=== PATIENT | male | born 1930 | race Caucasian/White ===

== ENCOUNTER 2019-04-28 13:34 | Inpatient (IN) | payer BC | END 2019-05-04 15:15 | disposition short-term general hospital (02) | LOC: FM/S 04-29 03:07 → FER 13:34 → FM/S 04-29 11:22 ==

== ENCOUNTER 2019-05-08 13:38 | Inpatient (IN) | payer BC ==
[2019-05-08 13:58] VITALS: BMI 28.3
--- NOTE | 2019-05-08 14:57 | PDOC ---
Documentation entered by Otis Marquez SCRIBE, acting as scribe for Mag Fry MD. Mag Fry MD: This documentation has been prepared by the Alma mehta Elijah, SCRIBE, under my direction and personally reviewed by me in its entirety. I confirm that the documentation accurately reflects all work, treatment, procedures, and medical decision making performed by me. Attending Attestation - Resident Resident Name: BuckJasmeet - ED Attending Attestation I have performed the following: I have examined & evaluated the patient, The case was reviewed & discussed with the resident, I agree w/resident's findings & plan - HPI HPI: 05/08/19 14:38 The patient is an 88 year old male with a significant past medical history of HTN, HLD, prostate cancer, gout, dementia who presents to the ED via EMS with AMS. Patient was noted to have a fever of 101.3 and was brought in from [facility]. History is limited secondary to patients condition. Allergies: NKA PCP. Dr. Reich - Physicial Exam PE: 05/08/19 14:38 GENERAL: +Alert and Oriented x1. ENT: +Dry Mucous Membranes Ears normal, nares patent, oropharynx clear without exudates. NECK: Normal range of motion, supple, no nuchal rigidity LUNGS: Breath sounds equal, clear to auscultation bilaterally. No wheezes, and no crackles. HEART: Regular rate and rhythm, normal S1 and S2 without murmur, rub or gallop. ABDOMEN: Soft, nontender, normoactive bowel sounds. No guarding, no rebound. No masses palpable. EXTREMITIES: +When legs are moved Patient Yells. No edema. NEUROLOGICAL: Cranial nerves II through XII grossly intact. Normal speech. No focal neurological deficits. SKIN: Warm, Dry, normal turgor, no rashes or lesions noted. - Medical Decision Making 05/08/19 14:53 88 yo M h/o dementia, HTN, CAD, GERD, who presents to the ER due to AMS and temp of 101.3 at the custodial Pt is unable to provide any history No signs of cellulitis No diarrhea Pt does have pain with movement of his legs Will do: Sepsis orderset IVF Abx 05/08/19 14:55 EKG : Afib rate of 104 bpm, axis nml, intervals nml, no st elevation or depression (Afib is new) 05/08/19 16:33 CXR : Cardiomegaly, no infiltrate 05/08/19 16:41 Laboratory Tests 05/08/19 05/08/19 05/08/19 15:00 15:00 15:00 WBC 13.9 H Hgb 11.1 L Hct 34.0 L Plt Count 372 D Neutrophils % 82.9 H D PT with INR 15.80 H INR 1.34 H PTT (Actin FS) 28.3 Lactic Acid 2.6 H* 05/08/19 17:41 Laboratory Tests 05/08/19 15:00 Urine Blood Negative Urine Nitrite Negative Ur Leukocyte Esterase Negative Empiric abx Will admit
--- NOTE | 2019-05-08 15:45 | PDOC ---
History of Present Illness - General Chief Complaint: SIRS, Suspected/Possible Stated Complaint: AMS Time Seen by Provider: 05/08/19 14:06 History Source: EMS, Family Exam Limitations: Clinical Condition (AMS), Dementia - History of Present Illness Initial Comments: 88 yo M PMH dementia, HTN, HLD, phimosis, p/w AMS. Sent from [facility] for elevated temperature. Notably, was her on 05/04/19, found to have yeast and Proteus, given fluconazole and 05/08/19 15:43 Past History - Past Medical History Allergies/Adverse Reactions: Allergies Allergy/AdvReac Type Severity Reaction Status Date / Time No Known Allergies Allergy Verified 05/08/19 13:56 Home Medications: Ambulatory Orders Allopurinol [Zyloprim -] 100 mg PO DAILY #30 tablet 11/24/12 Amlodipine Besylate [Norvasc -] 5 mg PO DAILY 10/09/14 Labetalol HCl [Normodyne -] 200 mg PO DAILY 10/09/14 Paroxetine HCl [Paxil] 40 mg PO DAILY 10/09/14 Atorvastatin Ca [Lipitor] 20 mg PO DAILY 04/28/19 Memantine HCl [Namenda -] 5 mg PO DAILY 04/28/19 Acetaminophen [Tylenol .Regular Strength -] 650 mg PO Q6H PRN tablet 05/04/19 Albuterol Sulfate 0.5% [Ventolin 0.5% Nebulizing Soln. -] 1 amp NEB Q4H PRN amp 05/04/19 Amox-Tr/K Cl [Augmentin 875-125mg Tablet -] 1 tab PO BID@0800,1730 5 Days #10 tablet 05/04/19 Heparin - 5,000 unit SQ TID vial 05/04/19 Nystatin Cream [Mycostatin Cream -] 1 applic TP BID applic 05/04/19 Pantoprazole Sodium [Protonix -] 20 mg PO DAILY tablet.ec 05/04/19 Risperidone [Risperdal -] 0.5 mg PO BID tablet 05/04/19 Sennosides/Docusate Sodium [Pericolace -] 1 tablet PO BID tablet 05/04/19 predniSONE [Deltasone -] 30 mg PO DAILY tablet 05/04/19 traMADol HCL [Ultram -] 50 mg PO Q8H PRN #30 tablet MDD 3 05/04/19 Cancer: Yes (PROSTATE) COPD: No Dementia: Yes HTN: Yes Hypercholesterolemia: Yes - Surgical History Abdominal Surgery: Yes (HERNIA) Orthopedic Surgery: Yes (L. Knee and Shoulder) - Immunization History Td Vaccination: No - Suicide/Smoking/Psychosocial Hx Smoking Status: Yes Smoking History: Never smoked Have you smoked in the past 12 months: No Number of Cigarettes Smoked Daily: 0 If you are a former smoker, when did you quit?: 49 yrs ago Information on smoking cessation initiated: No Hx Alcohol Use: No Drug/Substance Use Hx: No Substance Use Type: None Hx Substance Use Treatment: No *Physical Exam - Vital Signs Last Vital Signs Temp Pulse Resp BP Pulse Ox 100.7 F H 106 H 20 92/37 L 96 05/08/19 13:56 05/08/19 13:56 05/08/19 13:56 05/08/19 13:56 05/08/19 13:56 ED Treatment Course - LABORATORY CBC & Chemistry Diagram: 05/08/19 15:00 05/08/19 15:00 *DC/Admit/Observation/Transfer - Referrals Referrals: Roby Reich MD [Primary Care Provider] - - Patient Instructions - Post Discharge Activity
--- NOTE | 2019-05-08 15:50 | PDOC ---
History of Present Illness - General Chief Complaint: SIRS, Suspected/Possible Stated Complaint: AMS Time Seen by Provider: 05/08/19 14:06 History Source: Family, [facility] Records Exam Limitations: Clinical Condition (AMS), Dementia - History of Present Illness Initial Comments: 88 yo M PMH dementia, prostate CA, phimosis, HTN, HLD, gout, p/w AMS. Was sent over by [facility] for an elevated temperature, rectal temperature here 100.7 despite Tylenol dose before arrival. Notably, patient was discharged 4 days ago after coming in with confusion/agitation, difficulty ambulating, constipation and difficulty urinating, found to have yeast like discharge from possible balanitis and proteus UTI, given fluconazole and Zosyn X 3 days/Augmentin X 5 days. Patient unable to participate in history due to AMS, speaking primarily in American. 05/08/19 15:47 Past History - Past Medical History Allergies/Adverse Reactions: Allergies Allergy/AdvReac Type Severity Reaction Status Date / Time No Known Allergies Allergy Verified 05/08/19 13:56 Home Medications: Ambulatory Orders Allopurinol [Zyloprim -] 100 mg PO DAILY #30 tablet 11/24/12 Amlodipine Besylate [Norvasc -] 5 mg PO DAILY 10/09/14 Labetalol HCl [Normodyne -] 200 mg PO DAILY 10/09/14 Paroxetine HCl [Paxil] 40 mg PO DAILY 10/09/14 Atorvastatin Ca [Lipitor] 20 mg PO DAILY 04/28/19 Memantine HCl [Namenda -] 5 mg PO DAILY 04/28/19 Acetaminophen [Tylenol .Regular Strength -] 650 mg PO Q6H PRN tablet 05/04/19 Albuterol Sulfate 0.5% [Ventolin 0.5% Nebulizing Soln. -] 1 amp NEB Q4H PRN amp 05/04/19 Amox-Tr/K Cl [Augmentin 875-125mg Tablet -] 1 tab PO BID@0800,1730 5 Days #10 tablet 05/04/19 Heparin - 5,000 unit SQ TID vial 05/04/19 Nystatin Cream [Mycostatin Cream -] 1 applic TP BID applic 05/04/19 Pantoprazole Sodium [Protonix -] 20 mg PO DAILY tablet.ec 05/04/19 Risperidone [Risperdal -] 0.5 mg PO BID tablet 05/04/19 Sennosides/Docusate Sodium [Pericolace -] 1 tablet PO BID tablet 05/04/19 predniSONE [Deltasone -] 30 mg PO DAILY tablet 05/04/19 traMADol HCL [Ultram -] 50 mg PO Q8H PRN #30 tablet MDD 3 05/04/19 Cancer: Yes (PROSTATE) COPD: No Dementia: Yes HTN: Yes Hypercholesterolemia: Yes - Surgical History Abdominal Surgery: Yes (HERNIA) Orthopedic Surgery: Yes (L. Knee and Shoulder) - Immunization History Td Vaccination: No - Suicide/Smoking/Psychosocial Hx Smoking Status: Yes Smoking History: Never smoked Have you smoked in the past 12 months: No Number of Cigarettes Smoked Daily: 0 If you are a former smoker, when did you quit?: 49 yrs ago Information on smoking cessation initiated: No Hx Alcohol Use: No Drug/Substance Use Hx: No Substance Use Type: None Hx Substance Use Treatment: No Review of Systems - Review of Systems Able to Perform ROS?: No (AMS) *Physical Exam - Vital Signs Last Vital Signs Temp Pulse Resp BP Pulse Ox 100.7 F H 106 H 20 92/37 L 96 05/08/19 13:56 05/08/19 13:56 05/08/19 13:56 05/08/19 13:56 05/08/19 13:56 - Physical Exam Comments: Gen: apparent distress, disheveled Neuro: AAOX1 (knows own name), 5/5 strength in all extremities HEENT: atraumatic, normocephalic Neck: trachea midline, no swelling CV: tachy to 100s, regular rhythm Pulm: CTA b/l, no wheezing Abd: normal bowel sounds, diffusely tender Extr: no edema : phimosis, unable to visualize urethra Skin: feverish, dry 05/08/19 15:52 ED Treatment Course - LABORATORY CBC & Chemistry Diagram: 05/08/19 15:00 05/08/19 15:00 Medical Decision Making - Medical Decision Making Sepsis workup. CBC CMP EKG trop CXR UA/UC blood cultures two IVs ESR CRP 05/08/19 15:55 WBC 13.9, Hgb 11.1 05/08/19 16:00 VBG 7.4 05/08/19 16:04 EKG reviewed. Rate 104, afib, no ischemic changes. No known prior history of atrial fibrillation 05/08/19 16:31 Lactate 2.6 05/08/19 16:32 CRP 24.3, ESR 97, Cr 2.2 05/08/19 17:33 UA reviewed, trace ketones, no nitrates and leuk esterase 05/08/19 17:47 Suspect balanitis, unable to retract phimosis to culture area behind foreskin 05/08/19 18:00 *DC/Admit/Observation/Transfer Diagnosis at time of Disposition: Sepsis - Discharge Dispostion Condition at time of disposition: Guarded Decision to Admit order: Yes - Referrals Referrals: Roby Reich MD [Primary Care Provider] - - Patient Instructions - Post Discharge Activity
[2019-05-08 15:52] LABS: BASO % 0.2 % (0-2.0); EOS % 0.3 % (0-4.5); HEMOGLOBIN 11.1 GM/dL (11.7-16.9); LYMPH % 7.6 % (8-40); MCH 28.3 pg (25.7-33.7); MCHC 32.8 g/dl (32.0-35.9); MEAN CELL VOLUME 86.3 fl (80-96); MEAN PLT VOLUME 8.5 fl (7.5-11.1); NEUT % 82.9 % (42.8-82.8); PLATELET COUNT 372 K/MM3 (134-434); RBC 3.94 M/mm3 (4.00-5.60); RDW 14.9 % (11.9-15.9); WHITE BLOOD COUNT 13.9 K/mm3 (4.0-10.0)
[2019-05-08 16:00] LABS: VENOUS PC02 36.6 mmHg (41-51); VENOUS PH 7.4 (7.31-7.41); VENOUS PO2 36.1 mmHg (30-40)
[2019-05-08] MEDS: SODIUM CHLORIDE 0.9% 1000 ML INFUS.BAG IV SCH (16:06)
[2019-05-08 16:09] LABS: INR 1.34 (0.83-1.09); PROTHROMBIN TIME (PATIENT) 15.8 SEC (9.7-13.0)
[2019-05-08 16:12] LABS: ACTIVATED PTT 28.3 SECONDS (25.2-36.5)
[2019-05-08] MEDS ORDERED: VANCOMYCIN 1 GM in D5W (PRE-DOCKED) 1,000 MG/250 ML IVPB ONE (16:26)
[2019-05-08] MEDS ORDERED: PIPERACILLIN/TAZOB 4.5 GM 4.5 GM in DEXTROSE 5%-WATER 100 ML IVPB ONE (16:27)
[2019-05-08] MEDS ORDERED: ACETAMINOPHEN 1000 MG/100 ML VIAL (NON FORMULARY) IVPB ONE (16:35)
[2019-05-08 16:48] LABS: ALBUMIN 2.6 g/dl (3.4-5.0); ALK PHOS 94 U/L (45-117); ANION GAP 11 MMOL/L (8-16); BILIRUBIN,TOTAL 0.5 mg/dL (0.2-1); BLOOD UREA NITROGEN 48.2 mg/dL (7-18); CALCIUM 8.6 mg/dL (8.5-10.1); CHLORIDE 110 mmol/L (98-107); CO2 22 mmol/L (21-32); CREATININE 2.2 mg/dL (0.55-1.3); GLUCOSE,RANDOM 171 mg/dL (74-106); POTASSIUM 4.1 mmol/L (3.5-5.1); SGOT/AST 16 U/L (15-37); SGPT/ALT 22 U/L (13-61); SODIUM 143 mmol/L (136-145); TOT PROT 6.3 g/dl (6.4-8.2)
[2019-05-08 17:35] LABS: URINE APPEARANCE CLOUDY; URINE COLOR YELLOW; URINE GLUCOSE (UA) NEGATIVE (NEGATIVE)
[2019-05-08 17:36] LABS: URINE BILIRUBIN NEGATIVE (NEGATIVE); URINE KETONE TRACE (NEGATIVE); URINE LEUK ESTERASE NEGATIVE (NEGATIVE); URINE NITRITE NEGATIVE (NEGATIVE); URINE PROTEIN NEGATIVE (NEGATIVE); URINE UROBILINOGEN 0.2 mg/dL (0.2-1.0)
[2019-05-08] MEDS ORDERED: PIPERACILLIN/TAZOB 4.5 GM 4.5 GM/100 ML BAG IVPB ONE ×2 (18:38→18:48)
[2019-05-08] MEDS ORDERED: ACETAMINOPHEN INJECTION 100 ML IVPB ONE (18:38)
[2019-05-08] MEDS ORDERED: VANCOMYCIN 1 GRAM (PRE-DOCKED) 1,000 MG/250 ML BAG IVPB ONE (18:38)
--- NOTE | 2019-05-08 20:29 | PN ---
Teaching Attending Note ATTENDING PHYSICIAN STATEMENT I saw and evaluated the patient. I reviewed the resident's note and discussed the case with the resident. I agree with the resident's findings and plan as documented. Seen and examined;please refer to resident note for further historical information. Briefly, this is a 8 y/o male presenting with sepsis; elevated WBC , ESR, CRP, lactate which did improve with hydration. Did go into afib when in ER VS, labs, imaging reviewed NAD, AAOx1, resting in bed NC AT EOMI PERRLA Tachy and irregular, s1/2 Lungs CTAB but poor effort EKG reviewed CXR reviewed CT abdomen/pelvis/chest pending ASSESSMENT AND PLAN: Patient presents for sepsis; went into new- onset afib. # Sepsis # Elevated lactate -Resolved; likely 2/2 above # Hypoalbuminemia -Prealbumin check, nutrition consult # Anemia -Trend, doesnt need xf at this juncture. No bleeding # Dementia # CKD -Creat around baseline; trend BMP monitor UOP
[2019-05-08] MEDS: LACTATED RINGERS SOLUTION 1,000 ML/1,000 ML INFUS.BAG IV SCH (21:05)
--- NOTE | 2019-05-08 21:35 | HP ---
CHIEF COMPLAINT: AMS PCP: Dr. Roby Reich HISTORY OF PRESENT ILLNESS: Patient is an 88 year old male with PMH of dementia, prostate CA, HTN, HLD, and gout presenting from [facility] with AMS and fever. Pt was noted to have an oral temp of 101.3 and rectal temp of 100.7 despite given Tylenol prior to arrival. History is limited as pt has severe dementia and is minimally verbal or alert. He was dc'ed from the hospital 4 days ago after being admitted for AMS 2/2 UTI and MAURO. He was brought in on 04/28/19 with confusion, agitation , difficulty ambulating, and dysuria. He was found to have yeast-like discharge , balanitis, and proteus UTI and was treated with 3x days Zosyn and 5x days of Augmentin. On discharge, pt was noted to be be A&Ox3 and clinically stable. ER course was notable for: (1) Sepsis: febrile, tachycardic @ 106, hypotensive @ 92/37, leukocytosis 13.9, lactate 2.6 on arrival (2) Given 1gm vancomycin, 4.5gm Zosyn, IVF (3) CXR: no acute pathology Recent Travel: denies PAST MEDICAL HISTORY: Dementia Prostate CA HTN HLD Gout PAST SURGICAL HISTORY: Hernia repair Knee and leg surgery Social History: Smoking: quit 50 years ago Alcohol: denies Drugs: denies Family History: Unable to obtain family hx at this time due to patient's mental status Allergies No Known Allergies Allergy (Verified 05/08/19 13:56) HOME MEDICATIONS: Heparin Sodium (Porcine) (Heparin -) 5,000 unit SQ BID TARAS Lactated Ringer's (Lactated Ringers Solution) 1,000 ml in 1,000 mls @ 100 mls/ hr IV ASDIR TARAS Last Admin: 05/08/19 21:05 Dose: 100 mls/hr Piperacillin Sod/Tazobactam (Sod 3.375 gm/ Dextrose) 50 mls @ 100 mls/hr IVPB Q6H-IV TARAS; Protocol Piperacillin Sod/Tazobactam (Sod 3.375 gm/ Dextrose) 50 mls @ 100 mls/hr IVPB Q6H-IV TARAS; Protocol Stop: 05/09/19 21:29 Sodium Chloride (Normal Saline -) 2,300 ml IV ONCE TARAS Last Admin: 05/08/19 16:06 Dose: 2,300 ml REVIEW OF SYSTEMS CONSTITUTIONAL: Absent: fever, chills, diaphoresis, generalized weakness, malaise, loss of appetite, weight change HEENT: Absent: rhinorrhea, nasal congestion, throat pain, throat swelling, difficulty swallowing, mouth swelling, ear pain, eye pain, visual changes CARDIOVASCULAR: Absent: chest pain, syncope, palpitations, irregular heart rate, lightheadedness , peripheral edema RESPIRATORY: Absent: cough, shortness of breath, dyspnea with exertion, orthopnea, wheezing, stridor, hemoptysis GASTROINTESTINAL: Absent: abdominal pain, abdominal distension, nausea, vomiting, diarrhea, constipation, melena, hematochezia GENITOURINARY: Absent: dysuria, frequency, urgency, hesitancy, hematuria, flank pain, genital pain MUSCULOSKELETAL: Absent: myalgia, arthralgia, joint swelling, back pain, neck pain SKIN: Absent: rash, itching, pallor HEMATOLOGIC/IMMUNOLOGIC: Absent: easy bleeding, easy bruising, lymphadenopathy, frequent infections ENDOCRINE: Absent: unexplained weight gain, unexplained weight loss, heat intolerance, cold intolerance NEUROLOGIC: mental status change Absent: headache, focal weakness or paresthesias, dizziness, unsteady gait, seizure, bladder or bowel incontinence PSYCHIATRIC: Absent: anxiety, depression, suicidal or homicidal ideation, hallucinations. PHYSICAL EXAMINATION Vital Signs - 24 hr 05/08/19 05/08/19 13:56 14:10 Temperature 100.7 F H Pulse Rate 106 H Respiratory 20 Rate Blood Pressure 92/37 L O2 Sat by Pulse 96 96 Oximetry (%) GENERAL: Pt is not awake, A&Ox0, grimaces to sternal rub. HEAD: Normal with no signs of trauma. EYES: Pupils equal, round and reactive to light, extraocular movements intact, sclera anicteric, conjunctiva clear. No lid lag. EARS, NOSE, THROAT: Ears normal, nares patent, oropharynx clear without exudates. Moist mucous membranes. White mucous noted around oral cavity. NECK: Normal range of motion, supple without lymphadenopathy, JVD, or masses. LUNGS: Coarse breath sounds equal. No wheezes, and no crackles. No accessory muscle use. HEART: Regular rate and rhythm, S1 and S2, no murmurs or gallops. ABDOMEN: Largely distended, tender (pt grimaces on palpation). Normoactive bowel sounds, no rebound, no masses. No hepatomegaly or splenomegaly. GENITOURINARY: No balanitis. Mims in place. Penis shows no erythema or purulent discharge. No sacral ulcers noted. MUSCULOSKELETAL: Normal range of motion at all joints. No bony deformities or tenderness. No CVA tenderness. UPPER EXTREMITIES: 2+ pulses, warm, well-perfused. No cyanosis. No clubbing. No peripheral edema. LOWER EXTREMITIES: 2+ pulses, warm, well-perfused. No peripheral edema. Pt grimaces to palpation of LE. SKIN: Warm, dry, normal turgor, no rashes or lesions noted, normal capillary refill. Laboratory Results - last 24 hr CBC, BMP 05/08/19 15:00 05/08/19 15:00 Lactic acid: 2.6 Urine Test Results Urine Color Yellow Urine Appearance Cloudy Urine pH 5.0 (5.0-8.0) Ur Specific [place] 1.026 (1.010-1.035) Urine Protein Negative (NEGATIVE) Urine Glucose (UA) Negative (NEGATIVE) Urine Ketones Trace (NEGATIVE) H Urine Blood Negative (NEGATIVE) Urine Nitrite Negative (NEGATIVE) Urine Bilirubin Negative (NEGATIVE) Ur Leukocyte Esterase Negative (NEGATIVE) ASSESSMENT/PLAN: Patient is an 88 year old male with PMH of dementia, prostate CA, HTN, HLD, and gout presenting from [facility] with AMS and fever. #Sepsis of unknown source Given 1gm Vancomycin, 4.5gm Zosyn, and IVF bolus in ED Will cont with 3.375 Zosyn daily and LR @ 100ml/hr F/u urine and blood cx, Urine cx (05/02/19): proteus, blood cx (05/02/19): staph aureus CT head and chest: preliminary report essentially normal Initial EKG's showed questionable Afib (new). Repeat EKGs and tele monitoring did not show signs of Afib #MAURO vs CKD BUN/Cr: 48.2, 2.2 (BUN/Cr: 50.0, 2.0 on discharge 05/04/19) Hydrate with LR @ 100 ml/hr Will cont to monitor kidney function #HTN BP stable at this time Hold home meds for now (Labetolol 200mg daily, Amlodipine 5mg daily) #HLD Cont home meds: Lipitor 20mg daily #Gout Cont home meds: Allopurinol 100mg daily Pt was d/c'ed on Prednisone taper. Unknown dosing. Med rec in am. #Dementia Cont home meds: Namenda 5mg daily, Risperidal 0.5mg BID #Depression Cont home meds: Paroxetine 40mg daily #Prostate CA No acute problems #FEN LR @ 100ml/hr NPO until source of infection found and AMS improves #DVT ppx Heparin SQ BID #Dispo Monitor on tele Visit type - Emergency Visit Emergency Visit: Yes ED Registration Date: 05/08/19 Care time: The patient presented to the Emergency Department on the above date and was hospitalized for further evaluation of their emergent condition. - New Patient This patient is new to me today: Yes Date on this admission: 05/09/19 - Critical Care Critical Care patient: No ATTENDING PHYSICIAN STATEMENT I saw and evaluated the patient. I reviewed the resident's note and discussed the case with the resident. I agree with the resident's findings and plan as documented. SUBJECTIVE: OBJECTIVE: ASSESSMENT AND PLAN:
[2019-05-08] MEDS ORDERED: HEPARIN NA (PORCINE) 5,000 UNITS/ML 1ML VIAL ONE (21:42)
[2019-05-08] MEDS ORDERED: HEPARIN NA (PORCINE) 5,000 UNITS/ML 1ML VIAL SQ SCH (22:00)
--- NOTE | 2019-05-08 23:30 | EKG ---
Test Reason : Blood Pressure : / mmHG Vent. Rate : 104 BPM Atrial Rate : 108 BPM P-R Int : 000 ms QRS Dur : 084 ms QT Int : 340 ms P-R-T Axes : 000 003 072 degrees QTc Int : 447 ms POOR DATA QUALITY, INTERPRETATION MAY BE ADVERSELY AFFECTED ATRIAL FIBRILLATION WITH RAPID VENTRICULAR RESPONSE POSSIBLE INFERIOR INFARCT , AGE UNDETERMINED ABNORMAL ECG WHEN COMPARED WITH ECG OF 28-APR-2019 22:05, ATRIAL FIBRILLATION HAS LIKELY REPLACED ; SUGGEST REPEAT EKG TO OBTAIN LESS BASELINE ARTIFACT FOR POTENTIALLY MORE ACCURATE INTERPRETATION. Confirmed by FINN PARISI, DANIKA ([id number]) on 05/08/2019 11:30:03 PM Referred By: Confirmed By:DANIKA BRISENO MD
[2019-05-09] MEDS ORDERED: PIPERACILLIN/TAZOB 3.375 GM 3.375 GM/50 ML BAG IVPB ONE ×2 (03:05→09:34)
[2019-05-09] MEDS: PIPERACILLIN/TAZOB 3.375 GM 3.375 GM in DEXTROSE 5%-WATER - 50 ML IVPB SCH ×2 (03:12→09:41)
[2019-05-09 06:02] LABS: BASO % 0.6 % (0-2.0); EOS % 1.3 % (0-4.5); HEMATOCRIT 31.2 % (35.4-49); HEMOGLOBIN 10.2 GM/dL (11.7-16.9); LYMPH % 8.5 % (8-40); MCH 28.3 pg (25.7-33.7); MCHC 32.8 g/dl (32.0-35.9); MEAN CELL VOLUME 86.4 fl (80-96); MEAN PLT VOLUME 7.7 fl (7.5-11.1); MONO % 10.8 % (3.8-10.2); NEUT % 78.8 % (42.8-82.8); PLATELET COUNT 318 K/MM3 (134-434); RBC 3.61 M/mm3 (4.00-5.60); RDW 14.6 % (11.9-15.9); WHITE BLOOD COUNT 12.3 K/mm3 (4.0-10.0)
[2019-05-09 06:43] LABS: ALBUMIN 2.3 g/dl (3.4-5.0); BILIRUBIN,TOTAL 0.6 mg/dL (0.2-1); BLOOD UREA NITROGEN 41.7 mg/dL (7-18); CALCIUM 8.2 mg/dL (8.5-10.1); CREATININE 1.8 mg/dL (0.55-1.3); MAGNESIUM 2.4 mg/dL (1.8-2.4); PHOSPHOROUS 3.6 mg/dL (2.5-4.9); POTASSIUM 3.7 mmol/L (3.5-5.1); TOT PROT 5.8 g/dl (6.4-8.2)
[2019-05-09] MEDS: PARoxetine HCL 20 MG TABLET PO SCH (09:54)
[2019-05-09] MEDS: SENNOSIDES/DOCUSATE COMBO (SENNA PLUS) TABLET (UD) PO SCH ×2 (09:54→23:00)
[2019-05-09] MEDS: MEMANTINE HCL 5 MG TABLET (UD) PO SCH (09:54)
[2019-05-09] MEDS: HEPARIN NA (PORCINE) 5,000 UNITS/ML 1ML VIAL SQ SCH ×2 (09:54→22:59)
[2019-05-09] MEDS: ALLOPURINOL 100 MG TABLET (FP) PO SCH (09:55)
[2019-05-09] MEDS: risperiDONE 0.5 MG TABLET (FP) PO SCH ×2 (09:55→23:00)
--- NOTE | 2019-05-09 10:26 | CON.ID ---
Consult - Past Medical History Cardio/Vascular: Yes: CAD, HTN, Hyperlipdemia Gastrointestinal: Yes: GERD Renal/: Yes: Other (Hx of prostate cancer s/p radiation.) Psych: Yes: Depression Rheumatology: Yes: Gout ENT: Yes: Allergic Rhinitis, Sinusitis - Past Surgical History Past Surgical History: Yes: Hernia Repair, Joint Replacement - Alcohol/Substance Use Hx Alcohol Use: No History of Substance Use: reports: None - Smoking History Smoking history: Never smoked Have you smoked in the past 12 months: No Aproximately how many cigarettes per day: 0 If you are a former smoker, when did you quit?: 49 yrs ago - Social History Usual Living Arrangement: With Spouse ADL: Independent History of Recent Travel: No Home Medications - Allergies Allergies/Adverse Reactions: Allergies Allergy/AdvReac Type Severity Reaction Status Date / Time No Known Allergies Allergy Verified 05/08/19 13:56 - Home Medications Home Medications: Ambulatory Orders Allopurinol [Zyloprim -] 100 mg PO DAILY #30 tablet 11/24/12 Amlodipine Besylate [Norvasc -] 5 mg PO DAILY 10/09/14 Labetalol HCl [Normodyne -] 200 mg PO DAILY 10/09/14 Paroxetine HCl [Paxil] 40 mg PO DAILY 10/09/14 Atorvastatin Ca [Lipitor] 20 mg PO DAILY 04/28/19 Memantine HCl [Namenda -] 5 mg PO DAILY 04/28/19 Acetaminophen [Tylenol .Regular Strength -] 650 mg PO Q6H PRN tablet 05/04/19 Albuterol Sulfate 0.5% [Ventolin 0.5% Nebulizing Soln. -] 1 amp NEB Q4H PRN amp 05/04/19 Amox-Tr/K Cl [Augmentin 875-125mg Tablet -] 1 tab PO BID@0800,1730 5 Days #10 tablet 05/04/19 Heparin - 5,000 unit SQ TID vial 05/04/19 Nystatin Cream [Mycostatin Cream -] 1 applic TP BID applic 05/04/19 Pantoprazole Sodium [Protonix -] 20 mg PO DAILY tablet.ec 05/04/19 Risperidone [Risperdal -] 0.5 mg PO BID tablet 05/04/19 Sennosides/Docusate Sodium [Pericolace -] 1 tablet PO BID tablet 05/04/19 predniSONE [Deltasone -] 30 mg PO DAILY tablet 05/04/19 traMADol HCL [Ultram -] 50 mg PO Q8H PRN #30 tablet MDD 3 05/04/19 Acyclovir [Zovirax -] 400 mg PO TID 05/08/19 Physical Exam Vital Signs: Vital Signs Temperature 100.7 F H 05/08/19 13:56 Pulse Rate 79 05/09/19 08:19 Respiratory Rate 16 05/09/19 08:19 Blood Pressure 142/65 05/09/19 08:19 O2 Sat by Pulse Oximetry (%) 95 05/09/19 08:19 Labs: CBC, BMP 05/09/19 05:27 05/09/19 05:27
--- NOTE | 2019-05-09 13:26 | PN ---
Teaching Attending Note Name of Resident: Christy Alston ATTENDING PHYSICIAN STATEMENT I saw and evaluated the patient. I reviewed the resident's note and discussed the case with the resident. I agree with the resident's findings and plan as documented. SUBJECTIVE:resting comfortable. pushes away when attempt to examine. did not respond to albanian electrical tester on the phone to simple questions OBJECTIVE: Last Vital Signs Temp Pulse Resp BP Pulse Ox 100.7 F H 79 16 142/65 95 05/08/19 13:56 05/09/19 08:19 05/09/19 08:19 05/09/19 08:19 05/09/19 08:19 difficult to perform physical exam. was unable to roll patient or do complete assessment General resting comfortable and quickly becomes agitated when examined CV S1 S2 irregular Lungs CTA anteriorly Abdomen diffusely tender +guarding. cant not do complete exam Extremities trace pitting edema ASSESSMENT AND PLAN: 88yo M with PMH dementia, anemia, prostate ca, HTN, dyslipidemia sent from [facility] for altered mental status and fever of 103 documented at facility 1. Sepsis of uknown origin- Tm 103 (here 100.7) with tachycardia and leukocytosis. unknown source. UA and CXR is negative. CT chest/abdomen/pelvis done and awaiting results. started on vanco and zosyn and plan to continue with zosyn for now. on IVF. Lactic acidosis resolved. ID on board. F/u Cx 2. Acute toxic metabolic encephalopathy-unclear what baseline is as old documentation seems to be inconsistent. will call [facility] to determine baseline. frequent neurochecks 3. MAURO- due to sepsis. already trending down. cont to monitor, IVF. avoid nephrotoxic agents 4. Questionable afib- documented as seen on initial EKG, i did not see EKG. has no known hx. will repeat EKG. hold treatment at this time as rate is controlled. place on cardiac monitoring 5. Dementia- unknown baseline, cont meds 6. prostate ca 7. HTN- cont home medications 8. DVT ppx- hep sq
--- NOTE | 2019-05-09 13:50 | EKG ---
Test Reason : Blood Pressure : / mmHG Vent. Rate : 076 BPM Atrial Rate : 076 BPM P-R Int : 134 ms QRS Dur : 086 ms QT Int : 392 ms P-R-T Axes : 018 007 074 degrees QTc Int : 441 ms SINUS RHYTHM WITH PREMATURE ATRIAL COMPLEXES OTHERWISE NORMAL ECG WHEN COMPARED WITH ECG OF 08-MAY-2019 18:59, SINUS RHYTHM HAS REPLACED ATRIAL FIBRILLATION Confirmed by ISABELA NICHOLAS MD ([id number]) on 05/09/2019 1:50:26 PM Referred By: Confirmed By:ISABELA NICHOLAS MD
--- NOTE | 2019-05-09 13:56 | EKG ---
Test Reason : Blood Pressure : / mmHG Vent. Rate : 100 BPM Atrial Rate : 115 BPM P-R Int : 000 ms QRS Dur : 080 ms QT Int : 340 ms P-R-T Axes : 000 004 076 degrees QTc Int : 438 ms POOR DATA QUALITY, INTERPRETATION MAY BE ADVERSELY AFFECTED ATRIAL FIBRILLATION WITH PREMATURE VENTRICULAR OR ABERRANTLY CONDUCTED COMPLEXES ABNORMAL ECG WHEN COMPARED WITH ECG OF 08-MAY-2019 14:18, BORDERLINE CRITERIA FOR INFERIOR INFARCT ARE NO LONGER PRESENT Confirmed by ISABELA NICHOLAS MD ([id number]) on 05/09/2019 1:56:21 PM Referred By: Confirmed By:ISABELA NICHOLAS MD
[2019-05-09] MEDS: PIPERACILLIN/TAZOB 2.25 GM 2.25 GM in DEXTROSE 5%-WATER - 50 ML IVPB SCH ×2 (14:46→22:59)
--- NOTE | 2019-05-09 14:56 | PN ---
Physical Exam: SUBJECTIVE: Patient seen and examined at bedside. Unable to ascertain history from pt. On first exam pt was sleeping and didnt wake up when pinched. pt was sleeping and snoring. On second exam of pt this am, pt was awake but would not respond when spoken to on pharmaceutical representative phone. pt was combative on exam. pt verbalized pain when examining his back. OBJECTIVE: Vital Signs Period Temp Pulse Resp BP Sys/Pradhan Pulse Ox Last 24 Hr 68-81 16-25 142-154/49-65 95-95 GENERAL: The patient is awake, in no acute distress. HEAD: Normal with no signs of trauma. ENT: moist mucous membranes. NECK: Trachea midline, full range of motion, supple. LUNGS: anterior Breath sounds equal, no wheezes, no crackles, no accessory muscle use. HEART: irregular rate and rhythm, S1, S2 without murmur, rub or gallop. ABDOMEN: Soft, diffusely tender, nondistended, normoactive bowel sounds EXTREMITIES: 2+ pulses, warm, well-perfused, L LE edema. Laboratory Last Values WBC 12.3 K/mm3 (4.0-10.0) H 05/09/19 05:27 RBC 3.61 M/mm3 (4.00-5.60) L 05/09/19 05:27 Hgb 10.2 GM/dL (11.7-16.9) L 05/09/19 05:27 Hct 31.2 % (35.4-49) L 05/09/19 05:27 MCV 86.4 fl (80-96) 05/09/19 05:27 MCH 28.3 pg (25.7-33.7) 05/09/19 05:27 MCHC 32.8 g/dl (32.0-35.9) 05/09/19 05:27 RDW 14.6 % (11.9-15.9) 05/09/19 05:27 Plt Count 318 K/MM3 (134-434) 05/09/19 05:27 MPV 7.7 fl (7.5-11.1) 05/09/19 05:27 Absolute Neuts (auto) 9.7 K/mm3 (1.5-8.0) H 05/09/19 05:27 Neutrophils % 78.8 % (42.8-82.8) 05/09/19 05:27 Lymphocytes % 8.5 % (8-40) 05/09/19 05:27 Monocytes % 10.8 % (3.8-10.2) H 05/09/19 05:27 Eosinophils % 1.3 % (0-4.5) D 05/09/19 05:27 Basophils % 0.6 % (0-2.0) 05/09/19 05:27 Nucleated RBC % 0 % (0-0) 05/09/19 05:27 ESR 97 mm/hr (0-20) H 05/08/19 14:58 PT with INR 15.80 SEC (9.7-13.0) H 05/08/19 15:00 INR 1.34 (0.83-1.09) H 05/08/19 15:00 PTT (Actin FS) 28.3 SECONDS (25.2-36.5) 05/08/19 15:00 VBG pH 7.40 (7.31-7.41) 05/08/19 15:00 POC VBG pCO2 36.6 mmHg (41-51) L 05/08/19 15:00 POC VBG pO2 36.1 mmHg (30-40) 05/08/19 15:00 VBG HCO3 22.7 mmol/L (23-29) L 05/08/19 15:00 VBG O2 Sat (Dmitry) 63.6 % (70-80) L 05/08/19 15:00 VBG Base Excess -1.0 meq/l (-2-2) 05/08/19 15:00 Sodium 145 mmol/L (136-145) 05/09/19 05:27 Potassium 3.7 mmol/L (3.5-5.1) 05/09/19 05:27 Chloride 114 mmol/L (98-107) H 05/09/19 05:27 Carbon Dioxide 23 mmol/L (21-32) 05/09/19 05:27 Anion Gap 8 MMOL/L (8-16) 05/09/19 05:27 BUN 41.7 mg/dL (7-18) H 05/09/19 05:27 Creatinine 1.8 mg/dL (0.55-1.3) H 05/09/19 05:27 Est GFR (CKD-EPI)AfAm 38.10 05/09/19 05:27 Est GFR (CKD-EPI)NonAf 32.87 05/09/19 05:27 Random Glucose 99 mg/dL (74-106) 05/09/19 05:27 Lactic Acid 1.7 mmol/L (0.4-2.0) 05/08/19 18:23 Calcium 8.2 mg/dL (8.5-10.1) L 05/09/19 05:27 Phosphorus 3.6 mg/dL (2.5-4.9) 05/09/19 05:27 Magnesium 2.4 mg/dL (1.8-2.4) 05/09/19 05:27 Total Bilirubin 0.6 mg/dL (0.2-1) 05/09/19 05:27 AST 15 U/L (15-37) 05/09/19 05:27 ALT 20 U/L (13-61) 05/09/19 05:27 Alkaline Phosphatase 85 U/L (45-117) 05/09/19 05:27 Troponin I < 0.02 ng/ml (0.00-0.05) 05/08/19 15:00 C-Reactive Protein 24.3 MG/DL (0.00-0.3) H 05/08/19 15:00 Total Protein 5.8 g/dl (6.4-8.2) L 05/09/19 05:27 Albumin 2.3 g/dl (3.4-5.0) L 05/09/19 05:27 TSH 1.14 uIU/ml (0.358-3.74) 05/09/19 05:27 Urine Color Yellow 05/08/19 15:00 Urine Appearance Cloudy 05/08/19 15:00 Urine pH 5.0 (5.0-8.0) 05/08/19 15:00 Ur Specific Zap 1.026 (1.010-1.035) 05/08/19 15:00 Urine Protein Negative (NEGATIVE) 05/08/19 15:00 Urine Glucose (UA) Negative (NEGATIVE) 05/08/19 15:00 Urine Ketones Trace (NEGATIVE) H 05/08/19 15:00 Urine Blood Negative (NEGATIVE) 05/08/19 15:00 Urine Nitrite Negative (NEGATIVE) 05/08/19 15:00 Urine Bilirubin Negative (NEGATIVE) 05/08/19 15:00 Urine Urobilinogen 0.2 mg/dL (0.2-1.0) 05/08/19 15:00 Ur Leukocyte Esterase Negative (NEGATIVE) 05/08/19 15:00 Current Medications Allopurinol (Zyloprim -) 100 mg PO DAILY [facility] Last Admin: 05/09/19 09:55 Dose: 100 mg Atorvastatin Calcium (Lipitor -) 20 mg PO HS [facility] Heparin Sodium (Porcine) (Heparin -) 5,000 unit SQ BID [facility] Last Admin: 05/09/19 09:54 Dose: 5,000 unit Lactated Ringer's (Lactated Ringers Solution) 1,000 ml in 1,000 mls @ 100 mls/ hr IV ASDIR [facility] Last Admin: 05/08/19 21:05 Dose: 100 mls/hr Piperacillin Sod/Tazobactam (Sod 2.25 gm/ Dextrose) 50 mls @ 100 mls/hr IVPB Q6H-IV [facility]; Protocol Memantine (Namenda -) 5 mg PO DAILY [facility] Last Admin: 05/09/19 09:54 Dose: 5 mg Paroxetine HCl (Paxil -) 40 mg PO DAILY [facility] Last Admin: 05/09/19 09:54 Dose: 40 mg Risperidone (Risperdal -) 0.5 mg PO BID [facility] Last Admin: 05/09/19 09:55 Dose: 0.5 mg Senna/Docusate Sodium (Pericolace -) 1 tablet PO BID [facility] Last Admin: 05/09/19 09:54 Dose: 1 tablet Sodium Chloride (Normal Saline -) 2,300 ml IV ONCE [facility] Last Admin: 05/08/19 16:06 Dose: 2,[address] Chest/ abd/ pelvis: IMPRESSION: 1. Cardiomegaly and mild chronic lung disease. No evidence of pneumonia or acute pathology within the chest. 2. Mild hepatomegaly. 3. No evidence of intra-abdominal abscess or acute pathology within the abdomen or pelvis. Please see above discussion. ASSESSMENT/PLAN: 88 yo M PMH dementia, prostate Ca , HTN, HLD, and gout presented to ED with AMS and fever. Pt is admitted for Sepsis of unknown etiology. Pt was recently admitted on 04/28 for balantits and proteus UTI.Pt was DC to [facility], on communication pt was AO x2. yesterday at [facility] pt was combative but was alert and confused occasionally. Sepsis, unknown etiology -Lactate downtrending 2.6-->2.2 -pt febrile on admission, currently afebrile -prelim UCx and BCx negative -CXRay unchanged from prior admission -CT chest and abdomen/ pelvis see above -Leukocytosis improving -empiric vanc and zosyn in ED -c/w zosyn -c/w IVF -ID recommendations appreciated Acute Toxic Metabolic encephalopathy -pt was AOx2 at [facility], pt currently not oriented -c/w neuro checks MAURO on CKD -pt had MAURO prior admission 2/2 NSAID overuse -Cr improving -c/w IVF, avoid nephrotoxic agents AFib -new onset -rate control -c/w cardiac monitoring Dementia -baseline unclear -c/w Namenda and Risperidal Depression -c/w Paroxetine 40 F/E/N -LR @ 100ml/hr -NPO, awaiting speech and swallow eval DVTppx: Hep SQ Dispo: continue to monitor on med surg until medically optimized Visit type - Emergency Visit Emergency Visit: Yes ED Registration Date: 05/08/19 Care time: The patient presented to the Emergency Department on the above date and was hospitalized for further evaluation of their emergent condition. - New Patient This patient is new to me today: Yes Date on this admission: 05/09/19 - Critical Care Critical Care patient: No - Discharge Referral Referred to [facility] Med P.C.: No ATTENDING PHYSICIAN STATEMENT I saw and evaluated the patient. I reviewed the resident's note and discussed the case with the resident. I agree with the resident's findings and plan as documented. SUBJECTIVE: OBJECTIVE: ASSESSMENT AND PLAN:
[2019-05-09] MEDS ORDERED: LABETALOL HCL 200 MG TABLET (FP) PO SCH ×2 (16:19→16:23)
[2019-05-09] MEDS ORDERED: amLODIPine BESYLATE 10 MG TABLET (FP) PO SCH (16:22)
[2019-05-09] MEDS: ACETAMINOPHEN 325 MG TABLET (FP) PO PRN (17:15)
[2019-05-09] MEDS ORDERED: PIPERACILLIN/TAZOB 3.375 GM 3.375 GM in DEXTROSE 5%-WATER - 50 ML IVPB SCH (21:00)
[2019-05-09] MEDS ORDERED: PIPERACILLIN/TAZOBACTAM 2.25 GM VIAL IVPB ONE (21:26)
[2019-05-09] MEDS ORDERED: DEXTROSE 5%-WATER - 50 ML IVPB ONE (21:26)
[2019-05-09] MEDS: ATORVASTATIN CA 20 MG TABLET (FP) PO SCH (23:00)
[2019-05-09] MEDS: LACTATED RINGERS SOLUTION 1,000 ML/1,000 ML INFUS.BAG IV SCH (23:00)
[2019-05-10] MEDS ORDERED: DEXTROSE 5%-WATER - 50 ML IVPB ONE ×4 (02:59→22:54)
[2019-05-10] MEDS ORDERED: PIPERACILLIN/TAZOBACTAM 2.25 GM VIAL IVPB ONE ×4 (02:59→22:54)
[2019-05-10] MEDS: PIPERACILLIN/TAZOB 2.25 GM 2.25 GM in DEXTROSE 5%-WATER - 50 ML IVPB SCH ×4 (03:30→23:20)
[2019-05-10] MEDS ORDERED: LABETALOL HCL 200 MG TABLET (FP) PO SCH (10:00)
[2019-05-10] MEDS ORDERED: amLODIPine BESYLATE 10 MG TABLET (FP) PO SCH (10:00)
--- NOTE | 2019-05-10 10:06 | PN ---
Progress Note, Physician History of Present Illness: patient starting to look much better more awake and alert daughter in the room - Current Medication List Current Medications: Active Medications Acetaminophen (Tylenol -) 650 mg PO Q6H PRN PRN Reason: Fever Or Pain Last Admin: 05/09/19 17:15 Dose: 650 mg Allopurinol (Zyloprim -) 100 mg PO DAILY [facility] Last Admin: 05/09/19 09:55 Dose: 100 mg Amlodipine Besylate (Norvasc -) 10 mg PO DAILY [facility] Atorvastatin Calcium (Lipitor -) 20 mg PO HS [facility] Last Admin: 05/09/19 23:00 Dose: 20 mg Heparin Sodium (Porcine) (Heparin -) 5,000 unit SQ BID [facility] Last Admin: 05/09/19 22:59 Dose: 5,000 unit Lactated Ringer's (Lactated Ringers Solution) 1,000 ml in 1,000 mls @ 100 mls/ hr IV ASDIR [facility] Last Admin: 05/09/19 23:00 Dose: 100 mls/hr Piperacillin Sod/Tazobactam (Sod 2.25 gm/ Dextrose) 50 mls @ 100 mls/hr IVPB Q6H-IV [facility]; Protocol Last Admin: 05/10/19 03:30 Dose: 100 mls/hr Labetalol HCl (Normodyne -) 200 mg PO DAILY [facility] Memantine (Namenda -) 5 mg PO DAILY [facility] Last Admin: 05/09/19 09:54 Dose: 5 mg Paroxetine HCl (Paxil -) 40 mg PO DAILY [facility] Last Admin: 05/09/19 09:54 Dose: 40 mg Risperidone (Risperdal -) 0.5 mg PO BID [facility] Last Admin: 05/09/19 23:00 Dose: 0.5 mg Senna/Docusate Sodium (Pericolace -) 1 tablet PO BID [facility] Last Admin: 05/09/19 23:00 Dose: 1 tablet Sodium Chloride (Normal Saline -) 2,300 ml IV ONCE [facility] Last Admin: 05/08/19 16:06 Dose: 2,300 ml - Objective Vital Signs: Vital Signs Temperature 99.4 F 05/10/19 09:00 Pulse Rate 68 05/10/19 09:00 Respiratory Rate 20 05/10/19 09:00 Blood Pressure 174/78 H 05/10/19 09:00 O2 Sat by Pulse Oximetry (%) 97 08/08/19 21:00 Constitutional: Yes: No Distress, Calm Cardiovascular: Yes: S1, S2 Respiratory: Yes: Regular, CTA Bilaterally Gastrointestinal: Yes: Normal Bowel Sounds, Soft Musculoskeletal: Yes: WNL Extremities: Yes: WNL Neurological: Yes: Alert Psychiatric: Yes: Alert Labs: CBC, BMP 05/09/19 05:27 05/09/19 05:27 INR, PTT INR 1.34 (0.83-1.09) H 05/08/19 15:00 Assessment/Plan 88 yo M PMH dementia, prostate Ca , HTN, HLD, and gout presented to ED with AMS and fever. Pt is admitted for Sepsis of unknown etiology. Pt was recently admitted on 04/28 for balantits and proteus UTI.Pt was DC to [facility], on communication pt was AO x2. yesterday at [facility], pt was combative but was alert and confused occasionally. sepsis Acute Toxic Metabolic encephalopathy silver afib leukocytosis plan continue current mgmt abx monitor wbc nutrition rest as per the team
[2019-05-10] MEDS: risperiDONE 0.5 MG TABLET (FP) PO SCH ×2 (10:44→23:46)
[2019-05-10] MEDS: HEPARIN NA (PORCINE) 5,000 UNITS/ML 1ML VIAL SQ SCH ×2 (10:44→23:20)
[2019-05-10] MEDS: MEMANTINE HCL 5 MG TABLET (UD) PO SCH (10:44)
[2019-05-10] MEDS: SENNOSIDES/DOCUSATE COMBO (SENNA PLUS) TABLET (UD) PO SCH ×2 (10:44→23:21)
[2019-05-10] MEDS: ALLOPURINOL 100 MG TABLET (FP) PO SCH (10:44)
[2019-05-10 10:45] LABS: HEMATOCRIT 30.9 % (35.4-49); HEMOGLOBIN 10.2 GM/dL (11.7-16.9); MCH 28.5 pg (25.7-33.7); MEAN CELL VOLUME 86.4 fl (80-96); PLATELET COUNT 332 K/MM3 (134-434); RBC 3.57 M/mm3 (4.00-5.60); RDW 14.6 % (11.9-15.9); WHITE BLOOD COUNT 7.8 K/mm3 (4.0-10.0)
[2019-05-10] MEDS: PARoxetine HCL 20 MG TABLET PO SCH (10:45)
[2019-05-10 11:09] LABS: BLOOD UREA NITROGEN 31.2 mg/dL (7-18); CALCIUM 8.7 mg/dL (8.5-10.1); CREATININE 1.4 mg/dL (0.55-1.3); MAGNESIUM 2.3 mg/dL (1.8-2.4); PHOSPHOROUS 3.3 mg/dL (2.5-4.9); POTASSIUM 3.7 mmol/L (3.5-5.1)
--- NOTE | 2019-05-10 11:52 | CONSULT ---
Admitting History and Physical - Primary Care Physician PCP: Gisselle Moses - Admission History of Present Illness: 88 yo M PMH dementia, prostate Ca , HTN, HLD, and gout presented to ED with AMS , combative,confused and fever. History Source: Family Member, Medical Record Limitations to Obtaining History: Clinical Condition (EKLUTNA) - Past Medical History Cardiovascular: Yes: CAD, HTN, Hyperlipdemia Gastrointestinal: Yes: GERD Renal/: Yes: Other (Hx of prostate cancer s/p radiation.) Psych: Yes: Depression Rheumatology: Yes: Gout ENT: Yes: Allergic Rhinitis, Sinusitis - Past Surgical History Past Surgical History: Yes: Hernia Repair, Joint Replacement - Smoking History Smoking history: Never smoked Have you smoked in the past 12 months: No Aproximately how many cigarettes per day: 0 If you are a former smoker, when did you quit?: 49 yrs ago - Alcohol/Substance Use Hx Alcohol Use: No History of Substance Use: reports: None - Social History ADL: Independent History of Recent Travel: No History - Admission Reason For Visit: SEPSIS - Diagnostics X-ray: Report Reviewed CT Scan: Report Reviewed - General Mental Status: Awake and Alert, Able to Follow Commands, Intermittently Confused Attention: Distractible, Mild Impairment Ability to Follow Directions: Good (when he hears you. EKLUTNA) - Hearing Hearing: Impaired Speech Evaluation - Communication Primary Language: [place] Secondary Language: KAZAKH Communication: Yes: Within Normal Limits - Speech Production Intelligibility: Yes: WNL - Speech Characteristics Voice Loudness: Normal Voice Pitch: Yes: Normal Voice Phonatory-based Quality: Yes: Normal Speech Pattern: Normal Nasal Resonance: Normal Articulation: Yes: Precise (edentulous) Rate of Speech: Intact - Language/Auditory Comprehension Follows: Yes: 1 Stage Simple Commands Observation: Able to respond to yes/no queries: Yes (if loud enough), Comprehends Conversational Speech: Yes (if loud enough), Benefits from Slow Speech: Yes, Benefits from Repetiton: Yes, Benefits from Increased Volume of Speech: Yes - Language/Verbal Expression Able to Communicate Wants and Needs: Yes: WNL - Swallow Evaluation/Bedside Assessment Current Nutritional Intake: NPO Oral Secretions: Yes: WFL, Tongue Coated (white coating. Needs mouth care. r/o thrush) Dentition: Yes: Edentulous (Dentures are at home?NH?) Facial Symmetry at Rest: Symmetrical Facial Symmetry on Retraction: Symmetrical Against Resistance Opening: Normal Against Resistance Closing: Normal Pucker Lips: Normal Smile: Normal Lingual Movement: Normal, Symmetric Lingual Speed of Movement: Normal Lingual Movement Strgth Against Opposition: Normal Lingual Movement Characteristics: Normal Velopharyngeal Movement: Normal Laryngeal Elevation: WFL Laryngeal Movement: Able to Palpate Rate of Intake: WFL Bolus Size: WFL Labial Seal: WFL Chewing: Impaired (edentulous) Oral Prep Time: WFL A-P Transit: WFL Pocketing: None Coughing/Throat Clear: No Change in Voice: No Recommendations - Speech Evaluation, Impression/Plan Impression: EKLUTNA. Verbal Maldivian/Belarusian Brisk swallow. Edentulous. - Disposition Discharge to: To be Determined - Dysphagia Impressions/Plan Dysphagia Impressions: Mild Impairment (edentulous, adversely affects mastication. brisk swallow (-) 3 oz water test) *Silent aspiration: cannot be R/O at bedside Dysphagia Treatment Plan: Small Bites, Chin Tuck/Down, Clear Pocket Food, Trial Feedings, Facilitative Feeding, 1/2 tsp. at a time, Elevate HOB during feed, Other (Mouth care. r/o thrush) - Recommendations Diet Consistency: Dysphagia Minced Medication Administration: Crushed with applesauce Liquids: Thin Liquids Supplement: Ensure
--- NOTE | 2019-05-10 12:33 | PN ---
Teaching Attending Note Name of Resident: Christy Alston ATTENDING PHYSICIAN STATEMENT I saw and evaluated the patient. I reviewed the resident's note and discussed the case with the resident. I agree with the resident's findings and plan as documented. SUBJECTIVE:asymptomatic. states breathing is fine and has no pain. denies Cp, SOB, fever, chills or cough OBJECTIVE: Last Vital Signs Temp Pulse Resp BP Pulse Ox 99.4 F 68 20 174/78 H 97 05/10/19 09:00 05/10/19 09:00 05/10/19 09:00 05/10/19 09:00 05/09/19 21:00 General NAD, LUMMI CV S1 S2 RRR Lungs CTA anteriorly Abdomen soft NT/ND no rebound or guarding. obese Extremities no edema ASSESSMENT AND PLAN: 88yo M with PMH dementia, anemia, prostate ca, HTN, dyslipidemia sent from [facility] for altered mental status and fever of 103 documented at facility 1. Sepsis due to suspected PNA- Tm 100.7. with resolution of leukocytosis and tachycardia. CT chest/abdomen/pelvis is all negative. ordered repeat CXR to evaluate for signs of aspiration as may have been negative as pt was found to be dehydrated. on zosyn day 2. will have swallow eval. elevated HOB. ID on board. f/u cx. 2. Acute toxic metabolic encephalopathy- today is alert. mostly Ukrainian speaking but does answer in broken Mongolian. Awaiting family arrival to determine baseline. 3. MAURO- due to sepsis. trending down. will d/c IVF once tolerating diet. avoid nephrotoxic agents 4. Questionable afib-no afib seen on monitor over 24H. repeat EKG is also NSR. will d/c cardiac monitornig. 5. Dementia- unknown baseline, cont meds 6. prostate ca 7. HTN- cont home medications 8. DVT ppx- hep sq 9. can d/c cardiac monitoring
--- NOTE | 2019-05-10 14:01 | PN ---
Physical Exam: SUBJECTIVE: Patient seen and examined at bedside. pt states he is not in pain and only wants water. Tried to call daughter today to determine baseline mental status and there was no response on the phone. OBJECTIVE: Vital Signs Period Temp Pulse Resp BP Sys/Pradhan Pulse Ox Last 24 Hr 98.2 F-100.6 F 68-84 16-20 113-174/51-80 96-97 GENERAL: The patient is awake, alert, and oriented to person and time, in no acute distress. LUNGS: Breath sounds equal, clear to auscultation bilaterally, no wheezes, no crackles, no accessory muscle use. HEART: Regular rate and rhythm, S1, S2 without murmur, rub or gallop. ABDOMEN: Soft, nontender, nondistended, normoactive bowel sounds, no guarding. EXTREMITIES: 2+ pulses, warm, well-perfused, B/L LE pitting edema. Laboratory Results - last 24 hr 05/10/19 05/10/19 10:00 10:00 WBC 7.8 RBC 3.57 L Hgb 10.2 L Hct 30.9 L MCV 86.4 MCH 28.5 MCHC 33.0 RDW 14.6 Plt Count 332 MPV 8.0 Sodium 145 Potassium 3.7 Chloride 111 H Carbon Dioxide 25 Anion Gap 10 BUN 31.2 H Creatinine 1.4 H Est GFR (CKD-EPI)AfAm 51.62 Est GFR (CKD-EPI)NonAf 44.54 Random Glucose 68 L Calcium 8.7 Phosphorus 3.3 Magnesium 2.3 Current Medications Acetaminophen (Tylenol -) 650 mg PO Q6H PRN PRN Reason: Fever Or Pain Last Admin: 05/09/19 17:15 Dose: 650 mg Allopurinol (Zyloprim -) 100 mg PO DAILY [facility] Last Admin: 05/10/19 10:44 Dose: 100 mg Amlodipine Besylate (Norvasc -) 10 mg PO DAILY [facility] Last Admin: 05/10/19 10:44 Dose: 10 mg Atorvastatin Calcium (Lipitor -) 20 mg PO HS [facility] Last Admin: 05/09/19 23:00 Dose: 20 mg Heparin Sodium (Porcine) (Heparin -) 5,000 unit SQ BID [facility] Last Admin: 05/10/19 10:44 Dose: 5,000 unit Lactated Ringer's (Lactated Ringers Solution) 1,000 ml in 1,000 mls @ 100 mls/ hr IV ASDIR [facility] Last Admin: 05/09/19 23:00 Dose: 100 mls/hr Piperacillin Sod/Tazobactam (Sod 2.25 gm/ Dextrose) 50 mls @ 100 mls/hr IVPB Q6H-IV [facility]; Protocol Last Admin: 05/10/19 10:42 Dose: 100 mls/hr Labetalol HCl (Normodyne -) 200 mg PO DAILY [facility] Last Admin: 05/10/19 10:44 Dose: 200 mg Memantine (Namenda -) 5 mg PO DAILY [facility] Last Admin: 05/10/19 10:44 Dose: 5 mg Paroxetine HCl (Paxil -) 40 mg PO DAILY [facility] Last Admin: 05/10/19 10:45 Dose: 40 mg Risperidone (Risperdal -) 0.5 mg PO BID [facility] Last Admin: 05/10/19 10:44 Dose: 0.5 mg Senna/Docusate Sodium (Pericolace -) 1 tablet PO BID [facility] Last Admin: 05/10/19 10:44 Dose: 1 tablet Sodium Chloride (Normal Saline -) 2,300 ml IV ONCE [facility] Last Admin: 05/08/19 16:06 Dose: 2,300 ml ASSESSMENT/PLAN: CT Chest/ abd/ pelvis: IMPRESSION: 1. Cardiomegaly and mild chronic lung disease. No evidence of pneumonia or acute pathology within the chest. 2. Mild hepatomegaly. 3. No evidence of intra-abdominal abscess or acute pathology within the abdomen or pelvis. Please see above discussion. ASSESSMENT/PLAN: 88 yo M PMH dementia, prostate Ca , HTN, HLD, and gout presented to ED with AMS and fever. Pt is admitted for Sepsis of unknown etiology. Pt was recently admitted on 04/28 for balantits and proteus UTI.Pt was DC to [facility], on communication pt was AO x2. yesterday at [facility], pt was combative but was alert and confused occasionally. Sepsis, unknown etiology -Lactate downtrending 2.6-->2.2 -pt febrile on admission, currently afebrile -prelim UCx and BCx negative -CXRay reviewed by me. no acute process -CT chest and abdomen/ pelvis see above -Leukocytosis improving -empiric vanc and zosyn in ED -c/w zosyn -c/w IVF -ID recommendations appreciated Acute Toxic Metabolic encephalopathy -pt was AOx2 at [facility], tried to call daughter to determine baseline with no answer, will call again later -c/w neuro checks MAURO on CKD -pt had MAURO prior admission 2/2 NSAID overuse -Cr improving -c/w IVF, avoid nephrotoxic agents AFib -new onset -rate control, no continued events overnight -d/c cardiac monitoring Dementia -baseline unclear, will contact daughter -c/w Namenda and Risperidal Depression -c/w Paroxetine 40 F/E/N -LR @ 100ml/hr -dysphagia crushed. speech and swallow recommendations appreciated DVTppx: Hep SQ Dispo: continue to monitor on med surg until medically optimized Visit type - Emergency Visit Emergency Visit: No - New Patient This patient is new to me today: No - Critical Care Critical Care patient: No - Discharge Referral Referred to [facility] Med P.C.: No ATTENDING PHYSICIAN STATEMENT I saw and evaluated the patient. I reviewed the resident's note and discussed the case with the resident. I agree with the resident's findings and plan as documented. SUBJECTIVE: OBJECTIVE: ASSESSMENT AND PLAN:
[2019-05-10] MEDS ORDERED: PNEUMOC 13-VAL CONJ-DIP CRM/PF 0.5 ML DISP.SYRIN IM ONE (14:35)
[2019-05-10] MEDS: ACETAMINOPHEN 325 MG TABLET (FP) PO PRN (19:09)
[2019-05-10] MEDS ORDERED: PT OWN MED DRAWER 7, Y5N ONE (22:54)
[2019-05-10] MEDS: ATORVASTATIN CA 20 MG TABLET (FP) PO SCH (23:21)
[2019-05-11] MEDS ORDERED: DEXTROSE 5%-WATER - 50 ML IVPB ONE ×4 (02:32→21:13)
[2019-05-11] MEDS ORDERED: PIPERACILLIN/TAZOBACTAM 2.25 GM VIAL IVPB ONE ×4 (02:32→21:13)
[2019-05-11] MEDS: PIPERACILLIN/TAZOB 2.25 GM 2.25 GM in DEXTROSE 5%-WATER - 50 ML IVPB SCH ×4 (03:36→21:24)
[2019-05-11] MEDS ORDERED: SODIUM CHLORIDE 0.9% 1000 ML INFUS.BAG IV SCH (07:47)
[2019-05-11] MEDS ORDERED: LACTATED RINGERS SOLUTION 1,000 ML/1,000 ML INFUS.BAG IV SCH (07:47)
--- NOTE | 2019-05-11 07:54 | PN ---
Progress Note (short form) - Note Progress Note: resting comfortable. no complaints. denies CP, SOB, fever, chills, N/V/C/D Current Medications Generic Name Dose Route Start Last Admin Trade Name Afsaneh PRN Reason Stop Dose Admin Acetaminophen 650 mg 05/11/19 07:47 Tylenol - PO Q6H PRN Fever Or Pain Allopurinol 100 mg 05/11/19 10:00 Zyloprim - PO DAILY [facility] Amlodipine Besylate 10 mg 05/11/19 10:00 Norvasc - PO DAILY [facility] Atorvastatin Calcium 20 mg 05/11/19 22:00 Lipitor - PO HS [facility] Heparin Sodium (Porcine) 5,000 unit 05/11/19 10:00 Heparin - SQ BID [facility] Lactated Ringer's 1,000 ml in 1,000 mls @ 100 mls/hr 05/11/19 07:47 Lactated Ringers Solution IV ASDIR [facility] Piperacillin Sod/Tazobactam 50 mls @ 100 mls/hr 05/11/19 09:00 Sod 2.25 gm/ Dextrose IVPB Q6H-IV [facility] Protocol Labetalol HCl 200 mg 05/11/19 10:00 Normodyne - PO DAILY [facility] Memantine 5 mg 05/11/19 10:00 Namenda - PO DAILY [facility] Paroxetine HCl 40 mg 05/11/19 10:00 Paxil - PO DAILY [facility] Risperidone 0.5 mg 05/11/19 10:00 Risperdal - PO BID [facility] Senna/Docusate Sodium 1 tablet 05/11/19 10:00 Pericolace - PO BID [facility] Sodium Chloride 2,300 ml 05/11/19 07:47 Normal Saline - IV ONCE [facility] Last Vital Signs Temp Pulse Resp BP Pulse Ox 99.3 F 92 H 20 144/92 97 05/11/19 06:00 05/11/19 06:00 05/11/19 06:00 05/11/19 06:00 05/10/19 21:00 General NAD, [place] CV S1 S2 RRR Lungs CTA anteriorly Abdomen soft NT/ND no rebound or guarding. obese Extremities no edema buttock. 1cm stage 2 sacral decub on L buttock. small vessicle abuting ulcer CBCD WBC 7.8 K/mm3 (4.0-10.0) 05/10/19 10:00 RBC 3.57 M/mm3 (4.00-5.60) L 05/10/19 10:00 Hgb 10.2 GM/dL (11.7-16.9) L 05/10/19 10:00 Hct 30.9 % (35.4-49) L 05/10/19 10:00 MCV 86.4 fl (80-96) 05/10/19 10:00 MCHC 33.0 g/dl (32.0-35.9) 05/10/19 10:00 RDW 14.6 % (11.9-15.9) 05/10/19 10:00 Plt Count 332 K/MM3 (134-434) 05/10/19 10:00 MPV 8.0 fl (7.5-11.1) 05/10/19 10:00 CMP Sodium 145 mmol/L (136-145) 05/10/19 10:00 Potassium 3.7 mmol/L (3.5-5.1) 05/10/19 10:00 Chloride 111 mmol/L (98-107) H 05/10/19 10:00 Carbon Dioxide 25 mmol/L (21-32) 05/10/19 10:00 Anion Gap 10 MMOL/L (8-16) 05/10/19 10:00 BUN 31.2 mg/dL (7-18) H 05/10/19 10:00 Creatinine 1.4 mg/dL (0.55-1.3) H 05/10/19 10:00 Calcium 8.7 mg/dL (8.5-10.1) 05/10/19 10:00 Total Bilirubin 0.6 mg/dL (0.2-1) 05/09/19 05:27 AST 15 U/L (15-37) 05/09/19 05:27 ALT 20 U/L (13-61) 05/09/19 05:27 Alkaline Phosphatase 85 U/L (45-117) 05/09/19 05:27 Total Protein 5.8 g/dl (6.4-8.2) L 05/09/19 05:27 Albumin 2.3 g/dl (3.4-5.0) L 05/09/19 05:27 Microbiology 05/08/19 15:00 Blood Culture - Preliminary Blood - Peripheral Venous Staphylococcus Coagulase Neg 05/08/19 15:00 Blood Culture - Preliminary Blood - Peripheral Venous NO GROWTH OBTAINED AFTER 48 HOURS, INCUBATION TO CONTINUE FOR 3 DAYS. 05/08/19 15:00 Urine Culture - Final Urine - Urine Clean Catch NO GROWTH OBTAINED ASSESSMENT AND PLAN: 88yo M with PMH dementia, anemia, prostate ca, HTN, dyslipidemia sent from [facility] for altered mental status and fever of 103 documented at facility 1. Sepsis due to suspected PNA-afebrile. leukocytosis resolved. on zosyn day 3. Bcx is a contaiminate will not give vanco at this time. will d/c IVF as eating well. elevated HOB. ID on board. f/u cx. 2. Acute toxic metabolic encephalopathy- today is alert. mostly Belizean speaking but does answer in broken [place] Islander. Awaiting family arrival to determine baseline. 3. MAURO- due to sepsis. awaiting todays labs. avoid nephrotoxic agents 4. Questionable afib-no afib seen on monitor over 24H. repeat EKG is also NSR. 5. stage II sacral ulcer- barrier cream. frequent repositioning. does not appear to have shingles. 6. Dementia- unknown baseline, cont meds 7. prostate ca 8. HTN- cont home medications 9. DVT ppx- hep sq 10. can d/c contact precations. do not believe patient has shingles Visit type - Emergency Visit Emergency Visit: Yes ED Registration Date: 05/08/19 Care time: The patient presented to the Emergency Department on the above date and was hospitalized for further evaluation of their emergent condition. - New Patient This patient is new to me today: No - Critical Care Critical Care patient: No - Discharge Referral Referred to [facility] Med P.C.: No
[2019-05-11] MEDS: SODIUM CHLORIDE 0.9% 1000 ML INFUS.BAG IV SCH ×2 (07:56→07:57)
[2019-05-11] MEDS: LACTATED RINGERS SOLUTION 1,000 ML/1,000 ML INFUS.BAG IV SCH (07:56)
[2019-05-11] MEDS ORDERED: VANCOMYCIN 1 GRAM (PRE-DOCKED) 1,000 MG/250 ML BAG IVPB ONE (08:15)
[2019-05-11] MEDS ORDERED: PT OWN MED DRAWER 7, Y5N ONE ×2 (09:24→21:13)
[2019-05-11] MEDS: HEPARIN NA (PORCINE) 5,000 UNITS/ML 1ML VIAL SQ SCH ×2 (09:45→21:25)
[2019-05-11] MEDS: LABETALOL HCL 200 MG TABLET (FP) PO SCH (09:47)
[2019-05-11] MEDS: PARoxetine HCL 20 MG TABLET PO SCH (09:47)
[2019-05-11] MEDS: amLODIPine BESYLATE 10 MG TABLET (FP) PO SCH (09:47)
[2019-05-11] MEDS: MEMANTINE HCL 5 MG TABLET (UD) PO SCH (09:48)
[2019-05-11] MEDS: ALLOPURINOL 100 MG TABLET (FP) PO SCH (09:48)
[2019-05-11] MEDS: SENNOSIDES/DOCUSATE COMBO (SENNA PLUS) TABLET (UD) PO SCH ×2 (09:48→21:27)
[2019-05-11] MEDS: risperiDONE 0.5 MG TABLET (FP) PO SCH ×2 (09:48→21:27)
--- NOTE | 2019-05-11 11:35 | PN ---
Progress Note, Physician History of Present Illness: stable no new issues - Current Medication List Current Medications: Active Medications Acetaminophen (Tylenol -) 650 mg PO Q6H PRN PRN Reason: Fever Allopurinol (Zyloprim -) 100 mg PO DAILY [facility] Last Admin: 05/11/19 09:48 Dose: 100 mg Amlodipine Besylate (Norvasc -) 10 mg PO DAILY [facility] Last Admin: 05/11/19 09:47 Dose: 10 mg Atorvastatin Calcium (Lipitor -) 20 mg PO [facility] Heparin Sodium (Porcine) (Heparin -) 5,000 unit SQ BID [facility] Last Admin: 05/11/19 09:45 Dose: 5,000 unit Piperacillin Sod/Tazobactam (Sod 2.25 gm/ Dextrose) 50 mls @ 100 mls/hr IVPB Q6H-IV [facility]; Protocol Last Admin: 05/11/19 09:44 Dose: 100 mls/hr Labetalol HCl (Normodyne -) 200 mg PO DAILY [facility] Last Admin: 05/11/19 09:47 Dose: 200 mg Memantine (Namenda -) 5 mg PO DAILY [facility] Last Admin: 05/11/19 09:48 Dose: 5 mg Paroxetine HCl (Paxil -) 40 mg PO DAILY [facility] Last Admin: 05/11/19 09:47 Dose: 40 mg Risperidone (Risperdal -) 0.5 mg PO BID [facility] Last Admin: 05/11/19 09:48 Dose: 0.5 mg Senna/Docusate Sodium (Pericolace -) 1 tablet PO BID [facility] Last Admin: 05/11/19 09:48 Dose: 1 tablet - Objective Vital Signs: Vital Signs Temperature 98.8 F 05/11/19 09:51 Pulse Rate 83 05/11/19 09:51 Respiratory Rate 18 05/11/19 09:51 Blood Pressure 162/74 05/11/19 09:51 O2 Sat by Pulse Oximetry (%) 97 05/10/19 21:00 Constitutional: Yes: No Distress, Calm Cardiovascular: Yes: S1, S2 Respiratory: Yes: Regular, CTA Bilaterally Gastrointestinal: Yes: Normal Bowel Sounds, Soft Musculoskeletal: Yes: WNL Extremities: Yes: Other Neurological: Yes: Alert Psychiatric: Yes: Alert Labs: CBC, BMP 05/10/19 10:00 05/10/19 10:00 INR, PTT INR 1.34 (0.83-1.09) H 05/08/19 15:00 Assessment/Plan 88 yo M PMH dementia, prostate Ca , HTN, HLD, and gout presented to ED with AMS and fever. Pt is admitted for Sepsis of unknown etiology. Pt was recently admitted on 04/28 for balantits and proteus UTI.Pt was DC to [facility], on communication pt was AO x2. yesterday at [facility], pt was combative but was alert and confused occasionally. sepsis Acute Toxic Metabolic encephalopathy silver afib leukocytosis plan continue current mgmt abx wbc has normalized nutrition rest as per the team
[2019-05-11] MEDS: ACETAMINOPHEN 325 MG TABLET (FP) PO PRN (16:48)
[2019-05-11] MEDS: ATORVASTATIN CA 20 MG TABLET (FP) PO SCH (21:26)
[2019-05-12] MEDS ORDERED: DEXTROSE 5%-WATER - 50 ML IVPB ONE ×4 (02:40→21:37)
[2019-05-12] MEDS ORDERED: PIPERACILLIN/TAZOBACTAM 2.25 GM VIAL IVPB ONE ×4 (02:40→21:37)
[2019-05-12] MEDS: PIPERACILLIN/TAZOB 2.25 GM 2.25 GM in DEXTROSE 5%-WATER - 50 ML IVPB SCH ×4 (02:50→21:42)
[2019-05-12 07:46] LABS: BLOOD UREA NITROGEN 24.1 mg/dL (7-18); CALCIUM 8.5 mg/dL (8.5-10.1); CREATININE 1.7 mg/dL (0.55-1.3); POTASSIUM 4.1 mmol/L (3.5-5.1)
--- NOTE | 2019-05-12 09:13 | PN ---
Physical Exam: SUBJECTIVE: Patient seen and examined at bedside. Pt speaks predominately [place] citizen. pt expressed no acute complaints. OBJECTIVE: Vital Signs Period Temp Pulse Resp BP Sys/Pradhan Pulse Ox Last 24 Hr 97.3 F-99.3 F 67-83 18-20 106-162/48-80 97 GENERAL: The patient is awake, alert, in no acute distress. LUNGS: Breath sounds equal, clear to auscultation bilaterally, no accessory muscle use. HEART: Regular rate and rhythm, S1, S2 without murmur, rub or gallop. ABDOMEN: Soft, nontender, mildly distended, normoactive bowel sounds, no guarding, no rebound. EXTREMITIES: 2+ pulses, warm, well-perfused, no edema. SKIN: Warm, dry, normal turgor, no rashes or lesions noted Laboratory Results - last 24 hr 05/12/19 06:10 Sodium 142 Potassium 4.1 Chloride 108 H Carbon Dioxide 27 Anion Gap 7 L BUN 24.1 H Creatinine 1.7 H Est GFR (CKD-EPI)AfAm 40.82 Est GFR (CKD-EPI)NonAf 35.22 Random Glucose 103 Calcium 8.5 Current Medications Acetaminophen (Tylenol -) 650 mg PO Q6H PRN PRN Reason: Fever Last Admin: 05/11/19 16:48 Dose: 650 mg Allopurinol (Zyloprim -) 100 mg PO DAILY [facility] Last Admin: 05/11/19 09:48 Dose: 100 mg Amlodipine Besylate (Norvasc -) 10 mg PO DAILY [facility] Last Admin: 05/11/19 09:47 Dose: 10 mg Atorvastatin Calcium (Lipitor -) 20 mg PO HS [facility] Last Admin: 05/11/19 21:26 Dose: 20 mg Heparin Sodium (Porcine) (Heparin -) 5,000 unit SQ BID [facility] Last Admin: 05/11/19 21:25 Dose: 5,000 unit Piperacillin Sod/Tazobactam (Sod 2.25 gm/ Dextrose) 50 mls @ 100 mls/hr IVPB Q6H-IV [facility]; Protocol Last Admin: 05/12/19 02:50 Dose: 100 mls/hr Labetalol HCl (Normodyne -) 200 mg PO DAILY [facility] Last Admin: 05/11/19 09:47 Dose: 200 mg Memantine (Namenda -) 5 mg PO DAILY [facility] Last Admin: 05/11/19 09:48 Dose: 5 mg Paroxetine HCl (Paxil -) 40 mg PO DAILY [facility] Last Admin: 05/11/19 09:47 Dose: 40 mg Risperidone (Risperdal -) 0.5 mg PO BID [facility] Last Admin: 05/11/19 21:27 Dose: 0.5 mg Senna/Docusate Sodium (Pericolace -) 1 tablet PO BID [facility] Last Admin: 05/11/19 21:27 Dose: [address] Chest/ abd/ pelvis: IMPRESSION: 1. Cardiomegaly and mild chronic lung disease. No evidence of pneumonia or acute pathology within the chest. 2. Mild hepatomegaly. 3. No evidence of intra-abdominal abscess or acute pathology within the abdomen or pelvis. Please see above discussion. ASSESSMENT/PLAN: 88 yo M PMH dementia, prostate Ca , HTN, HLD, and gout presented to ED with AMS and fever. Pt is admitted for Sepsis of unknown etiology. Pt was recently admitted on 04/28 for balantits and proteus UTI.Pt was DC to [facility], on communication pt was AO x2. yesterday at [facility], pt was combative but was alert and confused occasionally. Sepsis, unknown etiology -Lactate downtrending 2.6-->2.2 -pt febrile on admission, currently afebrile - UCx negative -initial B Cx grew Staph Coag, likely contaminate, rpt BCx negative -CXRay reviewed by me. no acute process -CT chest and abdomen/ pelvis see above -Leukocytosis improving -empiric vanc and zosyn in ED -c/w zosyn -c/w IVF -ID recommendations appreciated Acute Toxic Metabolic encephalopathy -pt was AOx2 at the [facility], tried to call daughter to determine baseline with no answer, will call again later -c/w neuro checks MAURO on CKD -pt had MAURO prior admission 2/2 NSAID overuse -Cr improving -c/w IVF, avoid nephrotoxic agents AFib -new onset -rate control, no continued events overnight -d/c cardiac monitoring Dementia -baseline unclear, will contact daughter -c/w Namenda and Risperidal Depression -c/w Paroxetine 40 F/E/N -LR @ 100ml/hr -dysphagia crushed. speech and swallow recommendations appreciated DVTppx: Hep SQ Dispo: continue to monitor on med surg until medically optimized Visit type - Emergency Visit Emergency Visit: No - New Patient This patient is new to me today: No - Critical Care Critical Care patient: No - Discharge Referral Referred to [facility] Med P.C.: No ATTENDING PHYSICIAN STATEMENT I saw and evaluated the patient. I reviewed the resident's note and discussed the case with the resident. I agree with the resident's findings and plan as documented. SUBJECTIVE: OBJECTIVE: ASSESSMENT AND PLAN:
[2019-05-12] MEDS: HEPARIN NA (PORCINE) 5,000 UNITS/ML 1ML VIAL SQ SCH ×2 (09:43→21:43)
[2019-05-12] MEDS: ALLOPURINOL 100 MG TABLET (FP) PO SCH (09:44)
[2019-05-12] MEDS: ACETAMINOPHEN 325 MG TABLET (FP) PO PRN (09:44)
[2019-05-12] MEDS: PARoxetine HCL 20 MG TABLET PO SCH (09:44)
[2019-05-12] MEDS: SENNOSIDES/DOCUSATE COMBO (SENNA PLUS) TABLET (UD) PO SCH ×2 (09:45→21:43)
[2019-05-12] MEDS: amLODIPine BESYLATE 10 MG TABLET (FP) PO SCH (09:45)
[2019-05-12] MEDS: LABETALOL HCL 200 MG TABLET (FP) PO SCH (09:45)
[2019-05-12] MEDS: risperiDONE 0.5 MG TABLET (FP) PO SCH ×2 (09:47→22:40)
[2019-05-12] MEDS ORDERED: PT OWN MED DRAWER 7, Y5N ONE ×2 (09:47→21:36)
[2019-05-12] MEDS: MEMANTINE HCL 5 MG TABLET (UD) PO SCH (09:48)
--- NOTE | 2019-05-12 11:56 | PN ---
Progress Note, Physician History of Present Illness: stable no new issues doing well - Current Medication List Current Medications: Active Medications Acetaminophen (Tylenol -) 650 mg PO Q6H PRN PRN Reason: Fever Last Admin: 05/12/19 09:44 Dose: 650 mg Allopurinol (Zyloprim -) 100 mg PO DAILY [facility] Last Admin: 05/12/19 09:44 Dose: 100 mg Amlodipine Besylate (Norvasc -) 10 mg PO DAILY [facility] Last Admin: 05/12/19 09:45 Dose: 10 mg Atorvastatin Calcium (Lipitor -) 20 mg PO HS [facility] Last Admin: 05/11/19 21:26 Dose: 20 mg Heparin Sodium (Porcine) (Heparin -) 5,000 unit SQ BID [facility] Last Admin: 05/12/19 09:43 Dose: 5,000 unit Piperacillin Sod/Tazobactam (Sod 2.25 gm/ Dextrose) 50 mls @ 100 mls/hr IVPB Q6H-IV [facility]; Protocol Last Admin: 05/12/19 09:43 Dose: 100 mls/hr Labetalol HCl (Normodyne -) 200 mg PO DAILY [facility] Last Admin: 05/12/19 09:45 Dose: 200 mg Memantine (Namenda -) 5 mg PO DAILY [facility] Last Admin: 05/12/19 09:48 Dose: 5 mg Paroxetine HCl (Paxil -) 40 mg PO DAILY [facility] Last Admin: 05/12/19 09:44 Dose: 40 mg Risperidone (Risperdal -) 0.5 mg PO BID [facility] Last Admin: 05/12/19 09:47 Dose: 0.5 mg Senna/Docusate Sodium (Pericolace -) 1 tablet PO BID [facility] Last Admin: 05/12/19 09:45 Dose: 1 tablet - Objective Vital Signs: Vital Signs Temperature 98.6 F 05/12/19 09:26 Pulse Rate 74 05/12/19 09:26 Respiratory Rate 18 05/12/19 09:26 Blood Pressure 181/82 H 05/12/19 09:26 O2 Sat by Pulse Oximetry (%) 97 05/11/19 21:00 Constitutional: Yes: No Distress, Calm Cardiovascular: Yes: S1, S2 Respiratory: Yes: Regular, CTA Bilaterally Gastrointestinal: Yes: Normal Bowel Sounds, Soft Neurological: Yes: Alert Psychiatric: Yes: Alert Labs: CBC, BMP 05/10/19 10:00 05/12/19 06:10 INR, PTT INR 1.34 (0.83-1.09) H 05/08/19 15:00 Assessment/Plan 88 yo M PMH dementia, prostate Ca , HTN, HLD, and gout presented to ED with AMS and fever. Pt is admitted for Sepsis of unknown etiology. Pt was recently admitted on 04/28 for balantits and proteus UTI.Pt was DC to [facility], on communication pt was AO x2. yesterday at [facility], pt was combative but was alert and confused occasionally. sepsis Acute Toxic Metabolic encephalopathy silver afib leukocytosis plan continue current mgmt abx will deescalte to oral probably tomorrow rest as per the team
--- NOTE | 2019-05-12 11:58 | PN ---
Teaching Attending Note Name of Resident: Christy Alston ATTENDING PHYSICIAN STATEMENT I saw and evaluated the patient. I reviewed the resident's note and discussed the case with the resident. I agree with the resident's findings and plan as documented. SUBJECTIVE:asymptomatic. denies CP, SOB, fever, chills, N/V/C/D, cough OBJECTIVE: Last Vital Signs Temp Pulse Resp BP Pulse Ox 98.6 F 74 18 181/82 H 97 05/12/19 09:26 05/12/19 09:26 05/12/19 09:26 05/12/19 09:26 05/11/19 21:00 General NAD, [place] Lungs CTA anteriorly ASSESSMENT AND PLAN: 88yo M with PMH dementia, anemia, prostate ca, HTN, dyslipidemia sent from [facility] for altered mental status and fever of 103 documented at facility 1. Sepsis due to suspected PNA-afebrile. leukocytosis resolved. on zosyn day 4. Bcx is a contaiminate will not give vanco at this time. rpeat bcx negative. will d/w ID about transtioning to po abx tomorrow. elevated HOB. ID on board. f/ u cx. 2. Acute toxic metabolic encephalopathy- today is alert. mostly Latvian speaking but does answer in broken Bruneian. At baseline. 3. MAURO- due to sepsis. Cr at baseline. avoid nephrotoxic agents 4. Questionable afib-no afib seen on monitor over 24H. repeat EKG is also NSR. 5. stage II sacral ulcer- barrier cream. frequent repositioning. does not appear to have shingles. 6. Dementia- unknown baseline, cont meds 7. prostate ca 8. HTN- cont home medications 9. DVT ppx- hep sq 10. can liekly transition to po abx. as at [facility] unable to accept back today. will plan for discharge tomorrow.
[2019-05-12] MEDS: ATORVASTATIN CA 20 MG TABLET (FP) PO SCH (21:44)
[2019-05-13] MEDS ORDERED: PIPERACILLIN/TAZOBACTAM 2.25 GM VIAL IVPB ONE ×4 (02:46→21:47)
[2019-05-13] MEDS ORDERED: DEXTROSE 5%-WATER - 50 ML IVPB ONE ×4 (02:46→21:47)
[2019-05-13] MEDS: PIPERACILLIN/TAZOB 2.25 GM 2.25 GM in DEXTROSE 5%-WATER - 50 ML IVPB SCH ×4 (02:49→21:57)
[2019-05-13 09:11] LABS: BLOOD UREA NITROGEN 25.5 mg/dL (7-18); CALCIUM 8.6 mg/dL (8.5-10.1); CREATININE 1.7 mg/dL (0.55-1.3)
--- NOTE | 2019-05-13 09:15 | PN ---
Progress Note, Physician History of Present Illness: stable doing well - Current Medication List Current Medications: Active Medications Acetaminophen (Tylenol -) 650 mg PO Q6H PRN PRN Reason: Fever Last Admin: 05/12/19 09:44 Dose: 650 mg Allopurinol (Zyloprim -) 100 mg PO DAILY [facility] Last Admin: 05/12/19 09:44 Dose: 100 mg Amlodipine Besylate (Norvasc -) 10 mg PO DAILY [facility] Last Admin: 05/12/19 09:45 Dose: 10 mg Atorvastatin Calcium (Lipitor -) 20 mg PO HS [facility] Last Admin: 05/12/19 21:44 Dose: 20 mg Heparin Sodium (Porcine) (Heparin -) 5,000 unit SQ BID [facility] Last Admin: 05/12/19 21:43 Dose: 5,000 unit Piperacillin Sod/Tazobactam (Sod 2.25 gm/ Dextrose) 50 mls @ 100 mls/hr IVPB Q6H-IV [facility]; Protocol Last Admin: 05/13/19 02:49 Dose: 100 mls/hr Labetalol HCl (Normodyne -) 200 mg PO DAILY [facility] Last Admin: 05/12/19 09:45 Dose: 200 mg Memantine (Namenda -) 5 mg PO DAILY [facility] Last Admin: 05/12/19 09:48 Dose: 5 mg Paroxetine HCl (Paxil -) 40 mg PO DAILY [facility] Last Admin: 05/12/19 09:44 Dose: 40 mg Risperidone (Risperdal -) 0.5 mg PO BID [facility] Last Admin: 05/12/19 22:40 Dose: 0.5 mg Senna/Docusate Sodium (Pericolace -) 1 tablet PO BID [facility] Last Admin: 05/12/19 21:43 Dose: 1 tablet - Objective Vital Signs: Vital Signs Temperature 98.4 F 05/13/19 05:00 Pulse Rate 72 05/13/19 05:00 Respiratory Rate 18 05/13/19 05:00 Blood Pressure 139/60 05/13/19 05:00 O2 Sat by Pulse Oximetry (%) 97 05/12/19 21:00 Constitutional: Yes: No Distress, Calm Cardiovascular: Yes: S1, S2 Respiratory: Yes: Regular, CTA Bilaterally Gastrointestinal: Yes: Normal Bowel Sounds, Soft Musculoskeletal: Yes: WNL Extremities: Yes: Other (mild swelling of the knee) Neurological: Yes: Alert Psychiatric: Yes: Alert Labs: CBC, BMP 05/10/19 10:00 05/13/19 07:26 INR, PTT INR 1.34 (0.83-1.09) H 05/08/19 15:00 Assessment/Plan 88 yo M PMH dementia, prostate Ca , HTN, HLD, and gout presented to ED with AMS and fever. Pt is admitted for Sepsis of unknown etiology. Pt was recently admitted on 04/28 for balantits and proteus UTI.Pt was DC to [facility], on communication pt was AO x2. yesterday at [facility], pt was combative but was alert and confused occasionally. sepsis Acute Toxic Metabolic encephalopathy silver afib leukocytosis plan will deescalte monitor rest as per the team
[2019-05-13] MEDS: HEPARIN NA (PORCINE) 5,000 UNITS/ML 1ML VIAL SQ SCH ×2 (10:02→22:00)
[2019-05-13] MEDS: amLODIPine BESYLATE 10 MG TABLET (FP) PO SCH (10:02)
[2019-05-13] MEDS: PARoxetine HCL 20 MG TABLET PO SCH (10:02)
[2019-05-13] MEDS: LABETALOL HCL 200 MG TABLET (FP) PO SCH (10:03)
[2019-05-13] MEDS: ALLOPURINOL 100 MG TABLET (FP) PO SCH (10:03)
[2019-05-13] MEDS: MEMANTINE HCL 5 MG TABLET (UD) PO SCH (10:04)
[2019-05-13] MEDS: SENNOSIDES/DOCUSATE COMBO (SENNA PLUS) TABLET (UD) PO SCH ×2 (10:04→21:59)
[2019-05-13] MEDS: risperiDONE 0.5 MG TABLET (FP) PO SCH ×2 (10:05→22:00)
--- NOTE | 2019-05-13 12:24 | PN ---
Progress Note, GRADING CLERK - Note Progress Note: Selected Entries 05/12/19 05/12/19 05/12/19 06:00 09:26 14:00 Breakfast Diet Tolerated Supper Temperature 99 F 98.6 F 97.5 F L 05/12/19 05/12/19 05/13/19 17:32 19:02 05:00 Breakfast Diet Tolerated Well Supper 100% Temperature 98.6 F 98.4 F 05/13/19 07:30 Breakfast 100% Diet Tolerated Supper Temperature Diet Consistency: Dysphagia Minced Medication Administration: Crushed with applesauce Liquids: Thin Liquids Supplement: Ensure Tolerating diet.
--- NOTE | 2019-05-13 12:46 | PN ---
Teaching Attending Note Name of Resident: Christy Alston ATTENDING PHYSICIAN STATEMENT I saw and evaluated the patient. I reviewed the resident's note and discussed the case with the resident. I agree with the resident's findings and plan as documented. SUBJECTIVE:asymptomatic. denies Cp, SOB, fver, chills, N/V/C/D OBJECTIVE: Last Vital Signs Temp Pulse Resp BP Pulse Ox 98.4 F 72 18 139/60 97 05/13/19 05:00 05/13/19 05:00 05/13/19 05:00 05/13/19 05:00 05/12/19 21:00 General NAD, [place] Lungs CTA anteriorly ASSESSMENT AND PLAN: 88yo M with PMH dementia, anemia, prostate ca, HTN, dyslipidemia sent from [facility] for altered mental status and fever of 103 documented at facility 1. Sepsis due to suspected PNA-afebrile. leukocytosis resolved. on zosyn day 5. can switch to po today. will d/w ID. Bcx is a contaminate and repeat neg. elevated HOB. ID on board. f/u cx. 2. Acute toxic metabolic encephalopathy- today is alert. mostly [place] Citizen speaking but does answer in broken Cuban. At baseline. 3. MAURO- due to sepsis. Cr at baseline. avoid nephrotoxic agents 4. Questionable afib-no afib seen on monitor over 24H. repeat EKG is also NSR. 5. stage II sacral ulcer- barrier cream. frequent repositioning. does not appear to have shingles. 6. Dementia- unknown baseline, cont meds 7. prostate ca 8. HTN- cont home medications 9. DVT ppx- hep sq 10. plan to transition to po today and can d/c to SNF
--- NOTE | 2019-05-13 16:07 | PN ---
Physical Exam: SUBJECTIVE: Patient seen and examined at bedside. pt has no acute complaints. OBJECTIVE: Vital Signs Period Temp Pulse Resp BP Sys/Pradhan Pulse Ox Last 24 Hr 98.4 F-99.0 F 69-74 18-18 131-142/60-77 97 GENERAL: The patient is awake, alert, and fully oriented, in no acute distress. HEAD: Normal with no signs of trauma. LUNGS: Breath sounds equal, clear to auscultation bilaterally, no wheezes, no crackles, no accessory muscle use. HEART: Regular rate and rhythm, S1, S2 without murmur, rub or gallop. ABDOMEN: Soft, nontender, nondistended, normoactive bowel sounds, no guarding EXTREMITIES: 2+ pulses, warm, well-perfused, no edema. SKIN: Warm, dry, normal turgor, no rashes or lesions noted 05/13/19 07:26 Current Medications Acetaminophen (Tylenol -) 650 mg PO Q6H PRN PRN Reason: Fever Last Admin: 05/12/19 09:44 Dose: 650 mg Allopurinol (Zyloprim -) 100 mg PO DAILY [facility] Last Admin: 05/13/19 10:03 Dose: 100 mg Amlodipine Besylate (Norvasc -) 10 mg PO DAILY [facility] Last Admin: 05/13/19 10:02 Dose: 10 mg Atorvastatin Calcium (Lipitor -) 20 mg PO HS [facility] Last Admin: 05/12/19 21:44 Dose: 20 mg Heparin Sodium (Porcine) (Heparin -) 5,000 unit SQ BID [facility] Last Admin: 05/13/19 10:02 Dose: 5,000 unit Piperacillin Sod/Tazobactam (Sod 2.25 gm/ Dextrose) 50 mls @ 100 mls/hr IVPB Q6H-IV [facility]; Protocol Last Admin: 05/13/19 15:37 Dose: 100 mls/hr Labetalol HCl (Normodyne -) 200 mg PO DAILY [facility] Last Admin: 05/13/19 10:03 Dose: 200 mg Memantine (Namenda -) 5 mg PO DAILY [facility] Last Admin: 05/13/19 10:04 Dose: 5 mg Paroxetine HCl (Paxil -) 40 mg PO DAILY [facility] Last Admin: 05/13/19 10:02 Dose: 40 mg Risperidone (Risperdal -) 0.5 mg PO BID [facility] Last Admin: 05/13/19 10:05 Dose: 0.5 mg Senna/Docusate Sodium (Pericolace -) 1 tablet PO BID [facility] Last Admin: 05/13/19 10:04 Dose: [address] Chest/ abd/ pelvis: IMPRESSION: 1. Cardiomegaly and mild chronic lung disease. No evidence of pneumonia or acute pathology within the chest. 2. Mild hepatomegaly. 3. No evidence of intra-abdominal abscess or acute pathology within the abdomen or pelvis. Please see above discussion. ASSESSMENT/PLAN: 88 yo M PMH dementia, prostate Ca , HTN, HLD, and gout presented to ED with AMS and fever. Pt is admitted for Sepsis of unknown etiology. Pt was recently admitted on 04/28 for balantits and proteus UTI.Pt was DC to [facility], on communication pt was AO x2. yesterday at [facility], pt was combative but was alert and confused occasionally. Sepsis, unknown etiology -Lactate downtrending 2.6-->2.2 -pt febrile on admission, currently afebrile - UCx negative -initial B Cx grew Staph Coag, likely contaminate, rpt BCx negative -CXRay reviewed by me. no acute process -CT chest and abdomen/ pelvis see above -Leukocytosis improving -empiric vanc and zosyn in ED - s/p zosyn for 6 days , will switch to augmentin PO -ID recommendations appreciated Acute Toxic Metabolic encephalopathy -pt was AOx2 at [facility], tried to call daughter to determine baseline with no answer, will call again later -c/w neuro checks MAURO on CKD -pt had MAURO prior admission 2/2 NSAID overuse. pt currently at baseline -Cr improving -avoid nephrotoxic agents AFib -new onset -rate control, no continued events overnight -d/c cardiac monitoring Dementia -baseline unclear, will contact daughter -c/w Namenda and Risperidal Depression -c/w Paroxetine 40 F/E/N -dysphagia crushed. speech and swallow recommendations appreciated DVTppx: Hep SQ Dispo: continue to monitor on med surg until medically optimized Visit type - Emergency Visit Emergency Visit: No - New Patient This patient is new to me today: No - Critical Care Critical Care patient: No - Discharge Referral Referred to [facility] Med P.C.: No ATTENDING PHYSICIAN STATEMENT I saw and evaluated the patient. I reviewed the resident's note and discussed the case with the resident. I agree with the resident's findings and plan as documented. SUBJECTIVE: OBJECTIVE: ASSESSMENT AND PLAN:
[2019-05-13] MEDS ORDERED: PT OWN MED DRAWER 7, Y5N ONE (21:47)
[2019-05-13] MEDS: ATORVASTATIN CA 20 MG TABLET (FP) PO SCH (21:59)
[2019-05-14] MEDS ORDERED: PT OWN MED DRAWER 7, Y5N ONE ×3 (09:26→21:39)
[2019-05-14] MEDS: amLODIPine BESYLATE 10 MG TABLET (FP) PO SCH (09:32)
[2019-05-14] MEDS: LABETALOL HCL 200 MG TABLET (FP) PO SCH (09:32)
[2019-05-14] MEDS: ALLOPURINOL 100 MG TABLET (FP) PO SCH (09:32)
[2019-05-14] MEDS: AMOX TR/POT CLAV 875MG/125MG TABLETS (FP) PO SCH ×2 (09:32→17:55)
[2019-05-14] MEDS: MEMANTINE HCL 5 MG TABLET (UD) PO SCH (09:32)
[2019-05-14] MEDS: HEPARIN NA (PORCINE) 5,000 UNITS/ML 1ML VIAL SQ SCH ×3 (09:32→23:01)
[2019-05-14] MEDS: PARoxetine HCL 20 MG TABLET PO SCH (09:33)
[2019-05-14] MEDS: SENNOSIDES/DOCUSATE COMBO (SENNA PLUS) TABLET (UD) PO SCH ×3 (09:33→23:01)
[2019-05-14] MEDS: risperiDONE 0.5 MG TABLET (FP) PO SCH ×3 (09:33→23:01)
--- NOTE | 2019-05-14 11:06 | PN ---
Progress Note, Physician History of Present Illness: stable no new issues - Current Medication List Current Medications: Active Medications Acetaminophen (Tylenol -) 650 mg PO Q6H PRN PRN Reason: Fever Last Admin: 05/12/19 09:44 Dose: 650 mg Allopurinol (Zyloprim -) 100 mg PO DAILY [facility] Last Admin: 05/14/19 09:32 Dose: 100 mg Amlodipine Besylate (Norvasc -) 10 mg PO DAILY [facility] Last Admin: 05/14/19 09:32 Dose: 10 mg Amoxicillin/Clavulanate Potassium (Augmentin - 875mg Tablet) 1 tab PO BID@0800, 1730 [facility] Stop: 05/16/19 17:31 Last Admin: 05/14/19 09:32 Dose: 1 tab Atorvastatin Calcium (Lipitor -) 20 mg PO HS [facility] Last Admin: 05/13/19 21:59 Dose: 20 mg Heparin Sodium (Porcine) (Heparin -) 5,000 unit SQ BID [facility] Last Admin: 05/14/19 09:32 Dose: 5,000 unit Labetalol HCl (Normodyne -) 200 mg PO DAILY [facility] Last Admin: 05/14/19 09:32 Dose: 200 mg Memantine (Namenda -) 5 mg PO DAILY [facility] Last Admin: 05/14/19 09:32 Dose: 5 mg Paroxetine HCl (Paxil -) 40 mg PO DAILY [facility] Last Admin: 05/14/19 09:33 Dose: 40 mg Risperidone (Risperdal -) 0.5 mg PO BID [facility] Last Admin: 05/14/19 09:33 Dose: 0.5 mg Senna/Docusate Sodium (Pericolace -) 1 tablet PO BID [facility] Last Admin: 05/14/19 09:33 Dose: 1 tablet - Objective Vital Signs: Vital Signs Temperature 98.4 F 05/14/19 06:00 Pulse Rate 78 05/14/19 06:00 Respiratory Rate 20 05/14/19 06:00 Blood Pressure 139/89 05/14/19 06:00 O2 Sat by Pulse Oximetry (%) 91 L 05/13/19 21:00 Constitutional: Yes: No Distress, Calm Cardiovascular: Yes: S1, S2 Respiratory: Yes: Regular, CTA Bilaterally Gastrointestinal: Yes: Normal Bowel Sounds, Soft Musculoskeletal: Yes: WNL Extremities: Yes: WNL Neurological: Yes: Alert Psychiatric: Yes: Alert Labs: CBC, BMP 05/10/19 10:00 05/13/19 07:26 INR, PTT INR 1.34 (0.83-1.09) H 05/08/19 15:00 Assessment/Plan 88 yo M PMH dementia, prostate Ca , HTN, HLD, and gout presented to ED with AMS and fever. Pt is admitted for Sepsis of unknown etiology. Pt was recently admitted on 04/28 for balantits and proteus UTI.Pt was DC to [facility], on communication pt was AO x2. yesterday at [facility] pt was combative but was alert and confused occasionally. sepsis Acute Toxic Metabolic encephalopathy silver afib leukocytosis plan continue current mgmt nutrition rest as per the team complete abx course
--- NOTE | 2019-05-14 12:53 | PN ---
Progress Note, [employer] - Note Progress Note: Selected Entries 05/12/19 05/12/19 05/12/19 06:00 09:26 14:00 Breakfast Diet Tolerated Supper Temperature 99 F 98.6 F 97.5 F L 05/12/19 05/12/19 05/13/19 17:32 19:02 05:00 Breakfast Diet Tolerated Well Supper 100% Temperature 98.6 F 98.4 F 05/13/19 07:30 Breakfast 100% Diet Tolerated Supper Temperature Selected Entries 05/14/19 05/14/19 05/14/19 01:00 06:00 07:55 Breakfast 100% Diet Tolerated Well Temperature 98.9 F 98.4 F 05/14/19 10:00 Breakfast Diet Tolerated Temperature 98.9 F Diet Consistency: Dysphagia Minced Medication Administration: Crushed with applesauce Liquids: Thin Liquids Supplement: Ensure [place]. Speaks Kiswahili, some Bulgarian. Pt had a good breakfast. Refusing lunch. Pending d/c to [facility]
--- NOTE | 2019-05-14 13:16 | CON.CARD ---
Consult Consult Specialty:: cardiology Reason for Consultation:: r/o atrial fibrillation - History of Present Illness Chief Complaint: Pt is hard of hearing; agitated at times; demented History of Present Illness: The patient is an 88 year old male with a significant past medical history of HTN, HLD, prostate cancer, gout, dementia who presents to the ED via EMS with AMS. Patient was noted to have a fever of 101.3 and was brought in from [facility]. History is limited secondary to patients condition. Allergies: [facility] PCP. Dr. Reich - History Source History Provided By: Medical Record Limitations to Obtaining History: Dementia - Past Medical History Cardio/Vascular: Yes: CAD, HTN, Hyperlipdemia Gastrointestinal: Yes: GERD Renal/: Yes: Other (Hx of prostate cancer s/p radiation.) Psych: Yes: Depression Rheumatology: Yes: Gout ENT: Yes: Allergic Rhinitis, Sinusitis - Past Surgical History Past Surgical History: Yes: Hernia Repair, Joint Replacement - Alcohol/Substance Use Hx Alcohol Use: No History of Substance Use: reports: None - Smoking History Smoking history: Never smoked Have you smoked in the past 12 months: No Aproximately how many cigarettes per day: 0 If you are a former smoker, when did you quit?: 49 yrs ago - Social History Usual Living Arrangement: With Spouse ADL: Independent History of Recent Travel: No Home Medications - Allergies Allergies/Adverse Reactions: Allergies Allergy/AdvReac Type Severity Reaction Status Date / Time No Known Allergies Allergy Verified 05/08/19 13:56 - Home Medications Home Medications: Ambulatory Orders Allopurinol [Zyloprim -] 100 mg PO DAILY #30 tablet 11/24/12 Paroxetine HCl [Paxil] 40 mg PO DAILY 10/09/14 Atorvastatin Ca [Lipitor] 20 mg PO DAILY 04/28/19 Memantine HCl [Namenda -] 10 mg PO DAILY 04/28/19 Acetaminophen [Tylenol .Regular Strength -] 650 mg PO Q6H PRN tablet 05/04/19 Albuterol Sulfate 0.5% [Ventolin 0.5% Nebulizing Soln. -] 1 amp NEB Q4H PRN amp 05/04/19 Nystatin Cream [Mycostatin Cream -] 1 applic TP BID applic 05/04/19 Pantoprazole Sodium [Protonix -] 20 mg PO DAILY tablet.ec 05/04/19 Risperidone [Risperdal -] 0.5 mg PO BID tablet 05/04/19 Sennosides/Docusate Sodium [Pericolace -] 1 tablet PO BID tablet 05/04/19 predniSONE [Deltasone -] 30 mg PO DAILY tablet 05/04/19 Amlodipine Besylate [Norvasc -] 10 mg PO DAILY tablet 05/13/19 Amox-Tr/K Cl [Augmentin 875-125mg Tablet -] 1 tab PO BID@0800,1730 3 Days #6 tablet 05/13/19 Labetalol HCl [Normodyne -] 200 mg PO DAILY tablet 05/13/19 Family Disease History - Family Disease History Family History: Unable to Obtain Review of Systems Unable to obtain ROS, reason: dementia - Risk Factors Known Risk Factors: Yes: Age, Gender, Hypercholesterolemia, Hypertension, Physical Inactivity, Other (dementia) Vital Signs: Vital Signs Temperature 98.9 F 05/14/19 10:00 Pulse Rate 86 05/14/19 10:00 Respiratory Rate 18 05/14/19 10:00 Blood Pressure 135/47 L 05/14/19 10:00 O2 Sat by Pulse Oximetry (%) 91 L 05/14/19 09:00 Constitutional: Yes: Anxious Eyes: Yes: WNL HENT: Yes: Other (hard of hearing) Neck: Yes: WNL Respiratory: Yes: WNL Gastrointestinal: Yes: Soft Renal/: No: Anuria Cardiovascular: Yes: Pulse Irregular JVD: No Carotid Bruit: No PMI: Non-Displaced Heart Sounds: Yes: S1, S2, S4 Murmur: Yes: Systolic Murmur, Grade 2 Extremities: Yes: WNL Edema: No Peripheral Pulses WNL: Yes Integumentary: Yes: WNL Neurological: Yes: Weakness Psychiatric: Yes: Other (dementia) - Other Data Labs, Other Data: CBC, BMP 05/10/19 10:00 05/13/19 07:26 INR, PTT INR 1.34 (0.83-1.09) H 05/08/19 15:00 Echo: Report Reviewed Ejection Fraction %: LVEF > or = 40 % Imaging - Results Chest X-ray: Image Reviewed EKG: Image Reviewed Problem List - Problems (1) Irregular heart rhythm Assessment/Plan: Three EKGs available: The first two showed baseline artifact; AF could not be ruled out, though perusal notes periods of regular QRS rate (with probable sinus arrhythmia), and APCs. The 3rd and most recent EKG, with no baseline artifact, showed normal sinus rhythm. Imp: Doubt AF on the basis of these EKGs. However, pt does have moderate LAE on ECHO (as well as normal LVEF and moderate ), which, with other factors (e.g. advanced age), makes him at higher risk for developing AF. Will order a Holter monitor. Code(s): I49.9 - CARDIAC ARRHYTHMIA, UNSPECIFIED (2) Sepsis Code(s): A41.9 - SEPSIS, UNSPECIFIED ORGANISM (3) Dementia Code(s): F03.90 - UNSPECIFIED DEMENTIA WITHOUT BEHAVIORAL DISTURBANCE (4) Depression Code(s): F32.9 - MAJOR DEPRESSIVE DISORDER, SINGLE EPISODE, UNSPECIFIED (5) Essential hypertension Code(s): I10 - ESSENTIAL (PRIMARY) HYPERTENSION (6) Aortic stenosis, moderate Assessment/Plan: Normal LVEF; moderate ; moderate LAE on ECHO. Code(s): I35.0 - NONRHEUMATIC AORTIC (VALVE) STENOSIS
[2019-05-14] MEDS: ACETAMINOPHEN 325 MG TABLET (FP) PO PRN (15:06)
--- NOTE | 2019-05-14 16:04 | PN ---
Physical Exam: SUBJECTIVE: Patient seen and examined at bedside. pt has no acute complaints. pt denies sob or pain OBJECTIVE: Vital Signs Period Temp Pulse Resp BP Sys/Pradhan Pulse Ox Last 24 Hr 98.4 F-100.0 F 73-86 18-20 128-148/47-89 91-91 GENERAL: The patient is awake, alert, and oriented to self , pt at baseline , in no acute distress. LUNGS: Breath sounds equal, clear to auscultation bilaterally, no wheezes, no crackles, no accessory muscle use. HEART: Regular rate and rhythm, S1, S2 without murmur, rub or gallop. ABDOMEN: Soft, nontender, nondistended, normoactive bowel sounds. EXTREMITIES: 2+ pulses, warm, well-perfused, no edema. SKIN: Warm, dry, normal turgor, no rashes or lesions noted Active Medications Generic Name Dose Route Start Last Admin Trade Name Freq PRN Reason Stop Dose Admin Acetaminophen 650 mg 05/11/19 07:47 05/14/19 15:06 Tylenol - PO 650 mg Q6H PRN Administration Fever Allopurinol 100 mg 05/11/19 10:00 05/14/19 09:32 Zyloprim - PO 100 mg DAILY [facility] Administration Amlodipine Besylate 10 mg 05/11/19 10:00 05/14/19 09:32 Norvasc - PO 10 mg DAILY [facility] Administration Amoxicillin/Clavulanate Potassium 1 tab 05/14/19 08:00 05/14/19 09:32 Augmentin - 875mg Tablet PO 05/16/19 17:31 1 tab BID@0800,1730 [facility] Administration Atorvastatin Calcium 20 mg 05/11/19 22:00 05/13/19 21:59 Lipitor - PO 20 mg HS [facility] Administration Heparin Sodium (Porcine) 5,000 unit 05/11/19 10:00 05/14/19 09:32 Heparin - SQ 5,000 unit BID [facility] Administration Labetalol HCl 200 mg 05/11/19 10:00 05/14/19 09:32 Normodyne - PO 200 mg DAILY [facility] Administration Memantine 5 mg 05/11/19 10:00 05/14/19 09:32 Namenda - PO 5 mg DAILY [facility] Administration Paroxetine HCl 40 mg 05/11/19 10:00 05/14/19 09:33 Paxil - PO 40 mg DAILY [facility] Administration Risperidone 0.5 mg 05/11/19 10:00 05/14/19 09:33 Risperdal - PO 0.5 mg BID [facility] Administration Senna/Docusate Sodium 1 tablet 05/11/19 10:00 05/14/19 09:33 Pericolace - PO 1 tablet BID [facility] Administration CT Chest/ abd/ pelvis: IMPRESSION: 1. Cardiomegaly and mild chronic lung disease. No evidence of pneumonia or acute pathology within the chest. 2. Mild hepatomegaly. 3. No evidence of intra-abdominal abscess or acute pathology within the abdomen or pelvis. Please see above discussion. ASSESSMENT/PLAN: 88 yo M PMH dementia, prostate Ca , HTN, HLD, and gout presented to ED with AMS and fever. Pt is admitted for Sepsis of unknown etiology. Pt was recently admitted on 04/28 for balantits and proteus UTI.Pt was DC to [facility], on communication pt was AO x2. yesterday at [facility], pt was combative but was alert and confused occasionally. Sepsis, unknown etiology -Lactate downtrending 2.6-->2.2 -pt febrile on admission, currently afebrile >24 hrs - UCx negative -initial B Cx grew Staph Coag, likely contaminate, rpt BCx negative -CXRay reviewed by me. no acute process -CT chest and abdomen/ pelvis see above -Leukocytosis improving -empiric vanc and zosyn in ED - s/p zosyn for 6 days , c/w augmentin PO day 1/3 -ID recommendations appreciated Acute Toxic Metabolic encephalopathy -pt was AOx2 at [facility], tried to call daughter to determine baseline with no answer, will call again later -c/w neuro checks MAURO on CKD -pt had MAURO prior admission 2/2 NSAID overuse. pt currently at baseline -Cr improving -avoid nephrotoxic agents AFib -new onset -rate control, no continued events overnight -cardio consult appreciated -holter monitoring as per cardio recs Dementia -baseline unclear, will contact daughter -c/w Namenda and Risperidal Depression -c/w Paroxetine 40 F/E/N -dysphagia crushed. speech and swallow recommendations appreciated DVTppx: Hep SQ Dispo: continue to monitor on med surg until medically optimized, awaiting placement for facility Visit type - Emergency Visit Emergency Visit: No - New Patient This patient is new to me today: No - Critical Care Critical Care patient: No - Discharge Referral Referred to [facility] Med P.C.: No ATTENDING PHYSICIAN STATEMENT I saw and evaluated the patient. I reviewed the resident's note and discussed the case with the resident. I agree with the resident's findings and plan as documented. SUBJECTIVE: OBJECTIVE: ASSESSMENT AND PLAN:
--- NOTE | 2019-05-14 17:54 | PN ---
Teaching Attending Note Name of Resident: Christy Alston ATTENDING PHYSICIAN STATEMENT I saw and evaluated the patient. I reviewed the resident's note and discussed the case with the resident. I agree with the resident's findings and plan as documented. SUBJECTIVE: feels better - no complaints. no SOB. No fever/chills. German speaking. OBJECTIVE: Afebrile, Hemodynamically Stable. Last Vital Signs Temp Pulse Resp BP Pulse Ox 101.3 F H 74 20 130/53 L 91 L 05/14/19 16:53 05/14/19 16:53 05/14/19 16:53 05/14/19 16:53 05/14/19 09:00 HEENT - Atraumatic, normocephalic. Heart- S1, S2, RRR lungs - few basal crackles. Abdomen - Soft, non-tender. Bowel Sounds normal. Extremities - no edema, no calf tenderness. Current Medications Generic Name Dose Route Start Last Admin Trade Name Freq PRN Reason Stop Dose Admin Acetaminophen 650 mg 05/11/19 07:47 05/14/19 15:06 Tylenol - PO 650 mg Q6H PRN Administration Fever Allopurinol 100 mg 05/11/19 10:00 05/14/19 09:32 Zyloprim - PO 100 mg DAILY [facility] Administration Amlodipine Besylate 10 mg 05/11/19 10:00 05/14/19 09:32 Norvasc - PO 10 mg DAILY [facility] Administration Amoxicillin/Clavulanate Potassium 1 tab 05/14/19 08:00 05/14/19 09:32 Augmentin - 875mg Tablet PO 05/16/19 17:31 1 tab BID@0800,1730 [facility] Administration Atorvastatin Calcium 20 mg 05/11/19 22:00 05/13/19 21:59 Lipitor - PO 20 mg HS [facility] Administration Heparin Sodium (Porcine) 5,000 unit 05/11/19 10:00 05/14/19 09:32 Heparin - SQ 5,000 unit BID [facility] Administration Labetalol HCl 200 mg 05/11/19 10:00 05/14/19 09:32 Normodyne - PO 200 mg DAILY [facility] Administration Memantine 5 mg 05/11/19 10:00 05/14/19 09:32 Namenda - PO 5 mg DAILY [facility] Administration Paroxetine HCl 40 mg 05/11/19 10:00 05/14/19 09:33 Paxil - PO 40 mg DAILY [facility] Administration Risperidone 0.5 mg 05/11/19 10:00 05/14/19 09:33 Risperdal - PO 0.5 mg BID [facility] Administration Senna/Docusate Sodium 1 tablet 05/11/19 10:00 05/14/19 09:33 Pericolace - PO 1 tablet BID [facility] Administration Home Medications Medication Instructions Recorded Allopurinol [Zyloprim -] 100 mg PO DAILY #30 tablet 11/24/12 Paroxetine HCl [Paxil] 40 mg PO DAILY 10/09/14 Atorvastatin Ca [Lipitor] 20 mg PO DAILY 04/28/19 Memantine HCl [Namenda -] 10 mg PO DAILY 04/28/19 Acetaminophen [Tylenol .Regular 650 mg PO Q6H PRN tablet 05/04/19 Strength -] Albuterol Sulfate 0.5% [Ventolin 1 amp NEB Q4H PRN amp 05/04/19 0.5% Nebulizing Soln. -] Nystatin Cream [Mycostatin Cream -] 1 applic TP BID applic 05/04/19 Pantoprazole Sodium [Protonix -] 20 mg PO DAILY tablet.ec 05/04/19 Risperidone [Risperdal -] 0.5 mg PO BID tablet 05/04/19 Sennosides/Docusate Sodium 1 tablet PO BID tablet 05/04/19 [Pericolace -] predniSONE [Deltasone -] 30 mg PO DAILY tablet 05/04/19 Amlodipine Besylate [Norvasc -] 10 mg PO DAILY tablet 05/13/19 Amox-Tr/K Cl [Augmentin 875-125mg 1 tab PO BID@0800,1730 3 Days #6 05/13/19 Tablet -] tablet Labetalol HCl [Normodyne -] 200 mg PO DAILY tablet 05/13/19 ASSESSMENT AND PLAN: 88 year old male with history of Dementia, Anemia, Prostate Ca, HTN, HLD, presented from [place] with altered mental status and fever. 1. Sepsis secondary to likley aspiration pneumonia. Blood Cx pos for Staph epi, likley contaminant. repeat BCx neg x 2. Afebrile, Hemodynamically Stable, leukocytosis resolved. Day 6 Zosyn - transitioned to oral Augmentin. 2. Dysphagia - evaluated by Speech - recommend dysphagia minced diet with meds in applesauce/ensure/magic cup. 3. Acute Metabolic Encephalopathy secondary secondary to Sepsis - resolved. Has history of Dementia - appears stable. Baseline mental status unknown. Continue Namenda, Paxil, Risperidone. 4. 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 Creat back at baseline now. 5. Questionable Atrial Fibrillation - eval by Cardio - undetermined at this point. Holter requested, will follow Cardio recommendations. 6. Stage II sacral ulcer - barrier cream, frequent repositioning. Not infected. 7. HTN - Continue Norvasc, Labetalol. 8. HLD - continue Statin. DVT Px - Heparin SQ Dispo - awaiting auth for SNF.
[2019-05-14 19:00] LABS: URINE APPEARANCE CLEAR; URINE BILIRUBIN NEGATIVE (NEGATIVE); URINE COLOR YELLOW; URINE GLUCOSE (UA) NEGATIVE (NEGATIVE); URINE KETONE NEGATIVE (NEGATIVE); URINE LEUK ESTERASE NEGATIVE (NEGATIVE); URINE NITRITE NEGATIVE (NEGATIVE); URINE PROTEIN NEGATIVE (NEGATIVE)
[2019-05-14] MEDS: ATORVASTATIN CA 20 MG TABLET (FP) PO SCH ×2 (21:47→23:01)
--- NOTE | 2019-05-15 07:15 | PN ---
Progress Note, Physician History of Present Illness: The patient is an 88 year old male with a significant past medical history of HTN, HLD, prostate cancer, gout, dementia who presents to the ED via EMS with AMS. Patient was noted to have a fever of 101.3 and was brought in from [facility]. History is limited secondary to patients condition. Allergies: [facility] PCP. Dr. Reich - Current Medication List Current Medications: Active Medications Acetaminophen (Tylenol -) 650 mg PO Q6H PRN PRN Reason: Fever Last Admin: 05/14/19 15:06 Dose: 650 mg Allopurinol (Zyloprim -) 100 mg PO DAILY [facility] Last Admin: 05/14/19 09:32 Dose: 100 mg Amlodipine Besylate (Norvasc -) 10 mg PO DAILY [facility] Last Admin: 05/14/19 09:32 Dose: 10 mg Amoxicillin/Clavulanate Potassium (Augmentin - 875mg Tablet) 1 tab PO BID@0800, 1730 [facility] Stop: 05/16/19 17:31 Last Admin: 05/14/19 17:55 Dose: 1 tab Atorvastatin Calcium (Lipitor -) 20 mg PO HS [facility] Last Admin: 05/14/19 23:01 Dose: Not Given Heparin Sodium (Porcine) (Heparin -) 5,000 unit SQ BID [facility] Last Admin: 05/14/19 23:01 Dose: Not Given Labetalol HCl (Normodyne -) 200 mg PO DAILY [facility] Last Admin: 05/14/19 09:32 Dose: 200 mg Memantine (Namenda -) 5 mg PO DAILY [facility] Last Admin: 05/14/19 09:32 Dose: 5 mg Paroxetine HCl (Paxil -) 40 mg PO DAILY [facility] Last Admin: 05/14/19 09:33 Dose: 40 mg Risperidone (Risperdal -) 0.5 mg PO BID [facility] Last Admin: 05/14/19 23:01 Dose: Not Given Senna/Docusate Sodium (Pericolace -) 1 tablet PO BID [facility] Last Admin: 05/14/19 23:01 Dose: Not Given - Objective Vital Signs: Vital Signs Temperature 98.4 F 05/15/19 06:00 Pulse Rate 68 05/15/19 06:00 Respiratory Rate 18 05/15/19 06:00 Blood Pressure 165/72 05/15/19 06:00 O2 Sat by Pulse Oximetry (%) 92 L 05/14/19 21:00 Eyes: Yes: WNL, Conjunctiva Clear, EOM Intact HENT: Yes: WNL, Atraumatic, Normocephalic Neck: Yes: WNL, Supple, Trachea Midline Cardiovascular: Yes: WNL, Regular Rate and Rhythm Respiratory: Yes: WNL, Regular, CTA Bilaterally Gastrointestinal: Yes: WNL, Normal Bowel Sounds Genitourinary: Yes: WNL Musculoskeletal: Yes: WNL Extremities: Yes: WNL Edema: No Integumentary: Yes: WNL ...Motor Strength: WNL Psychiatric: Yes: WNL Labs: CBC, BMP 05/10/19 10:00 05/13/19 07:26 INR, PTT INR 1.34 (0.83-1.09) H 05/08/19 15:00 Assessment/Plan - Problems (1) Irregular heart rhythm Assessment/Plan: Three EKGs available: The first two showed baseline artifact; AF could not be ruled out, though perusal notes periods of regular QRS rate (with probable sinus arrhythmia), and APCs. The 3rd and most recent EKG, with no baseline artifact, showed normal sinus rhythm. Imp: Doubt AF on the basis of these EKGs. However, pt does have moderate LAE on ECHO (as well as normal LVEF and moderate ), which, with other factors (e.g. advanced age), makes him at higher risk for developing AF. Will order a Holter monitor. Code(s): I49.9 - CARDIAC ARRHYTHMIA, UNSPECIFIED (2) Sepsis Code(s): A41.9 - SEPSIS, UNSPECIFIED ORGANISM (3) Dementia Code(s): F03.90 - UNSPECIFIED DEMENTIA WITHOUT BEHAVIORAL DISTURBANCE (4) Depression Code(s): F32.9 - MAJOR DEPRESSIVE DISORDER, SINGLE EPISODE, UNSPECIFIED (5) Essential hypertension Code(s): I10 - ESSENTIAL (PRIMARY) HYPERTENSION (6) Aortic stenosis, moderate Assessment/Plan: Normal LVEF; moderate ; moderate LAE on ECHO. Code(s): I35.0 - NONRHEUMATIC AORTIC (VALVE) STENOSIS
--- NOTE | 2019-05-15 08:30 | PN ---
Progress Note, Physician History of Present Illness: stable this morning spiked a fever all cx send - Current Medication List Current Medications: Active Medications Acetaminophen (Tylenol -) 650 mg PO Q6H PRN PRN Reason: Fever Last Admin: 05/14/19 15:06 Dose: 650 mg Allopurinol (Zyloprim -) 100 mg PO DAILY [facility] Last Admin: 05/14/19 09:32 Dose: 100 mg Amlodipine Besylate (Norvasc -) 10 mg PO DAILY [facility] Last Admin: 05/14/19 09:32 Dose: 10 mg Amoxicillin/Clavulanate Potassium (Augmentin - 875mg Tablet) 1 tab PO BID@0800, 1730 [facility] Stop: 05/16/19 17:31 Last Admin: 05/14/19 17:55 Dose: 1 tab Atorvastatin Calcium (Lipitor -) 20 mg PO HS [facility] Last Admin: 05/14/19 23:01 Dose: Not Given Heparin Sodium (Porcine) (Heparin -) 5,000 unit SQ BID [facility] Last Admin: 05/14/19 23:01 Dose: Not Given Labetalol HCl (Normodyne -) 200 mg PO DAILY [facility] Last Admin: 05/14/19 09:32 Dose: 200 mg Memantine (Namenda -) 5 mg PO DAILY [facility] Last Admin: 05/14/19 09:32 Dose: 5 mg Paroxetine HCl (Paxil -) 40 mg PO DAILY [facility] Last Admin: 05/14/19 09:33 Dose: 40 mg Risperidone (Risperdal -) 0.5 mg PO BID [facility] Last Admin: 05/14/19 23:01 Dose: Not Given Senna/Docusate Sodium (Pericolace -) 1 tablet PO BID [facility] Last Admin: 05/14/19 23:01 Dose: Not Given - Objective Vital Signs: Vital Signs Temperature 98.4 F 05/15/19 06:00 Pulse Rate 68 05/15/19 06:00 Respiratory Rate 18 05/15/19 06:00 Blood Pressure 165/72 05/15/19 06:00 O2 Sat by Pulse Oximetry (%) 92 L 05/14/19 21:00 Constitutional: Yes: No Distress, Calm Cardiovascular: Yes: S1, S2 Respiratory: Yes: Regular, CTA Bilaterally Gastrointestinal: Yes: Normal Bowel Sounds, Soft Musculoskeletal: Yes: WNL Extremities: Yes: WNL Neurological: Yes: Alert Psychiatric: Yes: Alert Labs: CBC, BMP 05/10/19 10:00 05/13/19 07:26 INR, PTT INR 1.34 (0.83-1.09) H 05/08/19 15:00 Assessment/Plan 88 yo M PMH dementia, prostate Ca , HTN, HLD, and gout presented to ED with AMS and fever. Pt is admitted for Sepsis of unknown etiology. Pt was recently admitted on 04/28 for balantits and proteus UTI.Pt was DC to [facility], on communication pt was AO x2. yesterday at [facility], pt was combative but was alert and confused occasionally. sepsis Acute Toxic Metabolic encephalopathy silver afib leukocytosis plan continue current mgmt nutrition rest as per the team await all the cx reports continue abx
[2019-05-15] MEDS: PARoxetine HCL 20 MG TABLET PO SCH (09:00)
[2019-05-15] MEDS: AMOX TR/POT CLAV 875MG/125MG TABLETS (FP) PO SCH ×2 (09:01→16:35)
[2019-05-15] MEDS: LABETALOL HCL 200 MG TABLET (FP) PO SCH (09:01)
[2019-05-15] MEDS: amLODIPine BESYLATE 10 MG TABLET (FP) PO SCH (09:01)
[2019-05-15] MEDS: ALLOPURINOL 100 MG TABLET (FP) PO SCH (09:01)
[2019-05-15] MEDS ORDERED: PT OWN MED DRAWER 7, Y5N ONE ×2 (09:05→21:01)
[2019-05-15] MEDS: MEMANTINE HCL 5 MG TABLET (UD) PO SCH (09:06)
[2019-05-15] MEDS: risperiDONE 0.5 MG TABLET (FP) PO SCH ×2 (09:08→21:47)
[2019-05-15 09:11] LABS: BLOOD UREA NITROGEN 27.7 mg/dL (7-18); CALCIUM 8.9 mg/dL (8.5-10.1); CREATININE 1.4 mg/dL (0.55-1.3); MAGNESIUM 2.3 mg/dL (1.8-2.4); PHOSPHOROUS 3.8 mg/dL (2.5-4.9)
[2019-05-15] MEDS: SENNOSIDES/DOCUSATE COMBO (SENNA PLUS) TABLET (UD) PO SCH ×2 (09:14→21:48)
[2019-05-15] MEDS: HEPARIN NA (PORCINE) 5,000 UNITS/ML 1ML VIAL SQ SCH ×2 (09:14→21:48)
[2019-05-15 09:26] LABS: HEMATOCRIT 32.5 % (35.4-49); HEMOGLOBIN 10.8 GM/dL (11.7-16.9); MCH 28.7 pg (25.7-33.7); MCHC 33.4 g/dl (32.0-35.9); MEAN CELL VOLUME 85.7 fl (80-96); MEAN PLT VOLUME 8.1 fl (7.5-11.1); PLATELET COUNT 314 K/MM3 (134-434); RBC 3.79 M/mm3 (4.00-5.60); RDW 14.3 % (11.9-15.9); WHITE BLOOD COUNT 8.5 K/mm3 (4.0-10.0)
--- NOTE | 2019-05-15 10:49 | PN ---
Progress Note, TRACK INSPECTING SUPERVISOR - Note Progress Note: Selected Entries 05/12/19 05/12/19 05/12/19 06:00 09:26 14:00 Breakfast Diet Tolerated Supper Temperature 99 F 98.6 F 97.5 F L 05/12/19 05/12/19 05/13/19 17:32 19:02 05:00 Breakfast Diet Tolerated Well Supper 100% Temperature 98.6 F 98.4 F 05/13/19 07:30 Breakfast 100% Diet Tolerated Supper Temperature Selected Entries 05/14/19 05/14/19 05/14/19 01:00 06:00 07:55 Breakfast 100% Diet Tolerated Well Temperature 98.9 F 98.4 F 05/14/19 10:00 Breakfast Diet Tolerated Temperature 98.9 F Selected Entries 05/14/19 05/14/19 05/14/19 01:00 06:00 07:55 Breakfast 100% Lunch Supper Temperature 98.9 F 98.4 F 05/14/19 05/14/19 05/14/19 10:00 12:00 13:20 Breakfast Lunch 0 Supper Temperature 98.9 F 99.2 F 05/14/19 05/14/19 05/14/19 15:45 16:53 20:00 Breakfast Lunch Supper Temperature 100.4 F H 101.3 F H 99.5 F 05/14/19 05/15/19 05/15/19 22:52 02:13 06:00 Breakfast Lunch Supper 25% Temperature 98.1 F 98.4 F Laboratory Tests 05/15/19 07:34 WBC 8.5 Diet Consistency: Dysphagia Minced Medication Administration: Crushed with applesauce Liquids: Thin Liquids Supplement: Ensure Tolerating diet, with intermittent PO acceptance. Provide supplements b/n meal to increase nutritional intake.
--- NOTE | 2019-05-15 13:49 | PN ---
Physical Exam: SUBJECTIVE: Patient seen and examined at bedside. pt has no acute complaints. pt denies pain. OBJECTIVE: Vital Signs Period Temp Pulse Resp BP Sys/Pradhan Pulse Ox Last 24 Hr 98.1 F-101.3 F 68-84 18-20 130-165/51-72 92 GENERAL: The patient is awake, alert, and oriented to person, in no acute distress. HEAD: Normal with no signs of trauma. LUNGS: Breath sounds equal, clear to auscultation bilaterally, no wheezes, no crackles, no accessory muscle use. HEART: Regular rate and rhythm, S1, S2 without murmur, rub or gallop. ABDOMEN: Soft, nontender, nondistended, normoactive bowel sounds, no guarding EXTREMITIES: 2+ pulses, warm, well-perfused, no edema. SKIN: Warm, dry, normal turgor, no rashes or lesions noted Laboratory Results - last 24 hr 05/14/19 05/15/19 05/15/19 17:15 07:34 07:34 WBC 8.5 RBC 3.79 L Hgb 10.8 L Hct 32.5 L MCV 85.7 MCH 28.7 MCHC 33.4 RDW 14.3 Plt Count 314 MPV 8.1 Sodium 141 Potassium 4.0 Chloride 106 Carbon Dioxide 25 Anion Gap 10 BUN 27.7 H Creatinine 1.4 H Est GFR (CKD-EPI)AfAm 51.62 Est GFR (CKD-EPI)NonAf 44.54 Random Glucose 88 Calcium 8.9 Phosphorus 3.8 Magnesium 2.3 Urine Color Yellow Urine Appearance Clear Urine pH 5.0 Ur Specific [place] 1.019 Urine Protein Negative Urine Glucose (UA) Negative Urine Ketones Negative Urine Blood Negative Urine Nitrite Negative Urine Bilirubin Negative Urine Urobilinogen 1.0 Ur Leukocyte Esterase Negative Current Medications Acetaminophen (Tylenol -) 650 mg PO Q6H PRN PRN Reason: Fever Last Admin: 05/14/19 15:06 Dose: 650 mg Allopurinol (Zyloprim -) 100 mg PO DAILY [facility] Last Admin: 05/15/19 09:01 Dose: 100 mg Amlodipine Besylate (Norvasc -) 10 mg PO DAILY [facility] Last Admin: 05/15/19 09:01 Dose: 10 mg Amoxicillin/Clavulanate Potassium (Augmentin - 875mg Tablet) 1 tab PO BID@0800, 1730 [facility] Stop: 05/16/19 17:31 Last Admin: 05/15/19 09:01 Dose: 1 tab Atorvastatin Calcium (Lipitor -) 20 mg PO HS [facility] Last Admin: 05/14/19 23:01 Dose: Not Given Heparin Sodium (Porcine) (Heparin -) 5,000 unit SQ BID [facility] Last Admin: 05/15/19 09:14 Dose: 5,000 unit Labetalol HCl (Normodyne -) 200 mg PO DAILY [facility] Last Admin: 05/15/19 09:01 Dose: 200 mg Memantine (Namenda -) 5 mg PO DAILY [facility] Last Admin: 05/15/19 09:06 Dose: 5 mg Paroxetine HCl (Paxil -) 40 mg PO DAILY [facility] Last Admin: 05/15/19 09:00 Dose: 40 mg Risperidone (Risperdal -) 0.5 mg PO BID [facility] Last Admin: 05/15/19 09:08 Dose: 0.5 mg Senna/Docusate Sodium (Pericolace -) 1 tablet PO BID [facility] Last Admin: 05/15/19 09:14 Dose: [address] Chest/ abd/ pelvis: IMPRESSION: 1. Cardiomegaly and mild chronic lung disease. No evidence of pneumonia or acute pathology within the chest. 2. Mild hepatomegaly. 3. No evidence of intra-abdominal abscess or acute pathology within the abdomen or pelvis. Please see above discussion. ASSESSMENT/PLAN: 88 yo M PMH dementia, prostate Ca , HTN, HLD, and gout presented to ED with AMS and fever. Pt is admitted for Sepsis of unknown etiology. Pt was recently admitted on 04/28 for balantits and proteus UTI.Pt was DC to [facility], on communication pt was AO x2. yesterday at [facility], pt was combative but was alert and confused occasionally. Sepsis, unknown etiology -Lactate downtrending 2.6-->2.2 -pt febrile on admission,pt spiked fever yesterday. awaiting repeat cultures - UCx negative -initial B Cx grew Staph Coag, likely contaminate, rpt BCx negative -CXRay reviewed by me. no acute process -CT chest and abdomen/ pelvis see above -Leukocytosis improved -empiric vanc and zosyn in ED - s/p zosyn for 6 days , c/w augmentin PO day 2/3 -ID recommendations appreciated Acute Toxic Metabolic encephalopathy -pt was AOx2 at [facility], tried to call daughter to determine baseline with no answer, will call again later -c/w neuro checks MAURO on CKD -pt had MAURO prior admission 2/2 NSAID overuse. pt currently at baseline -Cr improving -avoid nephrotoxic agents AFib -new onset -rate control, no continued events overnight -cardio consult appreciated -holter monitoring as per cardio recs Dementia -baseline unclear, will contact daughter -c/w Namenda and Risperidal Depression -c/w Paroxetine 40 F/E/N -dysphagia crushed. speech and swallow recommendations appreciated DVTppx: Hep SQ Dispo: continue to monitor on med surg until medically optimized, awaiting placement for facility Visit type - Emergency Visit Emergency Visit: No - New Patient This patient is new to me today: No - Critical Care Critical Care patient: No - Discharge Referral Referred to [facility] Med P.C[facility] No ATTENDING PHYSICIAN STATEMENT I saw and evaluated the patient. I reviewed the resident's note and discussed the case with the resident. I agree with the resident's findings and plan as documented. SUBJECTIVE: OBJECTIVE: ASSESSMENT AND PLAN:
--- NOTE | 2019-05-15 14:16 | HOL ---
Hook-up date: 2019-05-14 13:46:00 Duration: 08:03:00 Test Indications: BASELINE ARTIFACT; R/O AF Medications: 17457 QRS complexes 471 Ventricular ectopics which represent 1 % of total QRS comp. 999 Supraventricular ectopics which represent 3 % of total QRS comp. * Paced QRS complexs which represent % of total QRS comp. 3 % of Time Classified as Noise VENTRICULAR ECTOPY 469 Isolated 0 Bigeminal Cycles 1 Couplets 0 Runs 0 Beats in Runs * Beats LONGEST at * BPM at :: -- * Beats FASTEST at * BPM at :: -- SUPRAVENTRICULAR ECTOPY 898 Isolated 33 Couplets 11 Runs 34 Beats in Runs 4 Beats LONGEST at 83 BPM at 21:28:40 2019-05-14 3 Beats FASTEST at 123 BPM at 19:50:34 2019-05-14 HEART RATES 54 MIN at 19:06:38 2019-05-14 69 AVG 90 MAX at 14:22:09 2019-05-14 LONGEST RR 1.512 secs at 19:13:51 2019-05-14 HOLTER RAN FOR APPROXIMATLY 8 HOURS, REMOVED BY PATIENT Baseline rhythm is sinus with sinus arhythmias Short atrial runs. Motion artifacts cannot r/o short periods of AF. recommend repeating 24 Holter Confirmed by HERMINIA PARISI, DEISY ([id number]) on 05/15/2019 2:16:06 PM Referred By: Bobby GILLILAND Overread By: DEISY HOPE MD
--- NOTE | 2019-05-15 17:50 | PN ---
Teaching Attending Note Name of Resident: Christy Alston ATTENDING PHYSICIAN STATEMENT I saw and evaluated the patient. I reviewed the resident's note and discussed the case with the resident. I agree with the resident's findings and plan as documented. SUBJECTIVE: No complaints. No SOB. No fever/chills. [place]er speaking. OBJECTIVE: Fever, Tmax 101.3. Hemodynamically Stable. AAO x 2. More calm and less enthusiastic this AM. Last Vital Signs Temp Pulse Resp BP Pulse Ox 99.1 F 76 18 125/57 L 92 L 05/15/19 17:12 05/15/19 17:12 05/15/19 17:12 05/15/19 17:12 05/14/19 21:00 Heart- S1, S2, RRR lungs - few basal crackles. Abdomen - Soft, non-tender. Bowel Sounds normal. Extremities - no edema, no calf tenderness. Laboratory Results - last 24 hr 05/14/19 05/15/19 05/15/19 17:15 07:34 07:34 WBC 8.5 RBC 3.79 L Hgb 10.8 L Hct 32.5 L MCV 85.7 MCH 28.7 MCHC 33.4 RDW 14.3 Plt Count 314 MPV 8.1 Sodium 141 Potassium 4.0 Chloride 106 Carbon Dioxide 25 Anion Gap 10 BUN 27.7 H Creatinine 1.4 H Est GFR (CKD-EPI)AfAm 51.62 Est GFR (CKD-EPI)NonAf 44.54 Random Glucose 88 Calcium 8.9 Phosphorus 3.8 Magnesium 2.3 Urine Color Yellow Urine Appearance Clear Urine pH 5.0 Ur Specific [place] 1.019 Urine Protein Negative Urine Glucose (UA) Negative Urine Ketones Negative Urine Blood Negative Urine Nitrite Negative Urine Bilirubin Negative Urine Urobilinogen 1.0 Ur Leukocyte Esterase Negative Current Medications Generic Name Dose Route Start Last Admin Trade Name Freq PRN Reason Stop Dose Admin Acetaminophen 650 mg 05/11/19 07:47 05/14/19 15:06 Tylenol - PO 650 mg Q6H PRN Administration Fever Allopurinol 100 mg 05/11/19 10:00 05/15/19 09:01 Zyloprim - PO 100 mg DAILY [facility] Administration Amlodipine Besylate 10 mg 05/11/19 10:00 05/15/19 09:01 Norvasc - PO 10 mg DAILY [facility] Administration Amoxicillin/Clavulanate Potassium 1 tab 05/14/19 08:00 05/15/19 16:35 Augmentin - 875mg Tablet PO 05/16/19 17:31 1 tab BID@0800,1730 [facility] Administration Atorvastatin Calcium 20 mg 05/11/19 22:00 05/14/19 23:01 Lipitor - PO Not Given HS [facility] Heparin Sodium (Porcine) 5,000 unit 05/11/19 10:00 05/15/19 09:14 Heparin - SQ 5,000 unit BID [facility] Administration Labetalol HCl 200 mg 05/11/19 10:00 05/15/19 09:01 Normodyne - PO 200 mg DAILY [facility] Administration Memantine 5 mg 05/11/19 10:00 05/15/19 09:06 Namenda - PO 5 mg DAILY [facility] Administration Paroxetine HCl 40 mg 05/11/19 10:00 05/15/19 09:00 Paxil - PO 40 mg DAILY [facility] Administration Risperidone 0.5 mg 05/11/19 10:00 05/15/19 09:08 Risperdal - PO 0.5 mg BID [facility] Administration Senna/Docusate Sodium 1 tablet 05/11/19 10:00 05/15/19 09:14 Pericolace - PO 1 tablet BID [facility] Administration Home Medications Medication Instructions Recorded Allopurinol [Zyloprim -] 100 mg PO DAILY #30 tablet 11/24/12 Paroxetine HCl [Paxil] 40 mg PO DAILY 10/09/14 Atorvastatin Ca [Lipitor] 20 mg PO DAILY 04/28/19 Memantine HCl [Namenda -] 10 mg PO DAILY 04/28/19 Acetaminophen [Tylenol .Regular 650 mg PO Q6H PRN tablet 05/04/19 Strength -] Albuterol Sulfate 0.5% [Ventolin 1 amp NEB Q4H PRN amp 05/04/19 0.5% Nebulizing Soln. -] Nystatin Cream [Mycostatin Cream -] 1 applic TP BID applic 05/04/19 Pantoprazole Sodium [Protonix -] 20 mg PO DAILY tablet.ec 05/04/19 Risperidone [Risperdal -] 0.5 mg PO BID tablet 05/04/19 Sennosides/Docusate Sodium 1 tablet PO BID tablet 05/04/19 [Pericolace -] predniSONE [Deltasone -] 30 mg PO DAILY tablet 05/04/19 Amlodipine Besylate [Norvasc -] 10 mg PO DAILY tablet 05/13/19 Amox-Tr/K Cl [Augmentin 875-125mg 1 tab PO BID@0800,1730 3 Days #6 05/13/19 Tablet -] tablet Labetalol HCl [Normodyne -] 200 mg PO DAILY tablet 05/13/19 ASSESSMENT AND PLAN: 88 year old male with history of Dementia, Anemia, Prostate Ca, HTN, HLD, presented from [place] with altered mental status and fever. 1. Sepsis secondary to likely aspiration pneumonia. Blood Cx pos for Staph epi, likely contaminant. Repeat BCx neg x 2. Still febrile - Hemodynamically Stable, leukocytosis resolved. Transitioned to oral Augmentin after 6 days of Zosyn. 2. Dysphagia - evaluated by Speech - recommend dysphagia minced diet with meds in applesauce/ensure/magic cup. Tolerating. 3. Acute Metabolic Encephalopathy secondary secondary to Sepsis - resolved. Has history of Dementia - appears stable. Baseline mental status unknown. Continue Namenda, Paxil, Risperidone. 4. 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 Creat back to baseline. 5. Questionable Atrial Fibrillation - eval by Cardio - rhythm undetermined at this point. Holter requested, patient pulled off overnight, will re-attempt. 6. Stage II sacral ulcer - barrier cream, frequent repositioning. Not infected. 7. HTN - Continue Norvasc, Labetalol. 8. HLD - continue Statin. DVT Px - Heparin SQ Dispo - awaiting auth for SNF.
[2019-05-15] MEDS: ATORVASTATIN CA 20 MG TABLET (FP) PO SCH (21:48)
[2019-05-16] MEDS ORDERED: risperiDONE 0.5 MG TABLET (FP) PO ONE (09:20)
[2019-05-16] MEDS: PARoxetine HCL 20 MG TABLET PO SCH (10:14)
[2019-05-16] MEDS: amLODIPine BESYLATE 10 MG TABLET (FP) PO SCH (10:14)
[2019-05-16] MEDS: ALLOPURINOL 100 MG TABLET (FP) PO SCH (10:15)
[2019-05-16] MEDS: LABETALOL HCL 200 MG TABLET (FP) PO SCH (10:16)
[2019-05-16] MEDS: AMOX TR/POT CLAV 875MG/125MG TABLETS (FP) PO SCH ×2 (10:16→18:18)
[2019-05-16] MEDS: MEMANTINE HCL 5 MG TABLET (UD) PO SCH (10:16)
[2019-05-16] MEDS: HEPARIN NA (PORCINE) 5,000 UNITS/ML 1ML VIAL SQ SCH ×3 (10:16→23:32)
[2019-05-16] MEDS: risperiDONE 0.5 MG TABLET (FP) PO SCH ×3 (10:17→23:28)
[2019-05-16] MEDS: ACETAMINOPHEN 325 MG TABLET (FP) PO PRN ×2 (10:17→18:20)
[2019-05-16] MEDS: SENNOSIDES/DOCUSATE COMBO (SENNA PLUS) TABLET (UD) PO SCH ×3 (10:18→23:28)
--- NOTE | 2019-05-16 11:03 | PN ---
Progress Note, Physician History of Present Illness: The patient is an 88 year old male with a significant past medical history of HTN, HLD, prostate cancer, gout, dementia who presents to the ED via EMS with AMS. Patient was noted to have a fever of 101.3 and was brought in from [facility]. History is limited secondary to patients condition. Allergies: [facility] PCP. Dr. Reich - Current Medication List Current Medications: Active Medications Acetaminophen (Tylenol -) 650 mg PO Q6H PRN PRN Reason: Fever Last Admin: 05/16/19 10:17 Dose: 650 mg Allopurinol (Zyloprim -) 100 mg PO DAILY [facility] Last Admin: 05/16/19 10:15 Dose: 100 mg Amlodipine Besylate (Norvasc -) 10 mg PO DAILY [facility] Last Admin: 05/16/19 10:14 Dose: 10 mg Amoxicillin/Clavulanate Potassium (Augmentin - 875mg Tablet) 1 tab PO BID@0800, 1730 [facility] Stop: 05/16/19 17:31 Last Admin: 05/16/19 10:16 Dose: 1 tab Atorvastatin Calcium (Lipitor -) 20 mg PO HS [facility] Last Admin: 05/15/19 21:48 Dose: 20 mg Heparin Sodium (Porcine) (Heparin -) 5,000 unit SQ BID [facility] Last Admin: 05/16/19 10:16 Dose: 5,000 unit Labetalol HCl (Normodyne -) 200 mg PO DAILY [facility] Last Admin: 05/16/19 10:16 Dose: 200 mg Memantine (Namenda -) 5 mg PO DAILY [facility] Last Admin: 05/16/19 10:16 Dose: 5 mg Paroxetine HCl (Paxil -) 40 mg PO DAILY [facility] Last Admin: 05/16/19 10:14 Dose: 40 mg Risperidone (Risperdal -) 0.5 mg PO BID [facility] Last Admin: 05/16/19 10:17 Dose: 0.5 mg Senna/Docusate Sodium (Pericolace -) 1 tablet PO BID [facility] Last Admin: 05/16/19 10:18 Dose: 1 tablet - Objective Vital Signs: Vital Signs Temperature 98.3 F 05/16/19 06:00 Pulse Rate 74 05/16/19 06:00 Respiratory Rate 20 05/16/19 06:00 Blood Pressure 145/66 05/16/19 06:00 O2 Sat by Pulse Oximetry (%) 92 L 05/15/19 21:00 Labs: CBC, BMP 05/15/19 07:34 05/15/19 07:34 INR, PTT INR 1.34 (0.83-1.09) H 05/08/19 15:00 Problem List - Problems (1) Irregular heart rhythm Assessment/Plan: Holter monitor results were limited (pt kept monitor on only 8 of the planned 24 hours; periods of baseline artifact). Results noted short episodes of irregularity: AF could not be ruled out, and recommendation was for repeat monitor. Given pt's dementia, tendency to remove wires, and frequent movements, a repeat Holter or telemetry would likely not be more productive at this point. Pt could be considered for "wireless" monitoring, which would have to be done as outpatient. Given his state of dementia, anemia, ?tendencies to fall, I would not recommend anticoagulation for now. Code(s): I49.9 - CARDIAC ARRHYTHMIA, UNSPECIFIED (2) Sepsis Code(s): A41.9 - SEPSIS, UNSPECIFIED ORGANISM (3) Dementia Code(s): F03.90 - UNSPECIFIED DEMENTIA WITHOUT BEHAVIORAL DISTURBANCE (4) Depression Code(s): F32.9 - MAJOR DEPRESSIVE DISORDER, SINGLE EPISODE, UNSPECIFIED (5) Essential hypertension Code(s): I10 - ESSENTIAL (PRIMARY) HYPERTENSION (6) Aortic stenosis, moderate Code(s): I35.0 - NONRHEUMATIC AORTIC (VALVE) STENOSIS
--- NOTE | 2019-05-16 14:26 | PN ---
Physical Exam: SUBJECTIVE: Patient seen and examined at bedside. spoke with pt daughter at bedside. daughter states that he has been in chronic pain from gout. She requests further workup. although, this am on exam pt has no acute complaints. OBJECTIVE: Vital Signs Period Temp Pulse Resp BP Sys/Pradhan Pulse Ox Last 24 Hr 98.3 F-99.3 F 73-76 18-20 110-145/47-66 92 GENERAL: The patient is awake, alert, and oriented to self, in no acute distress. HEAD: Normal with no signs of trauma. LUNGS: Breath sounds equal, clear to auscultation bilaterally, no wheezes, no crackles, no accessory muscle use. HEART: Regular rate and rhythm, S1, S2 without murmur, rub or gallop. ABDOMEN: Soft, nontender, nondistended, normoactive bowel sounds, no guarding EXTREMITIES: L knee swollen. SKIN: Warm, dry, normal turgor, no rashes or lesions noted Current Medications Acetaminophen (Tylenol -) 650 mg PO Q6H PRN PRN Reason: Fever Last Admin: 05/16/19 10:17 Dose: 650 mg Allopurinol (Zyloprim -) 100 mg PO DAILY [facility] Last Admin: 05/16/19 10:15 Dose: 100 mg Amlodipine Besylate (Norvasc -) 10 mg PO DAILY [facility] Last Admin: 05/16/19 10:14 Dose: 10 mg Amoxicillin/Clavulanate Potassium (Augmentin - 875mg Tablet) 1 tab PO BID@0800, 1730 [facility] Stop: 05/16/19 17:31 Last Admin: 05/16/19 10:16 Dose: 1 tab Atorvastatin Calcium (Lipitor -) 20 mg PO HS [facility] Last Admin: 05/15/19 21:48 Dose: 20 mg Heparin Sodium (Porcine) (Heparin -) 5,000 unit SQ BID [facility]CLUD[facility] Last Admin: 05/16/19 10:16 Dose: 5,000 unit Labetalol HCl (Normodyne -) 200 mg PO DAILY [facility] Last Admin: 05/16/19 10:16 Dose: 200 mg Memantine (Namenda -) 5 mg PO DAILY [facility] Last Admin: 05/16/19 10:16 Dose: 5 mg Paroxetine HCl (Paxil -) 40 mg PO DAILY [facility] Last Admin: 05/16/19 10:14 Dose: 40 mg Risperidone (Risperdal -) 0.5 mg PO BID [facility] Last Admin: 05/16/19 10:17 Dose: 0.5 mg Senna/Docusate Sodium (Pericolace -) 1 tablet PO BID [facility] Last Admin: 05/16/19 10:18 Dose: [address] Chest/ abd/ pelvis: IMPRESSION: 1. Cardiomegaly and mild chronic lung disease. No evidence of pneumonia or acute pathology within the chest. 2. Mild hepatomegaly. 3. No evidence of intra-abdominal abscess or acute pathology within the abdomen or pelvis. Please see above discussion. ASSESSMENT/PLAN: 88 yo M PMH dementia, prostate Ca , HTN, HLD, and gout presented to ED with AMS and fever. Pt is admitted for Sepsis of unknown etiology. Pt was recently admitted on 04/28 for balantits and proteus UTI.Pt was DC to [facility], on communication pt was AO x2. yesterday at [facility], pt was combative but was alert and confused occasionally. Sepsis, unknown etiology -Lactate downtrending 2.6-->2.2 -pt febrile on admission,pt spiked fever yesterday. awaiting repeat cultures - UCx negative -initial B Cx grew Staph Coag, likely contaminate, rpt BCx negative -CXRay reviewed by me. no acute process -CT chest and abdomen/ pelvis see above -Leukocytosis improved -empiric vanc and zosyn in ED - s/p zosyn for 6 days , c/w augmentin PO day 2/3 -ID recommendations appreciated Gout vs Septic arthritis -effusion L knee on XR -ortho recs appreciated Acute Toxic Metabolic encephalopathy -pt was AOx2 at [facility], tried to call daughter to determine baseline with no answer, will call again later -c/w neuro checks MAURO on CKD -pt had MAURO prior admission 2/2 NSAID overuse. pt currently at baseline -Cr improving -avoid nephrotoxic agents AFib -new onset -rate control, no continued events overnight -cardio consult appreciated -holter monitoring as per cardio recs Dementia -baseline unclear, will contact daughter -c/w Namenda and Risperidal Depression -c/w Paroxetine 40 F/E/N -dysphagia crushed. speech and swallow recommendations appreciated DVTppx: Hep SQ Dispo: continue to monitor on med surg until medically optimized, awaiting placement for facility Visit type - Emergency Visit Emergency Visit: No - New Patient This patient is new to me today: No - Critical Care Critical Care patient: No - Discharge Referral Referred to [facility] Med [facility].C[facility] No ATTENDING PHYSICIAN STATEMENT I saw and evaluated the patient. I reviewed the resident's note and discussed the case with the resident. I agree with the resident's findings and plan as documented. SUBJECTIVE: OBJECTIVE: ASSESSMENT AND PLAN:
--- NOTE | 2019-05-16 15:03 | PN ---
Progress Note, Physician History of Present Illness: patient stable has been afebrile knee swelling - Current Medication List Current Medications: Active Medications Acetaminophen (Tylenol -) 650 mg PO Q6H PRN PRN Reason: Fever Last Admin: 05/16/19 10:17 Dose: 650 mg Allopurinol (Zyloprim -) 100 mg PO DAILY [facility] Last Admin: 05/16/19 10:15 Dose: 100 mg Amlodipine Besylate (Norvasc -) 10 mg PO DAILY [facility] Last Admin: 05/16/19 10:14 Dose: 10 mg Amoxicillin/Clavulanate Potassium (Augmentin - 875mg Tablet) 1 tab PO BID@0800, 1730 [facility] Stop: 05/16/19 17:31 Last Admin: 05/16/19 10:16 Dose: 1 tab Atorvastatin Calcium (Lipitor -) 20 mg PO HS [facility] Last Admin: 05/15/19 21:48 Dose: 20 mg Heparin Sodium (Porcine) (Heparin -) 5,000 unit SQ BID [facility] Last Admin: 05/16/19 10:16 Dose: 5,000 unit Labetalol HCl (Normodyne -) 200 mg PO DAILY [facility] Last Admin: 05/16/19 10:16 Dose: 200 mg Memantine (Namenda -) 5 mg PO DAILY [facility] Last Admin: 05/16/19 10:16 Dose: 5 mg Paroxetine HCl (Paxil -) 40 mg PO DAILY [facility] Last Admin: 05/16/19 10:14 Dose: 40 mg Risperidone (Risperdal -) 0.5 mg PO BID [facility] Last Admin: 05/16/19 10:17 Dose: 0.5 mg Senna/Docusate Sodium (Pericolace -) 1 tablet PO BID [facility] Last Admin: 05/16/19 10:18 Dose: 1 tablet - Objective Vital Signs: Vital Signs Temperature 98.4 F 05/16/19 14:57 Pulse Rate 73 05/16/19 14:57 Respiratory Rate 20 05/16/19 14:57 Blood Pressure 141/64 05/16/19 14:57 O2 Sat by Pulse Oximetry (%) 92 L 05/15/19 21:00 Constitutional: Yes: No Distress, Calm Cardiovascular: Yes: S1, S2 Respiratory: Yes: Regular, CTA Bilaterally Gastrointestinal: Yes: Normal Bowel Sounds, Soft Musculoskeletal: Yes: WNL Extremities: Yes: WNL Neurological: Yes: Alert, Oriented Psychiatric: Yes: Alert, Oriented Labs: CBC, BMP 05/15/19 07:34 05/15/19 07:34 INR, PTT INR 1.34 (0.83-1.09) H 05/08/19 15:00 Assessment/Plan 88 yo M PMH dementia, prostate Ca , HTN, HLD, and gout presented to ED with AMS and fever. Pt is admitted for Sepsis of unknown etiology. Pt was recently admitted on 04/28 for balantits and proteus UTI.Pt was DC to [facility], on communication pt was AO x2. yesterday at [facility], pt was combative but was alert and confused occasionally. sepsis Acute Toxic Metabolic encephalopathy silver afib leukocytosis plan continue current mgmt await for ortho team to look at the knee
--- NOTE | 2019-05-16 15:54 | PN ---
Teaching Attending Note Name of Resident: Christy Alston ATTENDING PHYSICIAN STATEMENT I saw and evaluated the patient. I reviewed the resident's note and discussed the case with the resident. I agree with the resident's findings and plan as documented. SUBJECTIVE: No complaints. No SOB. No fever/chills. Vietnamese speaking. R knee pain on movement and ambulation. OBJECTIVE: Afebrile. Hemodynamically Stable. AAO x 2. Intermittently cooperative. Last Vital Signs Temp Pulse Resp BP Pulse Ox 98.4 F 73 20 141/64 92 L 05/16/19 14:57 05/16/19 14:57 05/16/19 14:57 05/16/19 14:57 05/15/19 21:00 Heart- S1, S2, RRR lungs - few basal crackles. Abdomen - Soft, non-tender. Bowel Sounds normal. Extremities - no edema, no calf tenderness. Knees - L knee mild swelling/tenderness. No erythema/warmth, no signs of infection. Current Medications Generic Name Dose Route Start Last Admin Trade Name Afsaneh PRN Reason Stop Dose Admin Acetaminophen 650 mg 05/11/19 07:47 05/16/19 10:17 Tylenol - PO 650 mg Q6H PRN Administration Fever Allopurinol 100 mg 05/11/19 10:00 05/16/19 10:15 Zyloprim - PO 100 mg DAILY [facility] Administration Amlodipine Besylate 10 mg 05/11/19 10:00 05/16/19 10:14 Norvasc - PO 10 mg DAILY [facility] Administration Amoxicillin/Clavulanate Potassium 1 tab 05/14/19 08:00 05/16/19 10:16 Augmentin - 875mg Tablet PO 05/16/19 17:31 1 tab BID@0800,1730 [facility] Administration Atorvastatin Calcium 20 mg 05/11/19 22:00 05/15/19 21:48 Lipitor - PO 20 mg HS [facility] Administration Heparin Sodium (Porcine) 5,000 unit 05/11/19 10:00 05/16/19 10:16 Heparin - SQ 5,000 unit BID [facility] Administration Labetalol HCl 200 mg 05/11/19 10:00 05/16/19 10:16 Normodyne - PO 200 mg DAILY [facility] Administration Memantine 5 mg 05/11/19 10:00 05/16/19 10:16 Namenda - PO 5 mg DAILY [facility] Administration Paroxetine HCl 40 mg 05/11/19 10:00 05/16/19 10:14 Paxil - PO 40 mg DAILY [facility] Administration Risperidone 0.5 mg 05/11/19 10:00 05/16/19 10:17 Risperdal - PO 0.5 mg BID [facility] Administration Senna/Docusate Sodium 1 tablet 05/11/19 10:00 05/16/19 10:18 Pericolace - PO 1 tablet BID [facility] Administration Home Medications Medication Instructions Recorded Allopurinol [Zyloprim -] 100 mg PO DAILY #30 tablet 11/24/12 Paroxetine HCl [Paxil] 40 mg PO DAILY 10/09/14 Atorvastatin Ca [Lipitor] 20 mg PO DAILY 04/28/19 Memantine HCl [Namenda -] 10 mg PO DAILY 04/28/19 Acetaminophen [Tylenol .Regular 650 mg PO Q6H PRN tablet 05/04/19 Strength -] Albuterol Sulfate 0.5% [Ventolin 1 amp NEB Q4H PRN amp 05/04/19 0.5% Nebulizing Soln. -] Nystatin Cream [Mycostatin Cream -] 1 applic TP BID applic 05/04/19 Pantoprazole Sodium [Protonix -] 20 mg PO DAILY tablet.ec 05/04/19 Risperidone [Risperdal -] 0.5 mg PO BID tablet 05/04/19 Sennosides/Docusate Sodium 1 tablet PO BID tablet 05/04/19 [Pericolace -] predniSONE [Deltasone -] 30 mg PO DAILY tablet 05/04/19 Amlodipine Besylate [Norvasc -] 10 mg PO DAILY tablet 05/13/19 Amox-Tr/K Cl [Augmentin 875-125mg 1 tab PO BID@0800,1730 3 Days #6 05/13/19 Tablet -] tablet Labetalol HCl [Normodyne -] 200 mg PO DAILY tablet 05/13/19 ASSESSMENT AND PLAN: 88 year old male with history of Dementia, Anemia, Prostate Ca, HTN, HLD, presented from [place] with altered mental status and fever. 1. Sepsis secondary to likely aspiration pneumonia. Blood Cx pos for Staph epi, likely contaminant. Repeat BCx neg x 2. Last fever 101.3 (05/14) - Hemodynamically Stable, leukocytosis resolved. Transitioned to oral Augmentin after 6 days of Zosyn. 2. Dysphagia - evaluated by Speech - recommend dysphagia minced diet with meds in applesauce/ensure/magic cup. 3. Acute Metabolic Encephalopathy secondary secondary to Sepsis. History of Dementia - appears stable. Baseline mental status unknown. Continue Namenda, Paxil, Risperidone. 4. Knee swelling s/p recent tap (crystal positive), s/p steroid injection as out -patient - for Ortho evaluation for aspiration for gout recurrence versus septic arthritis. Knee Xray pending. Suprapatella joint infusion on L Knee Xray. DJD both knees on imaging. Recently completed oral steroid course for gout flare. 5. 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 Creat back to baseline. 6. Questionable Atrial Fibrillation - eval by Cardio - rhythm undetermined at this point. Holter requested, patient repeatedly pulls off leads - for Cardio eval of holter feed. 7. HTN - Continue Norvasc, Labetalol. 8. HLD - continue Statin. DVT Px - Heparin SQ Dispo - awaiting cooperation with PT eval and auth for SNF.
--- NOTE | 2019-05-16 17:04 | CON.ORTH ---
Consult Reason for Consultation:: knee pain - History of Present Illness History of Present Illness: 88y m with b/l knee pain, swelling pt with hx of gout, djd pt has multiple medical issues, admitted with fuo called to r/o infection pt unable to give hx at time of exam and daughter at bedside - History Source History Provided By: Family Member, Medical Record Limitations to Obtaining History: Dementia - Past Medical History Cardio/Vascular: Yes: CAD, HTN, Hyperlipdemia Gastrointestinal: Yes: GERD Renal/: Yes: Other (Hx of prostate cancer s/p radiation.) Psych: Yes: Depression Rheumatology: Yes: Gout ENT: Yes: Allergic Rhinitis, Sinusitis - Past Surgical History Past Surgical History: Yes: Hernia Repair, Joint Replacement - Alcohol/Substance Use Hx Alcohol Use: No History of Substance Use: reports: None - Smoking History Smoking history: Never smoked Have you smoked in the past 12 months: No Aproximately how many cigarettes per day: 0 If you are a former smoker, when did you quit?: 49 yrs ago - Social History Usual Living Arrangement: With Spouse ADL: Independent History of Recent Travel: No Home Medications - Allergies Allergies/Adverse Reactions: Allergies Allergy/AdvReac Type Severity Reaction Status Date / Time No Known Allergies Allergy Verified 05/08/19 13:56 - Home Medications Home Medications: Ambulatory Orders Allopurinol [Zyloprim -] 100 mg PO DAILY #30 tablet 11/24/12 Paroxetine HCl [Paxil] 40 mg PO DAILY 10/09/14 Atorvastatin Ca [Lipitor] 20 mg PO DAILY 04/28/19 Memantine HCl [Namenda -] 10 mg PO DAILY 04/28/19 Acetaminophen [Tylenol .Regular Strength -] 650 mg PO Q6H PRN tablet 05/04/19 Albuterol Sulfate 0.5% [Ventolin 0.5% Nebulizing Soln. -] 1 amp NEB Q4H PRN amp 05/04/19 Nystatin Cream [Mycostatin Cream -] 1 applic TP BID applic 05/04/19 Pantoprazole Sodium [Protonix -] 20 mg PO DAILY tablet.ec 05/04/19 Risperidone [Risperdal -] 0.5 mg PO BID tablet 05/04/19 Sennosides/Docusate Sodium [Pericolace -] 1 tablet PO BID tablet 05/04/19 predniSONE [Deltasone -] 30 mg PO DAILY tablet 05/04/19 Amlodipine Besylate [Norvasc -] 10 mg PO DAILY tablet 05/13/19 Amox-Tr/K Cl [Augmentin 875-125mg Tablet -] 1 tab PO BID@0800,1730 3 Days #6 tablet 05/13/19 Labetalol HCl [Normodyne -] 200 mg PO DAILY tablet 05/13/19 Physical Exam for Ortho Vital Signs: Vital Signs Temperature 98.4 F 05/16/19 14:57 Pulse Rate 73 05/16/19 14:57 Respiratory Rate 20 05/16/19 14:57 Blood Pressure 141/64 05/16/19 14:57 O2 Sat by Pulse Oximetry (%) 92 L 05/15/19 21:00 Constitutional: Yes: Well Nourished, No Distress, Calm Respiratory: Yes: Regular Extremities: Yes: Other (BL LE exam shows no skin lesions, no erythema. Both knees warm. Left knee more swollen, questionable effusion. Both knees with limited ROM, tender over medial joint line both sides. 2+ pulses. moving both LE spontaneously to light touch.) Labs: CBC, BMP 05/15/19 07:34 05/15/19 07:34 INR, PTT INR 1.34 (0.83-1.09) H 05/08/19 15:00 Imaging - Results X-ray: Report Reviewed, Image Reviewed (b/l knee DJD seen on xray) Problem List - Problems (1) Bilateral primary osteoarthritis of knee Assessment/Plan: I reviewed today's findings with the patient's family based on his physical exam, low suspicion for septic knee (no definite palpable effusion, no erythema, warm but not hot to touch) advised knee swelling more likely synovitis than effusion given this could be limited by abx, recommended repeat aspiration after review of risks, benefits, alternatives, aspiration was attempted as below procedure: pt prepped with betadine and alcohol under sterile technique, 18g needle inserted into the joint no fluid was aspirated, dry tap dressing placed based on current exam septic joint is highly unlikely (previous negative aspiration, physical exam, dry tap today) recommend rheum consult for management of his djd/gout given his renal disease may consider group home use of oral steroid would not recommend intra-articular steroid in setting of possible infection of unknown source Code(s): M17.0 - BILATERAL PRIMARY OSTEOARTHRITIS OF KNEE
[2019-05-16] MEDS: ATORVASTATIN CA 20 MG TABLET (FP) PO SCH ×2 (22:07→23:28)
--- NOTE | 2019-05-17 08:31 | PN ---
Progress Note, Physician History of Present Illness: stable no new issues ortho note noted - Current Medication List Current Medications: Active Medications Acetaminophen (Tylenol -) 650 mg PO Q6H PRN PRN Reason: Fever Last Admin: 05/16/19 18:20 Dose: 650 mg Allopurinol (Zyloprim -) 100 mg PO DAILY [facility] Last Admin: 05/16/19 10:15 Dose: 100 mg Amlodipine Besylate (Norvasc -) 10 mg PO DAILY [facility] Last Admin: 05/16/19 10:14 Dose: 10 mg Atorvastatin Calcium (Lipitor -) 20 mg PO HS [facility] Last Admin: 05/16/19 22:07 Dose: Not Given Heparin Sodium (Porcine) (Heparin -) 5,000 unit SQ BID [facility] Last Admin: 05/16/19 23:32 Dose: Not Given Labetalol HCl (Normodyne -) 200 mg PO DAILY [facility] Last Admin: 05/16/19 10:16 Dose: 200 mg Memantine (Namenda -) 5 mg PO DAILY [facility] Last Admin: 05/16/19 10:16 Dose: 5 mg Paroxetine HCl (Paxil -) 40 mg PO DAILY [facility] Last Admin: 05/16/19 10:14 Dose: 40 mg Risperidone (Risperdal -) 0.5 mg PO BID [facility] Last Admin: 05/16/19 22:08 Dose: Not Given Senna/Docusate Sodium (Pericolace -) 1 tablet PO BID [facility] Last Admin: 05/16/19 22:07 Dose: Not Given - Objective Vital Signs: Vital Signs Temperature 97.9 F 05/17/19 06:00 Pulse Rate 80 05/17/19 06:00 Respiratory Rate 20 05/17/19 06:00 Blood Pressure 161/81 05/17/19 06:00 O2 Sat by Pulse Oximetry (%) 92 L 05/15/19 21:00 Constitutional: Yes: No Distress, Calm Cardiovascular: Yes: S1, S2 Respiratory: Yes: Regular, CTA Bilaterally Gastrointestinal: Yes: Normal Bowel Sounds, Soft Musculoskeletal: Yes: WNL Extremities: Yes: Other (warm knees) Neurological: Yes: Alert Psychiatric: Yes: Alert Labs: CBC, BMP 05/15/19 07:34 05/15/19 07:34 INR, PTT INR 1.34 (0.83-1.09) H 05/08/19 15:00 Assessment/Plan 88 yo M PMH dementia, prostate Ca , HTN, HLD, and gout presented to ED with AMS and fever. Pt is admitted for Sepsis of unknown etiology. Pt was recently admitted on 04/28 for balantits and proteus UTI.Pt was DC to [facility], on communication pt was AO x2. yesterday at [facility], pt was combative but was alert and confused occasionally. sepsis Acute Toxic Metabolic encephalopathy silver afib leukocytosis plan continue current mgmt rest as per the team
[2019-05-17] MEDS ORDERED: PT OWN MED DRAWER 7, Y5N ONE ×3 (10:19→21:32)
[2019-05-17] MEDS: LABETALOL HCL 200 MG TABLET (FP) PO SCH (10:37)
[2019-05-17] MEDS: risperiDONE 0.5 MG TABLET (FP) PO SCH ×2 (10:37→22:07)
[2019-05-17] MEDS: PARoxetine HCL 20 MG TABLET PO SCH (10:37)
[2019-05-17] MEDS: ALLOPURINOL 100 MG TABLET (FP) PO SCH (10:37)
[2019-05-17] MEDS: amLODIPine BESYLATE 10 MG TABLET (FP) PO SCH (10:38)
[2019-05-17] MEDS: ACETAMINOPHEN 325 MG TABLET (FP) PO PRN ×2 (10:38→17:41)
[2019-05-17] MEDS: MEMANTINE HCL 5 MG TABLET (UD) PO SCH (10:38)
[2019-05-17] MEDS: HEPARIN NA (PORCINE) 5,000 UNITS/ML 1ML VIAL SQ SCH ×2 (10:39→22:09)
[2019-05-17] MEDS: SENNOSIDES/DOCUSATE COMBO (SENNA PLUS) TABLET (UD) PO SCH ×2 (10:39→22:09)
--- NOTE | 2019-05-17 12:52 | CONSULT ---
Consult Consult Specialty:: Rheumatology - History of Present Illness History of Present Illness: 88 year old male with PMHx of dementia, HTN, HLD, Prostate CA and Gout admitted with fever and rule out acute gouty arthritis. HPI. The patient cannot provide information due to dementia. Data from the chart. The patient has history of gout however I don't have history of onset of the disease and prebious treatments. On 04/22/19 the patient received a steroid injection to the right knee, however afterwards he had difficulty in walking. He was admitted to the hospital on 04/28/19 with confusion and dysuria and on 05/02/19 with bilateral knee pain and difficulty in walking. The patient was seen by orthopedics who aspirated both knees, however he did not receive steroid injections. Synovial fluid revealed in the left WBC 71664 and in the right 2053. There were rare monosodium urate crystals. In the present admission the patient had fever and balanitis. He reports tenderness in the left knee, he was avoiding walking, however he strated walking with PT. He was seen by orthopedics who attempted arthrocentesis of the left knee, however could not obtain fluid. X-ray of the knees 05/16/19 (not clear if weight bearing) revealed, in the right , moderate to severe narrowing of the medial compartment with almost bone on bone contact. In the left there was mild narrowing of the medial compartment. Laboratory work-up revealed WBC: 8.5, creatinine 1.4, eGFR: 44.54, ESR (05/08/19) : 97 and uric acid (05/03/19): 6.9. - History Source History Provided By: Medical Record - Past Medical History Cardio/Vascular: Yes: CAD, HTN, Hyperlipdemia Gastrointestinal: Yes: GERD Renal/: Yes: Other (Hx of prostate cancer s/p radiation.) Psych: Yes: Depression Rheumatology: Yes: Gout ENT: Yes: Allergic Rhinitis, Sinusitis - Past Surgical History Past Surgical History: Yes: Hernia Repair, Joint Replacement - Alcohol/Substance Use Hx Alcohol Use: No History of Substance Use: reports: None - Smoking History Smoking history: Never smoked Have you smoked in the past 12 months: No Aproximately how many cigarettes per day: 0 If you are a former smoker, when did you quit?: 49 yrs ago - Social History Usual Living Arrangement: With Spouse ADL: Independent History of Recent Travel: No Home Medications - Allergies Allergies/Adverse Reactions: Allergies Allergy/AdvReac Type Severity Reaction Status Date / Time No Known Allergies Allergy Verified 05/08/19 13:56 - Home Medications Home Medications: Ambulatory Orders Allopurinol [Zyloprim -] 100 mg PO DAILY #30 tablet 11/24/12 Paroxetine HCl [Paxil] 40 mg PO DAILY 10/09/14 Atorvastatin Ca [Lipitor] 20 mg PO DAILY 04/28/19 Memantine HCl [Namenda -] 10 mg PO DAILY 04/28/19 Acetaminophen [Tylenol .Regular Strength -] 650 mg PO Q6H PRN tablet 05/04/19 Albuterol Sulfate 0.5% [Ventolin 0.5% Nebulizing Soln. -] 1 amp NEB Q4H PRN amp 05/04/19 Nystatin Cream [Mycostatin Cream -] 1 applic TP BID applic 05/04/19 Pantoprazole Sodium [Protonix -] 20 mg PO DAILY tablet.ec 05/04/19 Risperidone [Risperdal -] 0.5 mg PO BID tablet 05/04/19 Sennosides/Docusate Sodium [Pericolace -] 1 tablet PO BID tablet 05/04/19 predniSONE [Deltasone -] 30 mg PO DAILY tablet 05/04/19 Amlodipine Besylate [Norvasc -] 10 mg PO DAILY tablet 05/13/19 Labetalol HCl [Normodyne -] 200 mg PO DAILY tablet 05/13/19 Physical Exam Vital Signs: Vital Signs Temperature 98.1 F 05/17/19 10:00 Pulse Rate 77 05/17/19 10:00 Respiratory Rate 22 H 05/17/19 10:00 Blood Pressure 159/79 05/17/19 10:00 O2 Sat by Pulse Oximetry (%) 92 L 05/15/19 21:00 Constitutional: Yes: Mild Distress Eyes: Yes: WNL HENT: Yes: WNL Neck: Yes: WNL Cardiovascular: Yes: WNL Respiratory: Yes: WNL Gastrointestinal: Yes: WNL Musculoskeletal: Yes: Other (Mild tenderness and small effusion in the left wrist. No other active joints.) Labs: CBC, BMP 05/15/19 07:34 05/15/19 07:34 Laboratory Tests 05/03/19 05/08/19 05/09/19 07:15 14:58 05:27 ESR 97 H Uric Acid 6.9 Calcium 8.2 L Phosphorus 3.6 Magnesium 2.4 Total Bilirubin 0.6 AST 15 ALT 20 Alkaline Phosphatase 85 Total Protein 5.8 L Albumin 2.3 L TSH 1.14 Urine Appearance Urine pH Ur Specific Rachel Urine Protein Urine Glucose (UA) Urine Ketones Urine Blood Urine Nitrite Urine Bilirubin Urine Urobilinogen Ur Leukocyte Esterase 05/14/19 17:15 ESR Uric Acid Calcium Phosphorus Magnesium Total Bilirubin AST ALT Alkaline Phosphatase Total Protein Albumin TSH Urine Appearance Clear Urine pH 5.0 Ur Specific Rachel 1.019 Urine Protein Negative Urine Glucose (UA) Negative Urine Ketones Negative Urine Blood Negative Urine Nitrite Negative Urine Bilirubin Negative Urine Urobilinogen 1.0 Ur Leukocyte Esterase Negative Problem List - Problems (1) Bilateral primary osteoarthritis of knee Assessment/Plan: Oteoarthritis in knees with significant damage in the right knee and mild damage in the left knee. Conservative management Code(s): M17.0 - BILATERAL PRIMARY OSTEOARTHRITIS OF KNEE (2) Gout Assessment/Plan: Probable intercrytical gout, however he might have mild arthritis in the left knee related to gout. The patient has chronic kidney disease. Avoid NSAIDs. COntinue Acetaminophen, PT Code(s): M10.9 - GOUT, UNSPECIFIED
--- NOTE | 2019-05-17 16:22 | PN ---
Physical Exam: SUBJECTIVE: Patient seen and examined at bedside. Pt seen sitting up on edge of bed. Pt has no acute complaints. OBJECTIVE: Vital Signs Period Temp Pulse Resp BP Sys/Pradhan Pulse Ox Last 24 Hr 97.9 F-98.1 F 77-80 18-22 159-161/79-81 GENERAL: The patient is awake, alert, and fully oriented, in no acute distress. LUNGS: Breath sounds equal, clear to auscultation bilaterally, no wheezes, no crackles, no accessory muscle use. HEART: Regular rate and rhythm, S1, S2 without murmur, rub or gallop. ABDOMEN: Soft, nontender, nondistended, normoactive bowel sounds EXTREMITIES: 2+ pulses, warm, well-perfused, no edema. SKIN: Warm, dry, normal turgor, no rashes or lesions noted Current Medications Acetaminophen (Tylenol -) 650 mg PO Q6H PRN PRN Reason: Fever Last Admin: 05/17/19 10:38 Dose: 650 mg Allopurinol (Zyloprim -) 100 mg PO DAILY [facility] Last Admin: 05/17/19 10:37 Dose: 100 mg Amlodipine Besylate (Norvasc -) 10 mg PO DAILY [facility] Last Admin: 05/17/19 10:38 Dose: 10 mg Atorvastatin Calcium (Lipitor -) 20 mg PO HS [facility] Last Admin: 05/16/19 22:07 Dose: Not Given Heparin Sodium (Porcine) (Heparin -) 5,000 unit SQ BID [facility] Last Admin: 05/17/19 10:39 Dose: 5,000 unit Labetalol HCl (Normodyne -) 200 mg PO DAILY [facility] Last Admin: 05/17/19 10:37 Dose: 200 mg Memantine (Namenda -) 5 mg PO DAILY [facility] Last Admin: 05/17/19 10:38 Dose: 5 mg Nystatin/Triamcinolone Acetonide (Mycolog Ii Cream -) 1 applic TP BID [facility] Paroxetine HCl (Paxil -) 40 mg PO DAILY [facility] Last Admin: 05/17/19 10:37 Dose: 40 mg Risperidone (Risperdal -) 0.5 mg PO BID [facility] Last Admin: 05/17/19 10:37 Dose: 0.5 mg Senna/Docusate Sodium (Pericolace -) 1 tablet PO BID [facility] Last Admin: 05/17/19 10:39 Dose: [address] Chest/ abd/ pelvis: IMPRESSION: 1. Cardiomegaly and mild chronic lung disease. No evidence of pneumonia or acute pathology within the chest. 2. Mild hepatomegaly. 3. No evidence of intra-abdominal abscess or acute pathology within the abdomen or pelvis. Please see above discussion. ASSESSMENT/PLAN: 88 yo M PMH dementia, prostate Ca , HTN, HLD, and gout presented to ED with AMS and fever. Pt is admitted for Sepsis of unknown etiology. Pt was recently admitted on 04/28 for balantits and proteus UTI.Pt was DC to [facility], on communication pt was AO x2. at [facility], pt was combative but was alert and confused occasionally. Sepsis, unknown etiology -Lactate downtrending 2.6-->2.2 -pt febrile on admission,pt afebrile >48 hrs - UCx negative -initial B Cx grew Staph Coag, likely contaminate, rpt BCx negative -CXRay reviewed by me. 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 pt currently at baseline -Cr improving -avoid nephrotoxic agents AFib -new onset -rate control, no continued events overnight -cardio consult appreciated -holter monitoring as per cardio recs Dementia -baseline unclear, will contact daughter -c/w Namenda and Risperidal Depression -c/w Paroxetine 40 F/E/N -dysphagia crushed. speech and swallow recommendations appreciated DVTppx: Hep SQ Dispo: continue to monitor on med surg until medically optimized, awaiting placement for facility Visit type - Emergency Visit Emergency Visit: No - New Patient This patient is new to me today: No - Critical Care Critical Care patient: No - Discharge Referral Referred to [facility] Med P.C.: No ATTENDING PHYSICIAN STATEMENT I saw and evaluated the patient. I reviewed the resident's note and discussed the case with the resident. I agree with the resident's findings and plan as documented. SUBJECTIVE: OBJECTIVE: ASSESSMENT AND PLAN:
[2019-05-17] MEDS: NYSTATIN/TRIAMCINOLONE TOPICAL CREAM 15 GM TUBE TP SCH ×2 (17:41→22:10)
--- NOTE | 2019-05-17 18:37 | PN ---
Teaching Attending Note Name of Resident: Christy Alston ATTENDING PHYSICIAN STATEMENT I saw and evaluated the patient. I reviewed the resident's note and discussed the case with the resident. I agree with the resident's findings and plan as documented. SUBJECTIVE: No complaints. No SOB. No fever/chills. [place]rugu[place] speaking. R knee pain on movement and ambulation. OBJECTIVE: Afebrile. Hemodynamically Stable. AAO x 2. Calm and cooperative. Last Vital Signs Temp Pulse Resp BP Pulse Ox 98.2 F 67 18 112/52 L 92 L 05/17/19 16:15 05/17/19 16:15 05/17/19 16:15 05/17/19 16:15 05/15/19 21:00 Heart- S1, S2, RRR lungs - few basal crackles. Abdomen - Soft, non-tender. Bowel Sounds normal. Extremities - no edema, no calf tenderness. Knees - L knee mild swelling/tenderness. No erythema/warmth, no signs of infection. Current Medications Generic Name Dose Route Start Last Admin Trade Name Juliusq PRN Reason Stop Dose Admin Acetaminophen 650 mg 05/11/19 07:47 05/17/19 17:41 Tylenol - PO 650 mg Q6H PRN Administration Fever Allopurinol 100 mg 05/11/19 10:00 05/17/19 10:37 Zyloprim - PO 100 mg DAILY [facility] Administration Amlodipine Besylate 10 mg 05/11/19 10:00 05/17/19 10:38 Norvasc - PO 10 mg DAILY [facility] Administration Atorvastatin Calcium 20 mg 05/11/19 22:00 05/16/19 22:07 Lipitor - PO Not Given HS [facility] Heparin Sodium (Porcine) 5,000 unit 05/11/19 10:00 05/17/19 10:39 Heparin - SQ 5,000 unit BID [facility] Administration Labetalol HCl 200 mg 05/11/19 10:00 05/17/19 10:37 Normodyne - PO 200 mg DAILY [facility] Administration Memantine 5 mg 05/11/19 10:00 05/17/19 10:38 Namenda - PO 5 mg DAILY [facility] Administration Nystatin/Triamcinolone Acetonide 1 applic 05/17/19 22:00 05/17/19 17:41 Mycolog Ii Cream - TP 1 applic BID [facility] Administration Paroxetine HCl 40 mg 05/11/19 10:00 05/17/19 10:37 Paxil - PO 40 mg DAILY [facility] Administration Risperidone 0.5 mg 05/11/19 10:00 05/17/19 10:37 Risperdal - PO 0.5 mg BID [facility] Administration Senna/Docusate Sodium 1 tablet 05/11/19 10:00 05/17/19 10:39 Pericolace - PO 1 tablet BID [facility] Administration Home Medications Medication Instructions Recorded Allopurinol [Zyloprim -] 100 mg PO DAILY #30 tablet 11/24/12 Paroxetine HCl [Paxil] 40 mg PO DAILY 10/09/14 Atorvastatin Ca [Lipitor] 20 mg PO DAILY 04/28/19 Memantine HCl [Namenda -] 10 mg PO DAILY 04/28/19 Acetaminophen [Tylenol .Regular 650 mg PO Q6H PRN tablet 05/04/19 Strength -] Albuterol Sulfate 0.5% [Ventolin 1 amp NEB Q4H PRN amp 05/04/19 0.5% Nebulizing Soln. -] Nystatin Cream [Mycostatin Cream -] 1 applic TP BID applic 05/04/19 Pantoprazole Sodium [Protonix -] 20 mg PO DAILY tablet.ec 05/04/19 Risperidone [Risperdal -] 0.5 mg PO BID tablet 05/04/19 Sennosides/Docusate Sodium 1 tablet PO BID tablet 05/04/19 [Pericolace -] predniSONE [Deltasone -] 30 mg PO DAILY tablet 05/04/19 Amlodipine Besylate [Norvasc -] 10 mg PO DAILY tablet 05/13/19 Amox-Tr/K Cl [Augmentin 875-125mg 1 tab PO BID@0800,1730 3 Days #6 05/13/19 Tablet -] tablet Labetalol HCl [Normodyne -] 200 mg PO DAILY tablet 05/13/19 ASSESSMENT AND PLAN: 88 year old male with history of Dementia, Anemia, Prostate Ca, HTN, HLD, presented from [employer] with altered mental status and fever. 1. Sepsis secondary to likely aspiration pneumonia - resolving Blood Cx pos for Staph epi, likely contaminant. Repeat BCx neg x 2. Last fever 101.3 (05/14) - Hemodynamically Stable, leukocytosis resolved. Transitioned to oral Augmentin after 6 days of Zosyn - completed Abx course. 2. Dysphagia - evaluated by Speech - recommend dysphagia minced diet with meds in applesauce/ensure/magic cup. 3. Acute Metabolic Encephalopathy secondary secondary to Sepsis - resolving. History of Dementia - appears stable. Baseline mental status unknown. More calm and cooperative. Continue Namenda, Paxil, Risperidone. 4. Knee swelling s/p recent tap (crystal positive), s/p steroid injection as out -patient - Knee Xray shows DJD. Suprapatella joint infusion on L Knee Xray. Seen by Ortho - joint aspirate attempted, dry tap. Seen by Rheumatology - recommends Tylenol PRN/PT, avoid NSAIDs. Recently completed oral steroid course for gout flare. No further steroid recommended by Rheumatology. On allopurinol. 5. 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 Creat back to baseline. 6. Questionable Atrial Fibrillation - eval by Cardio - patient poorly compliant with Holter. No evidence of any further Afib at this point - Discussed with Cardio - for out-patient follow up for possible loop recoreder. 7. HTN - Continue Norvasc, Labetalol. 8. HLD - continue Statin. DVT Px - Heparin SQ Dispo - cooperated with PT, awaiting auth for SNF.
[2019-05-17] MEDS: ATORVASTATIN CA 20 MG TABLET (FP) PO SCH (22:09)
[2019-05-18] MEDS ORDERED: PT OWN MED DRAWER 7, Y5N ONE (08:19)
[2019-05-18] MEDS: LABETALOL HCL 200 MG TABLET (FP) PO SCH (09:09)
[2019-05-18] MEDS: amLODIPine BESYLATE 10 MG TABLET (FP) PO SCH (09:09)
[2019-05-18] MEDS: risperiDONE 0.5 MG TABLET (FP) PO SCH ×2 (09:09→22:39)
[2019-05-18] MEDS: MEMANTINE HCL 5 MG TABLET (UD) PO SCH (09:09)
[2019-05-18] MEDS: PARoxetine HCL 20 MG TABLET PO SCH (09:09)
[2019-05-18] MEDS: ALLOPURINOL 100 MG TABLET (FP) PO SCH (09:10)
[2019-05-18] MEDS: SENNOSIDES/DOCUSATE COMBO (SENNA PLUS) TABLET (UD) PO SCH ×2 (09:10→21:19)
[2019-05-18] MEDS: NYSTATIN/TRIAMCINOLONE TOPICAL CREAM 15 GM TUBE TP SCH ×2 (09:11→21:18)
--- NOTE | 2019-05-18 15:38 | PN ---
Teaching Attending Note Name of Resident: Stephanie Reyez ATTENDING PHYSICIAN STATEMENT I saw and evaluated the patient. I reviewed the resident's note and discussed the case with the resident. I agree with the resident's findings and plan as documented. SUBJECTIVE: No complaints. No SOB. No fever/chills. Peruvian speaking. OBJECTIVE: Afebrile. Hemodynamically Stable. AAO x 2. Calm and cooperative. In a jovial mood, smiling. Last Vital Signs Temp Pulse Resp BP Pulse Ox 98.4 F 62 20 144/67 95 05/18/19 08:00 05/18/19 08:00 05/18/19 08:00 05/18/19 08:00 05/18/19 09:00 Heart- S1, S2, RRR lungs - few basal crackles. Abdomen - Soft, non-tender. Bowel Sounds normal. Extremities - no edema, no calf tenderness. Knees - L knee mild swelling/tenderness. No erythema/warmth, no signs of infection. Current Medications Generic Name Dose Route Start Last Admin Trade Name Freq PRN Reason Stop Dose Admin Acetaminophen 650 mg 05/11/19 07:47 05/17/19 17:41 Tylenol - PO 650 mg Q6H PRN Administration Fever Allopurinol 100 mg 05/11/19 10:00 05/18/19 09:10 Zyloprim - PO 100 mg DAILY [facility] Administration Amlodipine Besylate 10 mg 05/11/19 10:00 05/18/19 09:09 Norvasc - PO 10 mg DAILY [facility] Administration Atorvastatin Calcium 20 mg 05/11/19 22:00 05/17/19 22:09 Lipitor - PO 20 mg HS [facility] Administration Labetalol HCl 200 mg 05/11/19 10:00 05/18/19 09:09 Normodyne - PO 200 mg DAILY [facility] Administration Memantine 5 mg 05/11/19 10:00 05/18/19 09:09 Namenda - PO 5 mg DAILY [facility] Administration Nystatin/Triamcinolone Acetonide 1 applic 05/17/19 22:00 05/18/19 09:11 Mycolog Ii Cream - TP 1 applic BID [facility] Administration Paroxetine HCl 40 mg 05/11/19 10:00 05/18/19 09:09 Paxil - PO 40 mg DAILY [facility] Administration Risperidone 0.5 mg 05/11/19 10:00 05/18/19 09:09 Risperdal - PO 0.5 mg BID [facility] Administration Senna/Docusate Sodium 1 tablet 05/11/19 10:00 05/18/19 09:10 Pericolace - PO 1 tablet BID [facility] Administration Home Medications Medication Instructions Recorded Allopurinol [Zyloprim -] 100 mg PO DAILY #30 tablet 11/24/12 Paroxetine HCl [Paxil] 40 mg PO DAILY 10/09/14 Atorvastatin Ca [Lipitor] 20 mg PO DAILY 04/28/19 Memantine HCl [Namenda -] 10 mg PO DAILY 04/28/19 Acetaminophen [Tylenol .Regular 650 mg PO Q6H PRN tablet 05/04/19 Strength -] Albuterol Sulfate 0.5% [Ventolin 1 amp NEB Q4H PRN amp 05/04/19 0.5% Nebulizing Soln. -] Nystatin Cream [Mycostatin Cream -] 1 applic TP BID applic 05/04/19 Pantoprazole Sodium [Protonix -] 20 mg PO DAILY tablet.ec 05/04/19 Risperidone [Risperdal -] 0.5 mg PO BID tablet 05/04/19 Sennosides/Docusate Sodium 1 tablet PO BID tablet 05/04/19 [Pericolace -] predniSONE [Deltasone -] 30 mg PO DAILY tablet 05/04/19 Amlodipine Besylate [Norvasc -] 10 mg PO DAILY tablet 05/13/19 Amox-Tr/K Cl [Augmentin 875-125mg 1 tab PO BID@0800,1730 3 Days #6 05/13/19 Tablet -] tablet Labetalol HCl [Normodyne -] 200 mg PO DAILY tablet 05/13/19 ASSESSMENT AND PLAN: 88 year old male with history of Dementia, Anemia, Prostate Ca, HTN, HLD, presented from [place] with altered mental status and fever. 1. Sepsis secondary to likely aspiration pneumonia - resolved Blood Cx pos for Staph epi, likely contaminant. Repeat BCx neg x 2. Last fever 101.3 (05/14) - Hemodynamically Stable, leukocytosis resolved. Completed Abx course of Zosyn/Augmentin. 2. Dysphagia - evaluated by Speech - recommend dysphagia minced diet with meds in applesauce/ensure/magic cup. 3. Acute Metabolic Encephalopathy secondary secondary to Sepsis - resolving. History of Dementia - appears stable. Baseline mental status unknown. More calm and cooperative. Continue Namenda, Paxil, Risperidone. 4. Knee swelling s/p recent tap (crystal positive), s/p steroid injection as out -patient - Knee Xray shows DJD. Suprapatella joint infusion on L Knee Xray. Seen by Ortho - joint aspirate attempted, dry tap. Seen by Rheumatology - recommends Tylenol PRN/PT, avoid NSAIDs. Recently completed oral steroid course for gout flare. No further steroid recommended by Rheumatology. On allopurinol. 5. 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 Creat back to baseline. 6. Questionable Atrial Fibrillation - eval by Cardio - patient poorly compliant with Holter. No evidence of any further Afib at this point - Discussed with Cardio - for out-patient follow up for possible loop recorder. 7. HTN - Continue Norvasc, Labetalol. 8. HLD - continue Statin. DVT Px - Heparin SQ Dispo - cooperated with PT, awaiting auth for SNF.
--- NOTE | 2019-05-18 16:57 | PN ---
Progress Note, Physician History of Present Illness: Pt seen and examined, events noted. He is alert and responsive, cooperative. No distress noted. - Current Medication List Current Medications: Active Medications Acetaminophen (Tylenol -) 650 mg PO Q6H PRN PRN Reason: Fever Last Admin: 05/17/19 17:41 Dose: 650 mg Allopurinol (Zyloprim -) 100 mg PO DAILY [facility] Last Admin: 05/18/19 09:10 Dose: 100 mg Amlodipine Besylate (Norvasc -) 10 mg PO DAILY [facility] Last Admin: 05/18/19 09:09 Dose: 10 mg Atorvastatin Calcium (Lipitor -) 20 mg PO HS [facility] Last Admin: 05/17/19 22:09 Dose: 20 mg Labetalol HCl (Normodyne -) 200 mg PO DAILY [facility] Last Admin: 05/18/19 09:09 Dose: 200 mg Memantine (Namenda -) 5 mg PO DAILY [facility] Last Admin: 05/18/19 09:09 Dose: 5 mg Nystatin/Triamcinolone Acetonide (Mycolog Ii Cream -) 1 applic TP BID [facility] Last Admin: 05/18/19 09:11 Dose: 1 applic Paroxetine HCl (Paxil -) 40 mg PO DAILY [facility] Last Admin: 05/18/19 09:09 Dose: 40 mg Risperidone (Risperdal -) 0.5 mg PO BID [facility] Last Admin: 05/18/19 09:09 Dose: 0.5 mg Senna/Docusate Sodium (Pericolace -) 1 tablet PO BID [facility] Last Admin: 05/18/19 09:10 Dose: 1 tablet - Objective Vital Signs: Vital Signs Temperature 98.9 F 05/18/19 15:00 Pulse Rate 72 05/18/19 15:00 Respiratory Rate 20 05/18/19 08:00 Blood Pressure 115/68 05/18/19 15:00 O2 Sat by Pulse Oximetry (%) 95 05/18/19 09:00 Constitutional: Yes: No Distress, Calm Cardiovascular: Yes: Regular Rate and Rhythm Respiratory: Yes: Regular Gastrointestinal: Yes: Normal Bowel Sounds, Soft Breast(s): Yes: WNL Musculoskeletal: Yes: Other (minimal Lt knee edema, no erythema/warmth, no tenderness noted on palpation) Integumentary: Yes: WNL Neurological: Yes: Alert Labs: CBC, BMP 05/15/19 07:34 05/15/19 07:34 INR, PTT INR 1.34 (0.83-1.09) H 05/08/19 15:00 Microbiology 05/14/19 18:55 Blood - Peripheral Venous Blood Culture - Preliminary NO GROWTH OBTAINED AFTER 72 HOURS, INCUBATION TO CONTINUE FOR 2 DAYS. 05/14/19 18:35 Blood - Peripheral Venous Blood Culture - Preliminary NO GROWTH OBTAINED AFTER 72 HOURS, INCUBATION TO CONTINUE FOR 2 DAYS. 05/11/19 09:55 Blood - Peripheral Venous Blood Culture - Final NO GROWTH AFTER 5 DAYS INCUBATION 05/11/19 09:50 Blood - Peripheral Venous Blood Culture - Final NO GROWTH AFTER 5 DAYS INCUBATION 05/14/19 17:15 Urine - Urine - Catheterized Urine Culture - Final NO GROWTH OBTAINED 05/08/19 15:00 Blood - Peripheral Venous Blood Culture - Final NO GROWTH AFTER 5 DAYS INCUBATION 05/08/19 15:00 Blood - Peripheral Venous Blood Culture - Final Staphylococcus Epidermidis 05/08/19 15:00 Urine - Urine Clean Catch Urine Culture - Final NO GROWTH OBTAINED Problem List - Problems (1) ASHD (arteriosclerotic heart disease) Code(s): I25.10 - ATHSCL HEART DISEASE OF [place] CORONARY ARTERY W/O ANG PCTRS (2) Bilateral primary osteoarthritis of knee Code(s): M17.0 - BILATERAL PRIMARY OSTEOARTHRITIS OF KNEE (3) Dementia Code(s): F03.90 - UNSPECIFIED DEMENTIA WITHOUT BEHAVIORAL DISTURBANCE (4) Essential hypertension Code(s): I10 - ESSENTIAL (PRIMARY) HYPERTENSION (5) Gout of left knee Code(s): M10.9 - GOUT, UNSPECIFIED Assessment/Plan Pt now s/p course of antibiotics Afebrile today, leukocytosis resolved Blood/Urine cultures neg Orthopedics/Rheumatology consults reviewed continue monitor off of antibiotics for now
--- NOTE | 2019-05-18 18:38 | PN ---
Physical Exam: SUBJECTIVE: Patient seen and examined at bedside this morning. No acute events overnight. OBJECTIVE: Vital Signs Temperature 98.1 F 05/18/19 20:03 Pulse Rate 78 05/18/19 20:03 Respiratory Rate 20 05/18/19 20:03 Blood Pressure 112/48 L 05/18/19 20:03 O2 Sat by Pulse Oximetry (%) 95 05/18/19 21:00 GENERAL: The patient is awake, alert, in no acute distress. HEAD: Normal with no signs of trauma. NECK: Trachea midline, full range of motion, supple. LUNGS: Decreased breath sounds bilateral bases. HEART: Regular rate and rhythm, S1, S2. ABDOMEN: Soft, nontender, nondistended, normoactive bowel sounds. EXTREMITIES: 2+ pulses, warm, well-perfused, no edema. NEUROLOGICAL: Cranial nerves II through XII grossly intact. Normal speech, gait not observed. PSYCH: Normal mood, normal affect. SKIN: Warm, dry, normal turgor, no rashes or lesions noted Active Medications Generic Name Dose Route Start Last Admin Trade Name Freq PRN Reason Stop Dose Admin Acetaminophen 650 mg 05/11/19 07:47 05/17/19 17:41 Tylenol - PO 650 mg Q6H PRN Administration Fever Allopurinol 100 mg 05/11/19 10:00 05/18/19 09:10 Zyloprim - PO 100 mg DAILY [facility] Administration Amlodipine Besylate 10 mg 05/11/19 10:00 05/18/19 09:09 Norvasc - PO 10 mg DAILY [facility] Administration Atorvastatin Calcium 20 mg 05/11/19 22:00 05/17/19 22:09 Lipitor - PO 20 mg HS [facility] Administration Labetalol HCl 200 mg 05/11/19 10:00 05/18/19 09:09 Normodyne - PO 200 mg DAILY [facility] Administration Memantine 5 mg 05/11/19 10:00 05/18/19 09:09 Namenda - PO 5 mg DAILY [facility] Administration Nystatin/Triamcinolone Acetonide 1 applic 05/17/19 22:00 05/18/19 09:11 Mycolog Ii Cream - TP 1 applic BID [facility] Administration Paroxetine HCl 40 mg 05/11/19 10:00 05/18/19 09:09 Paxil - PO 40 mg DAILY [facility] Administration Risperidone 0.5 mg 05/11/19 10:00 05/18/19 09:09 Risperdal - PO 0.5 mg BID [facility] Administration Senna/Docusate Sodium 1 tablet 05/11/19 10:00 05/18/19 09:10 Pericolace - PO 1 tablet BID [facility] Administration ASSESSMENT/PLAN: Patient is an 88 year old female with past medical history of dementia, prostate CA, HTn, HLD, and gout, presented to the ED with AMS and fever. #Sepsis likely 2/2 aspiration pneumonia: resolved -afebrile, leukocytosis resolved -UCx negative -initial B Cx grew Staph Coag, likely contaminate, rpt BCx negative -s/p zosyn for 6 days and augmentin for 3 days, now off abx -ID recommendations appreciated #Knee pain likely osteoarthritis vs gout -effusion L knee on XR -ortho recs appreciated -rheum recs appreciated , intermediate designer steroids not recommended -Will continue Tylenol PRN for pain #Acute Toxic Metabolic encephalopathy -appears stable, at baseline #MAURO on CKD -pt had MAURO prior admission 2/2 NSAID overuse. pt currently at baseline -avoid nephrotoxic agents #AFib -new onset -rate control, no continued events overnight -cardio consult appreciated #Dementia -c/w Namenda and Risperidal #Depression -c/w Paroxetine 40 #F/E/N -dysphagia crushed. speech and swallow recommendations appreciated #DVTppx: Hep SQ #Dispo: awaiting placement for facility Visit type - Emergency Visit Emergency Visit: Yes ED Registration Date: 05/08/19 Care time: The patient presented to the Emergency Department on the above date and was hospitalized for further evaluation of their emergent condition. - New Patient This patient is new to me today: No - Critical Care Critical Care patient: No ATTENDING PHYSICIAN STATEMENT I saw and evaluated the patient. I reviewed the resident's note and discussed the case with the resident. I agree with the resident's findings and plan as documented. SUBJECTIVE: OBJECTIVE: ASSESSMENT AND PLAN:
[2019-05-18] MEDS: ATORVASTATIN CA 20 MG TABLET (FP) PO SCH (21:18)
[2019-05-19] MEDS ORDERED: PT OWN MED DRAWER 7, Y5N ONE ×3 (08:21→21:08)
[2019-05-19] MEDS: ALLOPURINOL 100 MG TABLET (FP) PO SCH (09:23)
[2019-05-19] MEDS: risperiDONE 0.5 MG TABLET (FP) PO SCH ×2 (09:23→21:21)
[2019-05-19] MEDS: LABETALOL HCL 200 MG TABLET (FP) PO SCH (09:23)
[2019-05-19] MEDS: ACETAMINOPHEN 325 MG TABLET (FP) PO PRN (09:23)
[2019-05-19] MEDS: PARoxetine HCL 20 MG TABLET PO SCH (09:23)
[2019-05-19] MEDS: NYSTATIN/TRIAMCINOLONE TOPICAL CREAM 15 GM TUBE TP SCH ×2 (09:25→21:22)
[2019-05-19] MEDS: amLODIPine BESYLATE 10 MG TABLET (FP) PO SCH (09:25)
[2019-05-19] MEDS: MEMANTINE HCL 5 MG TABLET (UD) PO SCH (09:25)
[2019-05-19] MEDS: SENNOSIDES/DOCUSATE COMBO (SENNA PLUS) TABLET (UD) PO SCH ×2 (09:26→21:22)
--- NOTE | 2019-05-19 11:50 | HOL ---
Hook-up date: 2019-05-15 14:43:00 Duration: 23:58:00 Test Indications: BASELINE ARTIFACT, R/O AF Medications: 93227 QRS complexes 1281 Ventricular ectopics which represent 1 % of total QRS comp. 4895 Supraventricular ectopics which represent 5 % of total QRS comp. * Paced QRS complexs which represent % of total QRS comp. 17 % of Time Classified as Noise VENTRICULAR ECTOPY 1264 Isolated 0 Bigeminal Cycles 8 Couplets 0 Runs 0 Beats in Runs * Beats LONGEST at * BPM at :: -- * Beats FASTEST at * BPM at :: -- SUPRAVENTRICULAR ECTOPY 4464 Isolated 195 Couplets 9 Runs 30 Beats in Runs 5 Beats LONGEST at 147 BPM at 01:14:39 2019-05-16 3 Beats FASTEST at 157 BPM at 13:07:38 2019-05-16 HEART RATES 59 MIN at 19:20:07 2019-05-15 73 AVG 92 MAX at 16:02:01 2019-05-15 LONGEST RR 1.360 secs at 20:28:11 2019-05-15 SCANNED BY: RUPERTO 05/18/19 The underlying rhythm is sinus. There were frequent isolated APCs, with 9 runs of PSVT, the longest being 5 beats at 147 bpm, and the fastest being 3 beats at 157 bpm. There were occasional isolated PVCs, with 8 episodes of ventricular couplets. There were no significant pauses. There was no evidence of atrial fibrillation or atrial flutter. Confirmed by FINN PARISI, DANIKA ([id number]) on 05/19/2019 11:50:04 AM Referred By: Bobby GILLILAND Overread By: DANIKA BRISENO MD
--- NOTE | 2019-05-19 15:40 | PN ---
Progress Note, Physician History of Present Illness: Pt alert, states he feels well. Denies knee pain. No SOB/n/v/d report. Appears comfortable. Temp of 99.9 yesterday, afebrile today. - Current Medication List Current Medications: Active Medications Acetaminophen (Tylenol -) 650 mg PO Q6H PRN PRN Reason: Fever Last Admin: 05/19/19 09:23 Dose: 650 mg Allopurinol (Zyloprim -) 100 mg PO DAILY [facility] Last Admin: 05/19/19 09:23 Dose: 100 mg Amlodipine Besylate (Norvasc -) 10 mg PO DAILY [facility] Last Admin: 05/19/19 09:25 Dose: 10 mg Atorvastatin Calcium (Lipitor -) 20 mg PO HS [facility] Last Admin: 05/18/19 21:18 Dose: 20 mg Labetalol HCl (Normodyne -) 200 mg PO DAILY [facility] Last Admin: 05/19/19 09:23 Dose: 200 mg Memantine (Namenda -) 5 mg PO DAILY [facility] Last Admin: 05/19/19 09:25 Dose: 5 mg Nystatin/Triamcinolone Acetonide (Mycolog Ii Cream -) 1 applic TP BID [facility] Last Admin: 05/19/19 09:25 Dose: 1 applic Paroxetine HCl (Paxil -) 40 mg PO DAILY [facility] Last Admin: 05/19/19 09:23 Dose: 40 mg Risperidone (Risperdal -) 0.5 mg PO BID [facility] Last Admin: 05/19/19 09:23 Dose: 0.5 mg Senna/Docusate Sodium (Pericolace -) 1 tablet PO BID [facility] Last Admin: 05/19/19 09:26 Dose: 1 tablet - Objective Vital Signs: Vital Signs Temperature 98.8 F 05/19/19 09:00 Pulse Rate 74 05/19/19 09:00 Respiratory Rate 20 05/19/19 09:00 Blood Pressure 144/63 05/19/19 09:00 O2 Sat by Pulse Oximetry (%) 95 05/19/19 09:00 Constitutional: Yes: No Distress, Calm Neck: Yes: Supple Cardiovascular: Yes: Regular Rate and Rhythm Respiratory: Yes: CTA Bilaterally Gastrointestinal: Yes: Normal Bowel Sounds, Soft Genitourinary: Yes: WNL Musculoskeletal: Yes: WNL, Joint Swelling (knee swelling resolved, no erythema/ warmth/tenderness to touch) Integumentary: Yes: WNL Neurological: Yes: Alert Labs: CBC, BMP 05/15/19 07:34 05/15/19 07:34 INR, PTT INR 1.34 (0.83-1.09) H 05/08/19 15:00 Microbiology 05/14/19 18:55 Blood - Peripheral Venous Blood Culture - Preliminary NO GROWTH OBTAINED AFTER 96 HOURS, INCUBATION TO CONTINUE FOR 1 DAYS. 05/14/19 18:35 Blood - Peripheral Venous Blood Culture - Preliminary NO GROWTH OBTAINED AFTER 96 HOURS, INCUBATION TO CONTINUE FOR 1 DAYS. 05/11/19 09:55 Blood - Peripheral Venous Blood Culture - Final NO GROWTH AFTER 5 DAYS INCUBATION 05/11/19 09:50 Blood - Peripheral Venous Blood Culture - Final NO GROWTH AFTER 5 DAYS INCUBATION 05/14/19 17:15 Urine - Urine - Catheterized Urine Culture - Final NO GROWTH OBTAINED 05/08/19 15:00 Blood - Peripheral Venous Blood Culture - Final NO GROWTH AFTER 5 DAYS INCUBATION 05/08/19 15:00 Blood - Peripheral Venous Blood Culture - Final Staphylococcus Epidermidis 05/08/19 15:00 Urine - Urine Clean Catch Urine Culture - Final NO GROWTH OBTAINED Problem List - Problems (1) ASHD (arteriosclerotic heart disease) Code(s): I25.10 - ATHSCL HEART DISEASE OF [place] CORONARY ARTERY W/O ANG PCTRS (2) Bilateral primary osteoarthritis of knee Code(s): M17.0 - BILATERAL PRIMARY OSTEOARTHRITIS OF KNEE (3) Dementia Code(s): F03.90 - UNSPECIFIED DEMENTIA WITHOUT BEHAVIORAL DISTURBANCE (4) Essential hypertension Code(s): I10 - ESSENTIAL (PRIMARY) HYPERTENSION (5) Gout of left knee Code(s): M10.9 - GOUT, UNSPECIFIED Assessment/Plan -- Pt with occasional temp elevations, Tmax 99.9F last night -- repeat cbc --Blood/Urine cultures neg -- s/p course of antibiotics continue monitor
--- NOTE | 2019-05-19 16:47 | PN ---
Progress Note (short form) - Note Progress Note: SUBJECTIVE: No complaints. No SOB. No fever/chills. [place] speaking. OBJECTIVE: Tmax 99.9. Hemodynamically Stable. AAO x 2. Calm and cooperative. Last Vital Signs Temp Pulse Resp BP Pulse Ox 98.8 F 74 20 144/63 95 05/19/19 09:00 05/19/19 09:00 05/19/19 09:00 05/19/19 09:00 05/19/19 09:00 Heart- S1, S2, RRR lungs - few basal crackles. Abdomen - Soft, non-tender. Bowel Sounds normal. Extremities - no edema, no calf tenderness. Knees - L knee mild swelling/tenderness. No erythema/warmth, no signs of infection. Current Medications Generic Name Dose Route Start Last Admin Trade Name Freq PRN Reason Stop Dose Admin Acetaminophen 650 mg 05/11/19 07:47 05/19/19 09:23 Tylenol - PO 650 mg Q6H PRN Administration Fever Allopurinol 100 mg 05/11/19 10:00 05/19/19 09:23 Zyloprim - PO 100 mg DAILY [facility] Administration Amlodipine Besylate 10 mg 05/11/19 10:00 05/19/19 09:25 Norvasc - PO 10 mg DAILY [facility] Administration Atorvastatin Calcium 20 mg 05/11/19 22:00 05/18/19 21:18 Lipitor - PO 20 mg HS [facility] Administration Labetalol HCl 200 mg 05/11/19 10:00 05/19/19 09:23 Normodyne - PO 200 mg DAILY [facility] Administration Memantine 5 mg 05/11/19 10:00 05/19/19 09:25 Namenda - PO 5 mg DAILY [facility] Administration Nystatin/Triamcinolone Acetonide 1 applic 05/17/19 22:00 05/19/19 09:25 Mycolog Ii Cream - TP 1 applic BID [facility] Administration Paroxetine HCl 40 mg 05/11/19 10:00 05/19/19 09:23 Paxil - PO 40 mg DAILY [facility] Administration Risperidone 0.5 mg 05/11/19 10:00 05/19/19 09:23 Risperdal - PO 0.5 mg BID [facility] Administration Senna/Docusate Sodium 1 tablet 05/11/19 10:00 05/19/19 09:26 Pericolace - PO 1 tablet BID [facility] Administration Home Medications Medication Instructions Recorded Allopurinol [Zyloprim -] 100 mg PO DAILY #30 tablet 11/24/12 Paroxetine HCl [Paxil] 40 mg PO DAILY 10/09/14 Atorvastatin Ca [Lipitor] 20 mg PO DAILY 04/28/19 Memantine HCl [Namenda -] 10 mg PO DAILY 04/28/19 Acetaminophen [Tylenol .Regular 650 mg PO Q6H PRN tablet 05/04/19 Strength -] Albuterol Sulfate 0.5% [Ventolin 1 amp NEB Q4H PRN amp 05/04/19 0.5% Nebulizing Soln. -] Nystatin Cream [Mycostatin Cream -] 1 applic TP BID applic 05/04/19 Pantoprazole Sodium [Protonix -] 20 mg PO DAILY tablet.ec 05/04/19 Risperidone [Risperdal -] 0.5 mg PO BID tablet 05/04/19 Sennosides/Docusate Sodium 1 tablet PO BID tablet 05/04/19 [Pericolace -] predniSONE [Deltasone -] 30 mg PO DAILY tablet 05/04/19 Amlodipine Besylate [Norvasc -] 10 mg PO DAILY tablet 05/13/19 Amox-Tr/K Cl [Augmentin 875-125mg 1 tab PO BID@0800,1730 3 Days #6 05/13/19 Tablet -] tablet Labetalol HCl [Normodyne -] 200 mg PO DAILY tablet 05/13/19 ASSESSMENT AND PLAN: 88 year old male with history of Dementia, Anemia, Prostate Ca, HTN, HLD, presented from [place] with altered mental status and fever. 1. Sepsis secondary to likely aspiration pneumonia - resolved Blood Cx pos for Staph epi, likely contaminant. Repeat BCx neg x 2. Last fever 101.3 (05/14) - Hemodynamically Stable, leukocytosis resolved. Completed Abx course of Zosyn/Augmentin. Low grade temp overnight - Tmax 99.9 Repeat Cultures as per ID 2. Dysphagia - evaluated by Speech - recommend dysphagia minced diet with meds in applesauce/ensure/magic cup. 3. Acute Metabolic Encephalopathy secondary secondary to Sepsis - resolving. History of Dementia - appears stable. Baseline mental status unknown. More calm and cooperative. Continue Namenda, Paxil, Risperidone. 4. Knee swelling s/p recent tap (crystal positive), s/p steroid injection as out -patient - Knee Xray shows DJD. Suprapatella joint infusion on L Knee Xray. Seen by Ortho - joint aspirate attempted, dry tap. Seen by Rheumatology - recommends Tylenol PRN/PT, avoid NSAIDs. Recently completed oral steroid course for gout flare. No further steroid recommended by Rheumatology. On allopurinol. 5. 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 Creat back to baseline. 6. Questionable Atrial Fibrillation - eval by Cardio - patient poorly compliant with Holter. No evidence of any further Afib at this point - Discussed with Cardio - for out-patient follow up for possible loop recorder. 7. HTN - Continue Norvasc, Labetalol. 8. HLD - continue Statin. DVT Px - Heparin SQ Dispo - cooperated with PT, awaiting auth for SNF. Visit type - Emergency Visit Emergency Visit: Yes ED Registration Date: 05/08/19 Care time: The patient presented to the Emergency Department on the above date and was hospitalized for further evaluation of their emergent condition. - New Patient This patient is new to me today: No - Critical Care Critical Care patient: No - Discharge Referral Referred to [facility] No
--- NOTE | 2019-05-19 17:17 | PN ---
Progress Note, Physician - Current Medication List Current Medications: Active Medications Acetaminophen (Tylenol -) 650 mg PO Q6H PRN PRN Reason: Fever Last Admin: 05/19/19 09:23 Dose: 650 mg Allopurinol (Zyloprim -) 100 mg PO DAILY [facility] Last Admin: 05/19/19 09:23 Dose: 100 mg Amlodipine Besylate (Norvasc -) 10 mg PO DAILY [facility] Last Admin: 05/19/19 09:25 Dose: 10 mg Atorvastatin Calcium (Lipitor -) 20 mg PO HS [facility] Last Admin: 05/18/19 21:18 Dose: 20 mg Labetalol HCl (Normodyne -) 200 mg PO DAILY [facility] Last Admin: 05/19/19 09:23 Dose: 200 mg Memantine (Namenda -) 5 mg PO DAILY [facility] Last Admin: 05/19/19 09:25 Dose: 5 mg Nystatin/Triamcinolone Acetonide (Mycolog Ii Cream -) 1 applic TP BID [facility] Last Admin: 05/19/19 09:25 Dose: 1 applic Paroxetine HCl (Paxil -) 40 mg PO DAILY [facility] Last Admin: 05/19/19 09:23 Dose: 40 mg Risperidone (Risperdal -) 0.5 mg PO BID [facility] Last Admin: 05/19/19 09:23 Dose: 0.5 mg Senna/Docusate Sodium (Pericolace -) 1 tablet PO BID [facility] Last Admin: 05/19/19 09:26 Dose: 1 tablet - Objective Vital Signs: Vital Signs Temperature 98.6 F 05/19/19 17:01 Pulse Rate 60 05/19/19 17:01 Respiratory Rate 20 05/19/19 17:01 Blood Pressure 129/52 L 05/19/19 17:01 O2 Sat by Pulse Oximetry (%) 95 05/19/19 09:00 Labs: CBC, BMP 05/15/19 07:34 05/15/19 07:34 INR, PTT INR 1.34 (0.83-1.09) H 05/08/19 15:00 Problem List - Problems (1) Irregular heart rhythm Code(s): I49.9 - CARDIAC ARRHYTHMIA, UNSPECIFIED (2) Sepsis Code(s): A41.9 - SEPSIS, UNSPECIFIED ORGANISM (3) Dementia Code(s): F03.90 - UNSPECIFIED DEMENTIA WITHOUT BEHAVIORAL DISTURBANCE (4) Depression Code(s): F32.9 - MAJOR DEPRESSIVE DISORDER, SINGLE EPISODE, UNSPECIFIED (5) Essential hypertension Code(s): I10 - ESSENTIAL (PRIMARY) HYPERTENSION (6) Aortic stenosis, moderate Code(s): I35.0 - NONRHEUMATIC AORTIC (VALVE) STENOSIS
--- NOTE | 2019-05-19 17:18 | PN ---
Progress Note, Physician - Current Medication List Current Medications: Active Medications Acetaminophen (Tylenol -) 650 mg PO Q6H PRN PRN Reason: Fever Last Admin: 05/19/19 09:23 Dose: 650 mg Allopurinol (Zyloprim -) 100 mg PO DAILY [facility] Last Admin: 05/19/19 09:23 Dose: 100 mg Amlodipine Besylate (Norvasc -) 10 mg PO DAILY [facility] Last Admin: 05/19/19 09:25 Dose: 10 mg Atorvastatin Calcium (Lipitor -) 20 mg PO HS [facility] Last Admin: 05/18/19 21:18 Dose: 20 mg Labetalol HCl (Normodyne -) 200 mg PO DAILY [facility] Last Admin: 05/19/19 09:23 Dose: 200 mg Memantine (Namenda -) 5 mg PO DAILY [facility] Last Admin: 05/19/19 09:25 Dose: 5 mg Nystatin/Triamcinolone Acetonide (Mycolog Ii Cream -) 1 applic TP BID [facility] Last Admin: 05/19/19 09:25 Dose: 1 applic Paroxetine HCl (Paxil -) 40 mg PO DAILY [facility] Last Admin: 05/19/19 09:23 Dose: 40 mg Risperidone (Risperdal -) 0.5 mg PO BID [facility] Last Admin: 05/19/19 09:23 Dose: 0.5 mg Senna/Docusate Sodium (Pericolace -) 1 tablet PO BID [facility] Last Admin: 05/19/19 09:26 Dose: 1 tablet - Objective Vital Signs: Vital Signs Temperature 98.6 F 05/19/19 17:01 Pulse Rate 60 05/19/19 17:01 Respiratory Rate 20 05/19/19 17:01 Blood Pressure 129/52 L 05/19/19 17:01 O2 Sat by Pulse Oximetry (%) 95 05/19/19 09:00 Labs: CBC, BMP 05/15/19 07:34 05/15/19 07:34 INR, PTT INR 1.34 (0.83-1.09) H 05/08/19 15:00 Problem List - Problems (1) Irregular heart rhythm Code(s): I49.9 - CARDIAC ARRHYTHMIA, UNSPECIFIED (2) Sepsis Code(s): A41.9 - SEPSIS, UNSPECIFIED ORGANISM (3) Dementia Code(s): F03.90 - UNSPECIFIED DEMENTIA WITHOUT BEHAVIORAL DISTURBANCE (4) Depression Code(s): F32.9 - MAJOR DEPRESSIVE DISORDER, SINGLE EPISODE, UNSPECIFIED (5) Essential hypertension Code(s): I10 - ESSENTIAL (PRIMARY) HYPERTENSION (6) Aortic stenosis, moderate Code(s): I35.0 - NONRHEUMATIC AORTIC (VALVE) STENOSIS
--- NOTE | 2019-05-19 17:23 | PN ---
Progress Note, Physician History of Present Illness: The patient is an 88 year old male (b. [place]) with a significant past medical history of HTN, HLD, prostate cancer, gout, dementia who presents to the ED via EMS with AMS. Patient was noted to have a fever of 101.3 and was brought in from [facility]. History is limited secondary to patients condition. Allergies: [facility] PCP. Dr. Reich - Current Medication List Current Medications: Active Medications Acetaminophen (Tylenol -) 650 mg PO Q6H PRN PRN Reason: Fever Last Admin: 05/19/19 09:23 Dose: 650 mg Allopurinol (Zyloprim -) 100 mg PO DAILY [facility] Last Admin: 05/19/19 09:23 Dose: 100 mg Amlodipine Besylate (Norvasc -) 10 mg PO DAILY [facility] Last Admin: 05/19/19 09:25 Dose: 10 mg Atorvastatin Calcium (Lipitor -) 20 mg PO HS [facility] Last Admin: 05/18/19 21:18 Dose: 20 mg Labetalol HCl (Normodyne -) 200 mg PO DAILY [facility] Last Admin: 05/19/19 09:23 Dose: 200 mg Memantine (Namenda -) 5 mg PO DAILY [facility] Last Admin: 05/19/19 09:25 Dose: 5 mg Nystatin/Triamcinolone Acetonide (Mycolog Ii Cream -) 1 applic TP BID [facility] Last Admin: 05/19/19 09:25 Dose: 1 applic Paroxetine HCl (Paxil -) 40 mg PO DAILY [facility] Last Admin: 05/19/19 09:23 Dose: 40 mg Risperidone (Risperdal -) 0.5 mg PO BID [facility] Last Admin: 05/19/19 09:23 Dose: 0.5 mg Senna/Docusate Sodium (Pericolace -) 1 tablet PO BID [facility] Last Admin: 05/19/19 09:26 Dose: 1 tablet - Objective Vital Signs: Vital Signs Temperature 98.6 F 05/19/19 17:01 Pulse Rate 60 05/19/19 17:01 Respiratory Rate 20 05/19/19 17:01 Blood Pressure 129/52 L 05/19/19 17:01 O2 Sat by Pulse Oximetry (%) 95 05/19/19 09:00 Labs: CBC, BMP 05/15/19 07:34 05/15/19 07:34 INR, PTT INR 1.34 (0.83-1.09) H 05/08/19 15:00 Problem List - Problems (1) Irregular heart rhythm Assessment/Plan: Holter monitor results were limited (pt kept monitor on only 8 of the planned 24 hours; periods of baseline artifact). Holter monitor was repeated, and pt this time did not remove it, allowing for 24 hours of monitoring. THe results showed NSR, with several brief episodes of PSVT (longest 5 beats), and no evidence of AF.There was no evident baseline artifact this time. No need for systemic anticoagulation. If necessary for PSVT control, meoptolol or Carvedilol could be substituted for labetolol. Code(s): I49.9 - CARDIAC ARRHYTHMIA, UNSPECIFIED (2) Sepsis Code(s): A41.9 - SEPSIS, UNSPECIFIED ORGANISM (3) Dementia Code(s): F03.90 - UNSPECIFIED DEMENTIA WITHOUT BEHAVIORAL DISTURBANCE (4) Depression Code(s): F32.9 - MAJOR DEPRESSIVE DISORDER, SINGLE EPISODE, UNSPECIFIED (5) Essential hypertension Code(s): I10 - ESSENTIAL (PRIMARY) HYPERTENSION (6) Aortic stenosis, moderate Code(s): I35.0 - NONRHEUMATIC AORTIC (VALVE) STENOSIS
[2019-05-19] MEDS: ATORVASTATIN CA 20 MG TABLET (FP) PO SCH (21:21)
[2019-05-20 06:34] VITALS: PULSE 71
[2019-05-20 07:14] LABS: BLOOD UREA NITROGEN 24.9 mg/dL (7-18); CALCIUM 8.7 mg/dL (8.5-10.1); CREATININE 1.4 mg/dL (0.55-1.3)
[2019-05-20 07:26] LABS: HEMATOCRIT 29.3 % (35.4-49); HEMOGLOBIN 9.7 GM/dL (11.7-16.9); LYMPH % 22.6 % (8-40); MCH 28.3 pg (25.7-33.7); MCHC 33.2 g/dl (32.0-35.9); MEAN CELL VOLUME 85.2 fl (80-96); MEAN PLT VOLUME 7.7 fl (7.5-11.1); NEUT % 61.4 % (42.8-82.8); PLATELET COUNT 261 K/MM3 (134-434); RBC 3.44 M/mm3 (4.00-5.60); RDW 14.5 % (11.9-15.9); WHITE BLOOD COUNT 6.1 K/mm3 (4.0-10.0)
--- NOTE | 2019-05-20 09:31 | PN ---
Progress Note, Physician History of Present Illness: The patient is an 88 year old male with a significant past medical history of HTN, HLD, prostate cancer, gout, dementia who presents to the ED via EMS with AMS. Patient was noted to have a fever of 101.3 and was brought in from [facility]. History is limited secondary to patients condition. Allergies: [facility] PCP. Dr. Reich - Current Medication List Current Medications: Active Medications Acetaminophen (Tylenol -) 650 mg PO Q6H PRN PRN Reason: Fever Last Admin: 05/19/19 09:23 Dose: 650 mg Allopurinol (Zyloprim -) 100 mg PO DAILY [facility] Last Admin: 05/19/19 09:23 Dose: 100 mg Amlodipine Besylate (Norvasc -) 10 mg PO DAILY [facility] Last Admin: 05/19/19 09:25 Dose: 10 mg Atorvastatin Calcium (Lipitor -) 20 mg PO HS [facility] Last Admin: 05/19/19 21:21 Dose: 20 mg Labetalol HCl (Normodyne -) 200 mg PO DAILY [facility] Last Admin: 05/19/19 09:23 Dose: 200 mg Memantine (Namenda -) 5 mg PO DAILY [facility] Last Admin: 05/19/19 09:25 Dose: 5 mg Nystatin/Triamcinolone Acetonide (Mycolog Ii Cream -) 1 applic TP BID [facility] Last Admin: 05/19/19 21:22 Dose: 1 applic Paroxetine HCl (Paxil -) 40 mg PO DAILY [facility] Last Admin: 05/19/19 09:23 Dose: 40 mg Risperidone (Risperdal -) 0.5 mg PO BID [facility] Last Admin: 05/19/19 21:21 Dose: 0.5 mg Senna/Docusate Sodium (Pericolace -) 1 tablet PO BID [facility] Last Admin: 05/19/19 21:22 Dose: 1 tablet - Objective Vital Signs: Vital Signs Temperature 98.7 F 05/20/19 06:00 Pulse Rate 71 05/20/19 06:00 Respiratory Rate 20 05/20/19 06:00 Blood Pressure 150/72 05/20/19 06:00 O2 Sat by Pulse Oximetry (%) 95 05/19/19 21:00 Eyes: Yes: WNL, Conjunctiva Clear, EOM Intact HENT: Yes: WNL, Atraumatic, Normocephalic Neck: Yes: WNL, Supple, Trachea Midline Cardiovascular: Yes: WNL, Regular Rate and Rhythm Respiratory: Yes: WNL, Regular, CTA Bilaterally Gastrointestinal: Yes: WNL, Normal Bowel Sounds Genitourinary: Yes: WNL Musculoskeletal: Yes: WNL Extremities: Yes: WNL Edema: No Integumentary: Yes: WNL Neurological: Yes: WNL, Alert, Oriented ...Motor Strength: WNL Psychiatric: Yes: WNL Labs: CBC, BMP 05/20/19 05:31 05/20/19 05:31 INR, PTT INR 1.34 (0.83-1.09) H 05/08/19 15:00 Assessment/Plan - Problems (1) Irregular heart rhythm Assessment/Plan: Holter monitor results were limited (pt kept monitor on only 8 of the planned 24 hours; periods of baseline artifact). Holter monitor was repeated, and pt this time did not remove it, allowing for 24 hours of monitoring. THe results showed NSR, with several brief episodes of PSVT (longest 5 beats), and no evidence of AF.There was no evident baseline artifact this time. No need for systemic anticoagulation. If necessary for PSVT control, meoptolol or Carvedilol could be substituted for labetolol. Code(s): I49.9 - CARDIAC ARRHYTHMIA, UNSPECIFIED (2) Sepsis Code(s): A41.9 - SEPSIS, UNSPECIFIED ORGANISM (3) Dementia Code(s): F03.90 - UNSPECIFIED DEMENTIA WITHOUT BEHAVIORAL DISTURBANCE (4) Depression Code(s): F32.9 - MAJOR DEPRESSIVE DISORDER, SINGLE EPISODE, UNSPECIFIED (5) Essential hypertension Code(s): I10 - ESSENTIAL (PRIMARY) HYPERTENSION (6) Aortic stenosis, moderate Code(s): I35.0 - NONRHEUMATIC AORTIC (VALVE) STENOSIS
[2019-05-20] MEDS: NYSTATIN/TRIAMCINOLONE TOPICAL CREAM 15 GM TUBE TP SCH (09:55)
[2019-05-20] MEDS: PARoxetine HCL 20 MG TABLET PO SCH (09:56)
[2019-05-20] MEDS: ALLOPURINOL 100 MG TABLET (FP) PO SCH (09:57)
[2019-05-20] MEDS: LABETALOL HCL 200 MG TABLET (FP) PO SCH (09:57)
[2019-05-20] MEDS: amLODIPine BESYLATE 10 MG TABLET (FP) PO SCH (09:57)
[2019-05-20] MEDS: SENNOSIDES/DOCUSATE COMBO (SENNA PLUS) TABLET (UD) PO SCH (09:58)
[2019-05-20] MEDS ORDERED: PT OWN MED DRAWER 7, Y5N ONE (10:29)
[2019-05-20] MEDS: MEMANTINE HCL 5 MG TABLET (UD) PO SCH (10:35)
[2019-05-20] MEDS: risperiDONE 0.5 MG TABLET (FP) PO SCH (10:35)
--- NOTE | 2019-05-20 11:06 | DS ---
Physical Exam: SUBJECTIVE: Patient seen and examined at bedside. pt has no acute complaints. pt resting comfortably in bed. OBJECTIVE: Vital Signs Period Temp Pulse Resp BP Sys/Pradhan Pulse Ox Last 24 Hr 97.6 F-98.7 F 60-71 20-20 96-150/52-72 95 PHYSICAL EXAM GENERAL: The patient is awake, alert, and oriented to person, in no acute distress. LUNGS: Breath sounds equal, clear to auscultation bilaterally, no wheezes, no crackles, no accessory muscle use. HEART: Regular rate and rhythm, S1, S2 without murmur, rub or gallop. ABDOMEN: Soft, nontender, nondistended, normoactive bowel sounds EXTREMITIES: 2+ pulses, warm, well-perfused, no edema. SKIN: Warm, dry, normal turgor, no rashes or lesions noted. LABS Laboratory Results - last 24 hr 05/20/19 05/20/19 05:31 05:31 WBC 6.1 RBC 3.44 L Hgb 9.7 L Hct 29.3 L MCV 85.2 MCH 28.3 MCHC 33.2 RDW 14.5 Plt Count 261 MPV 7.7 Absolute Neuts (auto) 3.8 Neutrophils % 61.4 D Lymphocytes % 22.6 D Monocytes % 9.0 Eosinophils % 6.0 H D Basophils % 1.0 Nucleated RBC % 0 Sodium 144 Potassium 4.0 Chloride 110 H Carbon Dioxide 27 Anion Gap 7 L BUN 24.9 H Creatinine 1.4 H Est GFR (CKD-EPI)AfAm 51.62 Est GFR (CKD-EPI)NonAf 44.54 Random Glucose 82 Calcium 8.7 Date of Admission:05/08/19 CT Chest/ abd/ pelvis: IMPRESSION: 1. Cardiomegaly and mild chronic lung disease. No evidence of pneumonia or acute pathology within the chest. 2. Mild hepatomegaly. 3. No evidence of intra-abdominal abscess or acute pathology within the abdomen or pelvis. Please see above discussion. HOSPITAL COURSE: 88 yo M PMH dementia, prostate Ca , HTN, HLD, and gout presented to ED with AMS and fever. Pt is admitted for Sepsis of unknown etiology. Pt was recently admitted on 04/28 for balantits and proteus UTI. Pt was DC to [facility] where pt was AO x2. at [facility], pt was combative but was alert and confused occasionally. On admission, pt was febrile w/ leukocytosis and lactate 2.6. pt had negative urine cultures. initial blood cultures grew staph epidermidis likely 2/2. the repeat culture was negative. Pt had CT abdomen/pelvis please see above. pt was treated with zosyn x 6 d and augmentin x 3 days as per ID recommendations. During hospital course, pt had L knee pain. XR showed L knee effusion. Ortho evaluated and pt had joint aspiration resulted in dry tap. pain is likely 2/2 osteoarthritis. unlikely septic or gout. Rheum evaluated pt. ferry terminal agent steroids are not advised. Since admission pt is only alert and oriented to person. On admission, pt EKG showed AFib which is new. cardio evaluated pt, new EKG in NSR. pt is rate controlled on labetalol. pt has dementia and depression.should c/w namenda, risperidal, and paroxetine. Pt was evaluated by speech and swallow and recommended dysphagia crushed. pt is discharged to [facility] Date of Discharge: 05/20/19 Minutes to complete discharge: 36 Discharge Summary Reason For Visit: SEPSIS Current Active Problems Aortic stenosis, moderate (Acute) Irregular heart rhythm (Acute) Sepsis (Acute) Condition: Improved - Instructions Diet, Activity, Other Instructions: You came into the hospital for fevers and for feeling confused. You had a pneumonia and you were treated with antibiotics. You had a CT scan of your abdomen showing : You have an enlarged liver. You have an enlarged heart. You have chronic lung disease. You had XRays of your knees showing that you have arthritis. Please continue your home medications as prescribed. Please DO NOT take NSAIDs for your pain as this is dangerous for your kidneys. Please follow up with your primary care physician within 1 week to manage your healthcare. You may follow up with your orthopedic physician, Dr. Smith, to monitor your improvement. You may follow up with your core fitter, Dr. Cruz, to manage your arthritis in your knee. 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 You are being discharged back to rehab to help your muscles get stronger. Please return to the ER if you have any signs or symptoms of chest pain, shortness of breath, uncontrollable fever, chills, nausea, vomiting, numbness, tingling, or weakness in any part of your body, changes in vision, or slurred speech. Please return to the ER if symptoms persist, worsen, or new symptoms arise. Referrals: [facility] [place] [Provider Group] Jerrica Alvarez MD [Staff Physician] - Dakota Arriaza MD [Staff Physician] - Chris Smith MD [Staff Physician] - Otf Ware MD [Staff Physician] - Disposition: [facility] - Home Medications Comprehensive Discharge Medication List: Ambulatory Orders Allopurinol [Zyloprim -] 100 mg PO DAILY #30 tablet 11/24/12 Paroxetine HCl [Paxil] 40 mg PO DAILY 10/09/14 Atorvastatin Ca [Lipitor] 20 mg PO DAILY 04/28/19 Memantine HCl [Namenda -] 10 mg PO DAILY 04/28/19 Acetaminophen [Tylenol .Regular Strength -] 650 mg PO Q6H PRN tablet 05/04/19 Albuterol Sulfate 0.5% [Ventolin 0.5% Nebulizing Soln. -] 1 amp NEB Q4H PRN amp 05/04/19 Nystatin Cream [Mycostatin Cream -] 1 applic TP BID applic 05/04/19 Pantoprazole Sodium [Protonix -] 20 mg PO DAILY tablet.ec 05/04/19 Risperidone [Risperdal -] 0.5 mg PO BID tablet 05/04/19 Sennosides/Docusate Sodium [Pericolace -] 1 tablet PO BID tablet 05/04/19 predniSONE [Deltasone -] 30 mg PO DAILY tablet 05/04/19 Amlodipine Besylate [Norvasc -] 10 mg PO DAILY tablet 05/13/19 Labetalol HCl [Normodyne -] 200 mg PO DAILY tablet 05/13/19 This patient is new to me today: No Emergency Visit: No Critical Care patient: No - Discharge Referral Referred to [facility] No ATTENDING PHYSICIAN STATEMENT I saw and evaluated the patient. I reviewed the resident's note and discussed the case with the resident. I agree with the resident's findings and plan as documented. SUBJECTIVE: OBJECTIVE: ASSESSMENT AND PLAN:
--- NOTE | 2019-05-20 11:17 | PN ---
Progress Note, Physician History of Present Illness: stable no new issues - Current Medication List Current Medications: Active Medications Acetaminophen (Tylenol -) 650 mg PO Q6H PRN PRN Reason: Fever Last Admin: 05/19/19 09:23 Dose: 650 mg Allopurinol (Zyloprim -) 100 mg PO DAILY [facility] Last Admin: 05/20/19 09:57 Dose: 100 mg Amlodipine Besylate (Norvasc -) 10 mg PO DAILY [facility] Last Admin: 05/20/19 09:57 Dose: 10 mg Atorvastatin Calcium (Lipitor -) 20 mg PO HS [facility] Last Admin: 05/19/19 21:21 Dose: 20 mg Labetalol HCl (Normodyne -) 200 mg PO DAILY [facility] Last Admin: 05/20/19 09:57 Dose: 200 mg Memantine (Namenda -) 5 mg PO DAILY [facility] Last Admin: 05/20/19 10:35 Dose: 5 mg Nystatin/Triamcinolone Acetonide (Mycolog Ii Cream -) 1 applic TP BID [facility] Last Admin: 05/20/19 09:55 Dose: 1 applic Paroxetine HCl (Paxil -) 40 mg PO DAILY [facility] Last Admin: 05/20/19 09:56 Dose: 40 mg Risperidone (Risperdal -) 0.5 mg PO BID [facility] Last Admin: 05/20/19 10:35 Dose: 0.5 mg Senna/Docusate Sodium (Pericolace -) 1 tablet PO BID [facility] Last Admin: 05/20/19 09:58 Dose: 1 tablet - Objective Vital Signs: Vital Signs Temperature 98.7 F 05/20/19 06:00 Pulse Rate 71 05/20/19 06:00 Respiratory Rate 20 05/20/19 06:00 Blood Pressure 150/72 05/20/19 06:00 O2 Sat by Pulse Oximetry (%) 95 05/19/19 21:00 Constitutional: Yes: No Distress, Calm Cardiovascular: Yes: S1, S2 Respiratory: Yes: Regular, CTA Bilaterally Gastrointestinal: Yes: Normal Bowel Sounds, Soft Musculoskeletal: Yes: WNL Extremities: Yes: Other Neurological: Yes: Alert Labs: CBC, BMP 05/20/19 05:31 05/20/19 05:31 INR, PTT INR 1.34 (0.83-1.09) H 05/08/19 15:00 Assessment/Plan 88 yo M PMH dementia, prostate Ca , HTN, HLD, and gout presented to ED with AMS and fever. Pt is admitted for Sepsis of unknown etiology. Pt was recently admitted on 04/28 for balantits and proteus UTI.Pt was DC to [facility], on communication pt was AO x2. yesterday at [facility], pt was combative but was alert and confused occasionally. sepsis Acute Toxic Metabolic encephalopathy silver afib leukocytosis plan continue current mgmt rest as per the team
[2019-05-20 12:07] VITALS: BP 145/71; TEMP 98.5
--- NOTE | 2019-05-20 14:55 | PN ---
Teaching Attending Note Name of Resident: Christy Alston ATTENDING PHYSICIAN STATEMENT I saw and evaluated the patient. I reviewed the resident's note and discussed the case with the resident. I agree with the resident's findings and plan as documented. SUBJECTIVE: No complaints. No SOB. No fever/chills. Kosovan speaking. OBJECTIVE: Afebrile. Hemodynamically Stable. AAO x 2. Calm and cooperative. Last Vital Signs Temp Pulse Resp BP Pulse Ox 98.5 F 71 18 145/71 95 05/20/19 10:00 05/20/19 10:00 05/20/19 10:00 05/20/19 10:00 05/19/19 21:00 Heart- S1, S2, RRR lungs - good air entry, few basal crackles. Abdomen - Soft, non-tender. Bowel Sounds normal. Extremities - no edema, no calf tenderness. Knees - L knee non-tender today. No erythema/warmth, no signs of infection. Laboratory Results - last 24 hr 05/20/19 05/20/19 05:31 05:31 WBC 6.1 RBC 3.44 L Hgb 9.7 L Hct 29.3 L MCV 85.2 MCH 28.3 MCHC 33.2 RDW 14.5 Plt Count 261 MPV 7.7 Absolute Neuts (auto) 3.8 Neutrophils % 61.4 D Lymphocytes % 22.6 D Monocytes % 9.0 Eosinophils % 6.0 H D Basophils % 1.0 Nucleated RBC % 0 Sodium 144 Potassium 4.0 Chloride 110 H Carbon Dioxide 27 Anion Gap 7 L BUN 24.9 H Creatinine 1.4 H Est GFR (CKD-EPI)AfAm 51.62 Est GFR (CKD-EPI)NonAf 44.54 Random Glucose 82 Calcium 8.7 Discharge Medications Medication Instructions Recorded Allopurinol [Zyloprim -] 100 mg PO DAILY #30 tablet 11/24/12 Paroxetine HCl [Paxil] 40 mg PO DAILY 10/09/14 Atorvastatin Ca [Lipitor] 20 mg PO DAILY 04/28/19 Memantine HCl [Namenda -] 10 mg PO DAILY 04/28/19 Acetaminophen [Tylenol .Regular 650 mg PO Q6H PRN tablet 05/04/19 Strength -] Albuterol Sulfate 0.5% [Ventolin 1 amp NEB Q4H PRN amp 05/04/19 0.5% Nebulizing Soln. -] Nystatin Cream [Mycostatin Cream -] 1 applic TP BID applic 05/04/19 Pantoprazole Sodium [Protonix -] 20 mg PO DAILY tablet.ec 05/04/19 Risperidone [Risperdal -] 0.5 mg PO BID tablet 05/04/19 Sennosides/Docusate Sodium 1 tablet PO BID tablet 05/04/19 [Pericolace -] predniSONE [Deltasone -] 30 mg PO DAILY tablet 05/04/19 Amlodipine Besylate [Norvasc -] 10 mg PO DAILY tablet 05/13/19 Labetalol HCl [Normodyne -] 200 mg PO DAILY tablet 05/13/19 ASSESSMENT AND PLAN: 88 year old male with history of Dementia, Anemia, Prostate Ca, HTN, HLD, presented from [place] with altered mental status and fever. 1. Sepsis secondary to likely aspiration pneumonia - resolved Blood Cx pos for Staph epi, likely contaminant. Repeat BCx neg x 2. Last fever 101.3 (05/14) - Hemodynamically Stable, leukocytosis resolved. Completed Abx course of Zosyn/Augmentin. Afebrile, Hemodynamically Stable. 2. Dysphagia - evaluated by Speech - recommend dysphagia minced diet with meds in applesauce/ensure/magic cup. 3. Acute Metabolic Encephalopathy secondary secondary to Sepsis - resolving. History of Dementia - appears stable. Baseline mental status unknown. More calm and cooperative. Continue Namenda, Paxil, Risperidone. 4. Knee swelling s/p recent tap (crystal positive), s/p steroid injection as out -patient - Knee Xray shows DJD. Suprapatella joint infusion on L Knee Xray. Seen by Ortho - joint aspirate attempted, dry tap. Seen by Rheumatology - recommends Tylenol PRN/PT, avoid NSAIDs. Recently completed oral steroid course for gout flare. No further steroid recommended by Rheumatology. On allopurinol. 5. 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 Creat back to baseline. 6. Questionable Atrial Fibrillation - eval by Cardio - patient poorly compliant with Holter. No evidence of any further Afib at this point - Discussed with Cardio - for out-patient follow up for possible loop recorder. 7. HTN - Continue Norvasc, Labetalol. 8. HLD - continue Statin. DVT Px - Heparin SQ Dispo - cooperated with PT, accepted to SNF. Medically optimized for transfer.
--- NOTE | 2019-05-27 14:37 | EKG ---
Test Reason : Blood Pressure : / mmHG Vent. Rate : 088 BPM Atrial Rate : 091 BPM P-R Int : 000 ms QRS Dur : 084 ms QT Int : 354 ms P-R-T Axes : 000 006 066 degrees QTc Int : 428 ms ATRIAL FIBRILLATION ABNORMAL ECG WHEN COMPARED WITH ECG OF 08-MAY-2019 23:17, ATRIAL FIBRILLATION HAS REPLACED SINUS RHYTHM Confirmed by YU PARISI, ISABELA ([id number]), supervising editor trailer LAYNE ROSADO ([id number]) on 05/27/2019 2:37:23 PM Referred By: Confirmed By:ISABELA NICHOLAS MD
== END 2019-05-20 12:55 | DRG 871 ==
LOC: JER 13:38 → JERBED 16:31 → J4W 05-09 15:33 → J8W 05-10 18:06
PROVIDERS: ADMIT Internal Medicine
DX: A41.9 Sepsis, unspecified organism (principal); G92 Toxic encephalopathy; J69.0 Pneumonitis due to inhalation of food and vomit; N17.9 Acute kidney failure, unspecified; I12.9 Hypertensive chronic kidney disease with stage 1 through stage 4 chronic kidney disease, or unspecified chronic kidney disease; N18.3 Chronic kidney disease, stage 3 (moderate); L89.152 Pressure ulcer of sacral region, stage 2; E88.09 Other disorders of plasma-protein metabolism, not elsewhere classified; D64.9 Anemia, unspecified; I25.10 Atherosclerotic heart disease of native coronary artery without angina pectoris; K21.9 Gastro-esophageal reflux disease without esophagitis; F03.90 Unspecified dementia, unspecified severity, without behavioral disturbance, psychotic disturbance, mood disturbance, and anxiety; Z85.46 Personal history of malignant neoplasm of prostate; M10.9 Gout, unspecified; Z87.891 Personal history of nicotine dependence; F32.9 Major depressive disorder, single episode, unspecified; I35.0 Nonrheumatic aortic (valve) stenosis; R13.10 Dysphagia, unspecified; M17.0 Bilateral primary osteoarthritis of knee
CPT/HCPCS: 36415; 71045-TC-FY; 71250-TC; 73560-TC-LT-FY; 73560-TC-RT-FY; 74176-TC; 80048; 80053; 81003; 82803; 83605; 83735; 84100; 84443; 84484; 85025; 85027; 85610; 85651; 85730; 86140; 87040; 87086; 87186; 93005; 93010; 93225; 93226; 97116-GP; 97162-GP; 99285-25; J0131; J1644; J7030

== ENCOUNTER 2019-07-05 16:01 | Inpatient (IN) | payer BC, OTHER ==
--- NOTE | 2019-07-05 17:01 | PDOC ---
History of Present Illness - General Chief Complaint: Altered Mental Status Stated Complaint: ALTERED MENTAL STATUS - History of Present Illness Initial Comments: The pt is an 89M w/ a history of HTN, HLD, dementia who was recently discharged from [facility] 5 days ago who presents for evaluation of AMS, increased agitation/ confusion, increased lethargy, and s/p fall from standing this AM. Pt unable to provide history Family denies recent fever or pt complaining of dysuria, cough, or rash. Family denies history of irregular heart beat, though a-fib was seen on his last admission ECG and repeat was sinus rhythm. 07/05/19 17:16 Past History - Past Medical History Allergies/Adverse Reactions: Allergies Allergy/AdvReac Type Severity Reaction Status Date / Time No Known Allergies Allergy Verified 05/08/19 13:56 Home Medications: Ambulatory Orders Allopurinol [Zyloprim -] 100 mg PO DAILY #30 tablet 11/24/12 Paroxetine HCl [Paxil] 40 mg PO DAILY 10/09/14 Atorvastatin Ca [Lipitor] 20 mg PO DAILY 04/28/19 Memantine HCl [Namenda -] 10 mg PO DAILY 04/28/19 Acetaminophen [Tylenol .Regular Strength -] 650 mg PO Q6H PRN tablet 05/04/19 Albuterol Sulfate 0.5% [Ventolin 0.5% Nebulizing Soln. -] 1 amp NEB Q4H PRN amp 05/04/19 Nystatin Cream [Mycostatin Cream -] 1 applic TP BID applic 05/04/19 Pantoprazole Sodium [Protonix -] 20 mg PO DAILY tablet.ec 05/04/19 Risperidone [Risperdal -] 0.5 mg PO BID tablet 05/04/19 Sennosides/Docusate Sodium [Pericolace -] 1 tablet PO BID tablet 05/04/19 predniSONE [Deltasone -] 30 mg PO DAILY tablet 05/04/19 Amlodipine Besylate [Norvasc -] 10 mg PO DAILY tablet 05/13/19 Labetalol HCl [Normodyne -] 200 mg PO DAILY tablet 05/13/19 Cancer: Yes (PROSTATE) COPD: No Dementia: Yes HTN: Yes Hypercholesterolemia: Yes - Surgical History Abdominal Surgery: Yes (HERNIA) Orthopedic Surgery: Yes (L. Knee and Shoulder) - Immunization History Td Vaccination: No - Psycho Social/Smoking Cessation Hx Smoking Status: Yes Smoking History: Unknown if ever smoked Have you smoked in the past 12 months: No Number of Cigarettes Smoked Daily: 0 If you are a former smoker, when did you quit?: 49 yrs ago Hx Alcohol Use: No Drug/Substance Use Hx: No Substance Use Type: None Hx Substance Use Treatment: No Review of Systems - Review of Systems Able to Perform ROS?: No (2/2 medical condition) *Physical Exam - Vital Signs Last Vital Signs Temp Pulse Resp BP Pulse Ox 98.3 F 55 L 19 127/47 L 92 L 07/05/19 16:05 07/05/19 16:05 07/05/19 16:05 07/05/19 16:05 07/05/19 16:05 - Physical Exam Comments: GENERAL: Lethargic, localizes to pain, does not open eyes to pain, does not follow commands, does not vocalize (GCS 7) HEAD: No signs of trauma, normocephalic, atraumatic EYES: PERRLA, EOMI, sclera anicteric, conjunctiva clear ENT: Hearing grossly normal, nares patent, oropharynx clear without exudates. Moist mucosa LUNGS: No distress, speaks in full sentences, clear to auscultation bilaterally HEART: Regular rate and rhythm, normal S1 and S2, no murmurs appreciated, peripheral pulses normal and equal bilaterally ABDOMEN: Soft, protuberant, normoactive bowel sounds. No guarding, no rebound EXTREMITIES: BLE 3+ pitting edema to mid-benitez NEUROLOGICAL: Lethargic, does not follow commands, localizes to pain, SKIN: Warm, Dry 07/05/19 17:01 ED Treatment Course - LABORATORY CBC & Chemistry Diagram: 07/05/19 17:10 07/05/19 17:10 Medical Decision Making - Medical Decision Making ED Course Sepsis labs sent CXR ECG CT head Vanc/Zosyn for empiric abx coverage IVF 07/05/19 17:28 CT head w/o acute pathology UA pending 07/05/19 18:20 UA w/ evidence of UTI -Pt receiving Vanc/Zosyn Plan for admission for IV abx and AMS Pt with increased agitation, will give Haldol 5mg IV once 07/05/19 19:39 No leukocytosis Mild anemia, no indication to transfuse at this time Lytes overall unremarkable Cr near baseline BNP elevated at 800s Trop I neg ECG w/ poor baseline, questionable PACs, a-fib; HR 67; QTc 424; no ALLISON; No axis deviation Pt w/ continued agitation s/p haldol and pulling at IV lines/equipment, will apply b/l soft wrist restraints for safety and continued treatment Pt singed out to [place] Admitting Discharge - Discharge Information Problems reviewed: Yes Clinical Impression/Diagnosis: Fall Qualifiers: Encounter type: initial encounter Qualified Code(s): W19.XXXA - Unspecified fall, initial encounter Dementia Qualifiers: Dementia type: unspecified type Dementia behavioral disturbance: without behavioral disturbance Qualified Code(s): F03.90 - Unspecified dementia without behavioral disturbance AMS (altered mental status) Qualifiers: Altered mental status type: unspecified Qualified Code(s): R41.82 - Altered mental status, unspecified Urinary tract infection Qualifiers: Urinary tract infection type: site unspecified Hematuria presence: without hematuria Qualified Code(s): N39.0 - Urinary tract infection, site not specified Condition: Fair - Admission Yes - Follow up/Referral - Patient Discharge Instructions - Post Discharge Activity
--- NOTE | 2019-07-05 17:22 | PDOC ---
Attending Attestation - Resident Resident Name: Guille Simms - ED Attending Attestation I have performed the following: I have examined & evaluated the patient, The case was reviewed & discussed with the resident, I agree w/resident's findings & plan, Exceptions are as noted - HPI HPI: 07/05/19 17:49 Mr. Martinez is an 89 yo M h/o HTN, HLD, dementia who had a recent admission for sepsis related to Pt present for assessment of changing mental status Pt has been noted to be increasingly agitated/confused, lethargic This morning due to his agitation, he fell from standing height Pt unable to provide history Family denies recent fever or pt complaining of dysuria, cough, or rash. 07/05/19 17:16 - Physicial Exam PE: 07/05/19 18:02 GENERAL: Lethargic, localizes to pain, does not open eyes to pain, does not follow commands, does not vocalize (GCS 7) HEAD: No signs of trauma, normocephalic, atraumatic EYES: PERRLA, EOMI, sclera anicteric, conjunctiva clear ENT: Hearing grossly normal, nares patent, oropharynx clear without exudates. Moist mucosa LUNGS: No distress, speaks in full sentences, clear to auscultation bilaterally HEART: Regular rate and rhythm, normal S1 and S2, no murmurs appreciated, peripheral pulses normal and equal bilaterally ABDOMEN: Soft, protuberant, normoactive bowel sounds. No guarding, no rebound EXTREMITIES: BLE 3+ pitting edema to mid-benitez NEUROLOGICAL: Lethargic, does not follow commands, localizes to pain, SKIN: Warm, Dry - Medical Decision Making 07/05/19 18:03 Laboratory Tests 05/20/19 07/05/19 07/05/19 05:31 17:10 17:10 WBC 6.9 Hgb 10.7 L Hct 32.1 L Plt Count 184 D INR 1.16 H VBG pH POC VBG pCO2 POC VBG pO2 Sodium Potassium Chloride Carbon Dioxide BUN 24.9 H Creatinine 1.4 H Random Glucose 82 Troponin I 07/05/19 07/05/19 17:10 17:10 WBC Hgb Hct Plt Count INR VBG pH 7.36 POC VBG pCO2 44.0 POC VBG pO2 < 49 H Sodium 143 Potassium 4.0 Chloride 110 H Carbon Dioxide 24 BUN 44.7 H Creatinine 1.9 H Random Glucose 83 Troponin I < 0.02 CT pending 07/05/19 18:03 UA pending Noted MAURO Will hydrate Signed out to Dr Rivera
[2019-07-05 17:23] LABS: BASO % 0.6 % (0-2.0); EOS % 3.4 % (0-4.5); HEMATOCRIT 32.1 % (35.4-49); HEMOGLOBIN 10.7 GM/dL (11.7-16.9); MCH 28.1 pg (25.7-33.7); MCHC 33.2 g/dl (32.0-35.9); MEAN CELL VOLUME 84.7 fl (80-96); MEAN PLT VOLUME 7.5 fl (7.5-11.1); MONO % 10.2 % (3.8-10.2); NEUT % 68.8 % (42.8-82.8); PLATELET COUNT 184 K/MM3 (134-434); RBC 3.79 M/mm3 (4.00-5.60); RDW 17.1 % (11.9-15.9); WHITE BLOOD COUNT 6.9 K/mm3 (4.0-10.0)
[2019-07-05 17:24] LABS: VENOUS PH 7.36 (7.31-7.41); VENOUS PO2 < 49 mmHg (28-48)
[2019-07-05] MEDS ORDERED: PIPERACILLIN/TAZOB 4.5 GM 4.5 GM in DEXTROSE 5%-WATER 100 ML IVPB ONE (17:30)
[2019-07-05] MEDS ORDERED: VANCOMYCIN 1 GM in D5W (PRE-DOCKED) 1,000 MG/250 ML IVPB ONE (17:30)
[2019-07-05 17:32] LABS: INR 1.16 (0.83-1.09); PROTHROMBIN TIME (PATIENT) 13.7 SEC (9.7-13.0)
[2019-07-05 17:34] LABS: ACTIVATED PTT 31.5 SECONDS (25.2-36.5)
[2019-07-05 17:50] LABS: ALBUMIN 3.1 g/dl (3.4-5.0); ALK PHOS 88 U/L (45-117); ANION GAP 9 MMOL/L (8-16); BILIRUBIN,TOTAL 0.6 mg/dL (0.2-1); BLOOD UREA NITROGEN 44.7 mg/dL (7-18); CALCIUM 8.8 mg/dL (8.5-10.1); CHLORIDE 110 mmol/L (98-107); CO2 24 mmol/L (21-32); CREATININE 1.9 mg/dL (0.55-1.3); GLUCOSE,RANDOM 83 mg/dL (74-106); SGOT/AST 16 U/L (15-37); SGPT/ALT 21 U/L (13-61); SODIUM 143 mmol/L (136-145); TOT PROT 6.7 g/dl (6.4-8.2)
[2019-07-05] MEDS ORDERED: VANCOMYCIN 1 GRAM (PRE-DOCKED) 1,000 MG/250 ML BAG IVPB ONE (18:24)
[2019-07-05 19:00] LABS: EPI CELLS 2.3 /HPF (0-5/HPF); HYALINE CASTS 4 /lpf (0-8); URINE APPEARANCE CLEAR; URINE BACTERIA 592.5 /hpf (NEGATIVE); URINE BILIRUBIN NEGATIVE (NEGATIVE); URINE COLOR YELLOW; URINE GLUCOSE (UA) NEGATIVE (NEGATIVE); URINE KETONE NEGATIVE (NEGATIVE); URINE LEUK ESTERASE 3+ (NEGATIVE); URINE NITRITE POSITIVE (NEGATIVE); URINE PROTEIN NEGATIVE (NEGATIVE); URINE RBC 9 /hpf (0-4); URINE UROBILINOGEN 0.2 mg/dL (0.2-1.0); URINE WBC 25 /hpf (0-5)
[2019-07-05] MEDS ORDERED: HALOPERIDOL LACTATE 5 MG/ML IV ONE (19:36)
[2019-07-05] MEDS ORDERED: HALOPERIDOL LACTATE 5 MG/ML ONE (19:53)
[2019-07-05] MEDS ORDERED: SODIUM CHLORIDE 0.9% 500 ML INFUS.BAG IV ONE (19:57)
[2019-07-05 20:05] LABS: N-TERMINAL BNP 1079.7 pg/ml (5-450)
--- NOTE | 2019-07-05 21:55 | HP ---
Admitting History and Physical - Primary Care Physician PCP: Dr. Muhammad - Admission Chief Complaint: per family increase confusion, agitation/ agressive behavior History of Present Illness: 89 year old male with PMH of HTN, HLD, GERD, OA, GOUT, prostate Ca, Depression and dementia with behavioral issues was recently discharged from [facility] 5 days ago, since being discharged patient patient became increasingly confused, agitated and aggressive, s/p fall this AM without injury arrived to ED for evaluation for AMS. Family denies fever, chills, N/V, SOB. 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 Cardiovascular: Yes: CAD, HTN, Hyperlipdemia Gastrointestinal: Yes: GERD Renal/: Yes: Other (Hx of prostate cancer s/p radiation.) Psych: Yes: Depression Rheumatology: Yes: Gout ENT: Yes: Allergic Rhinitis - Past Surgical History Past Surgical History: Yes: Hernia Repair, Joint Replacement - Smoking History Smoking history: Unknown if ever smoked Have you smoked in the past 12 months: No Aproximately how many cigarettes per day: 0 If you are a former smoker, when did you quit?: 49 yrs ago - Alcohol/Substance Use Hx Alcohol Use: No History of Substance Use: reports: None - Social History Usual Living Arrangement: Yes: With Spouse, With Child ADL: Family Assistance History of Recent Travel: No Home Medications - Allergies Allergies/Adverse Reactions: Allergies Allergy/AdvReac Type Severity Reaction Status Date / Time No Known Allergies Allergy Verified 05/08/19 13:56 - Home Medications Home Medications: Ambulatory Orders Allopurinol [Zyloprim -] 100 mg PO DAILY #30 tablet 11/24/12 Paroxetine HCl [Paxil] 40 mg PO DAILY 10/09/14 Atorvastatin Ca [Lipitor] 20 mg PO DAILY 04/28/19 Memantine HCl [Namenda -] 10 mg PO DAILY 04/28/19 Acetaminophen [Tylenol .Regular Strength -] 650 mg PO Q6H PRN tablet 05/04/19 Albuterol Sulfate 0.5% [Ventolin 0.5% Nebulizing Soln. -] 1 amp NEB Q4H PRN amp 05/04/19 Nystatin Cream [Mycostatin Cream -] 1 applic TP BID applic 05/04/19 Pantoprazole Sodium [Protonix -] 20 mg PO DAILY tablet.ec 05/04/19 Risperidone [Risperdal -] 0.5 mg PO BID tablet 05/04/19 Sennosides/Docusate Sodium [Pericolace -] 1 tablet PO BID tablet 05/04/19 predniSONE [Deltasone -] 30 mg PO DAILY tablet 05/04/19 Amlodipine Besylate [Norvasc -] 10 mg PO DAILY tablet 05/13/19 Labetalol HCl [Normodyne -] 200 mg PO DAILY tablet 05/13/19 Family Medical History Family History: Denies Review of Systems Unable to obtain ROS, reason: advance dementia Physical Examination Vital Signs: Vital Signs Temperature 98.3 F 07/05/19 16:05 Pulse Rate 55 L 07/05/19 16:05 Respiratory Rate 19 07/05/19 16:05 Blood Pressure 127/47 L 07/05/19 16:05 O2 Sat by Pulse Oximetry (%) 92 L 07/05/19 16:05 Constitutional: Yes: Anxious Eyes: Yes: Conjunctiva Clear, EOM Intact HENT: Yes: Atraumatic, Normocephalic Neck: Yes: Supple, Trachea Midline Cardiovascular: Yes: Regular Rate and Rhythm Respiratory: Yes: Regular, CTA Bilaterally Gastrointestinal: Yes: Normal Bowel Sounds, Soft Musculoskeletal: Yes: WNL Extremities: Yes: Other (B/L + 3 edema) Edema: Yes Edema: LLE: 3+, RLE: 3+ Neurological: Yes: Confusion Psychiatric: Yes: Agitated Labs: CBC, BMP 07/05/19 17:10 07/05/19 17:10 Imaging - Results Chest X-ray: Report Reviewed (increase congestion changes, some questionable nodular finding) Cat Scan: Report Reviewed (CT Head: no acute changes) Problem List - Problems (1) Altered mental status Code(s): R41.82 - ALTERED MENTAL STATUS, UNSPECIFIED Qualifiers: Altered mental status type: unspecified Qualified Code(s): R41.82 - Altered mental status, unspecified (2) Urinary tract infection Code(s): N39.0 - URINARY TRACT INFECTION, SITE NOT SPECIFIED Qualifiers: Urinary tract infection type: site unspecified Hematuria presence: without hematuria Qualified Code(s): N39.0 - Urinary tract infection, site not specified (3) MAURO (acute kidney injury) Code(s): N17.9 - ACUTE KIDNEY FAILURE, UNSPECIFIED (4) Fall Code(s): W19.XXXA - UNSPECIFIED FALL, INITIAL ENCOUNTER Qualifiers: Encounter type: initial encounter Qualified Code(s): W19.XXXA - Unspecified fall, initial encounter (5) Edema leg Code(s): R60.0 - LOCALIZED EDEMA (6) Dementia Code(s): F03.90 - UNSPECIFIED DEMENTIA WITHOUT BEHAVIORAL DISTURBANCE Qualifiers: Dementia type: unspecified type Dementia behavioral disturbance: without behavioral disturbance Qualified Code(s): F03.90 - Unspecified dementia without behavioral disturbance (7) Depression Code(s): F32.9 - MAJOR DEPRESSIVE DISORDER, SINGLE EPISODE, UNSPECIFIED (8) Essential hypertension Code(s): I10 - ESSENTIAL (PRIMARY) HYPERTENSION (9) GERD (gastroesophageal reflux disease) Code(s): K21.9 - GASTRO-ESOPHAGEAL REFLUX DISEASE WITHOUT ESOPHAGITIS (10) Gout Code(s): M10.9 - GOUT, UNSPECIFIED (11) Hyperlipidemia LDL goal < 100 Code(s): E78.5 - HYPERLIPIDEMIA, UNSPECIFIED (12) Osteoarthritis Code(s): M19.90 - UNSPECIFIED OSTEOARTHRITIS, UNSPECIFIED SITE (13) Prostate cancer Code(s): C61 - MALIGNANT NEOPLASM OF PROSTATE (14) Edema of both legs Code(s): R60.0 - LOCALIZED EDEMA Assessment/Plan 89 year old male with PMH of HTN, HLD, GERD, OA, GOUT, prostate Ca, Depression and dementia with behavioral issues was recently discharged from [facility] 5 days ago, since being discharged patient patient became increasingly confused, agitated and aggressive, s/p fall this AM without injury arrived to ED for evaluation for AMS. #AMS #UTI #MAURO # S/p fall CT head: No acute changes CXR: increse congestive changes ? with some questionable nodular finding ? consider CT chest if noted with respiratory changes - in ED given haldol without change in behavior, agitated/anxious trying to pull on IV line, place on b/l wrist restraints - given 1L NS - given Vanco and zosyn x 1 - will continue with zosyn q 8 hours - follow up ID - pending BCX, UCX will adjust antibiotics based on sensitivity - Tylenol q 6 hours PRN - continue with IV fluids x 24 hours - follow up CBC - monitor renal function - monitor for safety/fall precaution B/l LE edema ? CHF - BNP: 1079.7 - if needed will "maryan hydration" -CXR: increase congestive changes ? with some questionable nodular finding -? consider CT chest in AM if noted with respiratory changes # HTN/HLD - Atorvastatin Ca 20 mg PO DAILY - Amlodipine Besylate 10 mg PO DAILY - Labetalol HCl 200 mg PO DAILY # GOUT # OA - Allopurinol 100 mg PO DAILY # Depression # Dementia -Paroxetine HCl 40 mg PO DAILY - Memantine HCl 10 mg PO DAILY - Risperidone [Risperdal -] 0.5 mg PO BID #GERD - Pantoprazole Sodium 20 mg PO DAILY Visit type - Emergency Visit Emergency Visit: Yes ED Registration Date: 07/05/19 Care time: The patient presented to the Emergency Department on the above date and was hospitalized for further evaluation of their emergent condition. - New Patient This patient is new to me today: Yes Date on this admission: 07/05/19 - Critical Care Critical Care patient: No
[2019-07-05] MEDS ORDERED: SODIUM CHLORIDE 1,000 ML IV SCH (22:15)
[2019-07-06 01:48] VITALS: BMI 27.4
[2019-07-06 08:29] LABS: HEMATOCRIT 29.6 % (35.4-49); HEMOGLOBIN 9.9 GM/dL (11.7-16.9); MCH 27.9 pg (25.7-33.7); MCHC 33.5 g/dl (32.0-35.9); MEAN CELL VOLUME 83.3 fl (80-96); MEAN PLT VOLUME 7.6 fl (7.5-11.1); PLATELET COUNT 189 K/MM3 (134-434); RBC 3.56 M/mm3 (4.00-5.60); RDW 16.5 % (11.9-15.9); WHITE BLOOD COUNT 6.2 K/mm3 (4.0-10.0)
[2019-07-06 08:34] LABS: BLOOD UREA NITROGEN 37.2 mg/dL (7-18); CALCIUM 8.9 mg/dL (8.5-10.1); CREATININE 1.6 mg/dL (0.55-1.3); POTASSIUM 3.5 mmol/L (3.5-5.1)
--- NOTE | 2019-07-06 09:51 | PN ---
Progress Note (short form) - Note Progress Note: agitated He is restrained as he was trying to hit the staff events noted Vital Signs - 24 hr 07/05/19 07/05/19 07/06/19 16:05 22:44 01:29 Temperature 98.3 F 98.5 F Pulse Rate 55 L 98 H Pulse Rate [ 68 Apical] Respiratory 19 17 20 Rate Blood Pressure 127/47 L 112/74 Blood Pressure 144/64 [Left Arm] O2 Sat by Pulse 92 L 97 94 L Oximetry (%) 07/06/19 07/06/19 02:15 06:15 Temperature 99 F Pulse Rate 109 H Pulse Rate [ Apical] Respiratory 20 Rate Blood Pressure 128/72 Blood Pressure [Left Arm] O2 Sat by Pulse 94 L Oximetry (%) Current Medications Generic Name Dose Route Start Last Admin Trade Name Freq PRN Reason Stop Dose Admin Acetaminophen 650 mg 07/05/19 22:15 Tylenol - PO Q6H PRN PAIN OR FEVER Allopurinol 100 mg 07/06/19 10:00 Zyloprim - PO DAILY [facility] Amlodipine Besylate 10 mg 07/06/19 10:00 Norvasc - PO DAILY [facility] Atorvastatin Calcium 20 mg 07/06/19 22:00 Lipitor - PO HS [facility] Heparin Sodium (Porcine) 5,000 unit 07/06/19 10:00 Heparin - SQ BID [facility] Piperacillin Sod/Tazobactam 50 mls @ 100 mls/hr 07/06/19 10:00 Sod 2.25 gm/ Dextrose IVPB 07/06/19 18:29 Q8H-IV [facility] Piperacillin Sod/Tazobactam 50 mls @ 100 mls/hr 07/07/19 02:00 Sod 2.25 gm/ Dextrose IVPB Q8H-IV [facility] Labetalol HCl 200 mg 07/06/19 10:00 Normodyne - PO DAILY [facility] Memantine 10 mg 07/06/19 10:00 Namenda - PO DAILY [facility] Nystatin 1 applic 07/06/19 10:00 Mycostatin Cream - TP BID [facility] Pantoprazole Sodium 20 mg 07/06/19 10:00 Protonix - PO DAILY [facility] Paroxetine HCl 40 mg 07/06/19 10:00 Paxil - PO DAILY [facility] Risperidone 0.5 mg 07/06/19 10:00 Risperdal - PO BID [facility] Laboratory Results - last 24 hr 07/05/19 07/05/19 07/05/19 17:10 17:10 17:10 WBC 6.9 RBC 3.79 L Hgb 10.7 L Hct 32.1 L MCV 84.7 MCH 28.1 MCHC 33.2 RDW 17.1 H Plt Count 184 D MPV 7.5 Absolute Neuts (auto) 4.7 Neutrophils % 68.8 Lymphocytes % 17.0 D Monocytes % 10.2 Eosinophils % 3.4 Basophils % 0.6 Nucleated RBC % 0 PT with INR 13.70 H INR 1.16 H PTT (Actin FS) 31.5 VBG pH POC VBG pCO2 POC VBG pO2 VBG HCO3 VBG O2 Sat (Dmitry) VBG Base Excess Sodium Potassium Chloride Carbon Dioxide Anion Gap BUN Creatinine Est GFR (CKD-EPI)AfAm Est GFR (CKD-EPI)NonAf Random Glucose Lactic Acid Calcium Total Bilirubin AST ALT Alkaline Phosphatase Creatine Kinase CK-MB (CK-2) 2.2 Troponin I B-Natriuretic Peptide Total Protein Albumin Urine Color Urine Appearance Urine pH Ur Specific Orange Urine Protein Urine Glucose (UA) Urine Ketones Urine Blood Urine Nitrite Urine Bilirubin Urine Urobilinogen Ur Leukocyte Esterase Urine WBC (Auto) Urine RBC (Auto) Urine Casts (Auto) U Epithel Cells (Auto) Urine Bacteria (Auto) Blood Type Antibody Screen 07/05/19 07/05/19 07/05/19 17:10 17:10 17:10 WBC RBC Hgb Hct MCV MCH MCHC RDW Plt Count MPV Absolute Neuts (auto) Neutrophils % Lymphocytes % Monocytes % Eosinophils % Basophils % Nucleated RBC % PT with INR INR PTT (Actin FS) VBG pH POC VBG pCO2 POC VBG pO2 VBG HCO3 VBG O2 Sat (Dmitry) VBG Base Excess Sodium 143 Potassium 4.0 Chloride 110 H Carbon Dioxide 24 Anion Gap 9 BUN 44.7 H Creatinine 1.9 H Est GFR (CKD-EPI)AfAm 35.44 Est GFR (CKD-EPI)NonAf 30.58 Random Glucose 83 Lactic Acid 0.8 Calcium 8.8 Total Bilirubin 0.6 AST 16 ALT 21 Alkaline Phosphatase 88 Creatine Kinase 53 CK-MB (CK-2) Troponin I < 0.02 B-Natriuretic Peptide 1079.7 H Total Protein 6.7 Albumin 3.1 L Urine Color Urine Appearance Urine pH Ur Specific Orange Urine Protein Urine Glucose (UA) Urine Ketones Urine Blood Urine Nitrite Urine Bilirubin Urine Urobilinogen Ur Leukocyte Esterase Urine WBC (Auto) Urine RBC (Auto) Urine Casts (Auto) U Epithel Cells (Auto) Urine Bacteria (Auto) Blood Type Antibody Screen 07/05/19 07/05/19 07/05/19 17:10 17:10 17:10 WBC RBC Hgb Hct MCV MCH MCHC RDW Plt Count MPV Absolute Neuts (auto) Neutrophils % Lymphocytes % Monocytes % Eosinophils % Basophils % Nucleated RBC % PT with INR Cancelled INR Cancelled PTT (Actin FS) VBG pH 7.36 POC VBG pCO2 44.0 POC VBG pO2 < 49 H VBG HCO3 23.9 VBG O2 Sat (Dmitry) 63.6 L VBG Base Excess -1.1 Sodium Potassium Chloride Carbon Dioxide Anion Gap BUN Creatinine Est GFR (CKD-EPI)AfAm Est GFR (CKD-EPI)NonAf Random Glucose Lactic Acid Calcium Total Bilirubin AST ALT Alkaline Phosphatase Creatine Kinase CK-MB (CK-2) Troponin I B-Natriuretic Peptide Total Protein Albumin Urine Color Urine Appearance Urine pH Ur Specific Orange Urine Protein Urine Glucose (UA) Urine Ketones Urine Blood Urine Nitrite Urine Bilirubin Urine Urobilinogen Ur Leukocyte Esterase Urine WBC (Auto) Urine RBC (Auto) Urine Casts (Auto) U Epithel Cells (Auto) Urine Bacteria (Auto) Blood Type B POSITIVE Antibody Screen Negative 07/05/19 07/05/19 07/06/19 18:40 22:15 07:00 WBC 6.2 RBC 3.56 L Hgb 9.9 L Hct 29.6 L MCV 83.3 MCH 27.9 MCHC 33.5 RDW 16.5 H Plt Count 189 MPV 7.6 Absolute Neuts (auto) Neutrophils % Lymphocytes % Monocytes % Eosinophils % Basophils % Nucleated RBC % PT with INR INR PTT (Actin FS) VBG pH POC VBG pCO2 POC VBG pO2 VBG HCO3 VBG O2 Sat (Dmitry) VBG Base Excess Sodium Potassium Chloride Carbon Dioxide Anion Gap BUN Creatinine Est GFR (CKD-EPI)AfAm Est GFR (CKD-EPI)NonAf Random Glucose Lactic Acid Calcium Total Bilirubin AST ALT Alkaline Phosphatase Creatine Kinase CK-MB (CK-2) Troponin I B-Natriuretic Peptide 825.9 H Total Protein Albumin Urine Color Yellow Urine Appearance Clear Urine pH 5.0 Ur Specific Orange 1.010 Urine Protein Negative Urine Glucose (UA) Negative Urine Ketones Negative Urine Blood 2+ H Urine Nitrite Positive H Urine Bilirubin Negative Urine Urobilinogen 0.2 Ur Leukocyte Esterase 3+ H Urine WBC (Auto) 25 Urine RBC (Auto) 9 Urine Casts (Auto) 4 U Epithel Cells (Auto) 2.3 Urine Bacteria (Auto) 592.5 Blood Type Antibody Screen 07/06/19 07:00 WBC RBC Hgb Hct MCV MCH MCHC RDW Plt Count MPV Absolute Neuts (auto) Neutrophils % Lymphocytes % Monocytes % Eosinophils % Basophils % Nucleated RBC % PT with INR INR PTT (Actin FS) VBG pH POC VBG pCO2 POC VBG pO2 VBG HCO3 VBG O2 Sat (Dimtry) VBG Base Excess Sodium 141 Potassium 3.5 Chloride 108 H Carbon Dioxide 24 Anion Gap 10 BUN 37.2 H Creatinine 1.6 H Est GFR (CKD-EPI)AfAm 43.62 Est GFR (CKD-EPI)NonAf 37.64 Random Glucose 65 L Lactic Acid Calcium 8.9 Total Bilirubin AST ALT Alkaline Phosphatase Creatine Kinase CK-MB (CK-2) Troponin I B-Natriuretic Peptide Total Protein Albumin Urine Color Urine Appearance Urine pH Ur Specific Orange Urine Protein Urine Glucose (UA) Urine Ketones Urine Blood Urine Nitrite Urine Bilirubin Urine Urobilinogen Ur Leukocyte Esterase Urine WBC (Auto) Urine RBC (Auto) Urine Casts (Auto) U Epithel Cells (Auto) Urine Bacteria (Auto) Blood Type Antibody Screen S1 S2 RRR Lungs decreased Abd-soft, NT trace edema PLAN Iv antibiotics renal function better restraints -- wrists B/L for safety Psych eval will need to do CT chest to evaluate nodular findings--give Ativan prior to CT chest Problem List - Problems (1) Altered mental status Code(s): R41.82 - ALTERED MENTAL STATUS, UNSPECIFIED Qualifiers: Altered mental status type: unspecified Qualified Code(s): R41.82 - Altered mental status, unspecified (2) Dementia Code(s): F03.90 - UNSPECIFIED DEMENTIA WITHOUT BEHAVIORAL DISTURBANCE Qualifiers: Dementia type: unspecified type Dementia behavioral disturbance: without behavioral disturbance Qualified Code(s): F03.90 - Unspecified dementia without behavioral disturbance (3) Fall Code(s): W19.XXXA - UNSPECIFIED FALL, INITIAL ENCOUNTER Qualifiers: Encounter type: initial encounter Qualified Code(s): W19.XXXA - Unspecified fall, initial encounter (4) Urinary tract infection Code(s): N39.0 - URINARY TRACT INFECTION, SITE NOT SPECIFIED Qualifiers: Urinary tract infection type: site unspecified Hematuria presence: without hematuria Qualified Code(s): N39.0 - Urinary tract infection, site not specified (5) MAURO (acute kidney injury) Code(s): N17.9 - ACUTE KIDNEY FAILURE, UNSPECIFIED (6) ASHD (arteriosclerotic heart disease) Code(s): I25.10 - ATHSCL HEART DISEASE OF [place] CORONARY ARTERY W/O ANG PCTRS
[2019-07-06] MEDS ORDERED: LORazepam 2 MG/ML SDV VIAL IVPUSH ONE ×2 (09:57→20:00)
[2019-07-06] MEDS ORDERED: PIPERACILLIN/TAZOB 2.25 GM 2.25 GM in DEXTROSE 5%-WATER - 50 ML IVPB SCH (10:00)
[2019-07-06] MEDS ORDERED: risperiDONE 0.5 MG TABLET (FP) PO SCH (10:00)
[2019-07-06] MEDS ORDERED: PT OWN MED DRAWER 7, Y5N ONE ×3 (11:26→18:48)
[2019-07-06] MEDS ORDERED: PIPERACILLIN/TAZOBACTAM 2.25 GM VIAL IVPB ONE (11:26)
[2019-07-06] MEDS ORDERED: DEXTROSE 5%-WATER - 50 ML IVPB ONE ×2 (11:26→16:33)
[2019-07-06] MEDS: OLANZapine 2.5 MG TABLET PO SCH ×3 (11:27→21:53)
[2019-07-06] MEDS: ALLOPURINOL 100 MG TABLET (FP) PO SCH ×2 (11:27→11:59)
[2019-07-06] MEDS: MEMANTINE HCL 10 MG TABLET (FP) PO SCH ×2 (11:28→11:58)
[2019-07-06] MEDS: HEPARIN NA (PORCINE) 5,000 UNITS/ML 1ML VIAL SQ SCH ×2 (11:28→21:53)
[2019-07-06] MEDS: LABETALOL HCL 200 MG TABLET (FP) PO SCH ×2 (11:28→11:58)
[2019-07-06] MEDS: amLODIPine BESYLATE 10 MG TABLET (FP) PO SCH ×2 (11:28→11:58)
[2019-07-06] MEDS: PANTOPRAZOLE 20 MG TABLET (FP) PO SCH ×2 (11:29→11:58)
[2019-07-06] MEDS: PARoxetine HCL 20 MG TABLET PO SCH ×2 (11:29→11:58)
[2019-07-06] MEDS ORDERED: ALBUTEROL SO4 0.083% IH SOL 2.5 MG/3 ML VIAL.NEB. NEB PRN (11:53)
[2019-07-06] MEDS: FUROSEMIDE 40 MG/4 ML INJECTABLE VIAL IVPUSH SCH (12:27)
--- NOTE | 2019-07-06 13:31 | PN ---
Progress Note (short form) - Note Progress Note: ID consult dictated dementia with combative behavior possible uti-start ceftraixone f/u cultures abnl cxray- for chest ct Problem List - Problems (1) Altered mental status Code(s): R41.82 - ALTERED MENTAL STATUS, UNSPECIFIED Qualifiers: Altered mental status type: unspecified Qualified Code(s): R41.82 - Altered mental status, unspecified (2) Dementia Code(s): F03.90 - UNSPECIFIED DEMENTIA WITHOUT BEHAVIORAL DISTURBANCE Qualifiers: Dementia type: unspecified type Dementia behavioral disturbance: without behavioral disturbance Qualified Code(s): F03.90 - Unspecified dementia without behavioral disturbance (3) Urinary tract infection Code(s): N39.0 - URINARY TRACT INFECTION, SITE NOT SPECIFIED Qualifiers: Urinary tract infection type: site unspecified Hematuria presence: without hematuria Qualified Code(s): N39.0 - Urinary tract infection, site not specified (4) Abnormal x-ray of lung Code(s): R91.8 - OTHER NONSPECIFIC ABNORMAL FINDING OF LUNG FIELD
--- NOTE | 2019-07-06 15:24 | CONS ---
INFECTIOUS DISEASE CONSULTATION DATE OF CONSULTATION: DATE OF DICTATION: 07/06/2019 REQUESTED BY: HISTORY OF PRESENT ILLNESS: This is an 89-year-old man. He was recently discharged home from the long-term. He has a history of dementia with behavioral issues. On his last admission, he was combative in the hospital and he was oriented x1, prior to his return to the long-term. He has had recurrent urinary tract infections, as well. He now comes to the hospital with increasing confusion over the last 5 days. There is no history of fevers, chills, nausea or vomiting. Urinalysis was noted to be positive for white cells and leukocyte esterase. He was started on antibiotics. Patient is currently awake and combative. He is in wrist restraints and he will not answer any questions. He does identify family members and is otherwise shouting at me. PAST MEDICAL HISTORY: All from the chart; notable for dementia, coronary artery disease, hypertension, hyperlipidemia, GERD. He has had prostate cancer with radiation, depression, gout, allergic rhinitis. He has had recurrent UTIs. Surgical history is notable for hernia repair and joint replacement. SOCIAL HISTORY: He stopped smoking many years ago. Former alcohol user. He lives with his family. ALLERGIES: He has no known drug allergies. MEDICATIONS AT HOME: Include allopurinol, Paxil, Lipitor, Namenda, Protonix, Risperdal, amlodipine, and labetalol. FAMILY HISTORY: Not obtainable. REVIEW OF SYSTEMS: Not obtainable, except what is available in the chart. PHYSICAL EXAMINATION: General: He is awake and alert. Vital Signs: His T-maximum is 99, pulse is 109, blood pressure 128/72, respiratory rate is 20. HEENT: He is normocephalic. He will not open his mouth. Neck: Supple. He is looking all around. Lungs: Clear to auscultation. Heart: Regular rate and rhythm. Abdomen: Soft. Extremities: Without edema. LABORATORY DATA: White count is 6.2, hemoglobin 9.9, platelets are 199. His BUN is 36 and creatinine is 1.6 today; they were 44 and 1.9, yesterday. Urinalysis has 2+ blood, 3+ leuks with 25 white cells. Prior cultures in the hospital had been notable for he had a urine culture with proteus in May 2019 that was resistant to Macrobid and intermediate to Azactam. His chest x-ray done in the emergency room notable for some questionable nodular findings and congestive changes; CAT scan was recommended. Head CT is notable for no acute intracranial pathology. In summary, this is an elderly man with dementia with a history of combative behavior in the past, now admitted with escalating behavior at home, who has a possible UTI. Will switch him to ceftriaxone to treat him for UTI. Given the last UTI results, he does not have very much antibiotic resistance. Further recommendations to follow. MINDI GARCIA M.D. [id number]
[2019-07-06] MEDS ORDERED: cefTRIAXone SODIUM 1 GM VIAL ONE (16:33)
[2019-07-06] MEDS: CEFTRIAXONE 1 GM in DEXTROSE 5%-WATER - 50 ML IVPB SCH (16:43)
[2019-07-06] MEDS: MINERAL OIL/PET HY-PHL TOPICAL OINTMENT 454 GM JAR TP SCH ×2 (16:55→21:52)
[2019-07-06] MEDS ORDERED: FLU VACCINE QUAD 60 MCG/0.5 ML (MDV 19-20) IM ONE (17:00)
[2019-07-06] MEDS ORDERED: PIPERACILLIN/TAZOB 3.375 GM 3.375 GM in DEXTROSE 5%-WATER - 50 ML IVPB SCH (18:00)
[2019-07-06] MEDS: NYSTATIN 100,000 UNIT/GM TOPICAL CREAM 15 GM TUBE TP SCH ×2 (18:51→21:52)
[2019-07-06] MEDS: ACETAMINOPHEN 325 MG TABLET (FP) PO PRN (21:52)
[2019-07-06] MEDS: ATORVASTATIN CA 20 MG TABLET (FP) PO SCH (21:53)
[2019-07-06] MEDS ORDERED: OLANZapine 5 MG TABLET PO SCH (22:00)
[2019-07-07] MEDS ORDERED: PIPERACILLIN/TAZOB 2.25 GM 2.25 GM in DEXTROSE 5%-WATER - 50 ML IVPB SCH (02:00)
[2019-07-07] MEDS: MINERAL OIL/PET HY-PHL TOPICAL OINTMENT 454 GM JAR TP SCH ×3 (06:29→22:30)
--- NOTE | 2019-07-07 09:23 | PN ---
Progress Note (short form) - Note Progress Note: sleepy received Ativan yesterday for CTChest had fever events noted Vital Signs - 24 hr 07/06/19 07/06/19 07/06/19 21:00 21:40 22:30 Temperature 101.1 F H 100.7 F H Pulse Rate 84 Respiratory 28 H Rate Blood Pressure 153/69 O2 Sat by Pulse 92 L Oximetry (%) 07/07/19 07/07/19 07/07/19 03:18 07:05 08:35 Temperature 98.1 F 98.0 F 98.8 F Pulse Rate 90 Respiratory 24 H 20 Rate Blood Pressure 144/64 150/104 H O2 Sat by Pulse Oximetry (%) 07/07/19 07/07/19 07/07/19 09:00 14:05 17:42 Temperature 99.9 F H Pulse Rate 88 91 H Respiratory 20 Rate Blood Pressure 139/88 143/58 L O2 Sat by Pulse 93 L Oximetry (%) Current Medications Generic Name Dose Route Start Last Admin Trade Name Freq PRN Reason Stop Dose Admin Acetaminophen 650 mg 07/05/19 22:15 07/06/19 21:52 Tylenol - PO 650 mg Q6H PRN Administration PAIN OR FEVER Albuterol Sulfate 1 amp 07/06/19 11:53 Ventolin 0.083% Nebulizer Soln - NEB Q4H PRN SHORT OF BREATH/WHEEZING Allopurinol 100 mg 07/06/19 10:00 07/07/19 10:51 Zyloprim - PO 100 mg DAILY [facility] Administration Amlodipine Besylate 10 mg 07/06/19 10:00 07/07/19 10:50 Norvasc - PO 10 mg DAILY [facility] Administration Atorvastatin Calcium 20 mg 07/06/19 22:00 07/06/19 21:53 Lipitor - PO 20 mg HS [facility] Administration Emollient Ointment 1 applic 07/06/19 22:00 07/07/19 14:10 Aquaphor - TP 1 applic TID [facility] Administration Furosemide 40 mg 07/06/19 12:30 07/07/19 10:53 Lasix Injection - IVPUSH 40 mg DAILY [facility] Administration Heparin Sodium (Porcine) 5,000 unit 07/06/19 10:00 07/07/19 10:53 Heparin - SQ 5,000 unit BID [facility] Administration Ceftriaxone Sodium 1 gm/ 50 mls @ 200 mls/hr 07/06/19 15:00 07/07/19 10:52 Dextrose IVPB 200 mls/hr DAILY [facility] Administration Protocol Labetalol HCl 200 mg 07/06/19 10:00 07/07/19 10:50 Normodyne - PO 200 mg DAILY [facility] Administration Memantine 10 mg 07/06/19 10:00 07/07/19 10:49 Namenda - PO 10 mg DAILY [facility] Administration Nystatin 1 applic 07/06/19 10:00 07/07/19 10:55 Mycostatin Cream - TP 1 applic BID [facility] Administration Olanzapine 2.5 mg 07/06/19 11:00 07/07/19 10:51 Zyprexa - PO 2.5 mg BID [facility] Administration Pantoprazole Sodium 20 mg 07/06/19 10:00 07/07/19 10:50 Protonix - PO 20 mg DAILY [facility] Administration Paroxetine HCl 40 mg 07/06/19 10:00 07/07/19 10:51 Paxil - PO 40 mg DAILY [facility] Administration Risperidone 0.5 mg 07/06/19 11:53 Risperdal - PO BID PRN AGITATION S1 S2 RRR Lungs decreased Abd-soft, NT trace edema PLAN Iv antibiotics iv lasix restraints -- wrists B/L for safety Psych eval infiltrates on CT chest check labs Problem List - Problems (1) Altered mental status Code(s): R41.82 - ALTERED MENTAL STATUS, UNSPECIFIED Qualifiers: Altered mental status type: unspecified Qualified Code(s): R41.82 - Altered mental status, unspecified (2) Dementia Code(s): F03.90 - UNSPECIFIED DEMENTIA WITHOUT BEHAVIORAL DISTURBANCE Qualifiers: Dementia type: unspecified type Dementia behavioral disturbance: without behavioral disturbance Qualified Code(s): F03.90 - Unspecified dementia without behavioral disturbance (3) Fall Code(s): W19.XXXA - UNSPECIFIED FALL, INITIAL ENCOUNTER Qualifiers: Encounter type: initial encounter Qualified Code(s): W19.XXXA - Unspecified fall, initial encounter (4) Urinary tract infection Code(s): N39.0 - URINARY TRACT INFECTION, SITE NOT SPECIFIED Qualifiers: Urinary tract infection type: site unspecified Hematuria presence: without hematuria Qualified Code(s): N39.0 - Urinary tract infection, site not specified (5) MAURO (acute kidney injury) Code(s): N17.9 - ACUTE KIDNEY FAILURE, UNSPECIFIED (6) ASHD (arteriosclerotic heart disease) Code(s): I25.10 - ATHSCL HEART DISEASE OF [place] CORONARY ARTERY W/O ANG PCTRS
--- NOTE | 2019-07-07 10:16 | PN ---
Progress Note (short form) - Note Progress Note: sleeping fever overnight Vital Signs Period Temp Pulse Resp BP Sys/Pradhan Pulse Ox Last 24 Hr 98.0 F-101.1 F 84-137 20-28 115-153/58-88 92 cor-rrr lungs decreased bs at bases abd soft,nt ext no edema CBC, BMP 07/06/19 07:00 07/06/19 07:00 Microbiology 07/05/19 17:10 Blood - Peripheral Venous Blood Culture - Preliminary NO GROWTH OBTAINED AFTER 24 HOURS, INCUBATION TO CONTINUE FOR 4 DAYS. 07/05/19 17:10 Blood - Peripheral Venous Blood Culture - Preliminary NO GROWTH OBTAINED AFTER 24 HOURS, INCUBATION TO CONTINUE FOR 4 DAYS. urine culture pending chest ct results pending- bilateral patchy infiltrates? Current Medications Acetaminophen (Tylenol -) 650 mg PO Q6H PRN PRN Reason: PAIN OR FEVER Last Admin: 07/06/19 21:52 Dose: 650 mg Albuterol Sulfate (Ventolin 0.083% Nebulizer Soln -) 1 amp NEB Q4H PRN PRN Reason: SHORT OF BREATH/WHEEZING Allopurinol (Zyloprim -) 100 mg PO DAILY [facility] Last Admin: 07/06/19 11:59 Dose: Not Given Amlodipine Besylate (Norvasc -) 10 mg PO DAILY [facility] Last Admin: 07/06/19 11:58 Dose: Not Given Atorvastatin Calcium (Lipitor -) 20 mg PO HS [facility] Last Admin: 07/06/19 21:53 Dose: 20 mg Emollient Ointment (Aquaphor -) 1 applic TP TID [facility] Last Admin: 07/07/19 06:29 Dose: 1 applic Furosemide (Lasix Injection -) 40 mg IVPUSH DAILY [facility] Last Admin: 07/06/19 12:27 Dose: 40 mg Heparin Sodium (Porcine) (Heparin -) 5,000 unit SQ BID [facility] Last Admin: 07/06/19 21:53 Dose: 5,000 unit Ceftriaxone Sodium 1 gm/ (Dextrose) 50 mls @ 200 mls/hr IVPB DAILY [facility]; Protocol Last Admin: 07/06/19 16:43 Dose: 200 mls/hr Labetalol HCl (Normodyne -) 200 mg PO DAILY [facility] Last Admin: 07/06/19 11:58 Dose: Not Given Memantine (Namenda -) 10 mg PO DAILY [facility] Last Admin: 07/06/19 11:58 Dose: Not Given Nystatin (Mycostatin Cream -) 1 applic TP BID [facility] Last Admin: 07/06/19 21:52 Dose: 1 applic Olanzapine (Zyprexa -) 2.5 mg PO BID [facility] Last Admin: 07/06/19 21:53 Dose: 2.5 mg Pantoprazole Sodium (Protonix -) 20 mg PO DAILY [facility] Last Admin: 07/06/19 11:58 Dose: Not Given Paroxetine HCl (Paxil -) 40 mg PO DAILY [facility] Last Admin: 07/06/19 11:58 Dose: Not Given Risperidone (Risperdal -) 0.5 mg PO BID PRN PRN Reason: AGITATION a/p fevers pneumonia UTI dementia with combative behavior HTN CAD continue rocephin legionella urinary antigen f/u cultures f/u official chest ct report
[2019-07-07] MEDS ORDERED: cefTRIAXone SODIUM 1 GM VIAL ONE (10:40)
[2019-07-07] MEDS ORDERED: DEXTROSE 5%-WATER - 50 ML IVPB ONE (10:40)
[2019-07-07] MEDS: MEMANTINE HCL 10 MG TABLET (FP) PO SCH (10:49)
[2019-07-07] MEDS: amLODIPine BESYLATE 10 MG TABLET (FP) PO SCH (10:50)
[2019-07-07] MEDS: LABETALOL HCL 200 MG TABLET (FP) PO SCH (10:50)
[2019-07-07] MEDS: PANTOPRAZOLE 20 MG TABLET (FP) PO SCH (10:50)
[2019-07-07] MEDS: OLANZapine 2.5 MG TABLET PO SCH ×2 (10:51→22:30)
[2019-07-07] MEDS: PARoxetine HCL 20 MG TABLET PO SCH (10:51)
[2019-07-07] MEDS: ALLOPURINOL 100 MG TABLET (FP) PO SCH (10:51)
[2019-07-07] MEDS: CEFTRIAXONE 1 GM in DEXTROSE 5%-WATER - 50 ML IVPB SCH (10:52)
[2019-07-07] MEDS: FUROSEMIDE 40 MG/4 ML INJECTABLE VIAL IVPUSH SCH (10:53)
[2019-07-07] MEDS: HEPARIN NA (PORCINE) 5,000 UNITS/ML 1ML VIAL SQ SCH ×2 (10:53→22:30)
[2019-07-07] MEDS: NYSTATIN 100,000 UNIT/GM TOPICAL CREAM 15 GM TUBE TP SCH ×2 (10:55→22:30)
--- NOTE | 2019-07-07 11:43 | EKG ---
Test Reason : Blood Pressure : / mmHG Vent. Rate : 067 BPM Atrial Rate : 057 BPM P-R Int : 000 ms QRS Dur : 086 ms QT Int : 402 ms P-R-T Axes : 000 004 072 degrees QTc Int : 424 ms ATRIAL FIBRILLATION POOR DATA QUALITY, INTERPRETATION MAY BE ADVERSELY AFFECTED Confirmed by SALBADOR MCKENZIE MD ([id number]) on 07/07/2019 11:43:40 AM Referred By: Confirmed By:SALBADOR MCKENZIE MD
[2019-07-07] MEDS: ATORVASTATIN CA 20 MG TABLET (FP) PO SCH (22:30)
[2019-07-07] MEDS ORDERED: PT OWN MED DRAWER 7, Y5N ONE (23:02)
[2019-07-08] MEDS ORDERED: PT OWN MED DRAWER 7, Y5N ONE (00:48)
[2019-07-08] MEDS: ACETAMINOPHEN 325 MG TABLET (FP) PO PRN (01:01)
[2019-07-08] MEDS: MINERAL OIL/PET HY-PHL TOPICAL OINTMENT 454 GM JAR TP SCH ×3 (05:35→21:03)
[2019-07-08] MEDS ORDERED: DEXTROSE 5%-WATER - 50 ML IVPB ONE (08:35)
[2019-07-08] MEDS ORDERED: cefTRIAXone SODIUM 1 GM VIAL ONE (08:35)
[2019-07-08] MEDS: MEMANTINE HCL 10 MG TABLET (FP) PO SCH (09:54)
[2019-07-08] MEDS: PANTOPRAZOLE 20 MG TABLET (FP) PO SCH (09:54)
[2019-07-08] MEDS: LABETALOL HCL 200 MG TABLET (FP) PO SCH (09:54)
[2019-07-08] MEDS: ALLOPURINOL 100 MG TABLET (FP) PO SCH (09:54)
[2019-07-08] MEDS: amLODIPine BESYLATE 10 MG TABLET (FP) PO SCH (09:54)
[2019-07-08] MEDS: PARoxetine HCL 20 MG TABLET PO SCH (09:54)
[2019-07-08] MEDS: FUROSEMIDE 40 MG/4 ML INJECTABLE VIAL IVPUSH SCH (09:55)
[2019-07-08] MEDS: NYSTATIN 100,000 UNIT/GM TOPICAL CREAM 15 GM TUBE TP SCH ×2 (09:55→21:05)
[2019-07-08] MEDS: HEPARIN NA (PORCINE) 5,000 UNITS/ML 1ML VIAL SQ SCH ×2 (09:55→21:01)
[2019-07-08] MEDS: CEFTRIAXONE 1 GM in DEXTROSE 5%-WATER - 50 ML IVPB SCH (09:55)
[2019-07-08] MEDS: OLANZapine 2.5 MG TABLET PO SCH ×2 (09:56→21:01)
--- NOTE | 2019-07-08 12:19 | PN ---
Progress Note (short form) - Note Progress Note: less agitated not coughing Vital Signs Period Temp Pulse Resp BP Sys/Pradhan Pulse Ox Last 24 Hr 98.2 F-100.3 F 78-91 20-26 124-150/57-93 90 cor-rrr lungs clear abd soft,nt ext no edema CBC, BMP 07/06/19 07:00 07/06/19 07:00 Microbiology 07/05/19 18:30 Urine - Urine - Catheterized Urine Culture - Final Escherichia Coli Proteus Mirabilis 07/05/19 17:10 Blood - Peripheral Venous Blood Culture - Preliminary NO GROWTH OBTAINED AFTER 48 HOURS, INCUBATION TO CONTINUE FOR 3 DAYS. 07/05/19 17:10 Blood - Peripheral Venous Blood Culture - Preliminary NO GROWTH OBTAINED AFTER 48 HOURS, INCUBATION TO CONTINUE FOR 3 DAYS. 07/07/19 10:30 Urine For Antigen Detection Legionella Antigen - Final 07/07/19 10:30 Urine For Antigen Detection Streptococcus pneumoniae Antigen (M - Final chest ct - bilateral patchy infiltrates Current Medications Acetaminophen (Tylenol -) 650 mg PO Q6H PRN PRN Reason: PAIN OR FEVER Last Admin: 07/08/19 01:01 Dose: 650 mg Albuterol Sulfate (Ventolin 0.083% Nebulizer Soln -) 1 amp NEB Q4H PRN PRN Reason: SHORT OF BREATH/WHEEZING Allopurinol (Zyloprim -) 100 mg PO DAILY [facility] Last Admin: 07/08/19 09:54 Dose: 100 mg Amlodipine Besylate (Norvasc -) 10 mg PO DAILY [facility] Last Admin: 07/08/19 09:54 Dose: 10 mg Atorvastatin Calcium (Lipitor -) 20 mg PO HS [facility] Last Admin: 07/07/19 22:30 Dose: 20 mg Emollient Ointment (Aquaphor -) 1 applic TP TID [facility] Last Admin: 07/08/19 05:35 Dose: 1 applic Furosemide (Lasix Injection -) 40 mg IVPUSH DAILY [facility] Last Admin: 07/08/19 09:55 Dose: 40 mg Heparin Sodium (Porcine) (Heparin -) 5,000 unit SQ BID [facility] Last Admin: 07/08/19 09:55 Dose: 5,000 unit Ceftriaxone Sodium 1 gm/ (Dextrose) 50 mls @ 200 mls/hr IVPB DAILY [facility]; Protocol Last Admin: 07/08/19 09:55 Dose: 200 mls/hr Labetalol HCl (Normodyne -) 200 mg PO DAILY [facility] Last Admin: 07/08/19 09:54 Dose: 200 mg Memantine (Namenda -) 10 mg PO DAILY [facility] Last Admin: 07/08/19 09:54 Dose: 10 mg Nystatin (Mycostatin Cream -) 1 applic TP BID [facility] Last Admin: 07/08/19 09:55 Dose: 1 applic Olanzapine (Zyprexa -) 2.5 mg PO BID [facility] Last Admin: 07/08/19 09:56 Dose: 2.5 mg Pantoprazole Sodium (Protonix -) 20 mg PO DAILY [facility] Last Admin: 07/08/19 09:54 Dose: 20 mg Paroxetine HCl (Paxil -) 40 mg PO DAILY [facility] Last Admin: 07/08/19 09:54 Dose: 40 mg Risperidone (Risperdal -) 0.5 mg PO BID PRN PRN Reason: AGITATION a/p fevers pneumonia UTI dementia with combative behavior HTN CAD continue rocephin legionella urinary antigen is negative continue ceftriaxone repeat labs in am
--- NOTE | 2019-07-08 14:06 | PN ---
Progress Note (short form) - Note Progress Note: Pt seen/ examined chart reviewed awake/comfortable calm Vital Signs Temp 98.2 F 07/08/19 10:00 Pulse 78 07/08/19 10:00 Resp 20 07/08/19 10:00 BP 150/93 07/08/19 10:00 Pulse Ox 90 L 07/07/19 21:00 Intake & Output 07/07/19 07/08/19 07/08/19 23:59 11:59 23:59 Intake Total 650 0 Balance 650 0 Intake: IVPB 50 0 Oral 600 Other: Voiding Method Incontinent # Unmeasured Voids Void 3 Bowel Movement No Active Medications Acetaminophen (Tylenol -) 650 mg PO Q6H PRN PRN Reason: PAIN OR FEVER Last Admin: 07/08/19 01:01 Dose: 650 mg Albuterol Sulfate (Ventolin 0.083% Nebulizer Soln -) 1 amp NEB Q4H PRN PRN Reason: SHORT OF BREATH/WHEEZING Allopurinol (Zyloprim -) 100 mg PO DAILY [facility] Last Admin: 07/08/19 09:54 Dose: 100 mg Amlodipine Besylate (Norvasc -) 10 mg PO DAILY [facility] Last Admin: 07/08/19 09:54 Dose: 10 mg Atorvastatin Calcium (Lipitor -) 20 mg PO HS [facility] Last Admin: 07/07/19 22:30 Dose: 20 mg Emollient Ointment (Aquaphor -) 1 applic TP TID [facility] Last Admin: 07/08/19 05:35 Dose: 1 applic Furosemide (Lasix Injection -) 40 mg IVPUSH DAILY [facility] Last Admin: 07/08/19 09:55 Dose: 40 mg Heparin Sodium (Porcine) (Heparin -) 5,000 unit SQ BID [facility] Last Admin: 07/08/19 09:55 Dose: 5,000 unit Ceftriaxone Sodium 1 gm/ (Dextrose) 50 mls @ 200 mls/hr IVPB DAILY [facility]; Protocol Last Admin: 07/08/19 09:55 Dose: 200 mls/hr Labetalol HCl (Normodyne -) 200 mg PO DAILY [facility] Last Admin: 07/08/19 09:54 Dose: 200 mg Memantine (Namenda -) 10 mg PO DAILY [facility] Last Admin: 07/08/19 09:54 Dose: 10 mg Nystatin (Mycostatin Cream -) 1 applic TP BID [facility] Last Admin: 07/08/19 09:55 Dose: 1 applic Olanzapine (Zyprexa -) 2.5 mg PO BID [facility] Last Admin: 07/08/19 09:56 Dose: 2.5 mg Pantoprazole Sodium (Protonix -) 20 mg PO DAILY [facility] Last Admin: 07/08/19 09:54 Dose: 20 mg Paroxetine HCl (Paxil -) 40 mg PO DAILY [facility] Last Admin: 07/08/19 09:54 Dose: 40 mg Risperidone (Risperdal -) 0.5 mg PO BID PRN PRN Reason: AGITATION CBC, BMP 07/06/19 07:00 07/06/19 07:00 Microbiology 07/05/19 18:30 Urine Culture - Final Urine - Urine - Catheterized Escherichia Coli Proteus Mirabilis 07/05/19 17:10 Blood Culture - Preliminary Blood - Peripheral Venous NO GROWTH OBTAINED AFTER 48 HOURS, INCUBATION TO CONTINUE FOR 3 DAYS. 07/05/19 17:10 Blood Culture - Preliminary Blood - Peripheral Venous NO GROWTH OBTAINED AFTER 48 HOURS, INCUBATION TO CONTINUE FOR 3 DAYS. 07/07/19 10:30 Legionella Antigen - Final Urine For Antigen Detection Streptococcus pneumoniae Antigen (M - Final ct chest reviewed Physical Exam S1 S2 RRR Lungs decreased Abd-soft, NT trace edema PLAN Iv antibiotics iv lasix restraints -- wrists B/L for safety if needed Psych eval infiltrates on CT chest DVt prophylaxis Will follow Problem List - Problems (1) Altered mental status Code(s): R41.82 - ALTERED MENTAL STATUS, UNSPECIFIED Qualifiers: Altered mental status type: unspecified Qualified Code(s): R41.82 - Altered mental status, unspecified (2) Dementia Code(s): F03.90 - UNSPECIFIED DEMENTIA WITHOUT BEHAVIORAL DISTURBANCE Qualifiers: Dementia type: unspecified type Dementia behavioral disturbance: without behavioral disturbance Qualified Code(s): F03.90 - Unspecified dementia without behavioral disturbance (3) Fall Code(s): W19.XXXA - UNSPECIFIED FALL, INITIAL ENCOUNTER Qualifiers: Encounter type: initial encounter Qualified Code(s): W19.XXXA - Unspecified fall, initial encounter (4) Urinary tract infection Code(s): N39.0 - URINARY TRACT INFECTION, SITE NOT SPECIFIED Qualifiers: Urinary tract infection type: site unspecified Hematuria presence: without hematuria Qualified Code(s): N39.0 - Urinary tract infection, site not specified (5) MAURO (acute kidney injury) Code(s): N17.9 - ACUTE KIDNEY FAILURE, UNSPECIFIED (6) ASHD (arteriosclerotic heart disease) Code(s): I25.10 - ATHSCL HEART DISEASE OF [place] CORONARY ARTERY W/O ANG PCTRS
[2019-07-08] MEDS: ATORVASTATIN CA 20 MG TABLET (FP) PO SCH (21:01)
[2019-07-09] MEDS: MINERAL OIL/PET HY-PHL TOPICAL OINTMENT 454 GM JAR TP SCH ×3 (05:42→21:14)
[2019-07-09] MEDS ORDERED: PT OWN MED DRAWER 7, Y5N ONE ×3 (08:17→22:12)
[2019-07-09] MEDS: FUROSEMIDE 40 MG/4 ML INJECTABLE VIAL IVPUSH SCH (09:29)
[2019-07-09] MEDS: HEPARIN NA (PORCINE) 5,000 UNITS/ML 1ML VIAL SQ SCH ×2 (09:29→21:12)
[2019-07-09] MEDS: PARoxetine HCL 20 MG TABLET PO SCH (09:30)
[2019-07-09] MEDS: LABETALOL HCL 200 MG TABLET (FP) PO SCH (09:30)
[2019-07-09] MEDS: amLODIPine BESYLATE 10 MG TABLET (FP) PO SCH (09:30)
[2019-07-09] MEDS: OLANZapine 2.5 MG TABLET PO SCH ×2 (09:30→21:12)
[2019-07-09] MEDS: NYSTATIN 100,000 UNIT/GM TOPICAL CREAM 15 GM TUBE TP SCH ×2 (09:30→21:15)
[2019-07-09] MEDS: CEFTRIAXONE 1 GM in DEXTROSE 5%-WATER - 50 ML IVPB SCH (09:38)
[2019-07-09] MEDS: MEMANTINE HCL 10 MG TABLET (FP) PO SCH (09:38)
[2019-07-09] MEDS: PANTOPRAZOLE 20 MG TABLET (FP) PO SCH (09:38)
[2019-07-09] MEDS ORDERED: cefTRIAXone SODIUM 1 GM VIAL ONE (09:38)
[2019-07-09] MEDS ORDERED: DEXTROSE 5%-WATER - 50 ML IVPB ONE (09:38)
[2019-07-09] MEDS: ALLOPURINOL 100 MG TABLET (FP) PO SCH (09:40)
[2019-07-09] MEDS ORDERED: ALBUTEROL SO4 0.083% IH SOL 2.5 MG/3 ML VIAL.NEB. NEB STA (12:08)
--- NOTE | 2019-07-09 12:12 | PN ---
Progress Note (short form) - Note Progress Note: sitting up in chair calm off restraints Vital Signs - 24 hr 07/08/19 07/08/19 07/08/19 14:00 17:10 21:00 Temperature 99.5 F 100.3 F H Pulse Rate 82 88 Respiratory 20 20 Rate Blood Pressure 130/71 99/59 L O2 Sat by Pulse 93 L Oximetry (%) 07/08/19 07/09/19 22:00 07:02 Temperature 99.3 F 99 F Pulse Rate 84 80 Respiratory 20 20 Rate Blood Pressure 107/52 L 120/59 L O2 Sat by Pulse Oximetry (%) Current Medications Generic Name Dose Route Start Last Admin Trade Name Freq PRN Reason Stop Dose Admin Acetaminophen 650 mg 07/05/19 22:15 07/08/19 01:01 Tylenol - PO 650 mg Q6H PRN Administration PAIN OR FEVER Albuterol Sulfate 1 amp 07/09/19 12:08 Ventolin 0.083% Nebulizer Soln - NEB 07/09/19 12:09 Q4H STA Allopurinol 100 mg 07/06/19 10:00 07/09/19 09:40 Zyloprim - PO 100 mg DAILY [facility] Administration Amlodipine Besylate 10 mg 07/06/19 10:00 07/09/19 09:30 Norvasc - PO 10 mg DAILY [facility] Administration Atorvastatin Calcium 20 mg 07/06/19 22:00 07/08/19 21:01 Lipitor - PO 20 mg HS [facility] Administration Emollient Ointment 1 applic 07/06/19 22:00 07/09/19 05:42 Aquaphor - TP 1 applic TID [facility] Administration Furosemide 40 mg 07/06/19 12:30 07/09/19 09:29 Lasix Injection - IVPUSH 40 mg DAILY [facility] Administration Heparin Sodium (Porcine) 5,000 unit 07/06/19 10:00 07/09/19 09:29 Heparin - SQ 5,000 unit BID [facility] Administration Ceftriaxone Sodium 1 gm/ 50 mls @ 200 mls/hr 07/06/19 15:00 07/09/19 09:38 Dextrose IVPB 200 mls/hr DAILY [facility] Administration Protocol Labetalol HCl 200 mg 07/06/19 10:00 07/09/19 09:30 Normodyne - PO 200 mg DAILY [facility] Administration Memantine 10 mg 07/06/19 10:00 07/09/19 09:38 Namenda - PO 10 mg DAILY [facility] Administration Nystatin 1 applic 07/06/19 10:00 07/09/19 09:30 Mycostatin Cream - TP 1 applic BID [facility] Administration Olanzapine 2.5 mg 07/06/19 11:00 07/09/19 09:30 Zyprexa - PO 2.5 mg BID [facility] Administration Pantoprazole Sodium 20 mg 07/06/19 10:00 07/09/19 09:38 Protonix - PO 20 mg DAILY [facility] Administration Paroxetine HCl 40 mg 07/06/19 10:00 07/09/19 09:30 Paxil - PO 40 mg DAILY [facility] Administration Risperidone 0.5 mg 07/06/19 11:53 Risperdal - PO BID PRN AGITATION S1 S2 RRR Lungs decreased, ronchi+ Abd-soft, NT trace edema PLAN Iv antibiotics iv lasix off restraints infiltrates on CT chest continue with meds nebs scheduled Problem List - Problems (1) Altered mental status Code(s): R41.82 - ALTERED MENTAL STATUS, UNSPECIFIED Qualifiers: Altered mental status type: unspecified Qualified Code(s): R41.82 - Altered mental status, unspecified (2) Dementia Code(s): F03.90 - UNSPECIFIED DEMENTIA WITHOUT BEHAVIORAL DISTURBANCE Qualifiers: Dementia type: unspecified type Dementia behavioral disturbance: without behavioral disturbance Qualified Code(s): F03.90 - Unspecified dementia without behavioral disturbance (3) Fall Code(s): W19.XXXA - UNSPECIFIED FALL, INITIAL ENCOUNTER Qualifiers: Encounter type: initial encounter Qualified Code(s): W19.XXXA - Unspecified fall, initial encounter (4) Urinary tract infection Code(s): N39.0 - URINARY TRACT INFECTION, SITE NOT SPECIFIED Qualifiers: Urinary tract infection type: site unspecified Hematuria presence: without hematuria Qualified Code(s): N39.0 - Urinary tract infection, site not specified (5) MAURO (acute kidney injury) Code(s): N17.9 - ACUTE KIDNEY FAILURE, UNSPECIFIED (6) ASHD (arteriosclerotic heart disease) Code(s): I25.10 - ATHSCL HEART DISEASE OF [place] CORONARY ARTERY W/O ANG PCTRS
--- NOTE | 2019-07-09 13:20 | PN ---
Progress Note (short form) - Note Progress Note: OOB in chair no restraints Vital Signs Period Temp Pulse Resp BP Sys/Pradhan Pulse Ox Last 24 Hr 99 F-100.3 F 80-88 20-20 99-130/52-71 93-93 cor-rrr lungs decreased bs at bases abd firm, nt ext no edema CBC, BMP 07/06/19 07:00 07/06/19 07:00 Microbiology 07/05/19 17:10 Blood - Peripheral Venous Blood Culture - Preliminary NO GROWTH OBTAINED AFTER 72 HOURS, INCUBATION TO CONTINUE FOR 2 DAYS. 07/05/19 17:10 Blood - Peripheral Venous Blood Culture - Preliminary NO GROWTH OBTAINED AFTER 72 HOURS, INCUBATION TO CONTINUE FOR 2 DAYS. 07/05/19 18:30 Urine - Urine - Catheterized Urine Culture - Final Escherichia Coli Proteus Mirabilis 07/07/19 10:30 Urine For Antigen Detection Legionella Antigen - Final 07/07/19 10:30 Urine For Antigen Detection Streptococcus pneumoniae Antigen (M - Final a/p dementia with combative behavior UTI/pneumonia- continue ceftriaxone repeat cxray repeat labs Problem List - Problems (1) Altered mental status Code(s): R41.82 - ALTERED MENTAL STATUS, UNSPECIFIED Qualifiers: Altered mental status type: unspecified Qualified Code(s): R41.82 - Altered mental status, unspecified (2) Dementia Code(s): F03.90 - UNSPECIFIED DEMENTIA WITHOUT BEHAVIORAL DISTURBANCE Qualifiers: Dementia type: unspecified type Dementia behavioral disturbance: without behavioral disturbance Qualified Code(s): F03.90 - Unspecified dementia without behavioral disturbance (3) Urinary tract infection Code(s): N39.0 - URINARY TRACT INFECTION, SITE NOT SPECIFIED Qualifiers: Urinary tract infection type: site unspecified Hematuria presence: without hematuria Qualified Code(s): N39.0 - Urinary tract infection, site not specified (4) Abnormal x-ray of lung Code(s): R91.8 - OTHER NONSPECIFIC ABNORMAL FINDING OF LUNG FIELD
[2019-07-09] MEDS: ACETAMINOPHEN 325 MG TABLET (FP) PO PRN (14:46)
[2019-07-09] MEDS ORDERED: LIDOCAINE VISCOUS 2% ORAL/TOP 20 ML UNIT-DOSE CUP MM PRN (14:59)
[2019-07-09] MEDS ORDERED: PIPERACILLIN/TAZOBACTAM 3.375 GM VIAL IVPB ONE (17:10)
[2019-07-09] MEDS: PIPERACILLIN/TAZOB 3.375 GM 3.375 GM in DEXTROSE 5%-WATER - 50 ML IVPB SCH (17:20)
[2019-07-09] MEDS: ATORVASTATIN CA 20 MG TABLET (FP) PO SCH (21:12)
[2019-07-10] MEDS ORDERED: PIPERACILLIN/TAZOBACTAM 3.375 GM VIAL IVPB ONE ×3 (00:43→17:57)
[2019-07-10] MEDS ORDERED: DEXTROSE 5%-WATER - 50 ML IVPB ONE ×3 (00:43→17:58)
[2019-07-10] MEDS: PIPERACILLIN/TAZOB 3.375 GM 3.375 GM in DEXTROSE 5%-WATER - 50 ML IVPB SCH ×3 (01:30→19:36)
[2019-07-10] MEDS: MINERAL OIL/PET HY-PHL TOPICAL OINTMENT 454 GM JAR TP SCH ×3 (05:26→22:53)
[2019-07-10 08:20] LABS: HEMATOCRIT 29.1 % (35.4-49); HEMOGLOBIN 9.9 GM/dL (11.7-16.9); MCH 28.1 pg (25.7-33.7); MCHC 34.1 g/dl (32.0-35.9); MEAN CELL VOLUME 82.4 fl (80-96); MEAN PLT VOLUME 7.7 fl (7.5-11.1); PLATELET COUNT 247 K/MM3 (134-434); RBC 3.53 M/mm3 (4.00-5.60); RDW 16.3 % (11.9-15.9); WHITE BLOOD COUNT 6.9 K/mm3 (4.0-10.0)
[2019-07-10 08:35] LABS: ALBUMIN 2.6 g/dl (3.4-5.0); BILIRUBIN,TOTAL 0.3 mg/dL (0.2-1); BLOOD UREA NITROGEN 48.7 mg/dL (7-18); CALCIUM 8.3 mg/dL (8.5-10.1); CREATININE 2.7 mg/dL (0.55-1.3); POTASSIUM 3.4 mmol/L (3.5-5.1); TOT PROT 6.1 g/dl (6.4-8.2)
[2019-07-10] MEDS ORDERED: POTASSIUM CHLORIDE ORAL LIQUID 20 MEQ/15 ML PO ONE (10:00)
[2019-07-10] MEDS ORDERED: SODIUM CHLORIDE 0.45% 1,000 ML IV SCH (10:45)
--- NOTE | 2019-07-10 10:58 | PN ---
Progress Note (short form) - Note Progress Note: sitting up in chair calm off restraints no sob no coughing Vital Signs - 24 hr 07/09/19 07/09/19 07/09/19 16:30 21:00 22:00 Temperature 98.1 F 98.3 F Pulse Rate 78 61 Respiratory 18 18 Rate Blood Pressure 104/47 L 114/62 O2 Sat by Pulse 93 L Oximetry (%) 07/10/19 07:31 Temperature 99.4 F Pulse Rate 87 Respiratory 20 Rate Blood Pressure 128/58 L O2 Sat by Pulse Oximetry (%) Current Medications Generic Name Dose Route Start Last Admin Trade Name Freq PRN Reason Stop Dose Admin Acetaminophen 650 mg 07/05/19 22:15 07/09/19 14:46 Tylenol - PO 650 mg Q6H PRN Administration PAIN OR FEVER Allopurinol 100 mg 07/06/19 10:00 07/09/19 09:40 Zyloprim - PO 100 mg DAILY [facility] Administration Amlodipine Besylate 10 mg 07/06/19 10:00 07/09/19 09:30 Norvasc - PO 10 mg DAILY [facility] Administration Atorvastatin Calcium 20 mg 07/06/19 22:00 07/09/19 21:12 Lipitor - PO 20 mg HS [facility] Administration Emollient Ointment 1 applic 07/06/19 22:00 07/10/19 05:26 Aquaphor - TP 1 applic TID [facility] Administration Heparin Sodium (Porcine) 5,000 unit 07/06/19 10:00 07/09/19 21:12 Heparin - SQ 5,000 unit BID [facility] Administration Piperacillin Sod/Tazobactam 50 mls @ 100 mls/hr 07/09/19 18:00 07/10/19 01:30 Sod 3.375 gm/ Dextrose IVPB 100 mls/hr Q8H-IV [facility] Administration Protocol Sodium Chloride 1,000 mls @ 42 mls/hr 07/10/19 10:45 1/2 Normal Saline IV ASDIR [facility] Labetalol HCl 200 mg 07/06/19 10:00 07/09/19 09:30 Normodyne - PO 200 mg DAILY [facility] Administration Lidocaine HCl 20 ml 07/09/19 14:59 Xylocaine 2% Viscous Oral - MM Q6H PRN ORAL PAIN/MOUTH SORES Memantine 10 mg 07/06/19 10:00 07/09/19 09:38 Namenda - PO 10 mg DAILY [facility] Administration Nystatin 1 applic 07/06/19 10:00 07/09/19 21:15 Mycostatin Cream - TP 1 applic BID [facility] Administration Olanzapine 2.5 mg 07/06/19 11:00 07/09/19 21:12 Zyprexa - PO 2.5 mg BID [facility] Administration Pantoprazole Sodium 20 mg 07/06/19 10:00 07/09/19 09:38 Protonix - PO 20 mg DAILY [facility] Administration Paroxetine HCl 40 mg 07/06/19 10:00 07/09/19 09:30 Paxil - PO 40 mg DAILY [facility] Administration Risperidone 0.5 mg 07/06/19 11:53 Risperdal - PO BID PRN AGITATION Laboratory Results - last 24 hr 07/10/19 07/10/19 07:05 07:05 WBC 6.9 RBC 3.53 L Hgb 9.9 L Hct 29.1 L MCV 82.4 MCH 28.1 MCHC 34.1 RDW 16.3 H Plt Count 247 D MPV 7.7 Sodium 141 Potassium 3.4 L Chloride 103 Carbon Dioxide 28 Anion Gap 10 BUN 48.7 H Creatinine 2.7 H Est GFR (CKD-EPI)AfAm 23.17 Est GFR (CKD-EPI)NonAf 19.99 Random Glucose 98 Calcium 8.3 L Total Bilirubin 0.3 AST 15 ALT 16 Alkaline Phosphatase 77 Total Protein 6.1 L Albumin 2.6 L S1 S2 RRR Lungs decreased,no ronchi no rales Abd-soft, NT no edema PLAN Iv antibiotics iv lasix-->dc as creatinine elevated gentle iv hydration Renal eval off restraints infiltrates on CT chest continue with meds nebs scheduled Problem List - Problems (1) Altered mental status Code(s): R41.82 - ALTERED MENTAL STATUS, UNSPECIFIED Qualifiers: Altered mental status type: unspecified Qualified Code(s): R41.82 - Altered mental status, unspecified (2) Dementia Code(s): F03.90 - UNSPECIFIED DEMENTIA WITHOUT BEHAVIORAL DISTURBANCE Qualifiers: Dementia type: unspecified type Dementia behavioral disturbance: without behavioral disturbance Qualified Code(s): F03.90 - Unspecified dementia without behavioral disturbance (3) Fall Code(s): W19.XXXA - UNSPECIFIED FALL, INITIAL ENCOUNTER Qualifiers: Encounter type: initial encounter Qualified Code(s): W19.XXXA - Unspecified fall, initial encounter (4) Urinary tract infection Code(s): N39.0 - URINARY TRACT INFECTION, SITE NOT SPECIFIED Qualifiers: Urinary tract infection type: site unspecified Hematuria presence: without hematuria Qualified Code(s): N39.0 - Urinary tract infection, site not specified (5) MAURO (acute kidney injury) Code(s): N17.9 - ACUTE KIDNEY FAILURE, UNSPECIFIED (6) ASHD (arteriosclerotic heart disease) Code(s): I25.10 - ATHSCL HEART DISEASE OF [place] CORONARY ARTERY W/O ANG PCTRS
[2019-07-10] MEDS: HEPARIN NA (PORCINE) 5,000 UNITS/ML 1ML VIAL SQ SCH ×2 (11:42→22:53)
[2019-07-10] MEDS: MEMANTINE HCL 10 MG TABLET (FP) PO SCH (11:43)
[2019-07-10] MEDS: ALLOPURINOL 100 MG TABLET (FP) PO SCH (11:43)
[2019-07-10] MEDS: NYSTATIN 100,000 UNIT/GM TOPICAL CREAM 15 GM TUBE TP SCH ×2 (11:43→22:58)
[2019-07-10] MEDS: PARoxetine HCL 20 MG TABLET PO SCH (11:44)
[2019-07-10] MEDS: amLODIPine BESYLATE 10 MG TABLET (FP) PO SCH (11:44)
[2019-07-10] MEDS: LABETALOL HCL 200 MG TABLET (FP) PO SCH (11:44)
[2019-07-10] MEDS: PANTOPRAZOLE 20 MG TABLET (FP) PO SCH (11:45)
[2019-07-10] MEDS: OLANZapine 2.5 MG TABLET PO SCH ×2 (11:45→22:53)
--- NOTE | 2019-07-10 12:51 | PN ---
Progress Note (short form) - Note Progress Note: OOB in chair no restraints calm [place] Vital Signs Period Temp Pulse Resp BP Sys/Pradhan Pulse Ox Last 24 Hr 98.1 F-99.4 F 61-87 18-22 104-128/47-62 93 cor-rrr lungs decreased bs at bases abd soft,nt ext no edema CBC, BMP 07/10/19 07:05 07/10/19 07:05 Microbiology 07/05/19 17:10 Blood - Peripheral Venous Blood Culture - Preliminary NO GROWTH OBTAINED AFTER 96 HOURS, INCUBATION TO CONTINUE FOR 1 DAYS. 07/05/19 17:10 Blood - Peripheral Venous Blood Culture - Preliminary NO GROWTH OBTAINED AFTER 96 HOURS, INCUBATION TO CONTINUE FOR 1 DAYS. 07/05/19 18:30 Urine - Urine - Catheterized Urine Culture - Final Escherichia Coli Proteus Mirabilis 07/07/19 10:30 Urine For Antigen Detection Legionella Antigen - Final 07/07/19 10:30 Urine For Antigen Detection Streptococcus pneumoniae Antigen (M - Final a/p dementia with combative behavior UTI/pneumonia-day #5 antiibotics-complete 7 days decreased zosyn dose due to MAURO mostlikely due to IV diuretics please call back if needed Problem List - Problems (1) Altered mental status Code(s): R41.82 - ALTERED MENTAL STATUS, UNSPECIFIED Qualifiers: Altered mental status type: unspecified Qualified Code(s): R41.82 - Altered mental status, unspecified (2) Dementia Code(s): F03.90 - UNSPECIFIED DEMENTIA WITHOUT BEHAVIORAL DISTURBANCE Qualifiers: Dementia type: unspecified type Dementia behavioral disturbance: without behavioral disturbance Qualified Code(s): F03.90 - Unspecified dementia without behavioral disturbance (3) Urinary tract infection Code(s): N39.0 - URINARY TRACT INFECTION, SITE NOT SPECIFIED Qualifiers: Urinary tract infection type: site unspecified Hematuria presence: without hematuria Qualified Code(s): N39.0 - Urinary tract infection, site not specified (4) Abnormal x-ray of lung Code(s): R91.8 - OTHER NONSPECIFIC ABNORMAL FINDING OF LUNG FIELD
--- NOTE | 2019-07-10 13:35 | CONSULT ---
Consult Consult Specialty:: Nephrology Reason for Consultation:: MAURO - History of Present Illness Chief Complaint: altered mental status History of Present Illness: Pt is an 89 year old mal with pmhx of htn, dementia, CKD, and hld who presents with altered mental status. He is being treated for a UTI and PNA. I was called to evaluate him for elevated creatinine. He is a poor historian and unable to provide much history. Chart was reviewed. He has history of ckd based on old lab values. He denies shortness of breath. He denies dysuria. 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: Yes: Dementia Cardio/Vascular: Yes: CAD, HTN, Hyperlipdemia Gastrointestinal: Yes: GERD Renal/: Yes: Renal Calculi, Other (Hx of prostate cancer s/p radiation.) Psych: Yes: Depression Rheumatology: Yes: Gout ENT: Yes: Allergic Rhinitis - Past Surgical History Past Surgical History: Yes: Hernia Repair, Joint Replacement - Alcohol/Substance Use Hx Alcohol Use: No History of Substance Use: reports: None - Smoking History Smoking history: Unknown if ever smoked Have you smoked in the past 12 months: No Aproximately how many cigarettes per day: 0 If you are a former smoker, when did you quit?: 49 yrs ago - Social History Usual Living Arrangement: With Spouse ADL: Family Assistance History of Recent Travel: No Home Medications - Allergies Allergies/Adverse Reactions: Allergies Allergy/AdvReac Type Severity Reaction Status Date / Time No Known Allergies Allergy Verified 05/08/19 13:56 - Home Medications Home Medications: Ambulatory Orders Allopurinol [Zyloprim -] 100 mg PO DAILY #30 tablet 11/24/12 Paroxetine HCl [Paxil] 40 mg PO DAILY 10/09/14 Atorvastatin Ca [Lipitor] 20 mg PO HS 04/28/19 Memantine HCl [Namenda -] 10 mg PO DAILY 04/28/19 Acetaminophen [Tylenol .Regular Strength -] 650 mg PO Q6H PRN tablet 05/04/19 Albuterol Sulfate 0.5% [Ventolin 0.5% Nebulizing Soln. -] 1 amp NEB Q4H PRN amp 05/04/19 Nystatin Cream [Mycostatin Cream -] 1 applic TP BID applic 05/04/19 Pantoprazole Sodium [Protonix -] 20 mg PO DAILY tablet.ec 05/04/19 Sennosides/Docusate Sodium [Pericolace -] 1 tablet PO BID tablet 05/04/19 Labetalol HCl [Normodyne -] 200 mg PO DAILY tablet 05/13/19 Amlodipine Besylate [Norvasc -] 5 mg PO DAILY 07/06/19 Furosemide [Lasix] 40 mg PO DAILY PRN 07/06/19 Risperidone [Risperdal] 0.5 mg PO HS PRN 07/06/19 Family Medical History Family History: Denies Review of Systems Unable to obtain ROS, reason: poor historian - Review of Systems Constitutional: reports: No Symptoms Eyes: reports: No Symptoms HENT: reports: No Symptoms Neck: reports: No Symptoms Cardiovascular: reports: No Symptoms Respiratory: reports: No Symptoms Gastrointestinal: reports: No Symptoms Genitourinary: reports: No Symptoms Musculoskeletal: reports: Joint Pain Integumentary: reports: No Symptoms Neurological: reports: No Symptoms Endocrine: reports: No Symptoms Hematology/Lymphatic: reports: No Symptoms Psychiatric: reports: No Symptoms Physical Exam Vital Signs: Vital Signs Temperature 98.4 F 07/10/19 10:00 Pulse Rate 76 07/10/19 10:00 Respiratory Rate 22 H 07/10/19 10:00 Blood Pressure 108/62 07/10/19 10:00 O2 Sat by Pulse Oximetry (%) 93 L 07/09/19 21:00 Constitutional: Yes: Calm Eyes: Yes: Conjunctiva Clear HENT: Yes: Atraumatic Cardiovascular: Yes: S1, S2 Respiratory: Yes: CTA Bilaterally Gastrointestinal: Yes: Normal Bowel Sounds, Soft Renal/: Yes: WNL Musculoskeletal: Yes: WNL Edema: Yes Edema: LLE: 1+, RLE: 1+ Neurological: Yes: Confusion Labs: CBC, BMP 07/10/19 07:05 07/10/19 07:05 Laboratory Tests 04/28/19 04/29/19 05/01/19 16:30 07:09 07:03 Hgb Creatinine 2.6 H 2.4 H 2.1 H Urine Blood Urine Nitrite 05/03/19 05/08/19 05/09/19 07:15 15:00 05:27 Hgb Creatinine 2.0 H 2.2 H 1.8 H Urine Blood Urine Nitrite 05/12/19 05/13/19 05/15/19 06:10 07:26 07:34 Hgb Creatinine 1.7 H 1.7 H 1.4 H Urine Blood Urine Nitrite 05/20/19 07/05/19 07/05/19 05:31 17:10 17:10 Hgb 10.7 L Creatinine 1.4 H 1.9 H Urine Blood Urine Nitrite 07/05/19 07/06/19 07/06/19 18:40 07:00 07:00 Hgb 9.9 L Creatinine 1.6 H Urine Blood 2+ H Urine Nitrite Positive H 07/10/19 07:05 Hgb Creatinine 2.7 H Urine Blood Urine Nitrite Imaging - Results Chest X-ray: Report Reviewed Problem List - Problems (1) CKD (chronic kidney disease) Code(s): N18.9 - CHRONIC KIDNEY DISEASE, UNSPECIFIED (2) Altered mental status Code(s): R41.82 - ALTERED MENTAL STATUS, UNSPECIFIED Qualifiers: Altered mental status type: unspecified Qualified Code(s): R41.82 - Altered mental status, unspecified (3) Dementia Code(s): F03.90 - UNSPECIFIED DEMENTIA WITHOUT BEHAVIORAL DISTURBANCE Qualifiers: Dementia type: unspecified type Dementia behavioral disturbance: without behavioral disturbance Qualified Code(s): F03.90 - Unspecified dementia without behavioral disturbance (4) MAURO (acute kidney injury) Code(s): N17.9 - ACUTE KIDNEY FAILURE, UNSPECIFIED Assessment/Plan Current Medications Generic Name Dose Route Start Last Admin Trade Name Freq PRN Reason Stop Dose Admin Acetaminophen 650 mg 07/05/19 22:15 07/09/19 14:46 Tylenol - PO 650 mg Q6H PRN Administration PAIN OR FEVER Allopurinol 100 mg 07/06/19 10:00 07/10/19 11:43 Zyloprim - PO 100 mg DAILY [facility] Administration Amlodipine Besylate 10 mg 07/06/19 10:00 07/10/19 11:44 Norvasc - PO 10 mg DAILY [facility] Administration Atorvastatin Calcium 20 mg 07/06/19 22:00 07/09/19 21:12 Lipitor - PO 20 mg HS [facility] Administration Emollient Ointment 1 applic 07/06/19 22:00 07/10/19 05:26 Aquaphor - TP 1 applic TID [facility] Administration Heparin Sodium (Porcine) 5,000 unit 07/06/19 10:00 07/10/19 11:42 Heparin - SQ 5,000 unit BID [facility] Administration Piperacillin Sod/Tazobactam 50 mls @ 100 mls/hr 07/09/19 18:00 07/10/19 11:45 Sod 3.375 gm/ Dextrose IVPB 100 mls/hr Q8H-IV [facility] Administration Protocol Sodium Chloride 1,000 mls @ 42 mls/hr 07/10/19 10:45 07/10/19 11:47 1/2 Normal Saline IV 42 mls/hr ASDIR [facility] Administration Labetalol HCl 200 mg 07/06/19 10:00 07/10/19 11:44 Normodyne - PO 200 mg DAILY [facility] Administration Lidocaine HCl 20 ml 07/09/19 14:59 Xylocaine 2% Viscous Oral - MM Q6H PRN ORAL PAIN/MOUTH SORES Memantine 10 mg 07/06/19 10:00 07/10/19 11:43 Namenda - PO 10 mg DAILY [facility] Administration Nystatin 1 applic 07/06/19 10:00 07/10/19 11:43 Mycostatin Cream - TP 1 applic BID [facility] Administration Olanzapine 2.5 mg 07/06/19 11:00 07/10/19 11:45 Zyprexa - PO 2.5 mg BID [facility] Administration Pantoprazole Sodium 20 mg 07/06/19 10:00 07/10/19 11:45 Protonix - PO 20 mg DAILY [facility] Administration Paroxetine HCl 40 mg 07/06/19 10:00 07/10/19 11:44 Paxil - PO 40 mg DAILY [facility] Administration Risperidone 0.5 mg 07/06/19 11:53 Risperdal - PO BID PRN AGITATION Impression 1. MAURO 2. CKD 3. UTI 4. PNA 5. 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
[2019-07-10 21:21] LABS: URINE APPEARANCE CLEAR; URINE BILIRUBIN NEGATIVE (NEGATIVE); URINE COLOR YELLOW; URINE GLUCOSE (UA) NEGATIVE (NEGATIVE); URINE KETONE NEGATIVE (NEGATIVE); URINE LEUK ESTERASE NEGATIVE (NEGATIVE); URINE NITRITE NEGATIVE (NEGATIVE); URINE PROTEIN TRACE (NEGATIVE); URINE UROBILINOGEN 0.2 mg/dL (0.2-1.0)
[2019-07-10] MEDS: ATORVASTATIN CA 20 MG TABLET (FP) PO SCH (22:53)
[2019-07-11] MEDS ORDERED: DEXTROSE 5%-WATER - 50 ML IVPB ONE ×3 (01:16→15:58)
[2019-07-11] MEDS ORDERED: PIPERACILLIN/TAZOBACTAM 3.375 GM VIAL IVPB ONE ×3 (01:16→15:58)
[2019-07-11] MEDS: PIPERACILLIN/TAZOB 3.375 GM 3.375 GM in DEXTROSE 5%-WATER - 50 ML IVPB SCH ×3 (01:28→17:54)
[2019-07-11] MEDS: MINERAL OIL/PET HY-PHL TOPICAL OINTMENT 454 GM JAR TP SCH ×3 (06:26→21:09)
[2019-07-11] MEDS ORDERED: PT OWN MED DRAWER 7, Y5N ONE (06:35)
[2019-07-11 08:09] LABS: ALBUMIN 2.5 g/dl (3.4-5.0); BILIRUBIN,TOTAL 0.5 mg/dL (0.2-1); BLOOD UREA NITROGEN 46.5 mg/dL (7-18); CALCIUM 8.5 mg/dL (8.5-10.1); CREATININE 2.6 mg/dL (0.55-1.3); TOT PROT 6.1 g/dl (6.4-8.2)
--- NOTE | 2019-07-11 10:34 | PN ---
Progress Note (short form) - Note Progress Note: sitting up in bed calm off restraints no sob occasional coughing he was agitated and aggressive in the evening yesterday Vital Signs - 24 hr 07/10/19 07/10/19 07/11/19 16:30 22:00 06:00 Temperature 98 F 97.6 F Pulse Rate 83 80 90 Respiratory 20 18 20 Rate Blood Pressure 117/59 L 110/61 101/66 Current Medications Generic Name Dose Route Start Last Admin Trade Name [place] PRN Reason Stop Dose Admin Acetaminophen 650 mg 07/05/19 22:15 07/09/19 14:46 Tylenol - PO 650 mg Q6H PRN Administration PAIN OR FEVER Allopurinol 100 mg 07/06/19 10:00 07/10/19 11:43 Zyloprim - PO 100 mg DAILY [facility] Administration Amlodipine Besylate 10 mg 07/06/19 10:00 07/10/19 11:44 Norvasc - PO 10 mg DAILY [facility] Administration Atorvastatin Calcium 20 mg 07/06/19 22:00 07/10/19 22:53 Lipitor - PO 20 mg HS [facility] Administration Emollient Ointment 1 applic 07/06/19 22:00 07/11/19 06:26 Aquaphor - TP 1 applic TID [facility] Administration Heparin Sodium (Porcine) 5,000 unit 07/06/19 10:00 07/10/19 22:53 Heparin - SQ 5,000 unit BID [facility] Administration Piperacillin Sod/Tazobactam 50 mls @ 100 mls/hr 07/09/19 18:00 07/11/19 01:28 Sod 3.375 gm/ Dextrose IVPB 100 mls/hr Q8H-IV [facility] Administration Protocol Labetalol HCl 200 mg 07/06/19 10:00 07/10/19 11:44 Normodyne - PO 200 mg DAILY [facility] Administration Lidocaine HCl 20 ml 07/09/19 14:59 Xylocaine 2% Viscous Oral - MM Q6H PRN ORAL PAIN/MOUTH SORES Memantine 10 mg 07/06/19 10:00 07/10/19 11:43 Namenda - PO 10 mg DAILY [facility] Administration Nystatin 1 applic 07/06/19 10:00 07/10/19 22:58 Mycostatin Cream - TP 1 applic BID [facility] Administration Olanzapine 2.5 mg 07/06/19 11:00 07/10/19 22:53 Zyprexa - PO 2.5 mg BID [facility] Administration Pantoprazole Sodium 20 mg 07/06/19 10:00 07/10/19 11:45 Protonix - PO 20 mg DAILY [facility] Administration Paroxetine HCl 40 mg 07/06/19 10:00 07/10/19 11:44 Paxil - PO 40 mg DAILY [facility] Administration Risperidone 0.5 mg 07/06/19 11:53 Risperdal - PO BID PRN AGITATION Abnormal Lab Results 07/10/19 07/10/19 07/11/19 20:00 20:00 06:40 BUN 46.5 H Creatinine 2.6 H Total Protein 6.1 L Albumin 2.5 L Ur Random Creatinine 178.0 H Ur Random Sodium 26 L Ur Random Chloride < 11 L Laboratory Results - last 24 hr 07/10/19 07/10/19 07/10/19 20:00 20:00 20:00 Sodium Potassium Chloride Carbon Dioxide Anion Gap BUN Creatinine Est GFR (CKD-EPI)AfAm Est GFR (CKD-EPI)NonAf Random Glucose Calcium Total Bilirubin AST ALT Alkaline Phosphatase Total Protein Albumin Urine Color Yellow Urine Appearance Clear Urine pH 5.0 Ur Specific [place] 1.020 Urine Protein Trace Urine Glucose (UA) Negative Urine Ketones Negative Urine Blood Negative Urine Nitrite Negative Urine Bilirubin Negative Urine Urobilinogen 0.2 Ur Leukocyte Esterase Negative Ur Random Creatinine 178.0 H Ur Random Sodium 26 L Ur Random Potassium 64.0 Ur Random Chloride < 11 L 07/11/19 06:40 Sodium 141 Potassium 4.0 Chloride 104 Carbon Dioxide 29 Anion Gap 8 BUN 46.5 H Creatinine 2.6 H Est GFR (CKD-EPI)AfAm 24.25 Est GFR (CKD-EPI)NonAf 20.93 Random Glucose 98 Calcium 8.5 Total Bilirubin 0.5 AST 16 ALT 16 Alkaline Phosphatase 68 Total Protein 6.1 L Albumin 2.5 L Urine Color Urine Appearance Urine pH Ur Specific [place] Urine Protein Urine Glucose (UA) Urine Ketones Urine Blood Urine Nitrite Urine Bilirubin Urine Urobilinogen Ur Leukocyte Esterase Ur Random Creatinine Ur Random Sodium Ur Random Potassium Ur Random Chloride S1 S2 RRR Lungs decreased,no ronchi no rales Abd-soft, NT no edema PLAN Iv antibiotics iv lasix-->dc as creatinine elevated dc iv hydration Renal eval noted off restraints Renal sono-- unremarkable infiltrates on CT chest continue with meds nebs scheduled possible sundown syndrome increase Zyrexa at night psych eval pending Problem List - Problems (1) Altered mental status Code(s): R41.82 - ALTERED MENTAL STATUS, UNSPECIFIED Qualifiers: Altered mental status type: unspecified Qualified Code(s): R41.82 - Altered mental status, unspecified (2) Dementia Code(s): F03.90 - UNSPECIFIED DEMENTIA WITHOUT BEHAVIORAL DISTURBANCE Qualifiers: Dementia type: unspecified type Dementia behavioral disturbance: without behavioral disturbance Qualified Code(s): F03.90 - Unspecified dementia without behavioral disturbance (3) Fall Code(s): W19.XXXA - UNSPECIFIED FALL, INITIAL ENCOUNTER Qualifiers: Encounter type: initial encounter Qualified Code(s): W19.XXXA - Unspecified fall, initial encounter (4) Urinary tract infection Code(s): N39.0 - URINARY TRACT INFECTION, SITE NOT SPECIFIED Qualifiers: Urinary tract infection type: site unspecified Hematuria presence: without hematuria Qualified Code(s): N39.0 - Urinary tract infection, site not specified (5) MAURO (acute kidney injury) Code(s): N17.9 - ACUTE KIDNEY FAILURE, UNSPECIFIED (6) ASHD (arteriosclerotic heart disease) Code(s): I25.10 - ATHSCL HEART DISEASE OF [place] CORONARY ARTERY W/O ANG PCTRS
[2019-07-11] MEDS: PARoxetine HCL 20 MG TABLET PO SCH (10:50)
[2019-07-11] MEDS: amLODIPine BESYLATE 10 MG TABLET (FP) PO SCH (10:50)
[2019-07-11] MEDS: HEPARIN NA (PORCINE) 5,000 UNITS/ML 1ML VIAL SQ SCH ×2 (10:50→21:09)
[2019-07-11] MEDS: PANTOPRAZOLE 20 MG TABLET (FP) PO SCH (10:50)
[2019-07-11] MEDS: OLANZapine 2.5 MG TABLET PO SCH ×2 (10:50→21:08)
[2019-07-11] MEDS: MEMANTINE HCL 10 MG TABLET (FP) PO SCH (10:50)
[2019-07-11] MEDS: ALLOPURINOL 100 MG TABLET (FP) PO SCH (10:50)
[2019-07-11] MEDS: LABETALOL HCL 200 MG TABLET (FP) PO SCH (10:50)
[2019-07-11] MEDS: NYSTATIN 100,000 UNIT/GM TOPICAL CREAM 15 GM TUBE TP SCH ×2 (10:51→21:08)
--- NOTE | 2019-07-11 14:02 | CON.PSY ---
Psychiatry Consult Chief Complaint: 89 Jaun o0ld Male with a history of Dementia with aggressive behaviour admitted for medical issues. Symptoms: reports: Memory Impairment, Irritability, Disorganized/Disruptive Thoughts, Conduct Problems - Previous Psychiatric Treatment Outpatient: None Inpatient: None - Previous Substance Abuse Treatment Outpatient: None Inpatient: None - Current Medications Current Medications: Active Medications Acetaminophen (Tylenol -) 650 mg PO Q6H PRN PRN Reason: PAIN OR FEVER Last Admin: 07/09/19 14:46 Dose: 650 mg Allopurinol (Zyloprim -) 100 mg PO DAILY [facility] Last Admin: 07/11/19 10:50 Dose: 100 mg Amlodipine Besylate (Norvasc -) 10 mg PO DAILY [facility] Last Admin: 07/11/19 10:50 Dose: 10 mg Atorvastatin Calcium (Lipitor -) 20 mg PO HS [facility] Last Admin: 07/10/19 22:53 Dose: 20 mg Emollient Ointment (Aquaphor -) 1 applic TP TID [facility] Last Admin: 07/11/19 06:26 Dose: 1 applic Heparin Sodium (Porcine) (Heparin -) 5,000 unit SQ BID [facility] Last Admin: 07/11/19 10:50 Dose: 5,000 unit Piperacillin Sod/Tazobactam (Sod 3.375 gm/ Dextrose) 50 mls @ 100 mls/hr IVPB Q8H-IV [facility]AS; Protocol Last Admin: 07/11/19 10:52 Dose: 100 mls/hr Labetalol HCl (Normodyne -) 200 mg PO DAILY [facility] Last Admin: 07/11/19 10:50 Dose: 200 mg Lidocaine HCl (Xylocaine 2% Viscous Oral -) 20 ml MM Q6H PRN PRN Reason: ORAL PAIN/MOUTH SORES Memantine (Namenda -) 10 mg PO DAILY [facility] Last Admin: 07/11/19 10:50 Dose: 10 mg Nystatin (Mycostatin Cream -) 1 applic TP BID [facility] Last Admin: 07/11/19 10:51 Dose: 1 applic Olanzapine (Zyprexa -) 2.5 mg PO BID [facility] Last Admin: 07/11/19 10:50 Dose: 2.5 mg Pantoprazole Sodium (Protonix -) 20 mg PO DAILY [facility] Last Admin: 07/11/19 10:50 Dose: 20 mg Paroxetine HCl (Paxil -) 40 mg PO DAILY [facility] Last Admin: 07/11/19 10:50 Dose: 40 mg Risperidone (Risperdal -) 0.5 mg PO BID PRN PRN Reason: AGITATION - Allergies Allergies: Allergies Allergy/AdvReac Type Severity Reaction Status Date / Time No Known Allergies Allergy Verified 05/08/19 13:56 - Current Living Status Usual Living Arrangement: Long Term - Current Mental Status Evaluation Appearance: Disheveled Attitude: Guarded - Affect Affect: Constrictive Appropriateness: Not Appropriate - Mood Mood: Irritable - Speech/Language Expressive: Delayed - Psychomotor Activity Psychomotor Activity: Hyperactive - Thought Process Thought Process: Circumstantial - Thought Content Hallucinations: Absent Delusions: Absent - Self Perception Self Perception: Depersonalization - Cognition Attention: Diminished Memory, Immediate Recall: Impaired Memory, Short Term: 1/3 Memory, Remote with Promptin/3 - Concentration Serial Sevens Intact: No Simple Calculations Intact: No - Abstraction Proverb Interpretation: [place] Judgement: Moderately Impaired - Insight Insight: Impaired - Impulse Control Impulse Control: Moderately Impaired - Suicidal Ideation Suicidal Ideation: No - Homicidal Ideation Homicidal Ideation: No Assessment/Plan 1) continue with Zyprexa , Aricept , Paxil and Risperidal PRN for Behavioral disturbances.
--- NOTE | 2019-07-11 17:59 | PN ---
Progress Note, Physician History of Present Illness: Pt seen and examined at bedside. He appears comfortable. He denies shortness of breath. Family are at beside. - Current Medication List Current Medications: Active Medications Acetaminophen (Tylenol -) 650 mg PO Q6H PRN PRN Reason: PAIN OR FEVER Last Admin: 07/09/19 14:46 Dose: 650 mg Allopurinol (Zyloprim -) 100 mg PO DAILY [facility] Last Admin: 07/11/19 10:50 Dose: 100 mg Amlodipine Besylate (Norvasc -) 10 mg PO DAILY [facility] Last Admin: 07/11/19 10:50 Dose: 10 mg Atorvastatin Calcium (Lipitor -) 20 mg PO HS [facility] Last Admin: 07/10/19 22:53 Dose: 20 mg Emollient Ointment (Aquaphor -) 1 applic TP TID [facility] Last Admin: 07/11/19 15:11 Dose: 1 applic Heparin Sodium (Porcine) (Heparin -) 5,000 unit SQ BID [facility] Last Admin: 07/11/19 10:50 Dose: 5,000 unit Piperacillin Sod/Tazobactam (Sod 3.375 gm/ Dextrose) 50 mls @ 100 mls/hr IVPB Q8H-IV [facility]; Protocol Last Admin: 07/11/19 10:52 Dose: 100 mls/hr Labetalol HCl (Normodyne -) 200 mg PO DAILY [facility] Last Admin: 07/11/19 10:50 Dose: 200 mg Lidocaine HCl (Xylocaine 2% Viscous Oral -) 20 ml MM Q6H PRN PRN Reason: ORAL PAIN/MOUTH SORES Memantine (Namenda -) 10 mg PO DAILY [facility] Last Admin: 07/11/19 10:50 Dose: 10 mg Nystatin (Mycostatin Cream -) 1 applic TP BID [facility] Last Admin: 07/11/19 10:51 Dose: 1 applic Olanzapine (Zyprexa -) 2.5 mg PO BID [facility] Last Admin: 07/11/19 10:50 Dose: 2.5 mg Pantoprazole Sodium (Protonix -) 20 mg PO DAILY [facility] Last Admin: 07/11/19 10:50 Dose: 20 mg Paroxetine HCl (Paxil -) 40 mg PO DAILY [facility] Last Admin: 07/11/19 10:50 Dose: 40 mg Risperidone (Risperdal -) 0.5 mg PO BID PRN PRN Reason: AGITATION - Objective Vital Signs: Vital Signs Temperature 99.2 F 07/11/19 16:20 Pulse Rate 82 07/11/19 16:20 Respiratory Rate 18 07/11/19 16:20 Blood Pressure 127/78 07/11/19 16:20 O2 Sat by Pulse Oximetry (%) 93 L 07/09/19 21:00 Constitutional: Yes: Calm Eyes: Yes: Conjunctiva Clear Cardiovascular: Yes: S1, S2 Respiratory: Yes: CTA Bilaterally Gastrointestinal: Yes: Soft Genitourinary: Yes: WNL Edema: No Integumentary: Yes: WNL Neurological: Yes: Confusion Labs: CBC, BMP 07/10/19 07:05 07/11/19 06:40 INR, PTT INR 1.16 (0.83-1.09) H 07/05/19 17:10 Problem List - Problems (1) CKD (chronic kidney disease) Code(s): N18.9 - CHRONIC KIDNEY DISEASE, UNSPECIFIED (2) Altered mental status Code(s): R41.82 - ALTERED MENTAL STATUS, UNSPECIFIED Qualifiers: Altered mental status type: unspecified Qualified Code(s): R41.82 - Altered mental status, unspecified (3) Dementia Code(s): F03.90 - UNSPECIFIED DEMENTIA WITHOUT BEHAVIORAL DISTURBANCE Qualifiers: Dementia type: unspecified type Dementia behavioral disturbance: without behavioral disturbance Qualified Code(s): F03.90 - Unspecified dementia without behavioral disturbance (4) MAURO (acute kidney injury) Code(s): N17.9 - ACUTE KIDNEY FAILURE, UNSPECIFIED Assessment/Plan Current Medications Generic Name Dose Route Start Last Admin Trade Name Freq PRN Reason Stop Dose Admin Acetaminophen 650 mg 07/05/19 22:15 07/09/19 14:46 Tylenol - PO 650 mg Q6H PRN Administration PAIN OR FEVER Allopurinol 100 mg 07/06/19 10:00 07/11/19 10:50 Zyloprim - PO 100 mg DAILY [facility] Administration Amlodipine Besylate 10 mg 07/06/19 10:00 07/11/19 10:50 Norvasc - PO 10 mg DAILY [facility] Administration Atorvastatin Calcium 20 mg 07/06/19 22:00 07/10/19 22:53 Lipitor - PO 20 mg HS [facility] Administration Emollient Ointment 1 applic 07/06/19 22:00 07/11/19 15:11 Aquaphor - TP 1 applic TID [facility] Administration Heparin Sodium (Porcine) 5,000 unit 07/06/19 10:00 07/11/19 10:50 Heparin - SQ 5,000 unit BID [facility] Administration Piperacillin Sod/Tazobactam 50 mls @ 100 mls/hr 07/09/19 18:00 07/11/19 17:54 Sod 3.375 gm/ Dextrose IVPB 100 mls/hr Q8H-IV [facility] Administration Protocol Labetalol HCl 200 mg 07/06/19 10:00 07/11/19 10:50 Normodyne - PO 200 mg DAILY [facility] Administration Lidocaine HCl 20 ml 07/09/19 14:59 Xylocaine 2% Viscous Oral - MM Q6H PRN ORAL PAIN/MOUTH SORES Memantine 10 mg 07/06/19 10:00 07/11/19 10:50 Namenda - PO 10 mg DAILY [facility] Administration Nystatin 1 applic 07/06/19 10:00 07/11/19 10:51 Mycostatin Cream - TP 1 applic BID [facility] Administration Olanzapine 2.5 mg 07/06/19 11:00 07/11/19 10:50 Zyprexa - PO 2.5 mg BID [facility] Administration Pantoprazole Sodium 20 mg 07/06/19 10:00 07/11/19 10:50 Protonix - PO 20 mg DAILY [facility] Administration Paroxetine HCl 40 mg 07/06/19 10:00 07/11/19 10:50 Paxil - PO 40 mg DAILY [facility] Administration Risperidone 0.5 mg 07/06/19 11:53 Risperdal - PO BID PRN AGITATION Laboratory Tests 07/10/19 07/10/19 20:00 20:00 Urine Glucose (UA) Negative Urine Ketones Negative Urine Blood Negative Urine Nitrite Negative Ur Random Sodium 26 L Impression 1. MAURO 2. CKD 3. UTI 4. PNA 5. dementia Plan - monitor renal function - repeat labs in am - will assess for fluids tomorrow - repeat urine is improved - edema is improved - discussed with family
[2019-07-11] MEDS: ATORVASTATIN CA 20 MG TABLET (FP) PO SCH (21:09)
[2019-07-12] MEDS ORDERED: DEXTROSE 5%-WATER - 50 ML IVPB ONE ×3 (00:27→17:47)
[2019-07-12] MEDS ORDERED: PIPERACILLIN/TAZOBACTAM 3.375 GM VIAL IVPB ONE ×3 (00:27→17:46)
[2019-07-12] MEDS: PIPERACILLIN/TAZOB 3.375 GM 3.375 GM in DEXTROSE 5%-WATER - 50 ML IVPB SCH ×3 (01:36→17:48)
[2019-07-12] MEDS: MINERAL OIL/PET HY-PHL TOPICAL OINTMENT 454 GM JAR TP SCH ×3 (05:51→21:54)
[2019-07-12 08:45] LABS: ALBUMIN 2.4 g/dl (3.4-5.0); BILIRUBIN,TOTAL 0.6 mg/dL (0.2-1); BLOOD UREA NITROGEN 37.8 mg/dL (7-18); CALCIUM 8.2 mg/dL (8.5-10.1); POTASSIUM 3.4 mmol/L (3.5-5.1); TOT PROT 5.7 g/dl (6.4-8.2)
--- NOTE | 2019-07-12 10:35 | PN ---
Progress Note (short form) - Note Progress Note: pt seen/ examined sitting in chair comfortable spiked fever yesterday-- 102 No distress. Vital Signs Temp 98.9 F 07/12/19 06:56 Pulse 74 07/12/19 06:56 Resp 18 07/12/19 06:56 BP 141/63 07/12/19 06:56 Pulse Ox 92 L 07/11/19 21:00 Intake & Output 07/11/19 07/11/19 07/12/19 11:59 23:59 11:59 Intake Total 344 100 50 Output Total 200 Balance 344 -100 50 Intake: IV 294 1/2 Normal Saline 1,000 294 ml @ 42 mls/hr IV ASDIR [facility] Rx#:[id number] IVPB 50 100 50 Output: Urine 200 Void 200 Other: Voiding Method Incontinent Incontinent # Unmeasured Voids Void 1 1 1 Bowel Movement No Active Medications Acetaminophen (Tylenol -) 650 mg PO Q6H PRN PRN Reason: PAIN OR FEVER Last Admin: 07/09/19 14:46 Dose: 650 mg Allopurinol (Zyloprim -) 100 mg PO DAILY [facility] Last Admin: 07/11/19 10:50 Dose: 100 mg Amlodipine Besylate (Norvasc -) 10 mg PO DAILY [facility] Last Admin: 07/11/19 10:50 Dose: 10 mg Atorvastatin Calcium (Lipitor -) 20 mg PO HS [facility] Last Admin: 07/11/19 21:09 Dose: 20 mg Emollient Ointment (Aquaphor -) 1 applic TP TID [facility] Last Admin: 07/12/19 05:51 Dose: 1 applic Heparin Sodium (Porcine) (Heparin -) 5,000 unit SQ BID [facility] Last Admin: 07/11/19 21:09 Dose: 5,000 unit Piperacillin Sod/Tazobactam (Sod 3.375 gm/ Dextrose) 50 mls @ 100 mls/hr IVPB Q8H-IV [facility]; Protocol Last Admin: 07/12/19 01:36 Dose: 100 mls/hr Labetalol HCl (Normodyne -) 200 mg PO DAILY [facility] Last Admin: 07/11/19 10:50 Dose: 200 mg Lidocaine HCl (Xylocaine 2% Viscous Oral -) 20 ml MM Q6H PRN PRN Reason: ORAL PAIN/MOUTH SORES Memantine (Namenda -) 10 mg PO DAILY [facility] Last Admin: 07/11/19 10:50 Dose: 10 mg Nystatin (Mycostatin Cream -) 1 applic TP BID [facility] Last Admin: 07/11/19 21:08 Dose: 1 applic Olanzapine (Zyprexa -) 2.5 mg PO BID [facility] Last Admin: 07/11/19 21:08 Dose: 2.5 mg Pantoprazole Sodium (Protonix -) 20 mg PO DAILY [facility] Last Admin: 07/11/19 10:50 Dose: 20 mg Paroxetine HCl (Paxil -) 40 mg PO DAILY [facility] Last Admin: 07/11/19 10:50 Dose: 40 mg Risperidone (Risperdal -) 0.5 mg PO BID PRN PRN Reason: AGITATION CBC, BMP 07/10/19 07:05 07/12/19 07:05 Physical Exam S1 S2 RRR Lungs decreased at bases-- scattered rhonchi no rales Abd-soft, NT no edema Neuro- Awake PLAN Iv antibiotics iv lasix-->dc as creatinine elevated Renal eval noted off restraints Renal sono-- unremarkable infiltrates on CT chest continue with meds nebs scheduled possible sundown syndrome psych eval noted repeat cxr continue abx d/w Dr. Petty - will follow monitor labs Problem List - Problems (1) Altered mental status Code(s): R41.82 - ALTERED MENTAL STATUS, UNSPECIFIED Qualifiers: Altered mental status type: unspecified Qualified Code(s): R41.82 - Altered mental status, unspecified (2) Dementia Code(s): F03.90 - UNSPECIFIED DEMENTIA WITHOUT BEHAVIORAL DISTURBANCE Qualifiers: Dementia type: unspecified type Dementia behavioral disturbance: without behavioral disturbance Qualified Code(s): F03.90 - Unspecified dementia without behavioral disturbance (3) Fall Code(s): W19.XXXA - UNSPECIFIED FALL, INITIAL ENCOUNTER Qualifiers: Encounter type: initial encounter Qualified Code(s): W19.XXXA - Unspecified fall, initial encounter (4) Urinary tract infection Code(s): N39.0 - URINARY TRACT INFECTION, SITE NOT SPECIFIED Qualifiers: Urinary tract infection type: site unspecified Hematuria presence: without hematuria Qualified Code(s): N39.0 - Urinary tract infection, site not specified (5) MAURO (acute kidney injury) Code(s): N17.9 - ACUTE KIDNEY FAILURE, UNSPECIFIED (6) ASHD (arteriosclerotic heart disease) Code(s): I25.10 - ATHSCL HEART DISEASE OF [place] CORONARY ARTERY W/O ANG PCTRS '
[2019-07-12] MEDS ORDERED: PT OWN MED DRAWER 7, Y5N ONE ×2 (11:24→21:51)
[2019-07-12] MEDS: MEMANTINE HCL 10 MG TABLET (FP) PO SCH (11:29)
[2019-07-12] MEDS: LABETALOL HCL 200 MG TABLET (FP) PO SCH (11:29)
[2019-07-12] MEDS: amLODIPine BESYLATE 10 MG TABLET (FP) PO SCH (11:29)
[2019-07-12] MEDS: PARoxetine HCL 20 MG TABLET PO SCH (11:29)
[2019-07-12] MEDS: ALLOPURINOL 100 MG TABLET (FP) PO SCH (11:30)
[2019-07-12] MEDS: PANTOPRAZOLE 20 MG TABLET (FP) PO SCH (11:30)
[2019-07-12] MEDS: OLANZapine 2.5 MG TABLET PO SCH ×2 (11:30→21:54)
[2019-07-12] MEDS: HEPARIN NA (PORCINE) 5,000 UNITS/ML 1ML VIAL SQ SCH ×2 (11:32→21:54)
[2019-07-12] MEDS: NYSTATIN 100,000 UNIT/GM TOPICAL CREAM 15 GM TUBE TP SCH ×2 (11:33→21:54)
[2019-07-12] MEDS ORDERED: POTASSIUM CHLORIDE TABS 20 MEQ TABLET.ER (FP) PO ONE (17:08)
--- NOTE | 2019-07-12 17:13 | PN ---
Progress Note, Physician History of Present Illness: Pt seen and examined at bedside. He appears comfortable. he denies shortness of breath. - Current Medication List Current Medications: Active Medications Acetaminophen (Tylenol -) 650 mg PO Q6H PRN PRN Reason: PAIN OR FEVER Last Admin: 07/09/19 14:46 Dose: 650 mg Allopurinol (Zyloprim -) 100 mg PO DAILY [facility] Last Admin: 07/12/19 11:30 Dose: 100 mg Amlodipine Besylate (Norvasc -) 10 mg PO DAILY [facility] Last Admin: 07/12/19 11:29 Dose: 10 mg Atorvastatin Calcium (Lipitor -) 20 mg PO HS [facility] Last Admin: 07/11/19 21:09 Dose: 20 mg Emollient Ointment (Aquaphor -) 1 applic TP TID [facility] Last Admin: 07/12/19 14:03 Dose: 1 applic Heparin Sodium (Porcine) (Heparin -) 5,000 unit SQ BID [facility] Last Admin: 07/12/19 11:32 Dose: 5,000 unit Piperacillin Sod/Tazobactam (Sod 3.375 gm/ Dextrose) 50 mls @ 100 mls/hr IVPB Q8H-IV [facility]; Protocol Last Admin: 07/12/19 11:30 Dose: 100 mls/hr Labetalol HCl (Normodyne -) 200 mg PO DAILY [facility] Last Admin: 07/12/19 11:29 Dose: 200 mg Lidocaine HCl (Xylocaine 2% Viscous Oral -) 20 ml MM Q6H PRN PRN Reason: ORAL PAIN/[place]TH [place] Memantine (Namenda -) 10 mg PO DAILY [facility] Last Admin: 07/12/19 11:29 Dose: 10 mg Nystatin (Mycostatin Cream -) 1 applic TP BID [facility] Last Admin: 07/12/19 11:33 Dose: 1 applic Olanzapine (Zyprexa -) 2.5 mg PO BID [facility] Last Admin: 07/12/19 11:30 Dose: 2.5 mg Pantoprazole Sodium (Protonix -) 20 mg PO DAILY [facility] Last Admin: 07/12/19 11:30 Dose: 20 mg Paroxetine HCl (Paxil -) 40 mg PO DAILY [facility] Last Admin: 07/12/19 11:29 Dose: 40 mg Potassium Chloride (K-Dur -) 40 meq PO ONCE ONE Stop: 07/12/19 17:09 Risperidone (Risperdal -) 0.5 mg PO BID PRN PRN Reason: AGITATION - Objective Vital Signs: Vital Signs Temperature 99.3 F 07/12/19 16:15 Pulse Rate 92 H 07/12/19 16:15 Respiratory Rate 18 07/12/19 16:15 Blood Pressure 142/63 07/12/19 16:15 O2 Sat by Pulse Oximetry (%) 92 L 07/11/19 21:00 Constitutional: Yes: Calm Eyes: Yes: Conjunctiva Clear HENT: Yes: Atraumatic Cardiovascular: Yes: S1, S2 Respiratory: Yes: CTA Bilaterally Gastrointestinal: Yes: Normal Bowel Sounds, Soft Genitourinary: Yes: WNL Musculoskeletal: Yes: WNL Edema: No Neurological: Yes: Oriented Labs: CBC, BMP 07/10/19 07:05 07/12/19 07:05 INR, PTT INR 1.16 (0.83-1.09) H 07/05/19 17:10 Problem List - Problems (1) CKD (chronic kidney disease) Code(s): N18.9 - CHRONIC KIDNEY DISEASE, UNSPECIFIED (2) Altered mental status Code(s): R41.82 - ALTERED MENTAL STATUS, UNSPECIFIED Qualifiers: Altered mental status type: unspecified Qualified Code(s): R41.82 - Altered mental status, unspecified (3) Dementia Code(s): F03.90 - UNSPECIFIED DEMENTIA WITHOUT BEHAVIORAL DISTURBANCE Qualifiers: Dementia type: unspecified type Dementia behavioral disturbance: without behavioral disturbance Qualified Code(s): F03.90 - Unspecified dementia without behavioral disturbance (4) MAURO (acute kidney injury) Code(s): N17.9 - ACUTE KIDNEY FAILURE, UNSPECIFIED Assessment/Plan Current Medications Generic Name Dose Route Start Last Admin Trade Name Freq PRN Reason Stop Dose Admin Acetaminophen 650 mg 07/05/19 22:15 07/09/19 14:46 Tylenol - PO 650 mg Q6H PRN Administration PAIN OR FEVER Allopurinol 100 mg 07/06/19 10:00 07/12/19 11:30 Zyloprim - PO 100 mg DAILY [facility] Administration Amlodipine Besylate 10 mg 07/06/19 10:00 07/12/19 11:29 Norvasc - PO 10 mg DAILY [facility] Administration Atorvastatin Calcium 20 mg 07/06/19 22:00 07/11/19 21:09 Lipitor - PO 20 mg HS [facility] Administration Emollient Ointment 1 applic 07/06/19 22:00 07/12/19 14:03 Aquaphor - TP 1 applic TID [facility] Administration Heparin Sodium (Porcine) 5,000 unit 07/06/19 10:00 07/12/19 11:32 Heparin - SQ 5,000 unit BID [facility] Administration Piperacillin Sod/Tazobactam 50 mls @ 100 mls/hr 07/09/19 18:00 07/12/19 11:30 Sod 3.375 gm/ Dextrose IVPB 100 mls/hr Q8H-IV [facility] Administration Protocol Labetalol HCl 200 mg 07/06/19 10:00 07/12/19 11:29 Normodyne - PO 200 mg DAILY [facility] Administration Lidocaine HCl 20 ml 07/09/19 14:59 Xylocaine 2% Viscous Oral - MM Q6H PRN ORAL PAIN/MOUTH SORES Memantine 10 mg 07/06/19 10:00 07/12/19 11:29 Namenda - PO 10 mg DAILY [facility] Administration Nystatin 1 applic 07/06/19 10:00 07/12/19 11:33 Mycostatin Cream - TP 1 applic BID [facility] Administration Olanzapine 2.5 mg 07/06/19 11:00 07/12/19 11:30 Zyprexa - PO 2.5 mg BID [facility] Administration Pantoprazole Sodium 20 mg 07/06/19 10:00 07/12/19 11:30 Protonix - PO 20 mg DAILY [facility] Administration Paroxetine HCl 40 mg 07/06/19 10:00 07/12/19 11:29 Paxil - PO 40 mg DAILY [facility] Administration Risperidone 0.5 mg 07/06/19 11:53 Risperdal - PO BID PRN AGITATION Impression 1. MAURO 2. CKD 3. UTI 4. PNA 5. dementia Plan - renal function is improving - replace potassium - repeat labs in am - mauro likly prerenal - edema is improved
--- NOTE | 2019-07-12 18:20 | PN ---
Progress Note (short form) - Note Progress Note: no complaints V Vital Signs Period Temp Pulse Resp BP Sys/Pradhan Pulse Ox Last 24 Hr 97.8 F-99.9 F 74-92 18-18 134-143/58-71 92-92 cor-rrr llungs decreased bs at bses abd soft,nt ext trace edema CBC, BMP 07/10/19 07:05 07/12/19 07:05 Microbiology 07/05/19 17:10 Blood - Peripheral Venous Blood Culture - Final NO GROWTH AFTER 5 DAYS INCUBATION 07/05/19 17:10 Blood - Peripheral Venous Blood Culture - Final NO GROWTH AFTER 5 DAYS INCUBATION 07/05/19 18:30 Urine - Urine - Catheterized Urine Culture - Final Escherichia Coli Proteus Mirabilis 07/07/19 10:30 Urine For Antigen Detection Legionella Antigen - Final 07/07/19 10:30 Urine For Antigen Detection Streptococcus pneumoniae Antigen (M - Final a/p UTI/pneumonia-continue zosyn day #3 silver improving overall less combative Problem List - Problems (1) Altered mental status Code(s): R41.82 - ALTERED MENTAL STATUS, UNSPECIFIED Qualifiers: Altered mental status type: unspecified Qualified Code(s): R41.82 - Altered mental status, unspecified (2) Dementia Code(s): F03.90 - UNSPECIFIED DEMENTIA WITHOUT BEHAVIORAL DISTURBANCE Qualifiers: Dementia type: unspecified type Dementia behavioral disturbance: without behavioral disturbance Qualified Code(s): F03.90 - Unspecified dementia without behavioral disturbance (3) Urinary tract infection Code(s): N39.0 - URINARY TRACT INFECTION, SITE NOT SPECIFIED Qualifiers: Urinary tract infection type: site unspecified Hematuria presence: without hematuria Qualified Code(s): N39.0 - Urinary tract infection, site not specified (4) Abnormal x-ray of lung Code(s): R91.8 - OTHER NONSPECIFIC ABNORMAL FINDING OF LUNG FIELD
[2019-07-12] MEDS: ACETAMINOPHEN 325 MG TABLET (FP) PO PRN (21:54)
[2019-07-12] MEDS: ATORVASTATIN CA 20 MG TABLET (FP) PO SCH (21:54)
[2019-07-13] MEDS ORDERED: PIPERACILLIN/TAZOBACTAM 3.375 GM VIAL IVPB ONE ×3 (01:16→17:42)
[2019-07-13] MEDS ORDERED: DEXTROSE 5%-WATER - 50 ML IVPB ONE ×3 (01:16→17:42)
[2019-07-13] MEDS: PIPERACILLIN/TAZOB 3.375 GM 3.375 GM in DEXTROSE 5%-WATER - 50 ML IVPB SCH ×3 (01:28→17:47)
[2019-07-13] MEDS: MINERAL OIL/PET HY-PHL TOPICAL OINTMENT 454 GM JAR TP SCH ×3 (06:25→21:50)
[2019-07-13 09:12] LABS: BASO % 0.9 % (0-2.0); EOS % 6.9 % (0-4.5); HEMOGLOBIN 9.7 GM/dL (11.7-16.9); LYMPH % 18.8 % (8-40); MCH 27.9 pg (25.7-33.7); MCHC 33.4 g/dl (32.0-35.9); MEAN CELL VOLUME 83.5 fl (80-96); MEAN PLT VOLUME 7.4 fl (7.5-11.1); MONO % 10.9 % (3.8-10.2); NEUT % 62.5 % (42.8-82.8); PLATELET COUNT 246 K/MM3 (134-434); RBC 3.48 M/mm3 (4.00-5.60); RDW 17.2 % (11.9-15.9); WHITE BLOOD COUNT 6.9 K/mm3 (4.0-10.0)
[2019-07-13] MEDS: PARoxetine HCL 20 MG TABLET PO SCH (09:26)
[2019-07-13] MEDS: LABETALOL HCL 200 MG TABLET (FP) PO SCH (09:27)
[2019-07-13] MEDS: MEMANTINE HCL 10 MG TABLET (FP) PO SCH (09:27)
[2019-07-13] MEDS: PANTOPRAZOLE 20 MG TABLET (FP) PO SCH (09:27)
[2019-07-13] MEDS: amLODIPine BESYLATE 10 MG TABLET (FP) PO SCH (09:27)
[2019-07-13] MEDS: ALLOPURINOL 100 MG TABLET (FP) PO SCH (09:27)
[2019-07-13] MEDS: HEPARIN NA (PORCINE) 5,000 UNITS/ML 1ML VIAL SQ SCH (09:27)
[2019-07-13] MEDS: risperiDONE 0.5 MG TABLET (FP) PO PRN (09:27)
[2019-07-13] MEDS: OLANZapine 2.5 MG TABLET PO SCH ×2 (09:27→21:49)
[2019-07-13] MEDS: NYSTATIN 100,000 UNIT/GM TOPICAL CREAM 15 GM TUBE TP SCH ×2 (09:28→21:50)
[2019-07-13 09:40] LABS: ALBUMIN 2.5 g/dl (3.4-5.0); BILIRUBIN,TOTAL 0.4 mg/dL (0.2-1); CALCIUM 8.9 mg/dL (8.5-10.1); CREATININE 1.9 mg/dL (0.55-1.3); POTASSIUM 3.9 mmol/L (3.5-5.1); TOT PROT 6.2 g/dl (6.4-8.2)
--- NOTE | 2019-07-13 11:07 | PN ---
Progress Note (short form) - Note Progress Note: pt seen/ examined comfortable no distress had fever 102 last night Vital Signs Temp 98.1 F 07/13/19 06:24 Pulse 92 H 07/12/19 20:00 Resp 20 07/13/19 06:24 BP 142/54 L 07/13/19 06:24 Pulse Ox 92 L 07/12/19 09:00 Intake & Output 07/12/19 07/12/19 07/13/19 11:59 23:59 11:59 Intake Total 50 100 170 Output Total 200 Balance 50 -100 170 Intake: IVPB 50 100 50 Oral 120 Output: Urine 200 Void 200 Other: Voiding Method Incontinent Incontinent Urinal # Unmeasured Voids Void 1 1 Bowel Movement Yes: XLG # Bowel Movements 2 Active Medications Acetaminophen (Tylenol -) 650 mg PO Q6H PRN PRN Reason: PAIN OR FEVER Last Admin: 07/12/19 21:54 Dose: 650 mg Allopurinol (Zyloprim -) 100 mg PO DAILY [facility] Last Admin: 07/13/19 09:27 Dose: 100 mg Amlodipine Besylate (Norvasc -) 10 mg PO DAILY [facility] Last Admin: 07/13/19 09:27 Dose: 10 mg Atorvastatin Calcium (Lipitor -) 20 mg PO HS [facility] Last Admin: 07/12/19 21:54 Dose: 20 mg Emollient Ointment (Aquaphor -) 1 applic TP TID [facility] Last Admin: 07/13/19 06:25 Dose: 1 applic Piperacillin Sod/Tazobactam (Sod 3.375 gm/ Dextrose) 50 mls @ 100 mls/hr IVPB Q8H-IV [facility]; Protocol Last Admin: 07/13/19 09:28 Dose: 100 mls/hr Labetalol HCl (Normodyne -) 200 mg PO DAILY [facility] Last Admin: 07/13/19 09:27 Dose: 200 mg Lidocaine HCl (Xylocaine 2% Viscous Oral -) 20 ml MM Q6H PRN PRN Reason: ORAL PAIN/[place]OUTH [place]ORES Memantine (Namenda -) 10 mg PO DAILY [facility] Last Admin: 07/13/19 09:27 Dose: 10 mg Nystatin (Mycostatin Cream -) 1 applic TP BID [facility] Last Admin: 07/13/19 09:28 Dose: 1 applic Olanzapine (Zyprexa -) 2.5 mg PO BID [facility] Last Admin: 07/13/19 09:27 Dose: 2.5 mg Pantoprazole Sodium (Protonix -) 20 mg PO DAILY [facility] Last Admin: 07/13/19 09:27 Dose: 20 mg Paroxetine HCl (Paxil -) 40 mg PO DAILY [facility] Last Admin: 07/13/19 09:26 Dose: 40 mg Risperidone (Risperdal -) 0.5 mg PO BID PRN PRN Reason: AGITATION Last Admin: 07/13/19 09:27 Dose: 0.5 mg CBC, BMP 07/13/19 08:50 07/13/19 08:50 Physical Exam comfortable S1 S2 RRR Lungs decreased at bases--no rales Abd-soft, NT no edema PLAN Iv antibiotics iv lasix-->dc as creatinine elevated Renal eval noted off restraints Renal sono-- unremarkable infiltrates on CT chest continue with meds nebs scheduled possible [place] syndrome-- calm now psych eval noted repeat cxr-- no change continue abx will follow Problem List - Problems (1) Altered mental status Code(s): R41.82 - ALTERED MENTAL STATUS, UNSPECIFIED Qualifiers: Altered mental status type: unspecified Qualified Code(s): R41.82 - Altered mental status, unspecified (2) Dementia Code(s): F03.90 - UNSPECIFIED DEMENTIA WITHOUT BEHAVIORAL DISTURBANCE Qualifiers: Dementia type: unspecified type Dementia behavioral disturbance: without behavioral disturbance Qualified Code(s): F03.90 - Unspecified dementia without behavioral disturbance (3) Fall Code(s): W19.XXXA - UNSPECIFIED FALL, INITIAL ENCOUNTER Qualifiers: Encounter type: initial encounter Qualified Code(s): W19.XXXA - Unspecified fall, initial encounter (4) Urinary tract infection Code(s): N39.0 - URINARY TRACT INFECTION, SITE NOT SPECIFIED Qualifiers: Urinary tract infection type: site unspecified Hematuria presence: without hematuria Qualified Code(s): N39.0 - Urinary tract infection, site not specified (5) MAURO (acute kidney injury) Code(s): N17.9 - ACUTE KIDNEY FAILURE, UNSPECIFIED (6) ASHD (arteriosclerotic heart disease) Code(s): I25.10 - ATHSCL HEART DISEASE OF [place] CORONARY ARTERY W/O ANG PCTRS '
[2019-07-13] MEDS: ACETAMINOPHEN 325 MG TABLET (FP) PO PRN (14:52)
--- NOTE | 2019-07-13 21:08 | PN ---
Progress Note (short form) - Note Progress Note: Problems 1. MAURO 2. CKD 3. UTI 4. PNA 5. dementia Current Medications Acetaminophen (Tylenol -) 650 mg PO Q6H PRN PRN Reason: PAIN OR FEVER Last Admin: 07/13/19 14:52 Dose: 650 mg Allopurinol (Zyloprim -) 100 mg PO DAILY [facility] Last Admin: 07/13/19 09:27 Dose: 100 mg Amlodipine Besylate (Norvasc -) 10 mg PO DAILY [facility] Last Admin: 07/13/19 09:27 Dose: 10 mg Atorvastatin Calcium (Lipitor -) 20 mg PO HS [facility] Last Admin: 07/12/19 21:54 Dose: 20 mg Emollient Ointment (Aquaphor -) 1 applic TP TID [facility] Last Admin: 07/13/19 13:04 Dose: 1 applic Piperacillin Sod/Tazobactam (Sod 3.375 gm/ Dextrose) 50 mls @ 100 mls/hr IVPB Q8H-IV [facility]; Protocol Last Admin: 07/13/19 17:47 Dose: 100 mls/hr Labetalol HCl (Normodyne -) 200 mg PO DAILY [facility] Last Admin: 07/13/19 09:27 Dose: 200 mg Lidocaine HCl (Xylocaine 2% Viscous Oral -) 20 ml MM Q6H PRN PRN Reason: ORAL PAIN/MOUTH SORES Memantine (Namenda -) 10 mg PO DAILY [facility] Last Admin: 07/13/19 09:27 Dose: 10 mg Nystatin (Mycostatin Cream -) 1 applic TP BID [facility] Last Admin: 07/13/19 09:28 Dose: 1 applic Olanzapine (Zyprexa -) 2.5 mg PO BID [facility] Last Admin: 07/13/19 09:27 Dose: 2.5 mg Pantoprazole Sodium (Protonix -) 20 mg PO DAILY [facility] Last Admin: 07/13/19 09:27 Dose: 20 mg Paroxetine HCl (Paxil -) 40 mg PO DAILY [facility] Last Admin: 07/13/19 09:26 Dose: 40 mg Risperidone (Risperdal -) 0.5 mg PO BID PRN PRN Reason: AGITATION Last Admin: 07/13/19 09:27 Dose: 0.5 mg Last Vital Signs Temp Pulse Resp BP Pulse Ox 97.9 F 89 18 105/61 93 L 07/13/19 18:28 07/13/19 16:20 07/13/19 16:20 07/13/19 16:20 07/13/19 09:00 CBC, BMP 07/13/19 08:50 07/13/19 08:50 IMP- s/p mauro renal function improving Plan - renal function is improving - replace potassium - repeat labs in am - mauro likly prerenal - edema is improved
[2019-07-13] MEDS: ATORVASTATIN CA 20 MG TABLET (FP) PO SCH (21:50)
[2019-07-13] MEDS ORDERED: PT OWN MED DRAWER 7, Y5N ONE (22:01)
[2019-07-13] MEDS ORDERED: LIDOCAINE VISCOUS 2% ORAL/TOP 20 ML UNIT-DOSE CUP MM PRN (22:57)
[2019-07-14] MEDS ORDERED: PIPERACILLIN/TAZOBACTAM 3.375 GM VIAL IVPB ONE ×3 (01:12→17:09)
[2019-07-14] MEDS ORDERED: DEXTROSE 5%-WATER - 50 ML IVPB ONE ×3 (01:13→17:09)
[2019-07-14] MEDS: PIPERACILLIN/TAZOB 3.375 GM 3.375 GM in DEXTROSE 5%-WATER - 50 ML IVPB SCH ×3 (01:44→17:14)
[2019-07-14] MEDS ORDERED: PT OWN MED DRAWER 7, Y5N ONE (08:24)
[2019-07-14] MEDS: amLODIPine BESYLATE 10 MG TABLET (FP) PO SCH (10:08)
[2019-07-14] MEDS: PARoxetine HCL 20 MG TABLET PO SCH (10:08)
[2019-07-14] MEDS: OLANZapine 2.5 MG TABLET PO SCH ×2 (10:08→23:50)
[2019-07-14] MEDS: LABETALOL HCL 200 MG TABLET (FP) PO SCH (10:08)
[2019-07-14] MEDS: ALLOPURINOL 100 MG TABLET (FP) PO SCH (10:08)
[2019-07-14] MEDS: PANTOPRAZOLE 20 MG TABLET (FP) PO SCH (10:08)
[2019-07-14] MEDS: MEMANTINE HCL 10 MG TABLET (FP) PO SCH (10:08)
[2019-07-14] MEDS: MINERAL OIL/PET HY-PHL TOPICAL OINTMENT 454 GM JAR TP SCH ×3 (10:09→23:09)
[2019-07-14] MEDS: NYSTATIN 100,000 UNIT/GM TOPICAL CREAM 15 GM TUBE TP SCH ×2 (10:09→23:09)
--- NOTE | 2019-07-14 10:47 | PN ---
Progress Note (short form) - Note Progress Note: pt seen/ examined comfortable no distress low grade temp Vital Signs Temp 97.8 F 07/14/19 10:00 Pulse 85 07/14/19 10:00 Resp 20 07/14/19 10:00 BP 158/66 07/14/19 10:00 Pulse Ox 93 L 07/13/19 21:00 Intake & Output 07/13/19 07/13/19 07/14/19 11:59 23:59 11:59 Intake Total 170 300 250 Output Total 400 Balance 170 -100 250 Intake: IVPB 50 100 50 Oral 120 200 200 Output: Urine 400 Void 400 Other: Voiding Method Urinal Incontinent Bowel Movement No No Active Medications Acetaminophen (Tylenol -) 650 mg PO Q6H PRN PRN Reason: PAIN OR FEVER Last Admin: 07/13/19 14:52 Dose: 650 mg Allopurinol (Zyloprim -) 100 mg PO DAILY [facility] Last Admin: 07/14/19 10:08 Dose: 100 mg Amlodipine Besylate (Norvasc -) 10 mg PO DAILY [facility] Last Admin: 07/14/19 10:08 Dose: 10 mg Atorvastatin Calcium (Lipitor -) 20 mg PO HS [facility] Last Admin: 07/13/19 21:50 Dose: 20 mg Emollient Ointment (Aquaphor -) 1 applic TP TID [facility] Last Admin: 07/14/19 10:09 Dose: Not Given Piperacillin Sod/Tazobactam (Sod 3.375 gm/ Dextrose) 50 mls @ 100 mls/hr IVPB Q8H-IV [facility]; Protocol Last Admin: 07/14/19 10:08 Dose: 100 mls/hr Labetalol HCl (Normodyne -) 200 mg PO DAILY [facility] Last Admin: 07/14/19 10:08 Dose: 200 mg Lidocaine HCl (Xylocaine 2% Viscous Oral -) 15 ml MM Q6H PRN PRN Reason: ORAL PAIN/MOUTH SORES Memantine (Namenda -) 10 mg PO DAILY [facility] Last Admin: 07/14/19 10:08 Dose: 10 mg Nystatin (Mycostatin Cream -) 1 applic TP BID [facility] Last Admin: 07/14/19 10:09 Dose: 1 applic Olanzapine (Zyprexa -) 2.5 mg PO BID [facility] Last Admin: 07/14/19 10:08 Dose: 2.5 mg Pantoprazole Sodium (Protonix -) 20 mg PO DAILY [facility] Last Admin: 07/14/19 10:08 Dose: 20 mg Paroxetine HCl (Paxil -) 40 mg PO DAILY [facility] Last Admin: 07/14/19 10:08 Dose: 40 mg Risperidone (Risperdal -) 0.5 mg PO BID PRN PRN Reason: AGITATION Last Admin: 07/13/19 09:27 Dose: 0.5 mg CBC, BMP 07/13/19 08:50 07/13/19 08:50 Physical Exam comfortable S1 S2 RRR Lungs decreased at bases--no rales Abd-soft, NT no edema PLAN Iv antibiotics Renal eval noted off restraints Renal sono-- unremarkable infiltrates on CT chest continue with meds nebs scheduled f/u labs will follow Problem List - Problems (1) Altered mental status Code(s): R41.82 - ALTERED MENTAL STATUS, UNSPECIFIED Qualifiers: Altered mental status type: unspecified Qualified Code(s): R41.82 - Altered mental status, unspecified (2) Dementia Code(s): F03.90 - UNSPECIFIED DEMENTIA WITHOUT BEHAVIORAL DISTURBANCE Qualifiers: Dementia type: unspecified type Dementia behavioral disturbance: without behavioral disturbance Qualified Code(s): F03.90 - Unspecified dementia without behavioral disturbance (3) Fall Code(s): W19.XXXA - UNSPECIFIED FALL, INITIAL ENCOUNTER Qualifiers: Encounter type: initial encounter Qualified Code(s): W19.XXXA - Unspecified fall, initial encounter (4) Urinary tract infection Code(s): N39.0 - URINARY TRACT INFECTION, SITE NOT SPECIFIED Qualifiers: Urinary tract infection type: site unspecified Hematuria presence: without hematuria Qualified Code(s): N39.0 - Urinary tract infection, site not specified (5) MAURO (acute kidney injury) Code(s): N17.9 - ACUTE KIDNEY FAILURE, UNSPECIFIED (6) ASHD (arteriosclerotic heart disease) Code(s): I25.10 - ATHSCL HEART DISEASE OF [place] CORONARY ARTERY W/O ANG PCTRS '
[2019-07-14] MEDS: ACETAMINOPHEN 325 MG TABLET (FP) PO PRN ×2 (17:14→23:14)
--- NOTE | 2019-07-14 22:40 | PN ---
Progress Note (short form) - Note Progress Note: Problems 1. MAURO 2. CKD 3. UTI 4. PNA 5. dementia Current Medications Acetaminophen (Tylenol -) 650 mg PO Q6H PRN PRN Reason: PAIN OR FEVER Last Admin: 07/14/19 17:14 Dose: 650 mg Allopurinol (Zyloprim -) 100 mg PO DAILY [facility] Last Admin: 07/14/19 10:08 Dose: 100 mg Amlodipine Besylate (Norvasc -) 10 mg PO DAILY [facility] Last Admin: 07/14/19 10:08 Dose: 10 mg Atorvastatin Calcium (Lipitor -) 20 mg PO HS [facility] Last Admin: 07/13/19 21:50 Dose: 20 mg Emollient Ointment (Aquaphor -) 1 applic TP TID [facility] Last Admin: 07/14/19 14:02 Dose: 1 applic Piperacillin Sod/Tazobactam (Sod 3.375 gm/ Dextrose) 50 mls @ 100 mls/hr IVPB Q8H-IV [facility]; Protocol Last Admin: 07/14/19 17:14 Dose: 100 mls/hr Labetalol HCl (Normodyne -) 200 mg PO DAILY [facility] Last Admin: 07/14/19 10:08 Dose: 200 mg Lidocaine HCl (Xylocaine 2% Viscous Oral -) 15 ml MM Q6H PRN PRN Reason: ORAL PAIN/MOUTH [place]ORES Memantine (Namenda -) 10 mg PO DAILY [facility] Last Admin: 07/14/19 10:08 Dose: 10 mg Nystatin (Mycostatin Cream -) 1 applic TP BID [facility] Last Admin: 07/14/19 10:09 Dose: 1 applic Olanzapine (Zyprexa -) 2.5 mg PO BID [facility] Last Admin: 07/14/19 10:08 Dose: 2.5 mg Pantoprazole Sodium (Protonix -) 20 mg PO DAILY [facility] Last Admin: 07/14/19 10:08 Dose: 20 mg Paroxetine HCl (Paxil -) 40 mg PO DAILY [facility] Last Admin: 07/14/19 10:08 Dose: 40 mg Risperidone (Risperdal -) 0.5 mg PO BID PRN PRN Reason: AGITATION Last Admin: 07/13/19 09:27 Dose: 0.5 mg Last Vital Signs Temp Pulse Resp BP Pulse Ox 100.2 F H 90 20 144/69 93 L 07/14/19 18:30 07/14/19 17:10 07/14/19 17:10 07/14/19 17:10 07/14/19 09:00 O/E comfortable S1 S2 RRR Lungs decreased at bases--no rales Abd-soft, NT no edema CBC, BMP 07/13/19 08:50 07/13/19 08:50 IMP- s/p mauro renal function improving CKD UTI PNA dementia Plan f/u labs
[2019-07-14] MEDS: ATORVASTATIN CA 20 MG TABLET (FP) PO SCH (23:09)
[2019-07-15] MEDS ORDERED: DEXTROSE 5%-WATER - 50 ML IVPB ONE ×3 (01:51→19:07)
[2019-07-15] MEDS ORDERED: PIPERACILLIN/TAZOBACTAM 3.375 GM VIAL IVPB ONE ×3 (01:51→19:07)
[2019-07-15] MEDS: PIPERACILLIN/TAZOB 3.375 GM 3.375 GM in DEXTROSE 5%-WATER - 50 ML IVPB SCH ×3 (01:55→19:08)
[2019-07-15] MEDS: MINERAL OIL/PET HY-PHL TOPICAL OINTMENT 454 GM JAR TP SCH ×4 (05:57→21:13)
[2019-07-15 08:39] LABS: BASO % 0.9 % (0-2.0); HEMATOCRIT 27.7 % (35.4-49); HEMOGLOBIN 9.1 GM/dL (11.7-16.9); LYMPH % 24.1 % (8-40); MCH 27.9 pg (25.7-33.7); MCHC 32.9 g/dl (32.0-35.9); MEAN CELL VOLUME 84.8 fl (80-96); MEAN PLT VOLUME 7.6 fl (7.5-11.1); MONO % 10.4 % (3.8-10.2); NEUT % 56.6 % (42.8-82.8); PLATELET COUNT 264 K/MM3 (134-434); RBC 3.27 M/mm3 (4.00-5.60); RDW 16.9 % (11.9-15.9); WHITE BLOOD COUNT 7.7 K/mm3 (4.0-10.0)
[2019-07-15 08:57] LABS: ALBUMIN 2.4 g/dl (3.4-5.0); BILIRUBIN,TOTAL 0.4 mg/dL (0.2-1); BLOOD UREA NITROGEN 30.4 mg/dL (7-18); CALCIUM 8.7 mg/dL (8.5-10.1); CREATININE 1.8 mg/dL (0.55-1.3); TOT PROT 6.2 g/dl (6.4-8.2)
--- NOTE | 2019-07-15 11:00 | PN ---
Progress Note (short form) - Note Progress Note: pt seen/ examined sob today- oxygen increased to 3 litre. low grade temp no distress lying in bed Vital Signs Temp 99.5 F 07/15/19 09:45 Pulse 61 07/15/19 06:48 Resp 18 07/15/19 09:45 BP 137/80 07/15/19 09:45 Pulse Ox 92 L 07/14/19 21:00 Intake & Output 07/14/19 07/14/19 07/15/19 11:59 23:59 11:59 Intake Total 250 100 50 Output Total 300 Balance 250 -200 50 Intake: IV 0 SALINE LOCK 0 IVPB 50 100 50 Oral 200 Output: Urine 300 Void 300 Other: Voiding Method Urinal Incontinent # Unmeasured Voids Void 2 Bowel Movement No Yes # Bowel Movements 1 Active Medications Acetaminophen (Tylenol -) 650 mg PO Q6H PRN PRN Reason: PAIN OR FEVER Last Admin: 07/14/19 23:14 Dose: 650 mg Allopurinol (Zyloprim -) 100 mg PO DAILY [facility] Last Admin: 07/14/19 10:08 Dose: 100 mg Amlodipine Besylate (Norvasc -) 10 mg PO DAILY [facility] Last Admin: 07/14/19 10:08 Dose: 10 mg Atorvastatin Calcium (Lipitor -) 20 mg PO HS [facility] Last Admin: 07/14/19 23:09 Dose: 20 mg Emollient Ointment (Aquaphor -) 1 applic TP TID [facility] Last Admin: 07/15/19 05:59 Dose: Not Given Piperacillin Sod/Tazobactam (Sod 3.375 gm/ Dextrose) 50 mls @ 100 mls/hr IVPB Q8H-IV [facility]; Protocol Last Admin: 07/15/19 01:55 Dose: 100 mls/hr Labetalol HCl (Normodyne -) 200 mg PO DAILY [facility] Last Admin: 07/14/19 10:08 Dose: 200 mg Lidocaine HCl (Xylocaine 2% Viscous Oral -) 15 ml MM Q6H PRN PRN Reason: ORAL PAIN/[place]TH [place]ORES Memantine (Namenda -) 10 mg PO DAILY [facility] Last Admin: 07/14/19 10:08 Dose: 10 mg Nystatin (Mycostatin Cream -) 1 applic TP BID [facility] Last Admin: 07/14/19 23:09 Dose: 1 applic Olanzapine (Zyprexa -) 2.5 mg PO BID [facility] Last Admin: 07/14/19 23:50 Dose: 2.5 mg Pantoprazole Sodium (Protonix -) 20 mg PO DAILY [facility] Last Admin: 07/14/19 10:08 Dose: 20 mg Paroxetine HCl (Paxil -) 40 mg PO DAILY [facility] Last Admin: 07/14/19 10:08 Dose: 40 mg Risperidone (Risperdal -) 0.5 mg PO BID PRN PRN Reason: AGITATION Last Admin: 07/13/19 09:27 Dose: 0.5 mg CBC, BMP 07/15/19 07:05 07/15/19 07:05 Physical Exam comfortable S1 S2 RRR Lungs decreased at bases--no rales Abd-soft, NT no edema PLAN Iv antibiotics continue with meds nebs scheduled repeat cxr today will follow Problem List - Problems (1) Altered mental status Code(s): R41.82 - ALTERED MENTAL STATUS, UNSPECIFIED Qualifiers: Altered mental status type: unspecified Qualified Code(s): R41.82 - Altered mental status, unspecified (2) Dementia Code(s): F03.90 - UNSPECIFIED DEMENTIA WITHOUT BEHAVIORAL DISTURBANCE Qualifiers: Dementia type: unspecified type Dementia behavioral disturbance: without behavioral disturbance Qualified Code(s): F03.90 - Unspecified dementia without behavioral disturbance (3) Fall Code(s): W19.XXXA - UNSPECIFIED FALL, INITIAL ENCOUNTER Qualifiers: Encounter type: initial encounter Qualified Code(s): W19.XXXA - Unspecified fall, initial encounter (4) Urinary tract infection Code(s): N39.0 - URINARY TRACT INFECTION, SITE NOT SPECIFIED Qualifiers: Urinary tract infection type: site unspecified Hematuria presence: without hematuria Qualified Code(s): N39.0 - Urinary tract infection, site not specified (5) MAURO (acute kidney injury) Code(s): N17.9 - ACUTE KIDNEY FAILURE, UNSPECIFIED (6) ASHD (arteriosclerotic heart disease) Code(s): I25.10 - ATHSCL HEART DISEASE OF [place] CORONARY ARTERY W/O ANG PCTRS ' repeat cxr
[2019-07-15] MEDS: ALLOPURINOL 100 MG TABLET (FP) PO SCH (11:46)
[2019-07-15] MEDS: amLODIPine BESYLATE 10 MG TABLET (FP) PO SCH (11:46)
[2019-07-15] MEDS: PARoxetine HCL 20 MG TABLET PO SCH (11:46)
[2019-07-15] MEDS: MEMANTINE HCL 10 MG TABLET (FP) PO SCH (11:46)
[2019-07-15] MEDS: LABETALOL HCL 200 MG TABLET (FP) PO SCH (11:47)
[2019-07-15] MEDS: PANTOPRAZOLE 20 MG TABLET (FP) PO SCH (11:47)
[2019-07-15] MEDS: NYSTATIN 100,000 UNIT/GM TOPICAL CREAM 15 GM TUBE TP SCH ×2 (11:48→21:14)
[2019-07-15] MEDS: OLANZapine 2.5 MG TABLET PO SCH ×2 (13:11→21:13)
--- NOTE | 2019-07-15 15:37 | PN ---
Progress Note, Physician History of Present Illness: Pt seen and examined at bedside. He is awake and appears comfortable. - Current Medication List Current Medications: Active Medications Acetaminophen (Tylenol -) 650 mg PO Q6H PRN PRN Reason: PAIN OR FEVER Last Admin: 07/14/19 23:14 Dose: 650 mg Allopurinol (Zyloprim -) 100 mg PO DAILY [facility] Last Admin: 07/15/19 11:46 Dose: 100 mg Amlodipine Besylate (Norvasc -) 10 mg PO DAILY [facility] Last Admin: 07/15/19 11:46 Dose: 10 mg Atorvastatin Calcium (Lipitor -) 20 mg PO HS [facility] Last Admin: 07/14/19 23:09 Dose: 20 mg Emollient Ointment (Aquaphor -) 1 applic TP TID [facility] Last Admin: 07/15/19 05:59 Dose: Not Given Piperacillin Sod/Tazobactam (Sod 3.375 gm/ Dextrose) 50 mls @ 100 mls/hr IVPB Q8H-IV [facility]; Protocol Last Admin: 07/15/19 11:44 Dose: 100 mls/hr Labetalol HCl (Normodyne -) 200 mg PO DAILY [facility] Last Admin: 07/15/19 11:47 Dose: 200 mg Lidocaine HCl (Xylocaine 2% Viscous Oral -) 15 ml MM Q6H PRN PRN Reason: ORAL PAIN/MOUTH SORES Last Admin: 07/15/19 11:43 Dose: 15 ml Memantine (Namenda -) 10 mg PO DAILY [facility] Last Admin: 07/15/19 11:46 Dose: 10 mg Nystatin (Mycostatin Cream -) 1 applic TP BID [facility] Last Admin: 07/15/19 11:48 Dose: 1 applic Olanzapine (Zyprexa -) 2.5 mg PO BID [facility] Last Admin: 07/15/19 13:11 Dose: 2.5 mg Pantoprazole Sodium (Protonix -) 20 mg PO DAILY [facility] Last Admin: 07/15/19 11:47 Dose: 20 mg Paroxetine HCl (Paxil -) 40 mg PO DAILY [facility] Last Admin: 07/15/19 11:46 Dose: 40 mg Risperidone (Risperdal -) 0.5 mg PO BID PRN PRN Reason: AGITATION Last Admin: 07/13/19 09:27 Dose: 0.5 mg - Objective Vital Signs: Vital Signs Temperature 99.5 F 07/15/19 09:45 Pulse Rate 61 07/15/19 06:48 Respiratory Rate 18 07/15/19 09:45 Blood Pressure 137/80 07/15/19 09:45 O2 Sat by Pulse Oximetry (%) 92 L 07/14/19 21:00 Constitutional: Yes: Calm Eyes: Yes: Conjunctiva Clear HENT: Yes: Atraumatic Neck: Yes: Supple Cardiovascular: Yes: S1, S2 Respiratory: Yes: On Nasal O2 Gastrointestinal: Yes: Soft Genitourinary: Yes: WNL Musculoskeletal: Yes: WNL Edema: No Integumentary: Yes: WNL Neurological: Yes: Confusion Labs: CBC, BMP 07/15/19 07:05 07/15/19 07:05 INR, PTT INR 1.16 (0.83-1.09) H 07/05/19 17:10 Problem List - Problems (1) CKD (chronic kidney disease) Code(s): N18.9 - CHRONIC KIDNEY DISEASE, UNSPECIFIED (2) Altered mental status Code(s): R41.82 - ALTERED MENTAL STATUS, UNSPECIFIED Qualifiers: Altered mental status type: unspecified Qualified Code(s): R41.82 - Altered mental status, unspecified (3) Dementia Code(s): F03.90 - UNSPECIFIED DEMENTIA WITHOUT BEHAVIORAL DISTURBANCE Qualifiers: Dementia type: unspecified type Dementia behavioral disturbance: without behavioral disturbance Qualified Code(s): F03.90 - Unspecified dementia without behavioral disturbance (4) MAURO (acute kidney injury) Code(s): N17.9 - ACUTE KIDNEY FAILURE, UNSPECIFIED Assessment/Plan Current Medications Generic Name Dose Route Start Last Admin Trade Name Freq PRN Reason Stop Dose Admin Acetaminophen 650 mg 07/05/19 22:15 07/14/19 23:14 Tylenol - PO 650 mg Q6H PRN Administration PAIN OR FEVER Allopurinol 100 mg 07/06/19 10:00 07/15/19 11:46 Zyloprim - PO 100 mg DAILY [facility] Administration Amlodipine Besylate 10 mg 07/06/19 10:00 07/15/19 11:46 Norvasc - PO 10 mg DAILY [facility] Administration Atorvastatin Calcium 20 mg 07/06/19 22:00 07/14/19 23:09 Lipitor - PO 20 mg HS [facility] Administration Emollient Ointment 1 applic 07/06/19 22:00 07/15/19 05:59 Aquaphor - TP Not Given TID [facility] Piperacillin Sod/Tazobactam 50 mls @ 100 mls/hr 07/09/19 18:00 07/15/19 11:44 Sod 3.375 gm/ Dextrose IVPB 100 mls/hr Q8H-IV [facility] Administration Protocol Labetalol HCl 200 mg 07/06/19 10:00 07/15/19 11:47 Normodyne - PO 200 mg DAILY [facility] Administration Lidocaine HCl 15 ml 07/13/19 22:57 07/15/19 11:43 Xylocaine 2% Viscous Oral - MM 15 ml Q6H PRN Administration ORAL PAIN/MOUTH SORES Memantine 10 mg 07/06/19 10:00 07/15/19 11:46 Namenda - PO 10 mg DAILY [facility] Administration Nystatin 1 applic 07/06/19 10:00 07/15/19 11:48 Mycostatin Cream - TP 1 applic BID [facility] Administration Olanzapine 2.5 mg 07/06/19 11:00 07/15/19 13:11 Zyprexa - PO 2.5 mg BID [facility] Administration Pantoprazole Sodium 20 mg 07/06/19 10:00 07/15/19 11:47 Protonix - PO 20 mg DAILY [facility] Administration Paroxetine HCl 40 mg 07/06/19 10:00 07/15/19 11:46 Paxil - PO 40 mg DAILY [facility] Administration Risperidone 0.5 mg 07/06/19 11:53 07/13/19 09:27 Risperdal - PO 0.5 mg BID PRN Administration AGITATION Impression 1. MAURO 2. CKD 3. UTI 4. PNA 5. 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
--- NOTE | 2019-07-15 17:32 | PN ---
Progress Note (short form) - Note Progress Note: resting comfortably no complaints Vital Signs Period Temp Pulse Resp BP Sys/Pradhan Pulse Ox Last 24 Hr 98.4 F-100.7 F 61-83 18-20 120-145/57-80 92 cor-rrr lungs decreased bs at bases abd soft,nt ext no edema CBC, BMP 07/15/19 07:05 07/15/19 07:05 Microbiology 07/05/19 17:10 Blood - Peripheral Venous Blood Culture - Final NO GROWTH AFTER 5 DAYS INCUBATION 07/05/19 17:10 Blood - Peripheral Venous Blood Culture - Final NO GROWTH AFTER 5 DAYS INCUBATION 07/05/19 18:30 Urine - Urine - Catheterized Urine Culture - Final Escherichia Coli Proteus Mirabilis 07/07/19 10:30 Urine For Antigen Detection Legionella Antigen - Final 07/07/19 10:30 Urine For Antigen Detection Streptococcus pneumoniae Antigen (M - Final Current Medications Acetaminophen (Tylenol -) 650 mg PO Q6H PRN PRN Reason: PAIN OR FEVER Last Admin: 07/14/19 23:14 Dose: 650 mg Allopurinol (Zyloprim -) 100 mg PO DAILY [facility] Last Admin: 07/15/19 11:46 Dose: 100 mg Amlodipine Besylate (Norvasc -) 10 mg PO DAILY [facility] Last Admin: 07/15/19 11:46 Dose: 10 mg Atorvastatin Calcium (Lipitor -) 20 mg PO HS [facility] Last Admin: 07/14/19 23:09 Dose: 20 mg Emollient Ointment (Aquaphor -) 1 applic TP TID [facility] Last Admin: 07/15/19 15:00 Dose: 1 applic Piperacillin Sod/Tazobactam (Sod 3.375 gm/ Dextrose) 50 mls @ 100 mls/hr IVPB Q8H-IV [facility]; Protocol Last Admin: 07/15/19 11:44 Dose: 100 mls/hr Labetalol HCl (Normodyne -) 200 mg PO DAILY [facility] Last Admin: 07/15/19 11:47 Dose: 200 mg Lidocaine HCl (Xylocaine 2% Viscous Oral -) 15 ml MM Q6H PRN PRN Reason: ORAL PAIN/MOUTH SORES Last Admin: 07/15/19 11:43 Dose: 15 ml Memantine (Namenda -) 10 mg PO DAILY [facility] Last Admin: 07/15/19 11:46 Dose: 10 mg Nystatin (Mycostatin Cream -) 1 applic TP BID [facility] Last Admin: 07/15/19 11:48 Dose: 1 applic Olanzapine (Zyprexa -) 2.5 mg PO BID [facility] Last Admin: 07/15/19 13:11 Dose: 2.5 mg Pantoprazole Sodium (Protonix -) 20 mg PO DAILY [facility] Last Admin: 07/15/19 11:47 Dose: 20 mg Paroxetine HCl (Paxil -) 40 mg PO DAILY [facility] Last Admin: 07/15/19 11:46 Dose: 40 mg Risperidone (Risperdal -) 0.5 mg PO BID PRN PRN Reason: AGITATION Last Admin: 07/13/19 09:27 Dose: 0.5 mg a/p recurrent fever- normal wbc, ?aspiration- day #6 of 7 zosyn, d/c in am repeat cxray silver unchanged overall less combative Problem List - Problems (1) Altered mental status Code(s): R41.82 - ALTERED MENTAL STATUS, UNSPECIFIED Qualifiers: Altered mental status type: unspecified Qualified Code(s): R41.82 - Altered mental status, unspecified (2) Dementia Code(s): F03.90 - UNSPECIFIED DEMENTIA WITHOUT BEHAVIORAL DISTURBANCE Qualifiers: Dementia type: unspecified type Dementia behavioral disturbance: without behavioral disturbance Qualified Code(s): F03.90 - Unspecified dementia without behavioral disturbance (3) Urinary tract infection Code(s): N39.0 - URINARY TRACT INFECTION, SITE NOT SPECIFIED Qualifiers: Urinary tract infection type: site unspecified Hematuria presence: without hematuria Qualified Code(s): N39.0 - Urinary tract infection, site not specified (4) Abnormal x-ray of lung Code(s): R91.8 - OTHER NONSPECIFIC ABNORMAL FINDING OF LUNG FIELD
[2019-07-15] MEDS: ATORVASTATIN CA 20 MG TABLET (FP) PO SCH (21:13)
[2019-07-16] MEDS ORDERED: PIPERACILLIN/TAZOBACTAM 3.375 GM VIAL IVPB ONE ×2 (00:59→10:03)
[2019-07-16] MEDS ORDERED: DEXTROSE 5%-WATER - 50 ML IVPB ONE ×2 (00:59→10:03)
[2019-07-16] MEDS: PIPERACILLIN/TAZOB 3.375 GM 3.375 GM in DEXTROSE 5%-WATER - 50 ML IVPB SCH ×2 (01:08→10:09)
[2019-07-16] MEDS: MINERAL OIL/PET HY-PHL TOPICAL OINTMENT 454 GM JAR TP SCH ×3 (06:02→21:10)
[2019-07-16] MEDS ORDERED: PT OWN MED DRAWER 7, Y5N ONE (10:03)
[2019-07-16] MEDS: MEMANTINE HCL 10 MG TABLET (FP) PO SCH (10:07)
[2019-07-16] MEDS: PARoxetine HCL 20 MG TABLET PO SCH (10:08)
[2019-07-16] MEDS: amLODIPine BESYLATE 10 MG TABLET (FP) PO SCH (10:08)
[2019-07-16] MEDS: PANTOPRAZOLE 20 MG TABLET (FP) PO SCH (10:08)
[2019-07-16] MEDS: LABETALOL HCL 200 MG TABLET (FP) PO SCH (10:08)
[2019-07-16] MEDS: OLANZapine 2.5 MG TABLET PO SCH ×2 (10:09→21:10)
[2019-07-16] MEDS: NYSTATIN 100,000 UNIT/GM TOPICAL CREAM 15 GM TUBE TP SCH ×2 (10:09→21:11)
[2019-07-16] MEDS: ALLOPURINOL 100 MG TABLET (FP) PO SCH (10:09)
--- NOTE | 2019-07-16 13:15 | PN ---
Progress Note (short form) - Note Progress Note: sitting up in bed calmno complaints requiring 3 liters of O2 Vital Signs - 24 hr 07/15/19 07/15/19 07/15/19 14:00 17:16 20:30 Temperature 98.8 F 98.4 F 98.7 F Pulse Rate 68 74 77 Respiratory 20 20 20 Rate Blood Pressure 131/58 L 145/58 L 151/71 O2 Sat by Pulse Oximetry (%) 07/15/19 07/16/19 07/16/19 21:00 06:53 08:25 Temperature 97.8 F 99.1 F Pulse Rate 79 69 Respiratory 20 20 20 Rate Blood Pressure 149/78 143/64 O2 Sat by Pulse 95 Oximetry (%) 07/16/19 09:00 Temperature Pulse Rate Respiratory Rate Blood Pressure O2 Sat by Pulse 92 L Oximetry (%) Current Medications Generic Name Dose Route Start Last Admin Trade Name Freq PRN Reason Stop Dose Admin Acetaminophen 650 mg 07/05/19 22:15 07/14/19 23:14 Tylenol - PO 650 mg Q6H PRN Administration PAIN OR FEVER Allopurinol 100 mg 07/06/19 10:00 07/16/19 10:09 Zyloprim - PO 100 mg DAILY [facility] Administration Amlodipine Besylate 10 mg 07/06/19 10:00 07/16/19 10:08 Norvasc - PO 10 mg DAILY [facility] Administration Atorvastatin Calcium 20 mg 07/06/19 22:00 07/15/19 21:13 Lipitor - PO 20 mg HS [facility] Administration Emollient Ointment 1 applic 07/06/19 22:00 07/16/19 06:02 Aquaphor - TP 1 applic TID [facility] Administration Piperacillin Sod/Tazobactam 50 mls @ 100 mls/hr 07/09/19 18:00 07/16/19 10:09 Sod 3.375 gm/ Dextrose IVPB 100 mls/hr Q8H-IV [facility] Administration Protocol Labetalol HCl 200 mg 07/06/19 10:00 07/16/19 10:08 Normodyne - PO 200 mg DAILY [facility] Administration Lidocaine HCl 15 ml 07/13/19 22:57 Xylocaine 2% Viscous Oral - MM Q6H PRN ORAL PAIN/MOUTH SORES Memantine 10 mg 07/06/19 10:00 07/16/19 10:07 Namenda - PO 10 mg DAILY [facility] Administration Nystatin 1 applic 07/06/19 10:00 07/16/19 10:09 Mycostatin Cream - TP 1 applic BID [facility] Administration Olanzapine 2.5 mg 07/06/19 11:00 07/16/19 10:09 Zyprexa - PO 2.5 mg BID [facility] Administration Pantoprazole Sodium 20 mg 07/06/19 10:00 07/16/19 10:08 Protonix - PO 20 mg DAILY [facility] Administration Paroxetine HCl 40 mg 07/06/19 10:00 07/16/19 10:08 Paxil - PO 40 mg DAILY [facility] Administration Risperidone 0.5 mg 07/06/19 11:53 07/13/19 09:27 Risperdal - PO 0.5 mg BID PRN Administration AGITATION S1 S2 RRR Lungs decreased,no ronchi- fine crackles heard B/L no rales Abd-soft, NT no edema PLAN Iv antibiotics iv lasix-->dc as creatinine elevated dc iv hydration kidney function better repeat CXR-- congestive changes and infiltrates remain Renal sono-- unremarkable nebs prn h/o interstitial lung disease, COPD spoke with daughter Jannet- family wants SNF-- awaiting for bed availability per Pt is more calm taking his meds not agitated continue O2 antibiotics last day today Problem List - Problems (1) Altered mental status Code(s): R41.82 - ALTERED MENTAL STATUS, UNSPECIFIED Qualifiers: Altered mental status type: unspecified Qualified Code(s): R41.82 - Altered mental status, unspecified (2) Dementia Code(s): F03.90 - UNSPECIFIED DEMENTIA WITHOUT BEHAVIORAL DISTURBANCE Qualifiers: Dementia type: unspecified type Dementia behavioral disturbance: without behavioral disturbance Qualified Code(s): F03.90 - Unspecified dementia without behavioral disturbance (3) Fall Code(s): W19.XXXA - UNSPECIFIED FALL, INITIAL ENCOUNTER Qualifiers: Encounter type: initial encounter Qualified Code(s): W19.XXXA - Unspecified fall, initial encounter (4) Urinary tract infection Code(s): N39.0 - URINARY TRACT INFECTION, SITE NOT SPECIFIED Qualifiers: Urinary tract infection type: site unspecified Hematuria presence: without hematuria Qualified Code(s): N39.0 - Urinary tract infection, site not specified (5) MAURO (acute kidney injury) Code(s): N17.9 - ACUTE KIDNEY FAILURE, UNSPECIFIED (6) ASHD (arteriosclerotic heart disease) Code(s): I25.10 - ATHSCL HEART DISEASE OF [place] CORONARY ARTERY W/O ANG PCTRS
--- NOTE | 2019-07-16 15:18 | PN ---
Progress Note (short form) - Note Progress Note: resting comfortably no complaints Vital Signs Period Temp Pulse Resp BP Sys/Pradhan Pulse Ox Last 24 Hr 97.8 F-99.1 F 65-79 20-20 123-151/58-78 92-95 cor-rrr lungs decreased bs at bases abd soft, nontender ext +edema CBC, BMP 07/15/19 07:05 07/15/19 07:05 Microbiology 07/15/19 07:05 Blood - Peripheral Venous Blood Culture - Preliminary NO GROWTH OBTAINED AFTER 24 HOURS, INCUBATION TO CONTINUE FOR 4 DAYS. 07/15/19 07:05 Blood - Peripheral Venous Blood Culture - Preliminary NO GROWTH OBTAINED AFTER 24 HOURS, INCUBATION TO CONTINUE FOR 4 DAYS. 07/05/19 17:10 Blood - Peripheral Venous Blood Culture - Final NO GROWTH AFTER 5 DAYS INCUBATION 07/05/19 17:10 Blood - Peripheral Venous Blood Culture - Final NO GROWTH AFTER 5 DAYS INCUBATION 07/05/19 18:30 Urine - Urine - Catheterized Urine Culture - Final Escherichia Coli Proteus Mirabilis 07/07/19 10:30 Urine For Antigen Detection Legionella Antigen - Final 07/07/19 10:30 Urine For Antigen Detection Streptococcus pneumoniae Antigen (M - Final Active Medications Acetaminophen (Tylenol -) 650 mg PO Q6H PRN PRN Reason: PAIN OR FEVER Last Admin: 07/14/19 23:14 Dose: 650 mg Albuterol Sulfate (Ventolin 0.083% Nebulizer Soln -) 1 amp NEB Q6H PRN PRN Reason: SHORT OF BREATH/WHEEZING Allopurinol (Zyloprim -) 100 mg PO DAILY [facility] Last Admin: 07/16/19 10:09 Dose: 100 mg Amlodipine Besylate (Norvasc -) 10 mg PO DAILY [facility] Last Admin: 07/16/19 10:08 Dose: 10 mg Atorvastatin Calcium (Lipitor -) 20 mg PO HS [facility] Last Admin: 07/15/19 21:13 Dose: 20 mg Emollient Ointment (Aquaphor -) 1 applic TP TID [facility] Last Admin: 07/16/19 14:11 Dose: 1 applic Piperacillin Sod/Tazobactam (Sod 3.375 gm/ Dextrose) 50 mls @ 100 mls/hr IVPB Q8H-IV [facility]; Protocol Last Admin: 07/16/19 10:09 Dose: 100 mls/hr Labetalol HCl (Normodyne -) 200 mg PO DAILY [facility] Last Admin: 07/16/19 10:08 Dose: 200 mg Lidocaine HCl (Xylocaine 2% Viscous Oral -) 15 ml MM Q6H PRN PRN Reason: ORAL PAIN/MOUTH SORES Memantine (Namenda -) 10 mg PO DAILY [facility] Last Admin: 07/16/19 10:07 Dose: 10 mg Nystatin (Mycostatin Cream -) 1 applic TP BID [facility] Last Admin: 07/16/19 10:09 Dose: 1 applic Olanzapine (Zyprexa -) 2.5 mg PO BID [facility] Last Admin: 07/16/19 10:09 Dose: 2.5 mg Pantoprazole Sodium (Protonix -) 20 mg PO DAILY [facility] Last Admin: 07/16/19 10:08 Dose: 20 mg Paroxetine HCl (Paxil -) 40 mg PO DAILY [facility] Last Admin: 07/16/19 10:08 Dose: 40 mg Risperidone (Risperdal -) 0.5 mg PO BID PRN PRN Reason: AGITATION Last Admin: 07/13/19 09:27 Dose: 0.5 mg a/p recurrent fever- normal wbc, ?aspiration- day #7 of 7 zosyn, d/c and observe repeat cxray c/w congestion- he is offlasix now and has some leg edema too has been treated for pneumonia and uti overall less combative Problem List - Problems (1) Altered mental status Code(s): R41.82 - ALTERED MENTAL STATUS, UNSPECIFIED Qualifiers: Altered mental status type: unspecified Qualified Code(s): R41.82 - Altered mental status, unspecified (2) Dementia Code(s): F03.90 - UNSPECIFIED DEMENTIA WITHOUT BEHAVIORAL DISTURBANCE Qualifiers: Dementia type: unspecified type Dementia behavioral disturbance: without behavioral disturbance Qualified Code(s): F03.90 - Unspecified dementia without behavioral disturbance (3) Urinary tract infection Code(s): N39.0 - URINARY TRACT INFECTION, SITE NOT SPECIFIED Qualifiers: Urinary tract infection type: site unspecified Hematuria presence: without hematuria Qualified Code(s): N39.0 - Urinary tract infection, site not specified (4) Abnormal x-ray of lung Code(s): R91.8 - OTHER NONSPECIFIC ABNORMAL FINDING OF LUNG FIELD
[2019-07-16] MEDS ORDERED: FUROSEMIDE 40 MG TABLET (FP) PO ONE (15:35)
--- NOTE | 2019-07-16 15:35 | PN ---
Progress Note, Physician History of Present Illness: Pt seen and examined at bedside. He is awake and appears comfortable. He does complain of lower ext edema. - Current Medication List Current Medications: Active Medications Acetaminophen (Tylenol -) 650 mg PO Q6H PRN PRN Reason: PAIN OR FEVER Last Admin: 07/14/19 23:14 Dose: 650 mg Albuterol Sulfate (Ventolin 0.083% Nebulizer Soln -) 1 amp NEB Q6H PRN PRN Reason: SHORT OF BREATH/WHEEZING Allopurinol (Zyloprim -) 100 mg PO DAILY [facility] Last Admin: 07/16/19 10:09 Dose: 100 mg Amlodipine Besylate (Norvasc -) 10 mg PO DAILY [facility] Last Admin: 07/16/19 10:08 Dose: 10 mg Atorvastatin Calcium (Lipitor -) 20 mg PO HS [facility] Last Admin: 07/15/19 21:13 Dose: 20 mg Emollient Ointment (Aquaphor -) 1 applic TP TID [facility] Last Admin: 07/16/19 14:11 Dose: 1 applic Labetalol HCl (Normodyne -) 200 mg PO DAILY [facility] Last Admin: 07/16/19 10:08 Dose: 200 mg Lidocaine HCl (Xylocaine 2% Viscous Oral -) 15 ml MM Q6H PRN PRN Reason: ORAL PAIN/MOUTH SORES Memantine (Namenda -) 10 mg PO DAILY [facility] Last Admin: 07/16/19 10:07 Dose: 10 mg Nystatin (Mycostatin Cream -) 1 applic TP BID [facility] Last Admin: 07/16/19 10:09 Dose: 1 applic Olanzapine (Zyprexa -) 2.5 mg PO BID [facility] Last Admin: 07/16/19 10:09 Dose: 2.5 mg Pantoprazole Sodium (Protonix -) 20 mg PO DAILY [facility] Last Admin: 07/16/19 10:08 Dose: 20 mg Paroxetine HCl (Paxil -) 40 mg PO DAILY [facility] Last Admin: 07/16/19 10:08 Dose: 40 mg Risperidone (Risperdal -) 0.5 mg PO BID PRN PRN Reason: AGITATION Last Admin: 07/13/19 09:27 Dose: 0.5 mg - Objective Vital Signs: Vital Signs Temperature 98.3 F 07/16/19 14:00 Pulse Rate 65 07/16/19 14:00 Respiratory Rate 20 07/16/19 14:00 Blood Pressure 123/61 07/16/19 14:00 O2 Sat by Pulse Oximetry (%) 92 L 07/16/19 09:00 Constitutional: Yes: Calm Eyes: Yes: Conjunctiva Clear HENT: Yes: Atraumatic Neck: Yes: Supple Cardiovascular: Yes: S1, S2 Respiratory: Yes: CTA Bilaterally, On Nasal O2 Gastrointestinal: Yes: Soft Genitourinary: Yes: WNL Musculoskeletal: Yes: WNL Edema: Yes Edema: LLE: 1+, RLE: 1+ Neurological: Yes: Oriented Psychiatric: Yes: Oriented Labs: CBC, BMP 07/15/19 07:05 07/15/19 07:05 INR, PTT INR 1.16 (0.83-1.09) H 07/05/19 17:10 Problem List - Problems (1) CKD (chronic kidney disease) Code(s): N18.9 - CHRONIC KIDNEY DISEASE, UNSPECIFIED (2) Altered mental status Code(s): R41.82 - ALTERED MENTAL STATUS, UNSPECIFIED Qualifiers: Altered mental status type: unspecified Qualified Code(s): R41.82 - Altered mental status, unspecified (3) Dementia Code(s): F03.90 - UNSPECIFIED DEMENTIA WITHOUT BEHAVIORAL DISTURBANCE Qualifiers: Dementia type: unspecified type Dementia behavioral disturbance: without behavioral disturbance Qualified Code(s): F03.90 - Unspecified dementia without behavioral disturbance (4) MAURO (acute kidney injury) Code(s): N17.9 - ACUTE KIDNEY FAILURE, UNSPECIFIED Assessment/Plan Current Medications Generic Name Dose Route Start Last Admin Trade Name Freq PRN Reason Stop Dose Admin Acetaminophen 650 mg 07/05/19 22:15 07/14/19 23:14 Tylenol - PO 650 mg Q6H PRN Administration PAIN OR FEVER Albuterol Sulfate 1 amp 07/16/19 13:15 Ventolin 0.083% Nebulizer Soln - NEB Q6H PRN SHORT OF BREATH/WHEEZING Allopurinol 100 mg 07/06/19 10:00 07/16/19 10:09 Zyloprim - PO 100 mg DAILY [facility] Administration Amlodipine Besylate 10 mg 07/06/19 10:00 07/16/19 10:08 Norvasc - PO 10 mg DAILY [facility] Administration Atorvastatin Calcium 20 mg 07/06/19 22:00 07/15/19 21:13 Lipitor - PO 20 mg HS [facility] Administration Emollient Ointment 1 applic 07/06/19 22:00 07/16/19 14:11 Aquaphor - TP 1 applic TID [facility] Administration Labetalol HCl 200 mg 07/06/19 10:00 07/16/19 10:08 Normodyne - PO 200 mg DAILY [facility] Administration Lidocaine HCl 15 ml 07/13/19 22:57 Xylocaine 2% Viscous Oral - MM Q6H PRN ORAL PAIN/MOUTH SORES Memantine 10 mg 07/06/19 10:00 07/16/19 10:07 Namenda - PO 10 mg DAILY [facility] Administration Nystatin 1 applic 07/06/19 10:00 07/16/19 10:09 Mycostatin Cream - TP 1 applic BID [facility] Administration Olanzapine 2.5 mg 07/06/19 11:00 07/16/19 10:09 Zyprexa - PO 2.5 mg BID [facility] Administration Pantoprazole Sodium 20 mg 07/06/19 10:00 07/16/19 10:08 Protonix - PO 20 mg DAILY [facility] Administration Paroxetine HCl 40 mg 07/06/19 10:00 07/16/19 10:08 Paxil - PO 40 mg DAILY [facility] Administration Risperidone 0.5 mg 07/06/19 11:53 07/13/19 09:27 Risperdal - PO 0.5 mg BID PRN Administration AGITATION Impression 1. MAURO 2. CKD 3. UTI 4. PNA 5. dementia Plan - will give a dose of lasix - check labs in am - pt was on PRN lasix at home - renal function close to baseline - discussed case with his daughter
[2019-07-16] MEDS: ATORVASTATIN CA 20 MG TABLET (FP) PO SCH (21:10)
[2019-07-16] MEDS: risperiDONE 0.5 MG TABLET (FP) PO PRN (23:05)
[2019-07-17] MEDS: MINERAL OIL/PET HY-PHL TOPICAL OINTMENT 454 GM JAR TP SCH ×3 (06:09→21:31)
[2019-07-17 06:49] LABS: HEMATOCRIT 27.1 % (35.4-49); HEMOGLOBIN 9.1 GM/dL (11.7-16.9); MCH 27.9 pg (25.7-33.7); MCHC 33.5 g/dl (32.0-35.9); MEAN CELL VOLUME 83.2 fl (80-96); MEAN PLT VOLUME 7.3 fl (7.5-11.1); PLATELET COUNT 353 K/MM3 (134-434); RBC 3.25 M/mm3 (4.00-5.60); RDW 16.4 % (11.9-15.9); WHITE BLOOD COUNT 7.6 K/mm3 (4.0-10.0)
[2019-07-17 07:21] LABS: ALBUMIN 2.4 g/dl (3.4-5.0); BILIRUBIN,TOTAL 0.4 mg/dL (0.2-1); BLOOD UREA NITROGEN 31.6 mg/dL (7-18); CALCIUM 8.3 mg/dL (8.5-10.1); CREATININE 1.8 mg/dL (0.55-1.3); POTASSIUM 3.8 mmol/L (3.5-5.1); TOT PROT 6.3 g/dl (6.4-8.2)
[2019-07-17] MEDS ORDERED: PT OWN MED DRAWER 7, Y5N ONE ×2 (08:27→11:36)
[2019-07-17] MEDS: ALLOPURINOL 100 MG TABLET (FP) PO SCH (09:51)
[2019-07-17] MEDS: PARoxetine HCL 20 MG TABLET PO SCH (09:51)
[2019-07-17] MEDS: LABETALOL HCL 200 MG TABLET (FP) PO SCH (09:52)
[2019-07-17] MEDS: amLODIPine BESYLATE 10 MG TABLET (FP) PO SCH (09:52)
[2019-07-17] MEDS: MEMANTINE HCL 10 MG TABLET (FP) PO SCH (09:52)
[2019-07-17] MEDS: OLANZapine 2.5 MG TABLET PO SCH ×2 (09:52→21:29)
[2019-07-17] MEDS: NYSTATIN 100,000 UNIT/GM TOPICAL CREAM 15 GM TUBE TP SCH ×2 (09:52→21:30)
[2019-07-17] MEDS: PANTOPRAZOLE 20 MG TABLET (FP) PO SCH (10:19)
--- NOTE | 2019-07-17 13:17 | PN ---
Progress Note (short form) - Note Progress Note: sitting up in chair was agitated last night Vital Signs - 24 hr 07/16/19 07/16/19 07/16/19 14:00 17:29 19:40 Temperature 98.3 F 98.9 F 97.4 F L Pulse Rate 65 70 76 Respiratory 20 20 20 Rate Blood Pressure 123/61 122/58 L 126/64 O2 Sat by Pulse Oximetry (%) 07/16/19 20:11 Temperature Pulse Rate Respiratory 20 Rate Blood Pressure O2 Sat by Pulse 92 L Oximetry (%) Current Medications Generic Name Dose Route Start Last Admin Trade Name Freq PRN Reason Stop Dose Admin Acetaminophen 650 mg 07/05/19 22:15 07/14/19 23:14 Tylenol - PO 650 mg Q6H PRN Administration PAIN OR FEVER Albuterol Sulfate 1 amp 07/16/19 13:15 Ventolin 0.083% Nebulizer Soln - NEB Q6H PRN SHORT OF BREATH/WHEEZING Allopurinol 100 mg 07/06/19 10:00 07/17/19 09:51 Zyloprim - PO 100 mg DAILY [facility] Administration Amlodipine Besylate 10 mg 07/06/19 10:00 07/17/19 09:52 Norvasc - PO 10 mg DAILY [facility] Administration Atorvastatin Calcium 20 mg 07/06/19 22:00 07/16/19 21:10 Lipitor - PO 20 mg HS [facility] Administration Emollient Ointment 1 applic 07/06/19 22:00 07/17/19 06:09 Aquaphor - TP 1 applic TID [facility] Administration Labetalol HCl 200 mg 07/06/19 10:00 07/17/19 09:52 Normodyne - PO 200 mg DAILY [facility] Administration Lidocaine HCl 15 ml 07/13/19 22:57 Xylocaine 2% Viscous Oral - MM Q6H PRN ORAL PAIN/MOUTH SORES Memantine 10 mg 07/06/19 10:00 07/17/19 09:52 Namenda - PO 10 mg DAILY [facility] Administration Nystatin 1 applic 07/06/19 10:00 07/17/19 09:52 Mycostatin Cream - TP 1 applic BID [facility] Administration Olanzapine 2.5 mg 07/06/19 11:00 07/17/19 09:52 Zyprexa - PO 2.5 mg BID [facility] Administration Pantoprazole Sodium 20 mg 07/06/19 10:00 07/17/19 10:19 Protonix - PO 20 mg DAILY [facility] Administration Paroxetine HCl 40 mg 07/06/19 10:00 07/17/19 09:51 Paxil - PO 40 mg DAILY [facility] Administration Risperidone 0.5 mg 07/06/19 11:53 07/16/19 23:05 Risperdal - PO 0.5 mg BID PRN Administration AGITATION Abnormal Lab Results 07/17/19 07/17/19 06:30 06:30 RBC 3.25 L Hgb 9.1 L Hct 27.1 L RDW 16.4 H MPV 7.3 L BUN 31.6 H Creatinine 1.8 H Calcium 8.3 L Total Protein 6.3 L Albumin 2.4 L Laboratory Results - last 24 hr 07/17/19 07/17/19 06:30 06:30 WBC 7.6 RBC 3.25 L Hgb 9.1 L Hct 27.1 L MCV 83.2 MCH 27.9 MCHC 33.5 RDW 16.4 H Plt Count 353 D MPV 7.3 L Sodium 139 Potassium 3.8 Chloride 106 Carbon Dioxide 24 Anion Gap 10 BUN 31.6 H Creatinine 1.8 H Est GFR (CKD-EPI)AfAm 37.83 Est GFR (CKD-EPI)NonAf 32.64 Random Glucose 95 Calcium 8.3 L Total Bilirubin 0.4 AST 19 ALT 18 Alkaline Phosphatase 74 Total Protein 6.3 L Albumin 2.4 L S1 S2 RRR Lungs decreased,no ronchi- fine crackles heard B/L no rales Abd-soft, NT decreased edema PLAN Iv antibiotics iv lasix-->dc as creatinine elevated dc iv hydration kidney function better repeat CXR-- congestive changes and infiltrates remain Renal sono-- unremarkable nebs prn h/o interstitial lung disease, COPD family wants SNF-- awaiting for bed availability per 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 continue O2 antibiotics completed dc planning Problem List - Problems (1) Altered mental status Code(s): R41.82 - ALTERED MENTAL STATUS, UNSPECIFIED Qualifiers: Altered mental status type: unspecified Qualified Code(s): R41.82 - Altered mental status, unspecified (2) Dementia Code(s): F03.90 - UNSPECIFIED DEMENTIA WITHOUT BEHAVIORAL DISTURBANCE Qualifiers: Dementia type: unspecified type Dementia behavioral disturbance: without behavioral disturbance Qualified Code(s): F03.90 - Unspecified dementia without behavioral disturbance (3) Fall Code(s): W19.XXXA - UNSPECIFIED FALL, INITIAL ENCOUNTER Qualifiers: Encounter type: initial encounter Qualified Code(s): W19.XXXA - Unspecified fall, initial encounter (4) Urinary tract infection Code(s): N39.0 - URINARY TRACT INFECTION, SITE NOT SPECIFIED Qualifiers: Urinary tract infection type: site unspecified Hematuria presence: without hematuria Qualified Code(s): N39.0 - Urinary tract infection, site not specified (5) MAURO (acute kidney injury) Code(s): N17.9 - ACUTE KIDNEY FAILURE, UNSPECIFIED (6) ASHD (arteriosclerotic heart disease) Code(s): I25.10 - ATHSCL HEART DISEASE OF [place] CORONARY ARTERY W/O ANG PCTRS
--- NOTE | 2019-07-17 13:44 | PN ---
Progress Note, Physician History of Present Illness: Pt seen and examined at bedside. He is awake and appears comfortable. - Current Medication List Current Medications: Active Medications Acetaminophen (Tylenol -) 650 mg PO Q6H PRN PRN Reason: PAIN OR FEVER Last Admin: 07/14/19 23:14 Dose: 650 mg Albuterol Sulfate (Ventolin 0.083% Nebulizer Soln -) 1 amp NEB Q6H PRN PRN Reason: SHORT OF BREATH/WHEEZING Allopurinol (Zyloprim -) 100 mg PO DAILY [facility] Last Admin: 07/17/19 09:51 Dose: 100 mg Amlodipine Besylate (Norvasc -) 10 mg PO DAILY [facility] Last Admin: 07/17/19 09:52 Dose: 10 mg Atorvastatin Calcium (Lipitor -) 20 mg PO HS [facility] Last Admin: 07/16/19 21:10 Dose: 20 mg Emollient Ointment (Aquaphor -) 1 applic TP TID [facility] Last Admin: 07/17/19 06:09 Dose: 1 applic Labetalol HCl (Normodyne -) 200 mg PO DAILY [facility] Last Admin: 07/17/19 09:52 Dose: 200 mg Lidocaine HCl (Xylocaine 2% Viscous Oral -) 15 ml MM Q6H PRN PRN Reason: ORAL PAIN/MOUTH SORES Memantine (Namenda -) 10 mg PO DAILY [facility] Last Admin: 07/17/19 09:52 Dose: 10 mg Nystatin (Mycostatin Cream -) 1 applic TP BID [facility] Last Admin: 07/17/19 09:52 Dose: 1 applic Olanzapine (Zyprexa -) 2.5 mg PO BID [facility] Last Admin: 07/17/19 09:52 Dose: 2.5 mg Pantoprazole Sodium (Protonix -) 20 mg PO DAILY [facility] Last Admin: 07/17/19 10:19 Dose: 20 mg Paroxetine HCl (Paxil -) 40 mg PO DAILY [facility] Last Admin: 07/17/19 09:51 Dose: 40 mg Risperidone (Risperdal -) 0.5 mg PO BID PRN PRN Reason: AGITATION Last Admin: 07/16/19 23:05 Dose: 0.5 mg - Objective Vital Signs: Vital Signs Temperature 97.4 F L 07/16/19 19:40 Pulse Rate 76 07/16/19 19:40 Respiratory Rate 20 07/16/19 20:11 Blood Pressure 126/64 07/16/19 19:40 O2 Sat by Pulse Oximetry (%) 92 L 07/16/19 20:11 Constitutional: Yes: Calm Eyes: Yes: Conjunctiva Clear HENT: Yes: Atraumatic Neck: Yes: Supple Cardiovascular: Yes: S1, S2 Respiratory: Yes: CTA Bilaterally Gastrointestinal: Yes: Soft Genitourinary: Yes: WNL Musculoskeletal: Yes: WNL Edema: Yes Edema: LLE: Trace, RLE: Trace Neurological: Yes: Oriented Labs: CBC, BMP 07/17/19 06:30 07/17/19 06:30 INR, PTT INR 1.16 (0.83-1.09) H 07/05/19 17:10 Problem List - Problems (1) CKD (chronic kidney disease) Code(s): N18.9 - CHRONIC KIDNEY DISEASE, UNSPECIFIED (2) Altered mental status Code(s): R41.82 - ALTERED MENTAL STATUS, UNSPECIFIED Qualifiers: Altered mental status type: unspecified Qualified Code(s): R41.82 - Altered mental status, unspecified (3) Dementia Code(s): F03.90 - UNSPECIFIED DEMENTIA WITHOUT BEHAVIORAL DISTURBANCE Qualifiers: Dementia type: unspecified type Dementia behavioral disturbance: without behavioral disturbance Qualified Code(s): F03.90 - Unspecified dementia without behavioral disturbance (4) MAURO (acute kidney injury) Code(s): N17.9 - ACUTE KIDNEY FAILURE, UNSPECIFIED Assessment/Plan Current Medications Generic Name Dose Route Start Last Admin Trade Name Freq PRN Reason Stop Dose Admin Acetaminophen 650 mg 07/05/19 22:15 07/14/19 23:14 Tylenol - PO 650 mg Q6H PRN Administration PAIN OR FEVER Albuterol Sulfate 1 amp 07/16/19 13:15 Ventolin 0.083% Nebulizer Soln - NEB Q6H PRN SHORT OF BREATH/WHEEZING Allopurinol 100 mg 07/06/19 10:00 07/17/19 09:51 Zyloprim - PO 100 mg DAILY [facility] Administration Amlodipine Besylate 10 mg 07/06/19 10:00 07/17/19 09:52 Norvasc - PO 10 mg DAILY [facility] Administration Atorvastatin Calcium 20 mg 07/06/19 22:00 07/16/19 21:10 Lipitor - PO 20 mg HS [facility] Administration Emollient Ointment 1 applic 07/06/19 22:00 07/17/19 06:09 Aquaphor - TP 1 applic TID [facility] Administration Labetalol HCl 200 mg 07/06/19 10:00 07/17/19 09:52 Normodyne - PO 200 mg DAILY [facility] Administration Lidocaine HCl 15 ml 07/13/19 22:57 Xylocaine 2% Viscous Oral - MM Q6H PRN ORAL PAIN/MOUTH SORES Memantine 10 mg 07/06/19 10:00 07/17/19 09:52 Namenda - PO 10 mg DAILY [facility] Administration Nystatin 1 applic 07/06/19 10:00 07/17/19 09:52 Mycostatin Cream - TP 1 applic BID [facility] Administration Olanzapine 2.5 mg 07/06/19 11:00 07/17/19 09:52 Zyprexa - PO 2.5 mg BID [facility] Administration Pantoprazole Sodium 20 mg 07/06/19 10:00 07/17/19 10:19 Protonix - PO 20 mg DAILY [facility] Administration Paroxetine HCl 40 mg 07/06/19 10:00 07/17/19 09:51 Paxil - PO 40 mg DAILY [facility] Administration Risperidone 0.5 mg 07/06/19 11:53 07/16/19 23:05 Risperdal - PO 0.5 mg BID PRN Administration AGITATION Impression 1. MAURO 2. CKD 3. UTI 4. PNA 5. dementia Plan - pt can get another dose of lasix tomorrow, perhaps every other day - will need to monitor volume status as he takes lasix prn at home - renal function stabilizing - will need outpt follow up
--- NOTE | 2019-07-17 15:10 | PN ---
Progress Note (short form) - Note Progress Note: resting now-he was agitated this am off antibioitcs and afebrile Vital Signs Period Temp Pulse Resp BP Sys/Pradhan Pulse Ox Last 24 Hr 97.4 F-98.9 F 70-76 20-20 122-126/58-64 92 llungs clear cor rrr CBC, BMP 07/17/19 06:30 07/17/19 06:30 Microbiology 07/15/19 07:05 Blood - Peripheral Venous Blood Culture - Preliminary NO GROWTH OBTAINED AFTER 48 HOURS, INCUBATION TO CONTINUE FOR 3 DAYS. 07/15/19 07:05 Blood - Peripheral Venous Blood Culture - Preliminary NO GROWTH OBTAINED AFTER 48 HOURS, INCUBATION TO CONTINUE FOR 3 DAYS. 07/05/19 17:10 Blood - Peripheral Venous Blood Culture - Final NO GROWTH AFTER 5 DAYS INCUBATION 07/05/19 17:10 Blood - Peripheral Venous Blood Culture - Final NO GROWTH AFTER 5 DAYS INCUBATION 07/05/19 18:30 Urine - Urine - Catheterized Urine Culture - Final Escherichia Coli Proteus Mirabilis 07/07/19 10:30 Urine For Antigen Detection Legionella Antigen - Final 07/07/19 10:30 Urine For Antigen Detection Streptococcus pneumoniae Antigen (M - Final a/p stable off antiiboitics please call back if needed Problem List - Problems (1) Altered mental status Code(s): R41.82 - ALTERED MENTAL STATUS, UNSPECIFIED Qualifiers: Altered mental status type: unspecified Qualified Code(s): R41.82 - Altered mental status, unspecified (2) Dementia Code(s): F03.90 - UNSPECIFIED DEMENTIA WITHOUT BEHAVIORAL DISTURBANCE Qualifiers: Dementia type: unspecified type Dementia behavioral disturbance: without behavioral disturbance Qualified Code(s): F03.90 - Unspecified dementia without behavioral disturbance (3) Urinary tract infection Code(s): N39.0 - URINARY TRACT INFECTION, SITE NOT SPECIFIED Qualifiers: Urinary tract infection type: site unspecified Hematuria presence: without hematuria Qualified Code(s): N39.0 - Urinary tract infection, site not specified (4) Abnormal x-ray of lung Code(s): R91.8 - OTHER NONSPECIFIC ABNORMAL FINDING OF LUNG FIELD
[2019-07-17] MEDS: ATORVASTATIN CA 20 MG TABLET (FP) PO SCH (21:29)
[2019-07-17] MEDS: risperiDONE 0.5 MG TABLET (FP) PO PRN (21:29)
[2019-07-17] MEDS: ACETAMINOPHEN 325 MG TABLET (FP) PO PRN (21:29)
[2019-07-18] MEDS: MINERAL OIL/PET HY-PHL TOPICAL OINTMENT 454 GM JAR TP SCH ×3 (06:36→21:15)
[2019-07-18] MEDS ORDERED: PT OWN MED DRAWER 7, Y5N ONE (10:11)
[2019-07-18] MEDS: LABETALOL HCL 200 MG TABLET (FP) PO SCH (10:42)
[2019-07-18] MEDS: amLODIPine BESYLATE 10 MG TABLET (FP) PO SCH (10:42)
[2019-07-18] MEDS: MEMANTINE HCL 10 MG TABLET (FP) PO SCH (10:42)
[2019-07-18] MEDS: PANTOPRAZOLE 20 MG TABLET (FP) PO SCH (10:43)
[2019-07-18] MEDS: ALLOPURINOL 100 MG TABLET (FP) PO SCH (10:43)
[2019-07-18] MEDS: PARoxetine HCL 20 MG TABLET PO SCH (10:43)
[2019-07-18] MEDS: OLANZapine 2.5 MG TABLET PO SCH (10:43)
[2019-07-18] MEDS: NYSTATIN 100,000 UNIT/GM TOPICAL CREAM 15 GM TUBE TP SCH ×2 (10:43→21:15)
--- NOTE | 2019-07-18 10:58 | DS ---
Physical Examination Vital Signs: Vital Signs Temperature 99.8 F H 07/18/19 05:55 Pulse Rate 80 07/18/19 05:55 Respiratory Rate 20 07/18/19 05:55 Blood Pressure 141/78 07/18/19 05:55 O2 Sat by Pulse Oximetry (%) 92 L 07/17/19 19:57 Constitutional: Yes: No Distress Cardiovascular: Yes: Regular Rate and Rhythm Respiratory: Yes: Diminished Gastrointestinal: Yes: Normal Bowel Sounds, Soft, Abdomen, Obese. No: Tenderness Edema: No Labs: CBC, BMP 07/17/19 06:30 07/17/19 06:30 Discharge Summary Problems reviewed: Yes Reason For Visit: UTI,DEMENTIA,ALT MENTAL STATUS,FALL Current Active Problems Abnormal x-ray of lung (Acute) Altered mental status (Acute) CKD (chronic kidney disease) (Acute) Dementia (Acute) Edema leg (Acute) Edema of both legs (Acute) Fall (Acute) Urinary tract infection (Acute) Hospital Course: Admitted for agitated behaviour,worsening dementia Found to have UTI, pneumonia Seen by ID -- started IV Zosyn-- completed on 07/17 Was on lasix but renal function worsening for which nephrology was consulted-- Lasix discontinued _ renal function better with a creatinine of 1.8 CT chest -- infiltrates, congestive changes, copd, interstital lung disease Pt also seen by psychiatry-- advised to keep pt on psych meds Pt better stable for dc to NH-- needs follow up with in house psychiatry and psychological services, physical therapy , O2, nebs Condition: Fair - Instructions Referrals: Dominguez Sosa MD [Staff Physician] - [facility] - Home Medications Comprehensive Discharge Medication List: Ambulatory Orders Allopurinol [Zyloprim -] 100 mg PO DAILY #30 tablet 11/24/12 Paroxetine HCl [Paxil] 40 mg PO DAILY 10/09/14 Atorvastatin Ca [Lipitor] 20 mg PO HS 04/28/19 Memantine HCl [Namenda -] 10 mg PO DAILY 04/28/19 Acetaminophen [Tylenol .Regular Strength -] 650 mg PO Q6H PRN tablet 05/04/19 Albuterol Sulfate 0.5% [Ventolin 0.5% Nebulizing Soln. -] 1 amp NEB Q4H PRN amp 05/04/19 Nystatin Cream [Mycostatin Cream -] 1 applic TP BID applic 05/04/19 Pantoprazole Sodium [Protonix -] 20 mg PO DAILY tablet.ec 05/04/19 Sennosides/Docusate Sodium [Pericolace -] 1 tablet PO BID tablet 05/04/19 Labetalol HCl [Normodyne -] 200 mg PO DAILY tablet 05/13/19 Amlodipine Besylate [Norvasc -] 5 mg PO DAILY 07/06/19 Furosemide [Lasix] 40 mg PO DAILY PRN 07/06/19 Risperidone [Risperdal] 0.5 mg PO HS PRN 07/06/19
[2019-07-18] MEDS ORDERED: LORazepam 2 MG/ML SDV VIAL IM ONE (11:30)
[2019-07-18] MEDS: OLANZapine 5 MG TABLET PO SCH ×3 (12:10→21:13)
[2019-07-18] MEDS ORDERED: FUROSEMIDE 40 MG TABLET (FP) PO ONE (14:38)
--- NOTE | 2019-07-18 14:41 | PN ---
Progress Note, Physician History of Present Illness: Pt seen and examined at bedside. He is awake and appears comfortable. - Current Medication List Current Medications: Active Medications Acetaminophen (Tylenol -) 650 mg PO Q6H PRN PRN Reason: PAIN OR FEVER Last Admin: 07/17/19 21:29 Dose: 650 mg Albuterol Sulfate (Ventolin 0.083% Nebulizer Soln -) 1 amp NEB Q6H PRN PRN Reason: SHORT OF BREATH/WHEEZING Allopurinol (Zyloprim -) 100 mg PO DAILY [facility] Last Admin: 07/18/19 10:43 Dose: Not Given Atorvastatin Calcium (Lipitor -) 20 mg PO HS [facility] Last Admin: 07/17/19 21:29 Dose: 20 mg Emollient Ointment (Aquaphor -) 1 applic TP TID [facility] Last Admin: 07/18/19 13:47 Dose: 1 applic Labetalol HCl (Normodyne -) 200 mg PO DAILY [facility] Last Admin: 07/18/19 10:42 Dose: Not Given Lidocaine HCl (Xylocaine 2% Viscous Oral -) 15 ml MM Q6H PRN PRN Reason: ORAL PAIN/MOUTH SORES Memantine (Namenda -) 10 mg PO DAILY [facility] Last Admin: 07/17/19 09:52 Dose: 10 mg Nystatin (Mycostatin Cream -) 1 applic TP BID [facility] Last Admin: 07/18/19 10:43 Dose: 1 applic Olanzapine (Zyprexa -) 5 mg PO BID [facility] Last Admin: 07/18/19 12:53 Dose: 5 mg Pantoprazole Sodium (Protonix -) 20 mg PO DAILY [facility] Last Admin: 07/17/19 10:19 Dose: 20 mg Paroxetine HCl (Paxil -) 40 mg PO DAILY [facility] Last Admin: 07/17/19 09:51 Dose: 40 mg Risperidone (Risperdal -) 0.5 mg PO BID PRN PRN Reason: AGITATION Last Admin: 07/17/19 21:29 Dose: 0.5 mg - Objective Vital Signs: Vital Signs Temperature 98.2 F 07/18/19 08:40 Pulse Rate 95 H 07/18/19 08:40 Respiratory Rate 20 07/18/19 08:40 Blood Pressure 94/50 L 07/18/19 08:40 O2 Sat by Pulse Oximetry (%) 90 L 07/18/19 09:00 Constitutional: Yes: Calm Eyes: Yes: Conjunctiva Clear HENT: Yes: Atraumatic Neck: Yes: Supple Cardiovascular: Yes: S1, S2 Respiratory: Yes: CTA Bilaterally Gastrointestinal: Yes: Normal Bowel Sounds, Soft Genitourinary: Yes: WNL Musculoskeletal: Yes: WNL Edema: Yes Edema: LLE: 1+, RLE: 1+ Neurological: Yes: Oriented Psychiatric: Yes: Oriented Labs: CBC, BMP 07/17/19 06:30 07/17/19 06:30 INR, PTT INR 1.16 (0.83-1.09) H 07/05/19 17:10 Problem List - Problems (1) CKD (chronic kidney disease) Code(s): N18.9 - CHRONIC KIDNEY DISEASE, UNSPECIFIED (2) Altered mental status Code(s): R41.82 - ALTERED MENTAL STATUS, UNSPECIFIED Qualifiers: Altered mental status type: unspecified Qualified Code(s): R41.82 - Altered mental status, unspecified (3) Dementia Code(s): F03.90 - UNSPECIFIED DEMENTIA WITHOUT BEHAVIORAL DISTURBANCE Qualifiers: Dementia type: unspecified type Dementia behavioral disturbance: without behavioral disturbance Qualified Code(s): F03.90 - Unspecified dementia without behavioral disturbance (4) MAURO (acute kidney injury) Code(s): N17.9 - ACUTE KIDNEY FAILURE, UNSPECIFIED Assessment/Plan Current Medications Generic Name Dose Route Start Last Admin Trade Name Freq PRN Reason Stop Dose Admin Acetaminophen 650 mg 07/05/19 22:15 07/17/19 21:29 Tylenol - PO 650 mg Q6H PRN Administration PAIN OR FEVER Albuterol Sulfate 1 amp 07/16/19 13:15 Ventolin 0.083% Nebulizer Soln - NEB Q6H PRN SHORT OF BREATH/WHEEZING Allopurinol 100 mg 07/06/19 10:00 07/18/19 10:43 Zyloprim - PO Not Given DAILY [facility] Atorvastatin Calcium 20 mg 07/06/19 22:00 07/17/19 21:29 Lipitor - PO 20 mg HS [facility] Administration Emollient Ointment 1 applic 07/06/19 22:00 07/18/19 13:47 Aquaphor - TP 1 applic TID [facility] Administration Furosemide 40 mg 07/18/19 14:38 Lasix - PO 07/18/19 14:39 ONCE ONE Labetalol HCl 200 mg 07/06/19 10:00 07/18/19 10:42 Normodyne - PO Not Given DAILY [facility] Lidocaine HCl 15 ml 07/13/19 22:57 Xylocaine 2% Viscous Oral - MM Q6H PRN ORAL PAIN/MOUTH SORES Memantine 10 mg 07/06/19 10:00 07/17/19 09:52 Namenda - PO 10 mg DAILY [facility] Administration Nystatin 1 applic 07/06/19 10:00 07/18/19 10:43 Mycostatin Cream - TP 1 applic BID [facility] Administration Olanzapine 5 mg 07/18/19 11:30 07/18/19 12:53 Zyprexa - PO 5 mg BID [facility] Administration Pantoprazole Sodium 20 mg 07/06/19 10:00 07/17/19 10:19 Protonix - PO 20 mg DAILY [facility] Administration Paroxetine HCl 40 mg 07/06/19 10:00 07/17/19 09:51 Paxil - PO 40 mg DAILY [facility] Administration Risperidone 0.5 mg 07/06/19 11:53 07/17/19 21:29 Risperdal - PO 0.5 mg BID PRN Administration AGITATION Impression 1. MAURO 2. CKD 3. UTI 4. PNA 5. dementia Plan - will give a dose of lasix - monitor renal function - lasix prn as outpt - can see in office for follow up
[2019-07-18] MEDS: ALBUTEROL SO4 0.083% IH SOL 2.5 MG/3 ML VIAL.NEB. NEB PRN (20:18)
[2019-07-18] MEDS: ATORVASTATIN CA 20 MG TABLET (FP) PO SCH (21:13)
[2019-07-19] MEDS: ALBUTEROL SO4 0.083% IH SOL 2.5 MG/3 ML VIAL.NEB. NEB PRN (03:10)
[2019-07-19] MEDS: MINERAL OIL/PET HY-PHL TOPICAL OINTMENT 454 GM JAR TP SCH ×3 (05:45→21:07)
[2019-07-19] MEDS: ACETAMINOPHEN 325 MG TABLET (FP) PO PRN (06:34)
[2019-07-19] MEDS ORDERED: PT OWN MED DRAWER 7, Y5N ONE (08:36)
[2019-07-19] MEDS: MEMANTINE HCL 10 MG TABLET (FP) PO SCH (09:01)
[2019-07-19] MEDS: NYSTATIN 100,000 UNIT/GM TOPICAL CREAM 15 GM TUBE TP SCH ×2 (09:01→21:07)
[2019-07-19] MEDS: PANTOPRAZOLE 20 MG TABLET (FP) PO SCH (09:01)
[2019-07-19] MEDS: ALLOPURINOL 100 MG TABLET (FP) PO SCH (09:01)
[2019-07-19] MEDS: PARoxetine HCL 20 MG TABLET PO SCH (09:01)
[2019-07-19] MEDS: risperiDONE 0.5 MG TABLET (FP) PO PRN ×2 (09:01→21:06)
[2019-07-19] MEDS: LABETALOL HCL 200 MG TABLET (FP) PO SCH (09:01)
[2019-07-19] MEDS: OLANZapine 5 MG TABLET PO SCH ×2 (09:01→21:06)
--- NOTE | 2019-07-19 13:43 | PN ---
Progress Note (short form) - Note Progress Note: pt seen/ examined comfortable now periods of agitation daughter at bedside all f/u noted afebrile Vital Signs Temp 98.7 F 07/19/19 10:00 Pulse 73 07/19/19 10:00 Resp 20 07/19/19 10:00 BP 122/76 07/19/19 10:00 Pulse Ox 91 L 07/18/19 21:00 Intake & Output 07/18/19 07/19/19 07/19/19 23:59 11:59 23:59 Intake Total 100 Balance 100 Intake: IV 0 SALINE LOCK 0 Oral 100 Other: Voiding Method Incontinent # Unmeasured Voids Void 4 Bowel Movement No Active Medications Acetaminophen (Tylenol -) 650 mg PO Q6H PRN PRN Reason: PAIN OR FEVER Last Admin: 07/19/19 06:34 Dose: 650 mg Albuterol Sulfate (Ventolin 0.083% Nebulizer Soln -) 1 amp NEB Q6H PRN PRN Reason: SHORT OF BREATH/WHEEZING Last Admin: 07/19/19 03:10 Dose: 1 amp Allopurinol (Zyloprim -) 100 mg PO DAILY [facility] Last Admin: 07/19/19 09:01 Dose: 100 mg Atorvastatin Calcium (Lipitor -) 20 mg PO HS [facility] Last Admin: 07/18/19 21:13 Dose: 20 mg Emollient Ointment (Aquaphor -) 1 applic TP TID [facility] Last Admin: 07/19/19 05:45 Dose: 1 applic Labetalol HCl (Normodyne -) 200 mg PO DAILY [facility] Last Admin: 07/19/19 09:01 Dose: 200 mg Lidocaine HCl (Xylocaine 2% Viscous Oral -) 15 ml MM Q6H PRN PRN Reason: ORAL PAIN/MOUTH SORES Memantine (Namenda -) 10 mg PO DAILY [facility] Last Admin: 07/19/19 09:01 Dose: 10 mg Nystatin (Mycostatin Cream -) 1 applic TP BID [facility] Last Admin: 07/19/19 09:01 Dose: 1 applic Olanzapine (Zyprexa -) 5 mg PO BID [facility] Last Admin: 07/19/19 09:01 Dose: 5 mg Pantoprazole Sodium (Protonix -) 20 mg PO DAILY [facility] Last Admin: 07/19/19 09:01 Dose: 20 mg Paroxetine HCl (Paxil -) 40 mg PO DAILY [facility] Last Admin: 07/19/19 09:01 Dose: 40 mg Risperidone (Risperdal -) 0.5 mg PO BID PRN PRN Reason: AGITATION Last Admin: 07/19/19 09:01 Dose: 0.5 mg CBC, BMP 07/17/19 06:30 07/17/19 06:30 Physical Exam S1 S2 RRR Lungs-- Clear Abd-soft, NT trace edema PLAN off abx stable Awaiting Insurance Authorization for str PT will follow d/w Daughter also d/c planning
[2019-07-19] MEDS ORDERED: FUROSEMIDE 40 MG TABLET (FP) PO ONE (16:21)
--- NOTE | 2019-07-19 16:21 | PN ---
Progress Note, Physician History of Present Illness: Pt seen and examined at bedside. He appears comfortable. - Current Medication List Current Medications: Active Medications Acetaminophen (Tylenol -) 650 mg PO Q6H PRN PRN Reason: PAIN OR FEVER Last Admin: 07/19/19 06:34 Dose: 650 mg Albuterol Sulfate (Ventolin 0.083% Nebulizer Soln -) 1 amp NEB Q6H PRN PRN Reason: SHORT OF BREATH/WHEEZING Last Admin: 07/19/19 03:10 Dose: 1 amp Allopurinol (Zyloprim -) 100 mg PO DAILY [facility] Last Admin: 07/19/19 09:01 Dose: 100 mg Atorvastatin Calcium (Lipitor -) 20 mg PO HS [facility] Last Admin: 07/18/19 21:13 Dose: 20 mg Emollient Ointment (Aquaphor -) 1 applic TP TID [facility] Last Admin: 07/19/19 13:49 Dose: 1 applic Labetalol HCl (Normodyne -) 200 mg PO DAILY [facility] Last Admin: 07/19/19 09:01 Dose: 200 mg Lidocaine HCl (Xylocaine 2% Viscous Oral -) 15 ml MM Q6H PRN PRN Reason: ORAL PAIN/MOUTH SORES Memantine (Namenda -) 10 mg PO DAILY [facility] Last Admin: 07/19/19 09:01 Dose: 10 mg Nystatin (Mycostatin Cream -) 1 applic TP BID [facility] Last Admin: 07/19/19 09:01 Dose: 1 applic Olanzapine (Zyprexa -) 5 mg PO BID [facility] Last Admin: 07/19/19 09:01 Dose: 5 mg Pantoprazole Sodium (Protonix -) 20 mg PO DAILY [facility] Last Admin: 07/19/19 09:01 Dose: 20 mg Paroxetine HCl (Paxil -) 40 mg PO DAILY [facility] Last Admin: 07/19/19 09:01 Dose: 40 mg Risperidone (Risperdal -) 0.5 mg PO BID PRN PRN Reason: AGITATION Last Admin: 07/19/19 09:01 Dose: 0.5 mg - Objective Vital Signs: Vital Signs Temperature 99.4 F 07/19/19 15:00 Pulse Rate 79 07/19/19 15:00 Respiratory Rate 20 07/19/19 15:00 Blood Pressure 155/57 L 07/19/19 15:00 O2 Sat by Pulse Oximetry (%) 93 L 07/19/19 09:00 Constitutional: Yes: Calm Eyes: Yes: Conjunctiva Clear HENT: Yes: Atraumatic Neck: Yes: Supple Cardiovascular: Yes: S1, S2 Respiratory: Yes: CTA Bilaterally Gastrointestinal: Yes: Soft Genitourinary: Yes: WNL Musculoskeletal: Yes: WNL Edema: Yes Edema: LLE: Trace, RLE: Trace Neurological: Yes: Confusion Labs: CBC, BMP 07/17/19 06:30 07/17/19 06:30 INR, PTT INR 1.16 (0.83-1.09) H 07/05/19 17:10 Problem List - Problems (1) CKD (chronic kidney disease) Code(s): N18.9 - CHRONIC KIDNEY DISEASE, UNSPECIFIED (2) Altered mental status Code(s): R41.82 - ALTERED MENTAL STATUS, UNSPECIFIED Qualifiers: Altered mental status type: unspecified Qualified Code(s): R41.82 - Altered mental status, unspecified (3) Dementia Code(s): F03.90 - UNSPECIFIED DEMENTIA WITHOUT BEHAVIORAL DISTURBANCE Qualifiers: Dementia type: unspecified type Dementia behavioral disturbance: without behavioral disturbance Qualified Code(s): F03.90 - Unspecified dementia without behavioral disturbance (4) MAURO (acute kidney injury) Code(s): N17.9 - ACUTE KIDNEY FAILURE, UNSPECIFIED Assessment/Plan Current Medications Generic Name Dose Route Start Last Admin Trade Name Freq PRN Reason Stop Dose Admin Acetaminophen 650 mg 07/05/19 22:15 07/19/19 06:34 Tylenol - PO 650 mg Q6H PRN Administration PAIN OR FEVER Albuterol Sulfate 1 amp 07/16/19 13:15 07/19/19 03:10 Ventolin 0.083% Nebulizer Soln - NEB 1 amp Q6H PRN Administration SHORT OF BREATH/WHEEZING Allopurinol 100 mg 07/06/19 10:00 07/19/19 09:01 Zyloprim - PO 100 mg DAILY [facility] Administration Atorvastatin Calcium 20 mg 07/06/19 22:00 07/18/19 21:13 Lipitor - PO 20 mg HS [facility] Administration Emollient Ointment 1 applic 07/06/19 22:00 07/19/19 13:49 Aquaphor - TP 1 applic TID [facility] Administration Labetalol HCl 200 mg 07/06/19 10:00 07/19/19 09:01 Normodyne - PO 200 mg DAILY [facility] Administration Lidocaine HCl 15 ml 07/13/19 22:57 Xylocaine 2% Viscous Oral - MM Q6H PRN ORAL PAIN/MOUTH SORES Memantine 10 mg 07/06/19 10:00 07/19/19 09:01 Namenda - PO 10 mg DAILY [facility] Administration Nystatin 1 applic 07/06/19 10:00 07/19/19 09:01 Mycostatin Cream - TP 1 applic BID [facility] Administration Olanzapine 5 mg 07/18/19 11:30 07/19/19 09:01 Zyprexa - PO 5 mg BID [facility] Administration Pantoprazole Sodium 20 mg 07/06/19 10:00 07/19/19 09:01 Protonix - PO 20 mg DAILY [facility] Administration Paroxetine HCl 40 mg 07/06/19 10:00 07/19/19 09:01 Paxil - PO 40 mg DAILY [facility] Administration Risperidone 0.5 mg 07/06/19 11:53 07/19/19 09:01 Risperdal - PO 0.5 mg BID PRN Administration AGITATION Impression 1. MAURO 2. CKD 3. UTI 4. PNA 5. dementia Plan - cont lasix PRN - monitor renal function - will need outpt follow - can see pt in office - pt pending placement - will follow PRN
[2019-07-19] MEDS: ATORVASTATIN CA 20 MG TABLET (FP) PO SCH (21:06)
[2019-07-20] MEDS ORDERED: LORazepam 2 MG/ML SDV VIAL IM ONE (00:36)
[2019-07-20] MEDS: MINERAL OIL/PET HY-PHL TOPICAL OINTMENT 454 GM JAR TP SCH ×3 (06:14→21:40)
[2019-07-20] MEDS ORDERED: PT OWN MED DRAWER 7, Y5N ONE (10:22)
[2019-07-20] MEDS: MEMANTINE HCL 10 MG TABLET (FP) PO SCH (10:25)
[2019-07-20] MEDS: OLANZapine 5 MG TABLET PO SCH (10:26)
[2019-07-20] MEDS: PANTOPRAZOLE 20 MG TABLET (FP) PO SCH (10:26)
[2019-07-20] MEDS: ALLOPURINOL 100 MG TABLET (FP) PO SCH (10:26)
[2019-07-20] MEDS: PARoxetine HCL 20 MG TABLET PO SCH (10:26)
[2019-07-20] MEDS: NYSTATIN 100,000 UNIT/GM TOPICAL CREAM 15 GM TUBE TP SCH ×2 (10:26→21:40)
[2019-07-20] MEDS: LABETALOL HCL 200 MG TABLET (FP) PO SCH (10:26)
--- NOTE | 2019-07-20 13:00 | PN ---
Progress Note (short form) - Note Progress Note: pt seen/ examined no new issues afebrile Vital Signs Temp 99.2 F 07/20/19 10:10 Pulse 87 07/20/19 10:10 Resp 20 07/20/19 10:10 BP 125/61 07/20/19 10:10 Pulse Ox 91 L 07/20/19 09:00 Intake & Output 07/19/19 07/20/19 07/20/19 23:59 11:59 23:59 Intake Total 220 Balance 220 Intake: Oral 220 Other: Voiding Method Incontinent Incontinent # Unmeasured Voids Void 1 1 Bowel Movement No Body Mass Index (BMI) 27.4 Active Medications Acetaminophen (Tylenol -) 650 mg PO Q6H PRN PRN Reason: PAIN OR FEVER Last Admin: 07/19/19 06:34 Dose: 650 mg Albuterol Sulfate (Ventolin 0.083% Nebulizer Soln -) 1 amp NEB Q6H PRN PRN Reason: SHORT OF BREATH/WHEEZING Last Admin: 07/19/19 03:10 Dose: 1 amp Allopurinol (Zyloprim -) 100 mg PO DAILY [facility] Last Admin: 07/20/19 10:26 Dose: 100 mg Atorvastatin Calcium (Lipitor -) 20 mg PO HS [facility] Last Admin: 07/19/19 21:06 Dose: 20 mg Emollient Ointment (Aquaphor -) 1 applic TP TID [facility] Last Admin: 07/20/19 06:14 Dose: 1 applic Labetalol HCl (Normodyne -) 200 mg PO DAILY [facility] Last Admin: 07/20/19 10:26 Dose: 200 mg Lidocaine HCl (Xylocaine 2% Viscous Oral -) 15 ml MM Q6H PRN PRN Reason: ORAL PAIN/MOUTH SORES Memantine (Namenda -) 10 mg PO DAILY [facility] Last Admin: 07/20/19 10:25 Dose: 10 mg Nystatin (Mycostatin Cream -) 1 applic TP BID [facility] Last Admin: 07/20/19 10:26 Dose: 1 applic Olanzapine (Zyprexa -) 5 mg PO BID [facility] Last Admin: 07/20/19 10:26 Dose: 5 mg Pantoprazole Sodium (Protonix -) 20 mg PO DAILY [facility] Last Admin: 07/20/19 10:26 Dose: 20 mg Paroxetine HCl (Paxil -) 40 mg PO DAILY [facility] Last Admin: 07/20/19 10:26 Dose: 40 mg Risperidone (Risperdal -) 0.5 mg PO BID PRN PRN Reason: AGITATION Last Admin: 07/19/19 21:06 Dose: 0.5 mg CBC, BMP 07/17/19 06:30 07/17/19 06:30 Physical Exam S1 S2 RRR Lungs-- Clear Abd-soft, NT trace edema PLAN off abx stable Awaiting Insurance Authorization for str PT will follow d/w Daughter also d/c planning in progress. Problem List - Problems (1) CKD (chronic kidney disease) Code(s): N18.9 - CHRONIC KIDNEY DISEASE, UNSPECIFIED (2) Dementia Code(s): F03.90 - UNSPECIFIED DEMENTIA WITHOUT BEHAVIORAL DISTURBANCE Qualifiers: Dementia type: unspecified type Dementia behavioral disturbance: without behavioral disturbance Qualified Code(s): F03.90 - Unspecified dementia without behavioral disturbance (3) Urinary tract infection Code(s): N39.0 - URINARY TRACT INFECTION, SITE NOT SPECIFIED Qualifiers: Urinary tract infection type: site unspecified Hematuria presence: without hematuria Qualified Code(s): N39.0 - Urinary tract infection, site not specified (4) Pneumonia Code(s): J18.9 - PNEUMONIA, UNSPECIFIED ORGANISM
[2019-07-20] MEDS: DEXTROSE 5%-0.45% SALINE 1,000 ML IV SCH (14:38)
[2019-07-20] MEDS: ACETAMINOPHEN 325 MG TABLET (FP) PO PRN (14:54)
[2019-07-20 16:00] LABS: HEMATOCRIT 26.5 % (35.4-49); HEMOGLOBIN 8.7 GM/dL (11.7-16.9); MCH 27.1 pg (25.7-33.7); MCHC 32.7 g/dl (32.0-35.9); MEAN CELL VOLUME 83.1 fl (80-96); MEAN PLT VOLUME 7.3 fl (7.5-11.1); PLATELET COUNT 373 K/MM3 (134-434); RBC 3.19 M/mm3 (4.00-5.60); RDW 16.2 % (11.9-15.9); WHITE BLOOD COUNT 7.5 K/mm3 (4.0-10.0)
[2019-07-20 16:24] LABS: ALBUMIN 2.4 g/dl (3.4-5.0); BILIRUBIN,TOTAL 0.4 mg/dL (0.2-1); BLOOD UREA NITROGEN 23.6 mg/dL (7-18); CALCIUM 8.4 mg/dL (8.5-10.1); CREATININE 1.8 mg/dL (0.55-1.3); POTASSIUM 3.8 mmol/L (3.5-5.1); TOT PROT 6.2 g/dl (6.4-8.2)
[2019-07-20] MEDS: ATORVASTATIN CA 20 MG TABLET (FP) PO SCH (21:40)
[2019-07-21] MEDS: DEXTROSE 5%-0.45% SALINE 1,000 ML IV SCH ×2 (00:42→14:30)
[2019-07-21] MEDS: MINERAL OIL/PET HY-PHL TOPICAL OINTMENT 454 GM JAR TP SCH ×3 (06:00→21:50)
[2019-07-21] MEDS: ALLOPURINOL 100 MG TABLET (FP) PO SCH (11:09)
[2019-07-21] MEDS: PANTOPRAZOLE 20 MG TABLET (FP) PO SCH (11:09)
[2019-07-21] MEDS: LABETALOL HCL 200 MG TABLET (FP) PO SCH (11:09)
[2019-07-21] MEDS: MEMANTINE HCL 10 MG TABLET (FP) PO SCH (11:09)
[2019-07-21] MEDS: PARoxetine HCL 20 MG TABLET PO SCH (11:09)
[2019-07-21] MEDS: NYSTATIN 100,000 UNIT/GM TOPICAL CREAM 15 GM TUBE TP SCH ×2 (11:10→21:50)
--- NOTE | 2019-07-21 13:52 | PN ---
Progress Note (short form) - Note Progress Note: pt seen/ examined more awake Zyprexa held yesterday comfortable Labs/ cxr noted daughter at bedside. started on mild hydration yesterday as was not eating. Vital Signs Temp 99.6 F 07/21/19 07:00 Pulse 83 07/21/19 10:00 Resp 18 07/21/19 10:00 BP 148/75 07/21/19 10:00 Pulse Ox 95 07/20/19 21:00 Intake & Output 07/20/19 07/21/19 07/21/19 23:59 11:59 23:59 Intake Total 956 800 Balance 956 800 Intake: IV 836 800 D5-1/2Ns - 1,000 ml @ 100 836 800 mls/hr IV ASDIR [facility] Rx#: [id number] Oral 120 Other: Voiding Method Incontinent Incontinent # Unmeasured Voids Void 2 Bowel Movement No Active Medications Acetaminophen (Tylenol -) 650 mg PO Q6H PRN PRN Reason: PAIN OR FEVER Last Admin: 07/20/19 14:54 Dose: 650 mg Allopurinol (Zyloprim -) 100 mg PO DAILY [facility] Last Admin: 07/21/19 11:09 Dose: 100 mg Atorvastatin Calcium (Lipitor -) 20 mg PO HS [facility] Last Admin: 07/20/19 21:40 Dose: 20 mg Emollient Ointment (Aquaphor -) 1 applic TP TID [facility] Last Admin: 07/21/19 06:00 Dose: 1 applic Dextrose/Sodium Chloride (D5-1/2ns -) 1,000 mls @ 100 mls/hr IV [facility] Last Admin: 07/21/19 00:42 Dose: 100 mls/hr Labetalol HCl (Normodyne -) 200 mg PO DAILY [facility] Last Admin: 07/21/19 11:09 Dose: 200 mg Lidocaine HCl (Xylocaine 2% Viscous Oral -) 15 ml MM Q6H PRN PRN Reason: ORAL PAIN/MOUTH SORES Memantine (Namenda -) 10 mg PO DAILY [facility] Last Admin: 07/21/19 11:09 Dose: 10 mg Nystatin (Mycostatin Cream -) 1 applic TP BID [facility] Last Admin: 07/21/19 11:10 Dose: 1 applic Pantoprazole Sodium (Protonix -) 20 mg PO DAILY [facility] Last Admin: 07/21/19 11:09 Dose: 20 mg Paroxetine HCl (Paxil -) 40 mg PO DAILY [facility] Last Admin: 07/21/19 11:09 Dose: 40 mg Risperidone (Risperdal -) 0.5 mg PO BID PRN PRN Reason: AGITATION Last Admin: 07/19/19 21:06 Dose: 0.5 mg CBC, BMP 07/20/19 15:25 07/20/19 15:25 cxr- Improved Physical Exam S1 S2 RRR Lungs-- Clear Abd-soft, NT trace edema PLAN off abx stable continue mild hydration Awaiting Insurance Authorization for str PT will follow d/w Daughter also again today monitor for agitation d/c planning in progress. will follow Problem List - Problems (1) CKD (chronic kidney disease) Code(s): N18.9 - CHRONIC KIDNEY DISEASE, UNSPECIFIED (2) Dementia Code(s): F03.90 - UNSPECIFIED DEMENTIA WITHOUT BEHAVIORAL DISTURBANCE Qualifiers: Dementia type: unspecified type Dementia behavioral disturbance: without behavioral disturbance Qualified Code(s): F03.90 - Unspecified dementia without behavioral disturbance (3) Urinary tract infection Code(s): N39.0 - URINARY TRACT INFECTION, SITE NOT SPECIFIED Qualifiers: Urinary tract infection type: site unspecified Hematuria presence: without hematuria Qualified Code(s): N39.0 - Urinary tract infection, site not specified (4) Pneumonia Code(s): J18.9 - PNEUMONIA, UNSPECIFIED ORGANISM
[2019-07-21] MEDS: BACITRACIN 15 GM TUBE TOPICAL OINTMENT TP SCH ×2 (17:59→21:50)
[2019-07-21] MEDS: ACETAMINOPHEN 325 MG TABLET (FP) PO PRN (19:47)
[2019-07-21] MEDS: ATORVASTATIN CA 20 MG TABLET (FP) PO SCH (21:50)
[2019-07-22] MEDS: BACITRACIN 15 GM TUBE TOPICAL OINTMENT TP SCH (05:38)
[2019-07-22] MEDS: MINERAL OIL/PET HY-PHL TOPICAL OINTMENT 454 GM JAR TP SCH (05:38)
[2019-07-22 07:30] LABS: EOS % 6.2 % (0-4.5); HEMATOCRIT 26.4 % (35.4-49); HEMOGLOBIN 8.8 GM/dL (11.7-16.9); LYMPH % 26.1 % (8-40); MCH 27.8 pg (25.7-33.7); MCHC 33.3 g/dl (32.0-35.9); MEAN CELL VOLUME 83.5 fl (80-96); MEAN PLT VOLUME 7.3 fl (7.5-11.1); MONO % 15.1 % (3.8-10.2); NEUT % 51.6 % (42.8-82.8); PLATELET COUNT 317 K/MM3 (134-434); RBC 3.17 M/mm3 (4.00-5.60); RDW 16.4 % (11.9-15.9); WHITE BLOOD COUNT 6.2 K/mm3 (4.0-10.0)
[2019-07-22 08:01] LABS: ALBUMIN 2.2 g/dl (3.4-5.0); BILIRUBIN,TOTAL 0.6 mg/dL (0.2-1); BLOOD UREA NITROGEN 21.8 mg/dL (7-18); CALCIUM 8.2 mg/dL (8.5-10.1); CREATININE 1.6 mg/dL (0.55-1.3); POTASSIUM 3.8 mmol/L (3.5-5.1); TOT PROT 6.2 g/dl (6.4-8.2)
[2019-07-22] MEDS: PARoxetine HCL 20 MG TABLET PO SCH (09:55)
[2019-07-22] MEDS: PANTOPRAZOLE 20 MG TABLET (FP) PO SCH (09:55)
[2019-07-22] MEDS: MEMANTINE HCL 10 MG TABLET (FP) PO SCH (09:55)
[2019-07-22] MEDS: LABETALOL HCL 200 MG TABLET (FP) PO SCH (09:55)
[2019-07-22] MEDS: ALLOPURINOL 100 MG TABLET (FP) PO SCH (09:55)
[2019-07-22] MEDS: NYSTATIN 100,000 UNIT/GM TOPICAL CREAM 15 GM TUBE TP SCH (09:56)
[2019-07-22 11:31] VITALS: BP 129/62; PULSE 79; TEMP 98.2
--- NOTE | 2019-07-22 13:24 | PN ---
Progress Note (short form) - Note Progress Note: pt seen/ examined sitting in chair Off zyprexa-- now alert/ awake and pleasant No drowsy any more Called Psych many times for f/u ---Did not come !! Eating well also today. Vital Signs Temp 98.2 F 07/22/19 10:00 Pulse 79 07/22/19 10:00 Resp 18 07/22/19 10:00 BP 129/62 07/22/19 10:00 Pulse Ox 91 L 07/21/19 21:00 Intake & Output 07/21/19 07/22/19 07/22/19 23:59 11:59 23:59 Intake Total 650 0 Balance 650 0 Intake: IV 650 D5-1/2Ns - 1,000 ml @ 100 650 mls/hr IV [facility] Rx#: [id number] IVPB 0 0 Oral 0 Other: Voiding Method Incontinent Incontinent # Unmeasured Voids Void 2 Bowel Movement No # Bowel Movements 3 Physical Exam S1 S2 RRR Lungs-- Clear Abd-soft, NT trace edema PLAN off abx stable d/c off Zyprexa . d/c planning in progress. Likely today. Problem List - Problems (1) CKD (chronic kidney disease) Code(s): N18.9 - CHRONIC KIDNEY DISEASE, UNSPECIFIED (2) Dementia Code(s): F03.90 - UNSPECIFIED DEMENTIA WITHOUT BEHAVIORAL DISTURBANCE Qualifiers: Dementia type: unspecified type Dementia behavioral disturbance: without behavioral disturbance Qualified Code(s): F03.90 - Unspecified dementia without behavioral disturbance (3) Urinary tract infection Code(s): N39.0 - URINARY TRACT INFECTION, SITE NOT SPECIFIED Qualifiers: Urinary tract infection type: site unspecified Hematuria presence: without hematuria Qualified Code(s): N39.0 - Urinary tract infection, site not specified (4) Pneumonia Code(s): J18.9 - PNEUMONIA, UNSPECIFIED ORGANISM Problem List - Problems (1) CKD (chronic kidney disease) Code(s): N18.9 - CHRONIC KIDNEY DISEASE, UNSPECIFIED (2) Dementia Code(s): F03.90 - UNSPECIFIED DEMENTIA WITHOUT BEHAVIORAL DISTURBANCE Qualifiers: Dementia type: unspecified type Dementia behavioral disturbance: without behavioral disturbance Qualified Code(s): F03.90 - Unspecified dementia without behavioral disturbance (3) Urinary tract infection Code(s): N39.0 - URINARY TRACT INFECTION, SITE NOT SPECIFIED Qualifiers: Urinary tract infection type: site unspecified Hematuria presence: without hematuria Qualified Code(s): N39.0 - Urinary tract infection, site not specified (4) Pneumonia Code(s): J18.9 - PNEUMONIA, UNSPECIFIED ORGANISM
[2019-07-22] MEDS ORDERED: FUROSEMIDE 40 MG TABLET (FP) PO ONE (13:35)
--- NOTE | 2019-07-22 13:35 | PN ---
Progress Note, Physician History of Present Illness: Pt seen and examined at bedside. He is awake and appears comfortable. - Current Medication List Current Medications: Active Medications Acetaminophen (Tylenol -) 650 mg PO Q6H PRN PRN Reason: PAIN OR FEVER Last Admin: 07/21/19 19:47 Dose: 650 mg Allopurinol (Zyloprim -) 100 mg PO DAILY [facility] Last Admin: 07/22/19 09:55 Dose: 100 mg Atorvastatin Calcium (Lipitor -) 20 mg PO HS [facility] Last Admin: 07/21/19 21:50 Dose: 20 mg Bacitracin (Bacitracin -) 1 applic TP TID [facility] Last Admin: 07/22/19 05:38 Dose: 1 applic Emollient Ointment (Aquaphor -) 1 applic TP TID [facility] Last Admin: 07/22/19 05:38 Dose: 1 applic Dextrose/Sodium Chloride (D5-1/2ns -) 1,000 mls @ 100 mls/hr IV ASDIR [facility] Last Admin: 07/21/19 14:30 Dose: Not Given Labetalol HCl (Normodyne -) 200 mg PO DAILY [facility] Last Admin: 07/22/19 09:55 Dose: 200 mg Lidocaine HCl (Xylocaine 2% Viscous Oral -) 15 ml MM Q6H PRN PRN Reason: ORAL PAIN/MOUTH SORES Memantine (Namenda -) 10 mg PO DAILY [facility] Last Admin: 07/22/19 09:55 Dose: 10 mg Nystatin (Mycostatin Cream -) 1 applic TP BID [facility] Last Admin: 07/22/19 09:56 Dose: 1 applic Pantoprazole Sodium (Protonix -) 20 mg PO DAILY [facility] Last Admin: 07/22/19 09:55 Dose: 20 mg Paroxetine HCl (Paxil -) 40 mg PO DAILY [facility] Last Admin: 07/22/19 09:55 Dose: 40 mg Risperidone (Risperdal -) 0.5 mg PO BID PRN PRN Reason: AGITATION Last Admin: 07/19/19 21:06 Dose: 0.5 mg - Objective Vital Signs: Vital Signs Temperature 98.2 F 07/22/19 10:00 Pulse Rate 79 07/22/19 10:00 Respiratory Rate 18 07/22/19 10:00 Blood Pressure 129/62 07/22/19 10:00 O2 Sat by Pulse Oximetry (%) 91 L 07/21/19 21:00 Constitutional: Yes: Calm Eyes: Yes: Conjunctiva Clear HENT: Yes: Atraumatic Neck: Yes: Supple Cardiovascular: Yes: S1, S2 Respiratory: Yes: CTA Bilaterally Gastrointestinal: Yes: Normal Bowel Sounds, Soft Genitourinary: Yes: WNL Musculoskeletal: Yes: WNL Edema: Yes Edema: LLE: 1+, RLE: 1+ Neurological: Yes: Confusion Labs: CBC, BMP 07/22/19 06:40 07/22/19 06:40 INR, PTT INR 1.16 (0.83-1.09) H 07/05/19 17:10 Problem List - Problems (1) CKD (chronic kidney disease) Code(s): N18.9 - CHRONIC KIDNEY DISEASE, UNSPECIFIED (2) Altered mental status Code(s): R41.82 - ALTERED MENTAL STATUS, UNSPECIFIED Qualifiers: Altered mental status type: unspecified Qualified Code(s): R41.82 - Altered mental status, unspecified (3) Dementia Code(s): F03.90 - UNSPECIFIED DEMENTIA WITHOUT BEHAVIORAL DISTURBANCE Qualifiers: Dementia type: unspecified type Dementia behavioral disturbance: without behavioral disturbance Qualified Code(s): F03.90 - Unspecified dementia without behavioral disturbance (4) MAURO (acute kidney injury) Code(s): N17.9 - ACUTE KIDNEY FAILURE, UNSPECIFIED Assessment/Plan Current Medications Generic Name Dose Route Start Last Admin Trade Name Freq PRN Reason Stop Dose Admin Acetaminophen 650 mg 07/05/19 22:15 07/21/19 19:47 Tylenol - PO 650 mg Q6H PRN Administration PAIN OR FEVER Allopurinol 100 mg 07/06/19 10:00 07/22/19 09:55 Zyloprim - PO 100 mg DAILY [facility] Administration Atorvastatin Calcium 20 mg 07/06/19 22:00 07/21/19 21:50 Lipitor - PO 20 mg HS [facility] Administration Bacitracin 1 applic 07/21/19 16:45 07/22/19 05:38 Bacitracin - TP 1 applic TID [facility] Administration Emollient Ointment 1 applic 07/06/19 22:00 07/22/19 05:38 Aquaphor - TP 1 applic TID [facility] Administration Dextrose/Sodium Chloride 1,000 mls @ 100 mls/hr 07/20/19 14:30 07/21/19 14:30 D5-1/2ns - IV Not Given [facility]IR [facility] Labetalol HCl 200 mg 07/06/19 10:00 07/22/19 09:55 Normodyne - PO 200 mg DAILY [facility] Administration Lidocaine HCl 15 ml 07/13/19 22:57 Xylocaine 2% Viscous Oral - MM Q6H PRN ORAL PAIN/MOUTH SORES Memantine 10 mg 07/06/19 10:00 07/22/19 09:55 Namenda - PO 10 mg DAILY [facility] Administration Nystatin 1 applic 07/06/19 10:00 07/22/19 09:56 Mycostatin Cream - TP 1 applic BID [facility] Administration Pantoprazole Sodium 20 mg 07/06/19 10:00 07/22/19 09:55 Protonix - PO 20 mg DAILY [facility] Administration Paroxetine HCl 40 mg 07/06/19 10:00 07/22/19 09:55 Paxil - PO 40 mg DAILY [facility] Administration Risperidone 0.5 mg 07/06/19 11:53 07/19/19 21:06 Risperdal - PO 0.5 mg BID PRN Administration AGITATION Impression 1. MAURO 2. CKD 3. UTI 4. PNA 5. dementia Plan - will give a dose of lasix - will need outpt follow - can see pt in office - pt pending placement
== END 2019-07-22 13:30 | DRG 884 ==
LOC: JER 16:01 → SUPCPDRO 16:01 → JERBED 19:57 → J8W 23:22
PROVIDERS: ADMIT Internal Medicine; ATTEND Internal Medicine
DX: F03.91 Unspecified dementia, unspecified severity, with behavioral disturbance (principal); J18.9 Pneumonia, unspecified organism; G93.41 Metabolic encephalopathy; N39.0 Urinary tract infection, site not specified; N17.9 Acute kidney failure, unspecified; F05 Delirium due to known physiological condition; R41.82 Altered mental status, unspecified; E78.5 Hyperlipidemia, unspecified; W19.XXXA Unspecified fall, initial encounter; R60.0 Localized edema; K21.9 Gastro-esophageal reflux disease without esophagitis; M10.9 Gout, unspecified; R50.9 Fever, unspecified; I12.9 Hypertensive chronic kidney disease with stage 1 through stage 4 chronic kidney disease, or unspecified chronic kidney disease; N18.9 Chronic kidney disease, unspecified; I25.10 Atherosclerotic heart disease of native coronary artery without angina pectoris; F32.9 Major depressive disorder, single episode, unspecified
CPT/HCPCS: 36415; 70450-TC; 71045-TC-FY; 71250-TC; 76775-TC; 80048; 80053; 81003; 82436; 82550; 82553; 82565; 82803; 83605; 83880; 84133; 84300; 84484; 85025; 85027; 85610; 85730; 86850; 86900; 86901; 87040; 87086; 87186; 87899; 93005; 93010; 94640; 97116-GP; 97161-GP; 99284-25; J1644; J7030; Q2036

== ENCOUNTER 2019-09-02 20:47 | Emergency (ER) | payer BC, OTHER ==
--- NOTE | 2019-09-02 21:15 | PDOC ---
History of Present Illness - General Stated Complaint: hematuria Time Seen by Provider: 09/02/19 20:57 - History of Present Illness Initial Comments: 09/02/19 21:55 89 yo M PMH HTN, HLD, dementia, sent from [facility]' with hematuria. Patient Indonesian speaking, significant dementia, unable to provide history at baseline. Called [facility], state that he has had blood streaks in the bowl after urination for the past couple of days. Unable to assess ROS 2/2 dementia. Past History - Past Medical History Allergies/Adverse Reactions: Allergies Allergy/AdvReac Type Severity Reaction Status Date / Time No Known Allergies Allergy Verified 05/08/19 13:56 Home Medications: Ambulatory Orders Allopurinol [Zyloprim -] 100 mg PO DAILY #30 tablet 11/24/12 Paroxetine HCl [Paxil] 40 mg PO DAILY 10/09/14 Atorvastatin Ca [Lipitor] 20 mg PO HS 04/28/19 Memantine HCl [Namenda -] 10 mg PO DAILY 04/28/19 Acetaminophen [Tylenol .Regular Strength -] 650 mg PO Q6H PRN tablet 05/04/19 Albuterol Sulfate 0.5% [Ventolin 0.5% Nebulizing Soln. -] 1 amp NEB Q4H PRN amp 05/04/19 Nystatin Cream [Mycostatin Cream -] 1 applic TP BID applic 05/04/19 Pantoprazole Sodium [Protonix -] 20 mg PO DAILY [facility] 05/04/19 Sennosides/Docusate Sodium [Pericolace -] 1 tablet PO BID tablet 05/04/19 Labetalol HCl [Normodyne -] 200 mg PO DAILY tablet 05/13/19 Acetaminophen [Tylenol .Regular Strength -] 650 mg PO Q6H PRN tablet 07/22/19 Albuterol 0.083% Nebulizer Gayathri [Ventolin 0.083% Nebulizer Soln -] 1 amp NEB Q6H PRN amp 07/22/19 Bacitracin - [Bacitracin Topical Ointment -] 1 applic TP TID tube 07/22/19 Mineral Oil/Pet Hy-Phl [Aquaphor -] 1 applic TP TID jar 07/22/19 Sulfamethoxazole/Trimethoprim [Bactrim Ds -] 1 tab PO BID #14 tablet 09/02/19 Cancer: Yes (PROSTATE) COPD: No Dementia: Yes HTN: Yes Hypercholesterolemia: Yes - Surgical History Abdominal Surgery: Yes (HERNIA) Orthopedic Surgery: Yes (L. Knee and Shoulder) - Immunization History Td Vaccination: No Immunization Up to Date: No - Psycho Social/Smoking Cessation Hx Smoking Status: Yes Smoking History: Never smoked Have you smoked in the past 12 months: No Number of Cigarettes Smoked Daily: 0 If you are a former smoker, when did you quit?: 49 yrs ago Hx Alcohol Use: No Drug/Substance Use Hx: No Substance Use Type: None Hx Substance Use Treatment: No Review of Systems - Review of Systems Able to Perform ROS?: No (dementia) *Physical Exam - Physical Exam 09/02/19 21:57 Gen: well-developed, well-nourished, uncooperative Neuro: unable to assess orientation. CN II-XII intact, FTN intact, EOMI, PERRLA , 5/5 strength, SILT HEENT: atraumatic, normocephalic, dry mucous membranes Neck: trachea midline, supple CV: regular rate, regular rhythm, no murmurs, rubs, or gallops Pulm: CTA b/l, no wheezing Abd: soft, non-distended, non-tender : no bleeding at penis, foreskin difficult to retract MSK: full ROM, intact pulses Extr: 2+ pitting edema to knees, no deformities Skin: warm, dry Medical Decision Making - Medical Decision Making 09/02/19 21:58 Concern for possible UTI. Patient unable to cooperate 2/2 dementia. - 2mg Ativan, 5mg Haldol - rectal temp - UA/UC 09/02/19 23:41 UA with 2+ blood, 2+ leuk, many bacteria. Concerning for UTI. Will treat. Discharge - Discharge Information Problems reviewed: Yes Clinical Impression/Diagnosis: UTI (urinary tract infection) Condition: Improved Disposition: HOME - Admission No - Additional Discharge Information Prescriptions: Sulfamethoxazole/Trimethoprim [Bactrim Ds -] 1 tab PO BID #14 tablet - Follow up/Referral - Patient Discharge Instructions Patient Printed Discharge Instructions: DI for Urinary Tract Infection (UTI) Additional Instructions: You were seen with bloody urine. Your urine was found to be infected, indicating that you have a urinary tract infection. Please take your Bactrim twice daily for 14 days. Follow up with your primary care doctor within one week. Return to the ED if you develop worsening symptoms. - Post Discharge Activity
--- NOTE | 2019-09-02 21:18 | PDOC ---
Documentation entered by Amaya Weeks SCRIBE, acting as scribe for Idalia Shore MD. Idalia Shore MD: This documentation has been prepared by the Micky mehta Nirvannie, SCRIBE, under my direction and personally reviewed by me in its entirety. I confirm that the documentation accurately reflects all work, treatment, procedures, and medical decision making performed by me. Attending Attestation - Resident Resident Name: Jasmeet Buck - ED Attending Attestation I have performed the following: I have examined & evaluated the patient, The case was reviewed & discussed with the resident, I agree w/resident's findings & plan - HPI HPI: 09/02/19 21:55 The patient is a 89 year old male, with a significant past medical history of HTN, HLD, prostate cancer, gout, dementia, who presents to the emergency department with, hematuria. - Physicial Exam PE: 09/02/19 22:01 Well-nourished well-developed 89-year-old male [facility] in [facility] urine. Pt is not compliant with staff,agitated behavior Head normocephalic atraumatic Neck supple lungs no wheezing cvs [id number] abdomen nontender Extremities no deformities Neuro patient is alert and conversant speaking Trinidadian. Dementia,poor historian - Medical Decision Making 09/02/19 22:04 We will give patient some mild sedation so we can get urine 09/02/19 22:52 clean catch urine sent 09/02/19 23:44 UA shows some mild UTI and patient will be started on antibiotics No overt hematuria appreciated
[2019-09-02] MEDS ORDERED: HALOPERIDOL LACTATE 5 MG/ML IM ONE (21:29)
[2019-09-02] MEDS ORDERED: HALOPERIDOL LACTATE 5 MG/ML ONE (21:37)
[2019-09-02] MEDS ORDERED: LORazepam 2 MG/ML SDV VIAL ONE (21:38)
[2019-09-02 23:40] LABS: EPI CELLS 0.4 /HPF (0-5/HPF); HYALINE CASTS 1 /lpf (0-8); URINE APPEARANCE CLOUDY; URINE BACTERIA 4464.4 /hpf (NEGATIVE); URINE BILIRUBIN NEGATIVE (NEGATIVE); URINE COLOR YELLOW; URINE GLUCOSE (UA) NEGATIVE (NEGATIVE); URINE KETONE NEGATIVE (NEGATIVE); URINE LEUK ESTERASE 2+ (NEGATIVE); URINE NITRITE NEGATIVE (NEGATIVE); URINE PROTEIN NEGATIVE (NEGATIVE); URINE RBC 9 /hpf (0-4); URINE UROBILINOGEN 0.2 mg/dL (0.2-1.0); URINE WBC 123 /hpf (0-5)
[2019-09-03 02:13] VITALS: BP 140/69; PULSE 94; TEMP 98.1
== END 2019-09-03 02:50 | disposition home or self-care (01) ==
LOC: JER 20:47
PROC: 3E023NZ Introduction of Analgesics, Hypnotics, Sedatives into Muscle, Percutaneous Approach (ICD-10-PCS; principal; 2019-09-02)
PROC: 3E023NZ Introduction of Analgesics, Hypnotics, Sedatives into Muscle, Percutaneous Approach (ICD-10-PCS; 2019-09-02)
DX: N39.0 Urinary tract infection, site not specified (principal); F03.90 Unspecified dementia, unspecified severity, without behavioral disturbance, psychotic disturbance, mood disturbance, and anxiety; I10 Essential (primary) hypertension; E78.5 Hyperlipidemia, unspecified; M10.9 Gout, unspecified; Z85.46 Personal history of malignant neoplasm of prostate
CPT/HCPCS: 81003; 87086; 87186; 96372; 99282-25

== ENCOUNTER 2019-11-17 11:07 | Inpatient (IN) | payer BC ==
[2019-11-17] MEDS ORDERED: MORPHINE SULFATE 2 MG/ML VIAL ONE ×4 (11:50→23:57)
[2019-11-17] MEDS ORDERED: ACETAMINOPHEN INJECTION 100 ML IVPB ONE (11:50)
[2019-11-17] MEDS ORDERED: morphine CARPU-JECT 2 MG/1 ML DISP.SYRIN IVPUSH ONE (12:04)
[2019-11-17] MEDS ORDERED: ACETAMINOPHEN 1000 MG/100 ML VIAL (NON FORMULARY) IVPB ONE (12:04)
--- NOTE | 2019-11-17 12:19 | PDOC ---
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 He is unable to contribute to history secondary to dementia. Per [facility] records, at approx 0430 he was found on the floor next to his bed, and was unable to move leg secondary to pain. He is [place] speaking. No blood thinner use. He does not remember the fall. 11/17/19 12:35 Discussed with [facility]. They report that he had an unwitnessed fall, and was found on the floor by this bed at 0430. His baseline mental status is oriented only to self. No recent infections, or worsening confusion. --- Discussed with his emergency contact (Jannet Martinez, daughter - [phone]) as well, she is aware that he is being treated in the ED. Will update her with XR results and further management. <Chance Emanuel - Last Filed: 11/17/19 22:54> - General Chief Complaint: Injury Stated Complaint: HIP FRACTURE Time Seen by Provider: 11/17/19 11:58 Past History <Jes Colbert - Last Filed: 11/17/19 14:32> - Past Medical History Cancer: Yes (PROSTATE) COPD: No Dementia: Yes HTN: Yes Hypercholesterolemia: Yes - Surgical History Abdominal Surgery: Yes (HERNIA) Orthopedic Surgery: Yes (L. Knee and Shoulder) - Immunization History Td Vaccination: No Immunization Up to Date: No - Psycho Social/Smoking Cessation Hx Smoking Status: Yes Smoking History: Unknown if ever smoked Have you smoked in the past 12 months: No Number of Cigarettes Smoked Daily: 0 If you are a former smoker, when did you quit?: 49 yrs ago Hx Alcohol Use: No Drug/Substance Use Hx: No Substance Use Type: None Hx Substance Use Treatment: No <Chance Emanuel - Last Filed: 11/17/19 22:54> - Past Medical History Allergies/Adverse Reactions: Allergies Allergy/AdvReac Type Severity Reaction Status Date / Time No Known Allergies Allergy Verified 05/08/19 13:56 Home Medications: Ambulatory Orders Allopurinol [Zyloprim -] 100 mg PO DAILY #30 tablet 11/24/12 Paroxetine HCl [Paxil] 40 mg PO DAILY 10/09/14 Atorvastatin Ca [Lipitor] 20 mg PO HS 04/28/19 Memantine HCl [Namenda -] 10 mg PO DAILY 04/28/19 Acetaminophen [Tylenol .Regular Strength -] 650 mg PO Q6H PRN tablet 05/04/19 Albuterol Sulfate 0.5% [Ventolin 0.5% Nebulizing Soln. -] 1 amp NEB Q4H PRN amp 05/04/19 Nystatin Cream [Mycostatin Cream -] 1 applic TP BID applic 05/04/19 Pantoprazole Sodium [Protonix -] 20 mg PO DAILY tablet.ec 05/04/19 Sennosides/Docusate Sodium [Pericolace -] 1 tablet PO BID tablet 05/04/19 Labetalol HCl [Normodyne -] 200 mg PO DAILY tablet 05/13/19 Acetaminophen [Tylenol .Regular Strength -] 650 mg PO Q6H PRN tablet 07/22/19 Albuterol 0.083% Nebulizer Gayathri [Ventolin 0.083% Nebulizer Soln -] 1 amp NEB Q6H PRN amp 07/22/19 Bacitracin - [Bacitracin Topical Ointment -] 1 applic TP TID tube 07/22/19 Mineral Oil/Pet Hy-Phl [Aquaphor -] 1 applic TP TID jar 07/22/19 Sulfamethoxazole/Trimethoprim [Bactrim Ds -] 1 tab PO BID #14 tablet 09/02/19 Review of Systems - Review of Systems Able to Perform ROS?: No (Dementia) <Chance Emanuel - Last Filed: 11/17/19 22:54> *Physical Exam - Vital Signs Last Vital Signs Temp Pulse Resp BP Pulse Ox 97.6 F 90 18 146/78 98 11/17/19 11:18 11/17/19 11:18 11/17/19 11:18 11/17/19 11:18 11/17/19 14:00 <Jes Colbert - Last Filed: 11/17/19 14:32> - Vital Signs Last Vital Signs Temp Pulse Resp BP Pulse Ox 97.6 F 90 18 146/78 99 11/17/19 11:18 11/17/19 11:18 11/17/19 11:18 11/17/19 11:18 11/17/19 11:18 - Physical Exam PE: GENERAL: Awake, alert only to self, groaning in pain, intermittently yelling and holding LLE HEAD: Normocephalic, 1cm superficial laceration noted on L lateral scalp EYES: PERRLA, EOMI, sclera anicteric, conjunctiva clear ENT: Auricles normal inspection, hearing grossly normal, nares patent, oropharynx clear without exudates. Moist mucosa NECK: Normal ROM, supple, no lymphadenopathy, JVD, or masses LUNGS: No distress, speaks full sentences, clear to auscultation bilaterally HEART: Regular rate and rhythm, normal S1 and S2, no murmurs, rubs or gallops, peripheral pulses normal and equal bilaterally. ABDOMEN: Soft, nontender, normoactive bowel sounds. No guarding, no rebound. No masses EXTREMITIES : LLE held in external rotation, limb shortening noted compared to RLE. Severe tenderness to palpation at L hip. No clubbing or cyanosis NEUROLOGICAL: Cranial nerves II through XII grossly intact. Normal speech, no focal sensorimotor deficits SKIN: Warm, Dry, normal turgor, no rashes or lesions noted <Chance Emanuel - Last Filed: 11/17/19 22:54> ED Treatment Course - LABORATORY CBC & Chemistry Diagram: 11/17/19 12:15 11/17/19 12:15 - ADDITIONAL ORDERS Additional order review: Laboratory Results 11/17/19 11/17/19 11/17/19 12:15 12:15 12:15 PT with INR 12.10 INR 1.03 PTT (Actin FS) 30.8 Sodium 142 Potassium 4.4 Chloride 110 H Carbon Dioxide 25 Anion Gap 7 L BUN 32.0 H Creatinine 1.9 H Est GFR (CKD-EPI)AfAm 35.44 Est GFR (CKD-EPI)NonAf 30.58 Random Glucose 115 H Calcium 9.1 Total Bilirubin 0.4 AST 17 ALT 20 Alkaline Phosphatase 84 Total Protein 7.3 Albumin 3.5 Urine Color Yellow Urine Appearance Cloudy Urine pH 6.0 Ur Specific [place] 1.009 L Urine Protein Negative Urine Glucose (UA) Negative Urine Ketones Negative Urine Blood Negative Urine Nitrite Negative Urine Bilirubin Negative Urine Urobilinogen 0.2 Ur Leukocyte Esterase 3+ H Urine WBC (Auto) 172 Urine RBC (Auto) 5 Urine Casts (Auto) 3 U Epithel Cells (Auto) 0.4 Urine Bacteria (Auto) 1223.8 Blood Type Antibody Screen 11/17/19 12:15 PT with INR INR PTT (Actin FS) Sodium Potassium Chloride Carbon Dioxide Anion Gap BUN Creatinine Est GFR (CKD-EPI)AfAm Est GFR (CKD-EPI)NonAf Random Glucose Calcium Total Bilirubin AST ALT Alkaline Phosphatase Total Protein Albumin Urine Color Urine Appearance Urine pH Ur Specific [place] Urine Protein Urine Glucose (UA) Urine Ketones Urine Blood Urine Nitrite Urine Bilirubin Urine Urobilinogen Ur Leukocyte Esterase Urine WBC (Auto) Urine RBC (Auto) Urine Casts (Auto) U Epithel Cells (Auto) Urine Bacteria (Auto) Blood Type B POSITIVE Antibody Screen Negative 11/17/19 12:15 RBC 4.17 MCV 80.7 MCHC 33.1 RDW 16.8 H MPV 8.0 Neutrophils % 76.9 D Lymphocytes % 13.8 D Monocytes % 7.3 Eosinophils % 1.6 Basophils % 0.4 - Medications Given in the ED: ED Medications Discontinued Medications Generic Name Dose Route Start Last Admin Trade Name Freq PRN Reason Stop Dose Admin Acetaminophen 1,000 mg 11/17/19 12:04 11/17/19 12:18 Ofirmev Injection - IVPB 11/17/19 12:05 1,000 mg ONCE ONE Administration Morphine Sulfate 2 mg 11/17/19 12:04 11/17/19 12:17 Morphine Injection - IVPUSH 11/17/19 12:05 2 mg ONCE ONE Administration Morphine Sulfate 4 mg 11/17/19 13:41 11/17/19 13:51 Morphine Injection - IVPUSH 11/17/19 13:42 4 mg ONCE ONE Administration <Jes Colbert - Last Filed: 11/17/19 14:32> - LABORATORY CBC & Chemistry Diagram: 11/17/19 12:15 11/17/19 12:15 <Chance Emanuel - Last Filed: 11/17/19 22:54> Medical Decision Making - Medical Decision Making 89M w/hx HTN, CHF, depression p/w [facility] fall at [facility], baseline oriented only to self, leg held in external rotation, limb shortening, tenderness and pain with active and passive ROM c/w hip fracture. Plan: CBC CMP CXR UA Urine culture Type and Screen x2 PT/INR, APTT XR L Hip/Pelvis XR L Femur Ortho consult pending imaging CT Head w/o contrast 4mg morphine for pain control Dispo: Admit 11/17/19 12:55 Patient in XR --- CBC - wnl CMP - Cr 1.9 (baseline) PT/INR, APTT - wnl UA - 3+ leuk esterase 1g ceftriaxone ordered Hip/Pelvis XR - Femoral IT fracture noted. --- Case discussed with orthopedics. Dr. Ramírez is in-house for a procedure, he will evaluate in ED for possible surgery today. --- Patient unable to tolerate CT head secondary to pain. additionl 4mg morphine ordered and administered. --- CT head negative --- Case discussed with admitting team, patient admitted to Dr. Erazo. <Chance Emanuel - Last Filed: 11/17/19 22:54> Discharge - Discharge Information Problems reviewed: Yes - Admission Yes <Jes Colbert - Last Filed: 11/17/19 14:32> <Chance Emanuel - Last Filed: 11/17/19 22:54> - Discharge Information Clinical Impression/Diagnosis: Hip fracture, UTI (urinary tract infection)
[2019-11-17 12:43] LABS: BASO % 0.4 % (0-2.0); EOS % 1.6 % (0-4.5); HEMATOCRIT 33.6 % (35.4-49); HEMOGLOBIN 11.1 GM/dL (11.7-16.9); LYMPH % 13.8 % (8-40); MCH 26.7 pg (25.7-33.7); MCHC 33.1 g/dl (32.0-35.9); MEAN CELL VOLUME 80.7 fl (80-96); MONO % 7.3 % (3.8-10.2); NEUT % 76.9 % (42.8-82.8); PLATELET COUNT 223 K/MM3 (134-434); RBC 4.17 M/mm3 (4.00-5.60); RDW 16.8 % (11.9-15.9); WHITE BLOOD COUNT 10.2 K/mm3 (4.0-10.0)
--- NOTE | 2019-11-17 12:57 | PDOC ---
Documentation entered by Maribel Harvey SCRIBE, acting as scribe for Jes Colbert MD. Jes Colbert MD: This documentation has been prepared by the yeimye, Maribel Harvey SCRIBE, under my direction and personally reviewed by me in its entirety. I confirm that the documentation accurately reflects all work, treatment, procedures, and medical decision making performed by me. Attending Attestation - ED Attending Attestation I have performed the following: I have examined & evaluated the patient, The case was reviewed & discussed with the resident, I agree w/resident's findings & plan, Exceptions are as noted - HPI HPI: 11/17/19 12:56 89-year-old male history of dementia Citizen Of [place] speaking here from skilled nursing found on the floor at 430 with unwitnessed fall. Patient is complaining of left hip pain was found to be shortened and externally rotated. Unclear if he hit his head no other current complaints 11/17/19 13:38 - Physicial Exam PE: 11/17/19 12:56 awake alert no acute distress head is atraumatic no cervical spine tenderness. Lungs are clear bilaterally heart is regular 30 murmurs rubs or gallops abdomen is soft nontender left hip is tenderness palpation decreased range of motion secondary to pain noted be externally rotated left leg is shortened. There is 2+ DP PT pulses bilaterally - Medical Decision Making 11/17/19 12:56 89-year-old male status post unwitnessed fall with a left hip deformity likely fracture. Plan CT head we will rule out any underlying anemia or other infection with urinalysis and basic lab work will likely require admission for left hip fracture. cervical spine chest x-ray x-ray pelvis and left hip.
[2019-11-17 13:08] LABS: ALBUMIN 3.5 g/dl (3.4-5.0); BILIRUBIN,TOTAL 0.4 mg/dL (0.2-1); CALCIUM 9.1 mg/dL (8.5-10.1); CREATININE 1.9 mg/dL (0.55-1.3); POTASSIUM 4.4 mmol/L (3.5-5.1); TOT PROT 7.3 g/dl (6.4-8.2)
[2019-11-17 13:12] LABS: INR 1.03 (0.83-1.09); PROTHROMBIN TIME (PATIENT) 12.1 SEC (9.7-13.0)
[2019-11-17 13:19] LABS: EPI CELLS 0.4 /HPF (0-5/HPF); HYALINE CASTS 3 /lpf (0-8); URINE APPEARANCE CLOUDY; URINE BACTERIA 1223.8 /hpf (NEGATIVE); URINE BILIRUBIN NEGATIVE (NEGATIVE); URINE COLOR YELLOW; URINE GLUCOSE (UA) NEGATIVE (NEGATIVE); URINE KETONE NEGATIVE (NEGATIVE); URINE LEUK ESTERASE 3+ (NEGATIVE); URINE NITRITE NEGATIVE (NEGATIVE); URINE PROTEIN NEGATIVE (NEGATIVE); URINE RBC 5 /hpf (0-4); URINE UROBILINOGEN 0.2 mg/dL (0.2-1.0); URINE WBC 172 /hpf (0-5)
[2019-11-17] MEDS ORDERED: CEFTRIAXONE 1,000 MG in DEXTROSE 5%-WATER - 50 ML IVPB ONE (13:39)
[2019-11-17] MEDS ORDERED: morphine CARPU-JECT 4 MG/1 ML DISP.SYRIN IVPUSH ONE ×2 (13:41→15:28)
[2019-11-17] MEDS ORDERED: morphine SULFATE 4 MG/ML VIAL ONE (13:42)
[2019-11-17 14:24] LABS: ACTIVATED PTT 30.8 SECONDS (25.2-36.5)
--- NOTE | 2019-11-17 14:56 | CONSULT ---
Consult - text type - Consultation Consultation Note: ORTHOPEDIC SURGERY CONSULTATION NOTE Department of Orthopedic Surgery HISTORY OF PRESENT ILLNESS Mr. Martinez is an 89 year old male who presents to [facility] ER s/p fall at [facility] today. The orthopedic service was consulted for a left hip fracture. The injury occurred at [facility], where the patient had an unwitnessed fall. The patient notes pain in his left hip which worsens with movement. Denies any other injuries. Denies numbness, tingling or other constitutional complaints. The patient is retired. Denies tobacco use, drug use , alcohol abuse. The patient stays at the [facility] and uses assistive devices for ambulation at baseline. FAMILY HISTORY non-contributory REVIEW OF SYMPTOMS A twelve-point review of systems was performed and was negative except as noted in HPI. PHYSICAL EXAM Constitutional: Alert and able to follow directions. Appears well-developed and well-nourished. Right Upper Extremity: Skin warm, dry, and intact; no lesions, rashes or ulcers noted. Muscle mass equal and symmetric to contralateral side. No atrophy noted. No masses or effusions noted. No tenderness to palpation all joints; nontender throughout rest of extremity. Full passive and active ROM, free from pain. Joints stable with no pathologic laxity. M/R/U/MSK/AX motor intact; SILT distally; 2+ radial pulses; Cap refill brisk. Tone and reflexes normal. Left Upper Extremity: Skin warm, dry, and intact; no lesions, rashes or ulcers noted. Muscle mass equal and symmetric to contralateral side. No atrophy noted. No masses or effusions noted. No tenderness to palpation all joints; nontender throughout rest of extremity. Full passive and active ROM, free from pain. Joints stable with no pathologic laxity. M/R/U/MSK/AX motor intact; SILT distally; 2+ radial pulses; Cap refill brisk. Tone and reflexes normal. Right Lower Extremity: Skin warm, dry, and intact; no lesions, rashes or ulcers noted. Muscle mass equal and symmetric to contralateral side. No atrophy noted. No masses or effusions noted. No tenderness to palpation all joints; Able to SLR ; Negative log roll.; nontender throughout rest of extremity. No cords or calf tenderness No significant calf/ankle edema. Full passive and active ROM, free from pain. Joints stable with no pathologic laxity. EHL/TA/GS motor intact; SILT distally; 2+ DP pulses; Cap refill brisk. Tone and reflexes normal. No calf ttp. Left Lower Extremity: Skin warm, dry, and intact; no lesions, rashes or ulcers noted. Muscle mass equal and symmetric to contralateral side. No atrophy noted. No masses or effusions noted. Shortened and ER lower extremity; Tender to palpation over the left greater trochanter. Nontender throughout rest of extremity. No cords or calf tenderness; No significant calf/ankle edema. Full passive and active ROM of the knee and ankle, free from pain. Joints stable with no pathologic laxity distally. EHL/TA/GS motor intact; SILT distally; 2+ DP pulses; Cap refill brisk. Tone and reflexes normal. No calf ttp. 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 Hx Alcohol Use No History of Substance Use None Usual Living Arrangement Skilled Nursing ADL Family Assistance History of Recent Travel No Allergies Allergy/AdvReac Type Severity Reaction Status Date / Time No Known Allergies Allergy Verified 05/08/19 13:56 Vital Signs (last) Temp Pulse Resp BP Pulse Ox 97.6 F 90 18 146/78 98 11/17/19 11:18 11/17/19 11:18 11/17/19 11:18 11/17/19 11:18 11/17/19 14:00 Intake and Output 11/15/19 11/16/19 11/17/19 23:59 23:59 23:59 Other: Voiding Method Diaper Weight 180 lb Height 5 ft 8 in Body Mass Index (BMI) 27.3 Laboratory 11/17/19 12:15 11/17/19 12:15 PT with INR 12.10 SEC (9.7-13.0) 11/17/19 12:15 PTT (Actin FS) 30.8 SECONDS (25.2-36.5) 11/17/19 12:15 IMAGING I personally reviewed all radiographs, CT, and other imaging. They demonstrate a left hip intertrochanteric hip fracture. ASSESSMENT AND PLAN Mr. Martinez is a 89 year old male presenting status post mechanical fall with a left sided hip fracture. We have reviewed the imaging and clinical findings in detail, as well as their potential implications. This is an operative fracture. Admit NPO NWB LLE CBC/BMP/Coags Type and Screen/2 units PRBC on hold LR 84cc/hr EKG CXR UA - Needs medical / cardiac clearance for surgery; Plan for surgery when medically optimized, likely for tomorrow 11/18/2019 afternoon. All questions were answered. Thank you for involving our team in the care of this patient.
[2019-11-17] MEDS ORDERED: CEFTRIAXONE 1 GM/50 ML BAG ONE (16:21)
[2019-11-17] MEDS ORDERED: TETANUS AND DIPHTHERIA TOXOID 0.5 ML DISP.SYRIN IM ONE (16:33)
--- NOTE | 2019-11-17 16:39 | HP ---
PCP: Dominguez Sosa CHIEF COMPLAINT: Left hip pain HISTORY OF PRESENT ILLNESS: This is an 89 year old man who is a long-term resident at [facility] who was found on the floor this morning. He says that he needed to use the bathroom and could not get help, so he attempted to get out of bed on his own. He fell and could not get up. He hit his head but he denies loss of consciousness. He is a poor historian. As per family, he has been at [facility] since May 2019 and during that time, his mobility has been declining. PAST MEDICAL HISTORY Hypertension Hyperlipidemia Aortic stenosis Stage 3 CKD Gout GERD Dementia Osteoarthritis Prostate cancer PAST SURGICAL HISTORY Hernia repair ORIF right hip Social History: Smoking: Quit ~50 years ago Alcohol: None Drugs: None Recent Travel: No Allergies No Known Allergies Allergy (Verified 05/08/19 13:56) Home Medications Medication Instructions Recorded Allopurinol [Zyloprim -] 100 mg PO DAILY #30 tablet 11/24/12 Paroxetine HCl [Paxil] 40 mg PO DAILY 10/09/14 Atorvastatin Ca [Lipitor] 20 mg PO HS 04/28/19 Memantine HCl [Namenda -] 10 mg PO DAILY 04/28/19 Acetaminophen [Tylenol .Regular 650 mg PO Q6H PRN tablet 05/04/19 Strength -] Albuterol Sulfate 0.5% [Ventolin 1 amp NEB Q4H PRN amp 05/04/19 0.5% Nebulizing Soln. -] Nystatin Cream [Mycostatin Cream -] 1 applic TP BID applic 05/04/19 Pantoprazole Sodium [Protonix -] 20 mg PO DAILY tablet.ec 05/04/19 Sennosides/Docusate Sodium 1 tablet PO BID tablet 05/04/19 [Pericolace -] Labetalol HCl [Normodyne -] 200 mg PO DAILY tablet 05/13/19 Acetaminophen [Tylenol .Regular 650 mg PO Q6H PRN tablet 07/22/19 Strength -] Albuterol 0.083% Nebulizer Gayathri 1 amp NEB Q6H PRN amp 07/22/19 [Ventolin 0.083% Nebulizer Soln -] Bacitracin - [Bacitracin Topical 1 applic TP TID tube 07/22/19 Ointment -] Mineral Oil/Pet Hy-Phl [Aquaphor -] 1 applic TP TID jar 07/22/19 Sulfamethoxazole/Trimethoprim 1 tab PO BID #14 tablet 09/02/19 [Bactrim Ds -] REVIEW OF SYSTEMS CONSTITUTIONAL: Absent: fever, chills, diaphoresis, generalized weakness, malaise, loss of appetite, weight change HEENT: Absent: rhinorrhea, nasal congestion, throat pain, throat swelling, difficulty swallowing, mouth swelling, ear pain, eye pain, visual changes CARDIOVASCULAR: Absent: chest pain, syncope, palpitations, lightheadedness, peripheral edema RESPIRATORY: Absent: cough, shortness of breath, dyspnea with exertion, orthopnea, wheezing, stridor, hemoptysis GASTROINTESTINAL: Absent: abdominal pain, abdominal distension, nausea, vomiting, diarrhea, constipation, melena, hematochezia GENITOURINARY: Absent: dysuria, frequency, urgency, hesitancy, hematuria, flank pain MUSCULOSKELETAL: Present: left hip pain. Absent: myalgia, joint swelling, back pain, neck pain SKIN: Absent: rash, itching, pallor HEMATOLOGIC/IMMUNOLOGIC: Absent: easy bleeding, easy bruising, lymphadenopathy, frequent infections ENDOCRINE: Absent: unexplained weight gain, unexplained weight loss, heat intolerance, cold intolerance NEUROLOGIC: Absent: headache, focal weakness, paresthesias, dizziness, seizure, mental status changes, bladder or bowel incontinence PSYCHIATRIC: Absent: anxiety, depression, suicidal or homicidal ideation, hallucinations. PHYSICAL EXAMINATION Vital Signs - 24 hr 11/17/19 11/17/19 11:18 14:00 Temperature 97.6 F Pulse Rate 90 Respiratory 18 Rate Blood Pressure 146/78 O2 Sat by Pulse 99 98 Oximetry (%) GENERAL: Awake, alert, and oriented to person and place, in no acute distress. HEAD: Superficial laceration posterior left scalp. EYES: Pupils equal, round and reactive to light, extraocular movements intact, sclerae anicteric, conjunctiva clear. EARS, NOSE, THROAT: Ears normal, nares patent, oropharynx clear without exudates. Moist mucous membranes. NECK: Normal range of motion, supple without lymphadenopathy, JVD, or masses. LUNGS: Breath sounds equal, clear to auscultation bilaterally. No wheezes, and no crackles. No accessory muscle use. HEART: Regular rate and rhythm, normal S1 and S2, (+) 2/6 systolic murmur, no rub or gallop. ABDOMEN: Soft, nontender, not distended, normoactive bowel sounds, no guarding, no rebound, no masses. No hepatomegaly or splenomegaly. UPPER EXTREMITIES: 2+ pulses, warm, well-perfused. No cyanosis. No clubbing. No peripheral edema. LOWER EXTREMITIES: 2+ pulses, warm, well-perfused. No calf tenderness. No peripheral edema. Left leg shortened and externally rotated. SKIN: Warm, dry, normal turgor, no rashes or lesions noted, normal capillary refill. Laboratory Results - last 24 hr 11/17/19 11/17/19 11/17/19 12:15 12:15 12:15 WBC 10.2 H RBC 4.17 Hgb 11.1 L Hct 33.6 L D MCV 80.7 MCH 26.7 MCHC 33.1 RDW 16.8 H Plt Count 223 D MPV 8.0 Absolute Neuts (auto) 7.9 Neutrophils % 76.9 D Lymphocytes % 13.8 D Monocytes % 7.3 Eosinophils % 1.6 Basophils % 0.4 Nucleated RBC % 0 PT with INR 12.10 INR 1.03 PTT (Actin FS) 30.8 Sodium Potassium Chloride Carbon Dioxide Anion Gap BUN Creatinine Est GFR (CKD-EPI)AfAm Est GFR (CKD-EPI)NonAf Random Glucose Calcium Total Bilirubin AST ALT Alkaline Phosphatase Total Protein Albumin Urine Color Urine Appearance Urine pH Ur Specific [place] Urine Protein Urine Glucose (UA) Urine Ketones Urine Blood Urine Nitrite Urine Bilirubin Urine Urobilinogen Ur Leukocyte Esterase Urine WBC (Auto) Urine RBC (Auto) Urine Casts (Auto) U Epithel Cells (Auto) Urine Bacteria (Auto) Blood Type B POSITIVE Antibody Screen Negative 11/17/19 11/17/19 12:15 12:15 WBC RBC Hgb Hct MCV MCH MCHC RDW Plt Count MPV Absolute Neuts (auto) Neutrophils % Lymphocytes % Monocytes % Eosinophils % Basophils % Nucleated RBC % PT with INR INR PTT (Actin FS) Sodium 142 Potassium 4.4 Chloride 110 H Carbon Dioxide 25 Anion Gap 7 L BUN 32.0 H Creatinine 1.9 H Est GFR (CKD-EPI)AfAm 35.44 Est GFR (CKD-EPI)NonAf 30.58 Random Glucose 115 H Calcium 9.1 Total Bilirubin 0.4 AST 17 ALT 20 Alkaline Phosphatase 84 Total Protein 7.3 Albumin 3.5 Urine Color Yellow Urine Appearance Cloudy Urine pH 6.0 Ur Specific [place] 1.009 L Urine Protein Negative Urine Glucose (UA) Negative Urine Ketones Negative Urine Blood Negative Urine Nitrite Negative Urine Bilirubin Negative Urine Urobilinogen 0.2 Ur Leukocyte Esterase 3+ H Urine WBC (Auto) 172 Urine RBC (Auto) 5 Urine Casts (Auto) 3 U Epithel Cells (Auto) 0.4 Urine Bacteria (Auto) 1223.8 Blood Type Antibody Screen EKG: Sinus rhythm, rate 73 Chest x-ray: Cardiomegaly, no acute process X-rays pelvis/left femur: Comminuted intertrochanteric left femur fracture Head CT: No acute pathology ASSESSMENT/PLAN: This is an 89 year old man with a history of HTN, hyperlipidemia, , stage 3 CKD, gout, GERD, dementia, osteoarthritis, right hip ORIF, prostate cancer who resides at [facility] and was sent in to the ED today with left hip pain after he was found on the floor. 1. Intertrochanteric left femur fracture - Ortho consult appreciated - Plan for OR tomorrow - Will have cardiology evaluate patient pre-op given history of moderate - NPO after midnight - Pain control - Hold pharmacologic DVT prophylaxis after midnight 2. HTN - Continue Labetalol 3. Hyperlipidemia - Continue Lipitor 4. Moderate aortic stenosis 5. GERD - Continue Protonix 6. Osteoarthritis 7. History of right hip fracture, ORIF 8. History of gout - Continue allopurinol 9. Stage 3 CKD - IV fluid while NPO - Monitor creatinine 10. Dementia - Continue Scott Jimenez Family Medical History Family History: Denies Visit type - Emergency Visit Emergency Visit: Yes ED Registration Date: 11/17/19 Care time: The patient presented to the Emergency Department on the above date and was hospitalized for further evaluation of their emergent condition. - New Patient This patient is new to me today: Yes Date on this admission: 11/17/19 - Critical Care Critical Care patient: No
[2019-11-17] MEDS ORDERED: DIPHTH,PERTUSS(ACELL),TET 0.5 ML DISP.SYRIN IM ONE (17:46)
[2019-11-17] MEDS ORDERED: ALBUTEROL SO4 0.083% IH SOL 2.5 MG/3 ML VIAL.NEB. NEB PRN (19:10)
[2019-11-17] MEDS ORDERED: oxyCODONE HCL 5 MG TABLET PO PRN (19:10)
[2019-11-17] MEDS ORDERED: ACETAMINOPHEN 325 MG TABLET (FP) PO PRN (19:10)
[2019-11-17] MEDS ORDERED: SODIUM CHLORIDE 0.45% 1,000 ML IV SCH (19:15)
[2019-11-17] MEDS ORDERED: LABETALOL HCL 5 MG/1 ML (200MG/40ML VIAL) IVPB ONE (20:28)
[2019-11-17] MEDS ORDERED: LABETALOL HCL 100 MG TABLET (FP) ONE (20:30)
[2019-11-17] MEDS: LABETALOL HCL 200 MG TABLET (FP) PO SCH (20:35)
[2019-11-17] MEDS: MORPHINE SULFATE 2 MG/ML VIAL IVPUSH PRN (20:35)
[2019-11-17] MEDS ORDERED: ATORVASTATIN CA 20 MG TABLET (FP) PO SCH (22:00)
[2019-11-17] MEDS ORDERED: MEMANTINE HCL 10 MG TABLET (FP) PO SCH (22:00)
[2019-11-18] MEDS: MORPHINE SULFATE 2 MG/ML VIAL IVPUSH PRN ×3 (00:35→08:45)
[2019-11-18] MEDS ORDERED: LORazepam 2 MG/ML SDV VIAL ONE (03:00)
[2019-11-18] MEDS ORDERED: MORPHINE SULFATE 2 MG/ML VIAL ONE ×3 (05:32→14:02)
[2019-11-18 06:09] LABS: BASO % 0.8 % (0-2.0); EOS % 5.8 % (0-4.5); HEMATOCRIT 31.3 % (35.4-49); HEMOGLOBIN 10.5 GM/dL (11.7-16.9); LYMPH % 11.7 % (8-40); MCHC 33.6 g/dl (32.0-35.9); MEAN CELL VOLUME 80.5 fl (80-96); MEAN PLT VOLUME 7.4 fl (7.5-11.1); MONO % 8.9 % (3.8-10.2); NEUT % 72.8 % (42.8-82.8); PLATELET COUNT 188 K/MM3 (134-434); RBC 3.89 M/mm3 (4.00-5.60); RDW 16.5 % (11.9-15.9); WHITE BLOOD COUNT 9.6 K/mm3 (4.0-10.0)
[2019-11-18 06:31] LABS: BLOOD UREA NITROGEN 37.7 mg/dL (7-18); CREATININE 1.8 mg/dL (0.55-1.3); POTASSIUM 4.1 mmol/L (3.5-5.1)
[2019-11-18] MEDS ORDERED: LACTATED RINGERS SOLUTION 1,000 ML/1,000 ML INFUS.BAG IV SCH ×3 (08:00→19:13)
--- NOTE | 2019-11-18 08:02 | PN ---
Progress Note, Physician Chief Complaint: 89 y.o M was admitted yesterday after a fall at [facility]. He was found to have left hip fracture and was scheduled for left hip surgery. History of Present Illness: Right hip ORIF. History of frequent falling. Dementia Gout, OA CKD 3 Paroxysmal A.Fib HTN. ASHD. COPD. GERD UTI. - Current Medication List Current Medications: Active Medications Acetaminophen (Tylenol -) 650 mg PO Q4H PRN PRN Reason: PAIN LEVEL 1 - 3 Albuterol Sulfate (Ventolin 0.083% Nebulizer Soln -) 1 amp NEB Q4H PRN PRN Reason: SHORT OF BREATH/WHEEZING Atorvastatin Calcium (Lipitor -) 20 mg PO HS [facility] Last Admin: 11/17/19 22:23 Dose: Not Given Sodium Chloride (1/2 Normal Saline) 1,000 mls @ 75 mls/hr IV ASDIR [facility] Last Admin: 11/17/19 19:48 Dose: 75 mls/hr Lactated Ringer's (Lactated Ringers Solution) 1,000 ml in 1,000 mls @ 75 mls/ hr IV [facility] Labetalol HCl (Normodyne -) 200 mg PO DAILY [facility] Last Admin: 11/17/19 20:35 Dose: Not Given Memantine (Namenda -) 10 mg PO HS [facility] Last Admin: 11/17/19 22:23 Dose: Not Given Morphine Sulfate (Morphine Sulfate) 2 mg IVPUSH Q4H PRN PRN Reason: PAIN LEVEL 7 - 10 Last Admin: 11/18/19 05:41 Dose: 2 mg Oxycodone HCl (Roxicodone -) 5 mg PO Q6H PRN PRN Reason: PAIN LEVEL 4 - 6 Pantoprazole Sodium (Protonix -) 40 mg PO DAILY [facility] Paroxetine HCl (Paxil -) 40 mg PO DAILY [facility] - Objective Vital Signs: Vital Signs Temperature 98.4 F 11/17/19 19:52 Pulse Rate 89 11/18/19 07:15 Respiratory Rate 17 11/18/19 07:15 Blood Pressure 166/88 11/18/19 07:15 O2 Sat by Pulse Oximetry (%) 96 11/18/19 07:15 Constitutional: Yes: Mild Distress. No: Cachectic, Diaphoresis, Pallor, Poor Hygeine Eyes: Yes: Conjunctiva Clear, EOM Intact HENT: Yes: Atraumatic, Other (small laceration of the forehed) Neck: Yes: Supple, Trachea Midline. No: Decreased ROM, Lymphadenopathy Cardiovascular: Yes: Regular Rate and Rhythm, Murmur (MICHAEL LSB), S1, S2. No: Bradycardia, Tachycardia, Pulse Irregular, Bruit, JVD, Gallop, Rub Respiratory: Yes: Regular, CTA Bilaterally, On Nasal O2. No: Cough, Diminished , Dullness, K[place]maul, Rales, SOB, Stridor, Tachypnea, Wheezes Gastrointestinal: Yes: Normal Bowel Sounds, Soft, Abdomen, Obese. No: Palpable Mass, Tenderness, Tenderness, Epigastrium, Vomiting ...Rectal Exam: Yes: Deferred Genitourinary: No: Anuria, Bladder Distention, CVA Tenderness - Right, Hematuria Breast(s): Yes: WNL Musculoskeletal: No: Muscle Weakness Extremities: Yes: Other (LLE externally rotated, shortened, tender hip). No: Cold, Cyanosis Peripheral Pulses WNL: No Integumentary: Yes: WNL Neurological: Yes: Alert, Confusion. No: Oriented, Aphasia, Dysarthria, Seizure , Unresponsive ...Motor Strength: WNL Psychiatric: Yes: Alert. No: Oriented, Agitated, Suicidal Ideation Labs: CBC, BMP 11/18/19 05:30 11/18/19 05:30 INR, PTT INR 1.03 (0.83-1.09) 11/17/19 12:15 Laboratory Results - last 24 hr 11/17/19 11/17/19 11/17/19 12:15 12:15 12:15 WBC 10.2 H RBC 4.17 Hgb 11.1 L Hct 33.6 L D MCV 80.7 MCH 26.7 MCHC 33.1 RDW 16.8 H Plt Count 223 D MPV 8.0 Absolute Neuts (auto) 7.9 Neutrophils % 76.9 D Lymphocytes % 13.8 D Monocytes % 7.3 Eosinophils % 1.6 Basophils % 0.4 Nucleated RBC % 0 PT with INR 12.10 INR 1.03 PTT (Actin FS) 30.8 Sodium Potassium Chloride Carbon Dioxide Anion Gap BUN Creatinine Est GFR (CKD-EPI)AfAm Est GFR (CKD-EPI)NonAf Random Glucose Calcium Total Bilirubin AST ALT Alkaline Phosphatase Total Protein Albumin Urine Color Urine Appearance Urine pH Ur Specific [place] Urine Protein Urine Glucose (UA) Urine Ketones Urine Blood Urine Nitrite Urine Bilirubin Urine Urobilinogen Ur Leukocyte Esterase Urine WBC (Auto) Urine RBC (Auto) Urine Casts (Auto) U Epithel Cells (Auto) Urine Bacteria (Auto) Blood Type B POSITIVE Antibody Screen Negative 11/17/19 11/17/19 11/18/19 12:15 12:15 05:30 WBC 9.6 RBC 3.89 L Hgb 10.5 L Hct 31.3 L MCV 80.5 MCH 27.0 MCHC 33.6 RDW 16.5 H Plt Count 188 MPV 7.4 L Absolute Neuts (auto) 6.9 Neutrophils % 72.8 Lymphocytes % 11.7 Monocytes % 8.9 Eosinophils % 5.8 H D Basophils % 0.8 Nucleated RBC % 0 PT with INR INR PTT (Actin FS) Sodium 142 Potassium 4.4 Chloride 110 H Carbon Dioxide 25 Anion Gap 7 L BUN 32.0 H Creatinine 1.9 H Est GFR (CKD-EPI)AfAm 35.44 Est GFR (CKD-EPI)NonAf 30.58 Random Glucose 115 H Calcium 9.1 Total Bilirubin 0.4 AST 17 ALT 20 Alkaline Phosphatase 84 Total Protein 7.3 Albumin 3.5 Urine Color Yellow Urine Appearance Cloudy Urine pH 6.0 Ur Specific [place] 1.009 L Urine Protein Negative Urine Glucose (UA) Negative Urine Ketones Negative Urine Blood Negative Urine Nitrite Negative Urine Bilirubin Negative Urine Urobilinogen 0.2 Ur Leukocyte Esterase 3+ H Urine WBC (Auto) 172 Urine RBC (Auto) 5 Urine Casts (Auto) 3 U Epithel Cells (Auto) 0.4 Urine Bacteria (Auto) 1223.8 Blood Type Antibody Screen 11/18/19 05:30 WBC RBC Hgb Hct MCV MCH MCHC RDW Plt Count MPV Absolute Neuts (auto) Neutrophils % Lymphocytes % Monocytes % Eosinophils % Basophils % Nucleated RBC % PT with INR INR PTT (Actin FS) Sodium 143 Potassium 4.1 Chloride 110 H Carbon Dioxide 25 Anion Gap 8 BUN 37.7 H Creatinine 1.8 H Est GFR (CKD-EPI)AfAm 37.83 Est GFR (CKD-EPI)NonAf 32.64 Random Glucose 124 H Calcium 9.0 Total Bilirubin AST ALT Alkaline Phosphatase Total Protein Albumin Urine Color Urine Appearance Urine pH Ur Specific [place] Urine Protein Urine Glucose (UA) Urine Ketones Urine Blood Urine Nitrite Urine Bilirubin Urine Urobilinogen Ur Leukocyte Esterase Urine WBC (Auto) Urine RBC (Auto) Urine Casts (Auto) U Epithel Cells (Auto) Urine Bacteria (Auto) Blood Type Antibody Screen - ....Imaging Chest X-ray: Report Reviewed X-ray: Report Reviewed EKG: Report Reviewed, Image Reviewed Problem List - Problems (1) Hip fracture Assessment/Plan: Proceed with hip surgery. No uncontrolled CHF or angina, EKG-normal SR, no acute changes. Given and urgency of surgery for hip fracture, no further testing pre-op necessary, the risks appear moderate. Code(s): S72.009A - FRACTURE OF UNSP PART OF NECK OF UNSP FEMUR, INIT Qualifiers: Encounter type: initial encounter Fracture type: closed Laterality: left Qualified Code(s): S72.002A - Fracture of unspecified part of neck of left femur, initial encounter for closed fracture (2) Urinary tract infection Assessment/Plan: Follow UA cx, Started on IV Ceftriaxone Code(s): N39.0 - URINARY TRACT INFECTION, SITE NOT SPECIFIED Qualifiers: Urinary tract infection type: site unspecified Hematuria presence: without hematuria Qualified Code(s): N39.0 - Urinary tract infection, site not specified (3) Abnormal x-ray of lung Assessment/Plan: Chronic COPD, ILD NC O2 PRN, nebs with duonebs. Code(s): R91.8 - OTHER NONSPECIFIC ABNORMAL FINDING OF LUNG FIELD (4) Aortic stenosis, moderate Assessment/Plan: Moderate stenosis, would maintain BP and HR controlled, avoid overload with fluids Code(s): I35.0 - NONRHEUMATIC AORTIC (VALVE) STENOSIS (5) CKD (chronic kidney disease) stage 3, GFR 30-59 ml/min Assessment/Plan: IV fluids, follow BUN/Creat, electrolytes Code(s): N18.3 - CHRONIC KIDNEY DISEASE, STAGE 3 (MODERATE)
--- NOTE | 2019-11-18 08:30 | PN ---
Progress Note (short form) - Note Progress Note: ORTHOPEDIC SURGERY PROGRESS NOTE Department of Orthopedic Surgery SUBJECTIVE No complaints currently. Alert and following directions, otherwise confused. No nausea or vomiting. Tolerating oral intake. Pain currently controlled. PHYSICAL EXAMINATION General: Alert, mildly confused. Following directions. Left Lower Extremity: Skin warm, dry, and intact; no lesions, rashes or ulcers noted. Muscle mass equal and symmetric to contralateral side. No atrophy noted. No masses or effusions noted. Shortened and ER lower extremity; Tender to palpation over the left greater trochanter. Nontender throughout rest of extremity. No cords or calf tenderness; No significant calf/ankle edema. Full passive and active ROM of the knee and ankle, free from pain. Joints stable with no pathologic laxity distally. EHL/TA/GS motor intact; SILT distally; 2+ DP pulses; Cap refill brisk. Tone and reflexes normal. No calf ttp. DVT Exam: No evidence of DVT seen on physical exam; No cords or calf tenderness ; No significant calf/ankle edema. Intake & Output 11/16/19 11/17/19 11/18/19 23:59 23:59 23:59 Other: Voiding Method Diaper Weight 180 lb Height 5 ft 8 in Body Mass Index (BMI) 27.3 Active Medications Generic Name Dose Route Start Last Admin Trade Name Freq PRN Reason Stop Dose Admin Acetaminophen 650 mg 11/17/19 19:10 Tylenol - PO Q4H PRN PAIN LEVEL 1 - 3 Albuterol Sulfate 1 amp 11/17/19 19:10 Ventolin 0.083% Nebulizer Soln - NEB Q4H PRN SHORT OF BREATH/WHEEZING Atorvastatin Calcium 20 mg 11/17/19 22:00 11/17/19 22:23 Lipitor - PO Not Given HS [facility] Sodium Chloride 1,000 mls @ 75 mls/hr 11/17/19 19:15 11/17/19 19:48 1/2 Normal Saline IV 75 mls/hr ASDIR [facility] Administration Lactated Ringer's 1,000 ml in 1,000 mls @ 75 mls/hr 11/18/19 08:15 11/18/19 08:22 Lactated Ringers Solution IV 75 mls/hr ASDIR [facility] Administration Labetalol HCl 200 mg 11/17/19 19:45 11/17/19 20:35 Normodyne - PO Not Given DAILY [facility] Memantine 10 mg 11/17/19 22:00 11/17/19 22:23 Namenda - PO Not Given HS [facility] Morphine Sulfate 2 mg 11/17/19 19:10 11/18/19 05:41 Morphine Sulfate IVPUSH 2 mg Q4H PRN Administration PAIN LEVEL 7 - 10 Oxycodone HCl 5 mg 11/17/19 19:10 Roxicodone - PO Q6H PRN PAIN LEVEL 4 - 6 Pantoprazole Sodium 40 mg 11/18/19 10:00 Protonix - PO DAILY [facility] Paroxetine HCl 40 mg 11/18/19 10:00 Paxil - PO DAILY [facility] Polyethylene Glycol 17 gm 11/18/19 10:00 Miralax (For Daily Use) - PO BID [facility] Vital Signs (last) Temp Pulse Resp BP Pulse Ox 98.4 F 89 17 166/88 96 11/17/19 19:52 11/18/19 07:15 11/18/19 07:15 11/18/19 07:15 11/18/19 07:15 Laboratory (coagulation) PT with INR 12.10 SEC (9.7-13.0) 11/17/19 12:15 Laboratory 11/18/19 05:30 11/18/19 05:30 IMAGING I personally reviewed all radiographs, CT, and other imaging. They demonstrate a left hip intertrochanteric hip fracture. ASSESSMENT AND PLAN Mr. Martinez is a 89 year old male presenting status post mechanical fall with a left sided hip fracture. We have reviewed the imaging and clinical findings in detail, as well as their potential implications. This is an operative fracture. - Medical clearance note appreciated; Plan for surgery today 11/18/2019 afternoon. - Pain control - SCD's b/l LE NPO except medications; Hold anti-coagulation medications NWB LLE All questions were answered. Thank you for involving our team in the care of this patient.
--- NOTE | 2019-11-18 09:00 | CON.CARD ---
Consult Reason for Consultation:: Preop - History of Present Illness Chief Complaint: Lf fem fracture History of Present Illness: The patient is an 88 year old male with a significant past medical history of moderate , normal EF, brief SVTs, HTN, HLD, prostate cancer, gout, dementia resident of [place], s/p fall, left fem fracture for surgery. 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 Cardio/Vascular: Yes: CAD, HTN, Hyperlipdemia Gastrointestinal: Yes: GERD Renal/: Yes: Renal Calculi, Other Psych: Yes: Depression Rheumatology: Yes: Gout ENT: Yes: Allergic Rhinitis - Past Surgical History Past Surgical History: Yes: Hernia Repair, Joint Replacement - Alcohol/Substance Use Hx Alcohol Use: No History of Substance Use: reports: None - Smoking History Smoking history: Unknown if ever smoked Have you smoked in the past 12 months: No Aproximately how many cigarettes per day: 0 If you are a former smoker, when did you quit?: 49 yrs ago - Social History Usual Living Arrangement: Senior Care ADL: Family Assistance History of Recent Travel: No Home Medications - Allergies Allergies/Adverse Reactions: Allergies Allergy/AdvReac Type Severity Reaction Status Date / Time No Known Allergies Allergy Verified 11/18/19 06:05 - Home Medications Home Medications: Ambulatory Orders Allopurinol [Zyloprim -] 100 mg PO DAILY #30 tablet 11/24/12 Paroxetine HCl [Paxil] 40 mg PO DAILY 10/09/14 Atorvastatin Ca [Lipitor] 20 mg PO HS 04/28/19 Memantine HCl [Namenda -] 10 mg PO DAILY 04/28/19 Acetaminophen [Tylenol .Regular Strength -] 650 mg PO Q6H PRN tablet 05/04/19 Albuterol Sulfate 0.5% [Ventolin 0.5% Nebulizing Soln. -] 1 amp NEB Q4H PRN amp 05/04/19 Nystatin Cream [Mycostatin Cream -] 1 applic TP BID applic 05/04/19 Pantoprazole Sodium [Protonix -] 20 mg PO DAILY tablet.ec 05/04/19 Sennosides/Docusate Sodium [Pericolace -] 1 tablet PO BID tablet 05/04/19 Labetalol HCl [Normodyne -] 200 mg PO DAILY tablet 05/13/19 Acetaminophen [Tylenol .Regular Strength -] 650 mg PO Q6H PRN tablet 07/22/19 Albuterol 0.083% Nebulizer Gayathri [Ventolin 0.083% Nebulizer Soln -] 1 amp NEB Q6H PRN amp 07/22/19 Bacitracin - [Bacitracin Topical Ointment -] 1 applic TP TID tube 07/22/19 Mineral Oil/Pet Hy-Phl [Aquaphor -] 1 applic TP TID jar 07/22/19 Sulfamethoxazole/Trimethoprim [Bactrim Ds -] 1 tab PO BID #14 tablet 09/02/19 Vital Signs: Vital Signs Temperature 98.4 F 11/17/19 19:52 Pulse Rate 89 11/18/19 07:15 Respiratory Rate 17 11/18/19 07:15 Blood Pressure 166/88 11/18/19 07:15 O2 Sat by Pulse Oximetry (%) 96 11/18/19 07:15 Constitutional: Yes: Well Nourished, Anxious Eyes: No: Sclera Icterus Respiratory: No: Rales, Rhonchi, Wheezes Gastrointestinal: Yes: Soft Cardiovascular: Yes: Regular Rate and Rhythm JVD: No Carotid Bruit: No PMI: Non-Displaced Heart Sounds: Yes: S1, S2. No: Clicks, Gallop, Rub Edema: No - Other Data Labs, Other Data: CBC, BMP 11/18/19 05:30 11/18/19 05:30 INR, PTT INR 1.03 (0.83-1.09) 11/17/19 12:15 Imaging - Results Chest X-ray: Report Reviewed EKG: Image Reviewed (NSR) Assessment/Plan -Preop: Left Femoral surgery -Moderate , normal EF -HTN -HLD -PSVT: brief Plan: -The patient is an 88 year old male with a significant past medical history of moderate , normal EF, brief SVTs, HTN, HLD, prostate cancer, gout, dementia resident of [place], s/p fall, left fem fracture for surgery -No signd of acute cardiac events, hemodynamically stable, only moderate not critical -Can proceed with surgery with continuation of meds into day of surgery and afterward -Monitor for arrhythmia, use IV metoprolol PRN
--- NOTE | 2019-11-18 09:49 | EKG ---
Test Reason : Blood Pressure : / mmHG Vent. Rate : 073 BPM Atrial Rate : 073 BPM P-R Int : 140 ms QRS Dur : 086 ms QT Int : 390 ms P-R-T Axes : 032 002 048 degrees QTc Int : 429 ms NORMAL SINUS RHYTHM NORMAL ECG WHEN COMPARED WITH ECG OF 05-JUL-2019 23:05, SINUS RHYTHM HAS REPLACED arrhythmia Confirmed by Baldemar Story ([id number]) on 11/18/2019 9:49:14 AM Referred By: Confirmed By:Baldemar Story
[2019-11-18] MEDS ORDERED: LABETALOL HCL 100 MG TABLET (FP) ONE (09:57)
[2019-11-18] MEDS ORDERED: POLYETHYLENE GLYCOL 3350 119 GM BTL PO SCH (10:00)
[2019-11-18] MEDS ORDERED: PANTOPRAZOLE 40 MG TABLET PO SCH (10:00)
[2019-11-18] MEDS ORDERED: PARoxetine HCL 20 MG TABLET PO SCH (10:00)
[2019-11-18] MEDS ORDERED: BUPIVACAINE 0.25% /EPI 1:200,000 10 ML VIAL INF ONE ×2 (10:20→19:13)
[2019-11-18] MEDS: LABETALOL HCL 200 MG TABLET (FP) PO SCH (10:34)
[2019-11-18] MEDS ORDERED: ACETAMINOPHEN 1000 MG/100 ML VIAL (NON FORMULARY) IVPB ONE (13:42)
[2019-11-18] MEDS ORDERED: ACETAMINOPHEN INJECTION 100 ML IVPB ONE (14:02)
[2019-11-18] MEDS ORDERED: ceFAZolin SODIUM 1 GM VIAL IVPB ONE (17:00)
[2019-11-18] MEDS ORDERED: ONDANSETRON 4 MG/2 ML VIAL IVPUSH PRN ×2 (17:28→19:13)
[2019-11-18] MEDS ORDERED: LACTATED RINGERS SOLUTION 1,000 ML IV SCH ×2 (17:30→19:13)
--- NOTE | 2019-11-18 18:24 | OPR ---
DATE OF SURGERY: 11/18/2019 TITLE OF OPERATION: LEFT cephalomedullary nail fixation (CPT 45012) PREOPERATIVE DIAGNOSIS: LEFT intertrochanteric hip fracture POSTOPERATIVE DIAGNOSIS: LEFT intertrochanteric hip fracture SURGEON: Miguel Angel Ramírez DO MINERAL SURVEYING TECHNICIAN: Brian Ojeda DO ANESTHESIA: General anesthesia LMA SPECIMEN (BACTERIOLOGICAL, PATHOLOGICAL OR OTHER): None PROSTHETIC DEVICE/IMPLANT: 125 degree x 10mm x 170mm [place] Gamma nail 95mm lag screw 32.5 mm locking screw COMPLICATIONS: none EBL: 25 mL INDICATIONS FOR SURGERY: Mr. Martinez is a 89 year old male who presented in the preoperative setting with a chief complaint of left hip pain after a fall at a shelter. Based on their pre-injury level of activity, pain, and risks and benefits of non- operative versus operative treatment, surgical treatment was discussed. The risks and benefits of surgery and anesthesia were discussed in detail including but not limited to pain, bleeding, blood clot, infection, scarring, damage to vessels and nerves, failure to obtain the desired result, failure to heal, failure to return to sport. Understanding the risks and benefits, Mr. Martinez's family and HCP (his ) opted to proceed with surgical management. SURGEON'S NARRATIVE: Mr. Martinez was seen in the preoperative area. Their LEFT side was marked for surgery and consent was reviewed and signed. He was then brought back to the operating room. Mr. Martinez was transferred to the OR table. All bony prominences were well padded. A time-out was held and all team members agreed on the operative side and planned procedure. Anesthesia was then induced. Preoperative prophylactic antibiotics were indicated and Ancef 2gm's were given prior to and within one hour of any incision. Sequential compression devices were placed on the contralateral extremity for the duration of the case as part of a comprehensive DVT prophylaxis protocol consisting of intraoperative SCDs, early postoperative mobilization and Lovenox 40mg SQ x 30 days for chemoprophylaxis. Under fluoroscopy, the fracture was reduced by traction and internal rotation with slight adduction. After reduction was achieved, the hip was prepped and draped in the usual sterile fashion with application of a shower curtain. A small incision was made over directly over the proximal aspect of the hip, centered over just proximal to the prominence of the tip of the greater trochanter. This was done using a 10 blade. It was carried through the skin and subcutaneous tissues. Further dissection was performed using the Dolan scissors. The guide pin for the Gamma Nail System was then inserted from the tip of the greater trochanter and into the proximal femoral canal. The opening reamer was then placed over the guidepin and used to make an opening in the proximal femur. The guidepin was then removed. A 125-degree x 10mm x 170mm gamma nail was selected. The Gamma Nail was inserted into the femoral canal into its appropriate position. Using the proximal targeting device, a 1.5-cm longitudinal incision was made directly over the lateral aspect of the proximal thigh using the 10 blade, with dissection using the hemostat to the lateral femur. A guidepin for the lag screw was then inserted from the lateral femur across the fracture site and into the femoral head and its appropriate position verified using C-arm guidance in both the AP and lateral planes. After pre-drilling, a 95-mm lag screw was then inserted over the guidepin and across the fracture site for definitive fixation. The guidepin was then removed. A set screw was then inserted into the top of the nail and completed turned, then turned back a half turn. The fracture site was appropriately compressed. The proximal targeting system was then removed. Attention was then turned to placing the distal screw. The guide was adjusted and using the 10 blade an incision was made directly over the lateral aspect of the thigh, with dissection using the hemostat to the lateral femur. A guidepin for the distal locking screw was then inserted from the lateral femur across the fracture site and into the femoral shaft and its appropriate position verified using C-arm guidance in both the AP and lateral planes. After pre- drilling, a 32.5-mm locking screw was then inserted over the guidepin and across the nail for definitive fixation. The guidepin was then removed. Appropriate position of the interlocking screws, the lag screw, the nail, and the fracture site was verified using C-arm guidance. Attention was then turned to closure. The incisions were copiously irrigated with sterile saline. Deep tissue was closed with 0 vicryl. Subcutaneous closure was achieved with 2-0 vicryl. Skin was closed with chrystal, and Xeroform dressings were applied. At closure, all needle counts and sponge counts were correct. The toes were warm and well-perfused at the end of the case. Mr. Martinez was then awoken and brought to the postoperative recovery room in stable condition. There was no complications immediately apparent. Brian Ojeda DO served as a first-assist on the case as there were no other qualified assistants or residents available. I was present and scrubbed throughout the entire case. POSTOPERATIVE PLAN - Weightbearing as tolerated - Pain control with oxycodone 5-10mg by mouth every 3-6 hours as needed for pain - Comprehensive DVT prophylaxis consists of intraoperative SCDs, early postoperative mobilization and Lovenox SQ x 30 days for chemoprophylaxis. - He will follow-up as an outpatient in my office in 2 weeks for wound check and x-rays and staple removal.
[2019-11-18] MEDS ORDERED: oxyCODONE HCL 5 MG TABLET PO PRN (18:27)
[2019-11-18] MEDS ORDERED: ACETAMINOPHEN 1000 MG/100 ML VIAL (NON FORMULARY) IVPB PRN (18:28)
[2019-11-18] MEDS ORDERED: MORPHINE SULFATE 2 MG/ML VIAL IVPUSH PRN ×2 (18:29→19:13)
[2019-11-18] MEDS ORDERED: ALBUTEROL SO4 0.083% IH SOL 2.5 MG/3 ML VIAL.NEB. NEB PRN (19:13)
[2019-11-18] MEDS ORDERED: ACETAMINOPHEN 325 MG TABLET (FP) PO PRN (19:13)
[2019-11-18] MEDS: SODIUM CHLORIDE 0.45% 1,000 ML IV SCH ×2 (19:35→21:27)
[2019-11-18] MEDS: LACTATED RINGERS SOLUTION 1,000 ML IV SCH ×2 (19:35→21:26)
[2019-11-18 20:06] LABS: BASO % 0.6 % (0-2.0); EOS % 2.5 % (0-4.5); HEMATOCRIT 30.7 % (35.4-49); HEMOGLOBIN 10.1 GM/dL (11.7-16.9); LYMPH % 11.8 % (8-40); MCH 26.7 pg (25.7-33.7); MCHC 32.8 g/dl (32.0-35.9); MEAN CELL VOLUME 81.4 fl (80-96); MEAN PLT VOLUME 7.9 fl (7.5-11.1); NEUT % 75.1 % (42.8-82.8); PLATELET COUNT 190 K/MM3 (134-434); RBC 3.77 M/mm3 (4.00-5.60); WHITE BLOOD COUNT 11.2 K/mm3 (4.0-10.0)
--- NOTE | 2019-11-18 20:31 | HOSP ---
Subjective - Review of Symptoms Events since last encounter: Hospitalist Encounter Notified via microblog by the RN, that the patient is very agitated, combative pulling off his Oxygen Tubing and IV tubing. Was asked to assess. Arrived to bedside, patient is awake, not oriented to name, place or person- at baseline, per pt's daughter. Attempts made to redirect patient- unsuccessful. the patient' s daughter appeared distressed, reassurance provided. PE performed see EMR. Assessment: This is an 89 year old man with a history of HTN, Hyperlipidemia, , Stage 3 CKD, Gout, GERD, Dementia, Osteoarthritis, Right Hip ORIF, Prostate Cancer who resides at [facility]. Admitted for L- Hip Fx POD #0 L- Gamma Nailing Plan: Mittens Constant Supervision Benadryl IVPB x 1 now Fall Precautions Continue current regimen Neurological: Yes: Confusion Other Systems: Psychological: Agitated, Combative Physical Examination Vital Signs: Vital Signs Temperature 98.6 F 11/18/19 19:35 Pulse Rate 70 11/18/19 19:35 Respiratory Rate 18 11/18/19 19:35 Blood Pressure 135/62 11/18/19 19:35 O2 Sat by Pulse Oximetry (%) 99 11/18/19 19:35 Constitutional: Yes: Moderate Distress, Other (Agitated, Combative) Eyes: Yes: Conjunctiva Clear, PERRL HENT: Yes: Atraumatic, Normocephalic, Other (dry mucous membranes) Neck: Yes: WNL, Supple, Trachea Midline Cardiovascular: Yes: Regular Rate and Rhythm, S1, S2 Respiratory: Yes: Diminished, On Nasal O2 Gastrointestinal: Yes: WNL, Normal Bowel Sounds, Soft, Abdomen, Obese Renal/: Yes: Incontinence Musculoskeletal: Yes: Other (chrystal with xeroform dressing, icepack- left hip) Neurological: Yes: Alert, Confusion Psychiatric: Yes: Agitated Labs: CBC, BMP 11/18/19 19:00 Laboratory Results - last 24 hr 11/18/19 11/18/19 11/18/19 05:30 05:30 19:00 WBC 9.6 RBC 3.89 L Hgb 10.5 L Hct 31.3 L MCV 80.5 MCH 27.0 MCHC 33.6 RDW 16.5 H Plt Count 188 MPV 7.4 L Absolute Neuts (auto) 6.9 Neutrophils % 72.8 Lymphocytes % 11.7 Monocytes % 8.9 Eosinophils % 5.8 H D Basophils % 0.8 Nucleated RBC % 0 Sodium 143 145 Potassium 4.1 4.3 Chloride 110 H 111 H Carbon Dioxide 25 26 Anion Gap 8 8 BUN 37.7 H 41.6 H Creatinine 1.8 H 2.0 H Est GFR (CKD-EPI)AfAm 37.83 33.31 Est GFR (CKD-EPI)NonAf 32.64 28.74 Random Glucose 124 H 128 H Calcium 9.0 8.8 11/18/19 19:00 WBC 11.2 H RBC 3.77 L Hgb 10.1 L Hct 30.7 L MCV 81.4 MCH 26.7 MCHC 32.8 RDW 17.0 H Plt Count 190 MPV 7.9 Absolute Neuts (auto) 8.4 H Neutrophils % 75.1 Lymphocytes % 11.8 Monocytes % 10.0 Eosinophils % 2.5 Basophils % 0.6 Nucleated RBC % 0 Sodium Potassium Chloride Carbon Dioxide Anion Gap BUN Creatinine Est GFR (CKD-EPI)AfAm Est GFR (CKD-EPI)NonAf Random Glucose Calcium Current Medications Generic Name Dose Route Start Last Admin Trade Name Freq PRN Reason Stop Dose Admin Acetaminophen 1,000 mg 11/18/19 18:28 Ofirmev Injection - IVPB Q6H PRN PAIN LEVEL 1-5 Acetaminophen 650 mg 11/18/19 19:13 Tylenol - PO Q4H PRN PAIN LEVEL 1 - 3 Albuterol Sulfate 1 amp 11/18/19 19:13 Ventolin 0.083% Nebulizer Soln - NEB Q4H PRN SHORT OF BREATH/WHEEZING Atorvastatin Calcium 20 mg 11/18/19 22:00 11/18/19 21:53 Lipitor - PO 20 mg HS TARAS Administration Enoxaparin Sodium 40 mg 11/19/19 10:00 Lovenox - SQ DAILY TARAS Cefazolin Sodium 2 gm/ 100 mls @ 200 mls/hr 11/19/19 01:00 Dextrose IVPB 11/19/19 09:29 Q8H TARAS Lactated Ringer's 1,000 mls @ 75 mls/hr 11/18/19 18:30 11/18/19 21:26 Lactated Ringers Solution IV Not Given ASDIR TARAS Sodium Chloride 1,000 mls @ 75 mls/hr 11/18/19 19:13 02/17/20 21:27 1/2 Normal Saline IV 75 mls/hr ASDIR TARAS Administration Labetalol HCl 200 mg 11/19/19 10:00 Normodyne - PO DAILY TARAS Memantine 10 mg 11/18/19 22:00 11/18/19 21:53 Namenda - PO 10 mg HS TARAS Administration Morphine Sulfate 2 mg 11/18/19 19:13 Morphine Sulfate IVPUSH Q4H PRN PAIN LEVEL 7 - 10 Ondansetron HCl 4 mg 11/18/19 19:13 Zofran Injection IVPUSH 11/19/19 19:12 Q6H PRN NAUSEA AND/OR VOMITING Oxycodone HCl 5 mg 11/18/19 18:27 Roxicodone - PO Q4H PRN PAIN LEVEL 6-10 Pantoprazole Sodium 40 mg 11/19/19 10:00 Protonix - PO DAILY TARAS Paroxetine HCl 40 mg 11/19/19 10:00 Paxil - PO DAILY [facility] Polyethylene Glycol 17 gm 11/18/19 22:00 11/18/19 21:53 Miralax (For Daily Use) - PO 17 gm BID TARAS Administration Intake & Output 11/16/19 11/17/19 11/18/19 11/19/19 23:59 23:59 23:59 23:59 Intake Total 1400 Output Total 20 Balance 1380 Weight 81.647 kg Hospitalist Encounter Outcome: Per RN, patient is asleep, resting comfortably at bedside
[2019-11-18 20:33] LABS: BLOOD UREA NITROGEN 41.6 mg/dL (7-18); CALCIUM 8.8 mg/dL (8.5-10.1); POTASSIUM 4.3 mmol/L (3.5-5.1)
[2019-11-18] MEDS: POLYETHYLENE GLYCOL 3350 119 GM BTL PO SCH (21:53)
[2019-11-18] MEDS: ATORVASTATIN CA 20 MG TABLET (FP) PO SCH (21:53)
[2019-11-18] MEDS: MEMANTINE HCL 10 MG TABLET (FP) PO SCH (21:53)
[2019-11-19 00:49] VITALS: BMI 27.1
[2019-11-19] MEDS ORDERED: CEFAZOLIN 2 GM in DEXTROSE 5%-WATER - 100 ML IVPB SCH (01:00)
[2019-11-19] MEDS: CEFAZOLIN 2 GM/D5W 2 GM/50 ML ML IVPB SCH ×2 (01:52→09:25)
--- NOTE | 2019-11-19 08:12 | PN ---
Progress Note (short form) - Note Progress Note: ORTHOPEDIC SURGERY PROGRESS NOTE Department of Orthopedic Surgery SUBJECTIVE No complaints currently. Alert confused and agitated this morning. No nausea or vomiting. Tolerating oral intake. Pain currently better controlled. SCD's in place B/L PHYSICAL EXAMINATION General: Alert, agitated. Lower Extremity: Dressing clean/dry/intact; Skin intact, no lesions, rashes or ulcers noted. Muscle mass equal and symmetric to contralateral side. No atrophy noted. No masses or effusions noted. No tenderness to palpation. EHL/TA/GS motor intact; SILT distally; 2+ DP pulses; Cap refill brisk. DVT Exam: No evidence of DVT seen on physical exam; No cords or calf tenderness ; No significant calf/ankle edema. Intake & Output 11/17/19 11/18/19 11/19/19 23:59 23:59 23:59 Intake Total 1950 1000 Output Total 20 Balance 1930 1000 Intake: IV 1550 600 1/2 Normal Saline 1,000 150 600 ml @ 75 mls/hr IV ASDIR TARAS Rx#:[id number] IVPB 100 Oral 300 200 TPN/PPN 100 100 Output: Estimated Blood Loss 20 Other: Voiding Method Diaper Diaper # Unmeasured Voids Void 1 2 Bowel Movement No No Weight 180 lb 178 lb 3.2 oz Height 5 ft 8 in 5 ft 8 in Body Mass Index (BMI) 27.3 27.1 Weight Measurement Method Built in [facility] Active Medications Generic Name Dose Route Start Last Admin Trade Name Freq PRN Reason Stop Dose Admin Acetaminophen 1,000 mg 11/18/19 18:28 11/19/19 05:35 Ofirmev Injection - IVPB 1,000 mg Q6H PRN Administration PAIN LEVEL 1-5 Acetaminophen 650 mg 11/18/19 19:13 Tylenol - PO Q4H PRN PAIN LEVEL 1 - 3 Albuterol Sulfate 1 amp 11/18/19 19:13 Ventolin 0.083% Nebulizer Soln - NEB Q4H PRN SHORT OF BREATH/WHEEZING Atorvastatin Calcium 20 mg 11/18/19 22:00 11/18/19 21:53 Lipitor - PO 20 mg HS TARAS Administration Enoxaparin Sodium 40 mg 11/19/19 10:00 Lovenox - SQ DAILY [facility] Lactated Ringer's 1,000 mls @ 75 mls/hr 11/18/19 18:30 11/18/19 21:26 Lactated Ringers Solution IV Not Given ASDIR TARAS Sodium Chloride 1,000 mls @ 75 mls/hr 11/18/19 19:13 11/18/19 21:27 1/2 Normal Saline IV 75 mls/hr ASDIR TARAS Administration Cefazolin Sodium/Dextrose 2 gm in 50 mls @ 100 mls/hr 11/19/19 02:00 01:52 Ancef 2 Gm Premixed Ivpb - IVPB 11/19/19 10:29 100 mls/hr Q8H TARAS Administration Labetalol HCl 200 mg 11/19/19 10:00 Normodyne - PO DAILY TARAS Memantine 10 mg 11/18/19 22:00 11/18/19 21:53 Namenda - PO 10 mg HS TARAS Administration Morphine Sulfate 2 mg 11/18/19 19:13 Morphine Sulfate IVPUSH Q4H PRN PAIN LEVEL 7 - 10 Ondansetron HCl 4 mg 11/18/19 19:13 Zofran Injection IVPUSH 11/19/19 19:12 Q6H PRN NAUSEA AND/OR VOMITING Oxycodone HCl 5 mg 11/18/19 18:27 Roxicodone - PO Q4H PRN PAIN LEVEL 6-10 Pantoprazole Sodium 40 mg 11/19/19 10:00 Protonix - PO DAILY TARAS Paroxetine HCl 40 mg 11/19/19 10:00 Paxil - PO DAILY [facility] Polyethylene Glycol 17 gm 11/18/19 22:00 11/18/19 21:53 Miralax (For Daily Use) - PO 17 gm BID TARAS Administration Vital Signs (last) Temp Pulse Resp BP Pulse Ox 98.2 F 90 20 154/68 95 11/19/19 05:15 11/19/19 05:15 11/19/19 05:15 11/19/19 05:15 11/18/19 21:00 Laboratory (coagulation) PT with INR 12.10 SEC (9.7-13.0) 11/17/19 12:15 Laboratory 11/18/19 19:00 11/18/19 19:00 ASSESSMENT AND PLAN Mr. Martinez is a 89 year old male presenting status post left hip IMN POD 1 - Pain control: Transition to oral pain medications, minimize narcotic use - DVT prophylaxis (Lovenox 40mg SQ x 30 days) - Ice to left hip - Elevate HOB, encourage oral intake - Appreciate medical management (Nutrition optimization, decubitus precautions heel/sacrum) - PT Daily; WBAT LLE; OOB to chair - Dispo planning
--- NOTE | 2019-11-19 08:26 | PN ---
Progress Note (short form) - Note Progress Note: Post op day#1.S/P Left hip gamma nail under GA uneventful.Patient stable.No any anesthesia related problem.Patient DC from the anesthesia care.
[2019-11-19] MEDS ORDERED: LABETALOL HCL 200 MG TABLET (FP) PO SCH (10:00)
[2019-11-19 11:58] LABS: HEMATOCRIT 28.7 % (35.4-49); HEMOGLOBIN 9.3 GM/dL (11.7-16.9); MCH 26.7 pg (25.7-33.7); MCHC 32.3 g/dl (32.0-35.9); MEAN CELL VOLUME 82.8 fl (80-96); MEAN PLT VOLUME 7.7 fl (7.5-11.1); PLATELET COUNT 160 K/MM3 (134-434); RBC 3.46 M/mm3 (4.00-5.60); RDW 17.3 % (11.9-15.9); WHITE BLOOD COUNT 10.5 K/mm3 (4.0-10.0)
[2019-11-19 12:37] LABS: BLOOD UREA NITROGEN 45.5 mg/dL (7-18); CALCIUM 8.5 mg/dL (8.5-10.1); CREATININE 2.1 mg/dL (0.55-1.3); POTASSIUM 4.5 mmol/L (3.5-5.1)
--- NOTE | 2019-11-19 12:51 | PN ---
Progress Note, Physician Chief Complaint: Day 1 post left hip gamma nail. History of Present Illness: Right hip ORIF. History of frequent falling. Dementia Gout, OA CKD 3 Paroxysmal A.Fib HTN. ASHD. COPD. GERD UTI. - Current Medication List Current Medications: Active Medications Acetaminophen (Tylenol -) 650 mg PO Q4H PRN PRN Reason: PAIN LEVEL 1 - 3 Albuterol Sulfate (Ventolin 0.083% Nebulizer Soln -) 1 amp NEB Q4H PRN PRN Reason: SHORT OF BREATH/WHEEZING Atorvastatin Calcium (Lipitor -) 20 mg PO HS [facility] Last Admin: 11/18/19 21:53 Dose: 20 mg Enoxaparin Sodium (Lovenox -) 40 mg SQ DAILY [facility] Lactated Ringer's (Lactated Ringers Solution) 1,000 mls @ 75 mls/hr IV ASDIR [facility] Last Admin: 11/18/19 21:26 Dose: Not Given Sodium Chloride (1/2 Normal Saline) 1,000 mls @ 75 mls/hr IV ASDIR [facility] Last Admin: 11/18/19 21:27 Dose: 75 mls/hr Labetalol HCl (Normodyne -) 200 mg PO DAILY [facility] Memantine (Namenda -) 10 mg PO [facility] Last Admin: 11/18/19 21:53 Dose: 10 mg Morphine Sulfate (Morphine Sulfate) 2 mg IVPUSH Q4H PRN PRN Reason: PAIN LEVEL 7 - 10 Last Admin: 11/19/19 08:45 Dose: 2 mg Ondansetron HCl (Zofran Injection) 4 mg IVPUSH Q6H PRN PRN Reason: NAUSEA AND/OR VOMITING Stop: 11/19/19 19:12 Oxycodone HCl (Roxicodone -) 5 mg PO Q4H PRN PRN Reason: PAIN LEVEL 4 - 6 Pantoprazole Sodium (Protonix -) 40 mg PO DAILY [facility] Paroxetine HCl (Paxil -) 40 mg PO DAILY [facility] Polyethylene Glycol (Miralax (For Daily Use) -) 17 gm PO BID [facility] Last Admin: 11/18/19 21:53 Dose: 17 gm - Objective Vital Signs: Vital Signs Temperature 98.2 F 11/19/19 05:15 Pulse Rate 98 H 11/19/19 10:00 Respiratory Rate 11/19/19 10:00 Blood Pressure 144/65 11/19/19 10:00 O2 Sat by Pulse Oximetry (%) 92 L 11/19/19 09:00 Constitutional: Yes: Anxious, Moderate Distress. No: Diaphoresis Eyes: Yes: Conjunctiva Clear, EOM Intact HENT: Yes: Atraumatic, Normocephalic Neck: Yes: Supple, Trachea Midline. No: Lymphadenopathy Cardiovascular: Yes: Regular Rate and Rhythm, S1, S2 Respiratory: Yes: Regular, CTA Bilaterally Gastrointestinal: Yes: Normal Bowel Sounds, Soft, Abdomen, Obese. No: Rectal Bleeding ...Rectal Exam: Yes: Deferred Genitourinary: No: Anuria Breast(s): Yes: WNL Extremities: Yes: Other (left hip staple of the 2 incisions clean.) Edema: Yes Edema: LLE: Trace, RLE: Trace Neurological: Yes: Alert. No: Oriented, Aphasia ...Motor Strength: WNL Psychiatric: Yes: Alert, Agitated (Occasionally). No: Oriented Labs: CBC, BMP 11/19/19 11:25 11/19/19 11:25 INR, PTT INR 1.03 (0.83-1.09) 11/17/19 12:15 Laboratory Results - last 24 hr 11/18/19 11/18/19 11/19/19 19:00 19:00 11:25 WBC 11.2 H 10.5 H RBC 3.77 L 3.46 L Hgb 10.1 L 9.3 L Hct 30.7 L 28.7 L MCV 81.4 82.8 MCH 26.7 26.7 MCHC 32.8 32.3 RDW 17.0 H 17.3 H Plt Count 190 160 MPV 7.9 7.7 Absolute Neuts (auto) 8.4 H Neutrophils % 75.1 Lymphocytes % 11.8 Monocytes % 10.0 Eosinophils % 2.5 Basophils % 0.6 Nucleated RBC % 0 Sodium 145 Potassium 4.3 Chloride 111 H Carbon Dioxide 26 Anion Gap 8 BUN 41.6 H Creatinine 2.0 H Est GFR (CKD-EPI)AfAm 33.31 Est GFR (CKD-EPI)NonAf 28.74 Random Glucose 128 H Calcium 8.8 11/19/19 11:25 WBC RBC Hgb Hct MCV MCH MCHC RDW Plt Count MPV Absolute Neuts (auto) Neutrophils % Lymphocytes % Monocytes % Eosinophils % Basophils % Nucleated RBC % Sodium 147 H Potassium 4.5 Chloride 113 H Carbon Dioxide 26 Anion Gap 8 BUN 45.5 H Creatinine 2.1 H Est GFR (CKD-EPI)AfAm 31.40 Est GFR (CKD-EPI)NonAf 27.09 Random Glucose 108 H Calcium 8.5 Problem List - Problems (1) Hip fracture Assessment/Plan: status post left hip gamma nail. No uncontrolled CHF or angina, EKG-normal SR, no acute changes. Given and urgency of surgery for hip fracture, no further testing pre-op necessary, the risks appear moderate. Code(s): S72.009A - FRACTURE OF UNSP PART OF NECK OF UNSP FEMUR, INIT Qualifiers: Encounter type: initial encounter Fracture type: closed Laterality: left Qualified Code(s): S72.002A - Fracture of unspecified part of neck of left femur, initial encounter for closed fracture (2) Urinary tract infection Assessment/Plan: Follow UA cx P. Mirabilis, Started on IV Ceftriaxone Code(s): N39.0 - URINARY TRACT INFECTION, SITE NOT SPECIFIED Qualifiers: Urinary tract infection type: site unspecified Hematuria presence: without hematuria Qualified Code(s): N39.0 - Urinary tract infection, site not specified (3) Abnormal x-ray of lung Assessment/Plan: Chronic COPD, ILD NC O2 PRN, nebs with duonebs. Code(s): R91.8 - OTHER NONSPECIFIC ABNORMAL FINDING OF LUNG FIELD (4) Aortic stenosis, moderate Assessment/Plan: Moderate stenosis, would maintain BP and HR controlled, avoid overload with fluids Code(s): I35.0 - NONRHEUMATIC AORTIC (VALVE) STENOSIS (5) CKD (chronic kidney disease) stage 3, GFR 30-59 ml/min Assessment/Plan: IV fluids, follow BUN/Creat, electrolytes Code(s): N18.3 - CHRONIC KIDNEY DISEASE, STAGE 3 (MODERATE) (6) Hypernatremia Assessment/Plan: Encourage PO fluids. IV fluids 1/2 ns. The patient repeatedly removes IV. Code(s): E87.0 - HYPEROSMOLALITY AND HYPERNATREMIA
[2019-11-19] MEDS ORDERED: LABETALOL HCL 100 MG TABLET (FP) ONE (12:58)
[2019-11-19] MEDS: ENOXAPARIN NA (PORCINE) 40 MG/0.4 ML DISP.SYRIN SQ SCH (14:38)
[2019-11-19] MEDS: MORPHINE SULFATE 2 MG/ML VIAL SQ PRN (14:39)
[2019-11-19] MEDS: PARoxetine HCL 20 MG TABLET PO SCH (14:40)
[2019-11-19] MEDS: POLYETHYLENE GLYCOL 3350 119 GM BTL PO SCH ×2 (14:40→22:05)
[2019-11-19] MEDS: PANTOPRAZOLE 40 MG TABLET PO SCH (14:40)
--- NOTE | 2019-11-19 15:31 | CON.CARD ---
Consult Consult Specialty:: cardiology - History of Present Illness History of Present Illness: HISTORY OF PRESENT ILLNESS: This is an 89 year old man who is a long-term resident at [facility] who was found on the floor this morning. He says that he needed to use the bathroom and could not get help, so he attempted to get out of bed on his own. He fell and could not get up. He hit his head but he denies loss of consciousness. He is a poor historian. As per family, he has been at [facility] since May 2019 and during that time, his mobility has been declining. PAST MEDICAL HISTORY Hypertension AF Hyperlipidemia Aortic stenosis Stage 3 CKD Gout GERD Dementia Osteoarthritis Prostate cancer PAST SURGICAL HISTORY Hernia repair ORIF right hip - History Source History Provided By: Medical Record Limitations to Obtaining History: Dementia - Past Medical History LEATHER DRIER: Yes: Dementia Cardio/Vascular: Yes: CAD, HTN, Hyperlipdemia Gastrointestinal: Yes: GERD Renal/: Yes: Renal Calculi, Other Psych: Yes: Depression Rheumatology: Yes: Gout ENT: Yes: Allergic Rhinitis - Past Surgical History Past Surgical History: Yes: Hernia Repair, Joint Replacement - Alcohol/Substance Use Hx Alcohol Use: No History of Substance Use: reports: None - Smoking History Smoking history: Former smoker Have you smoked in the past 12 months: No Aproximately how many cigarettes per day: 0 If you are a former smoker, when did you quit?: 49 yrs ago - Social History Usual Living Arrangement: [facility] ADL: Family Assistance History of Recent Travel: No Home Medications - Allergies Allergies/Adverse Reactions: Allergies Allergy/AdvReac Type Severity Reaction Status Date / Time No Known Allergies Allergy Verified 11/18/19 06:05 - Home Medications Home Medications: Ambulatory Orders Allopurinol [Zyloprim -] 100 mg PO DAILY #30 tablet 11/24/12 Paroxetine HCl [Paxil] 40 mg PO DAILY 10/09/14 Atorvastatin Ca [Lipitor] 20 mg PO HS 04/28/19 Memantine HCl [Namenda -] 10 mg PO DAILY 04/28/19 Acetaminophen [Tylenol .Regular Strength -] 650 mg PO Q6H PRN tablet 05/04/19 Albuterol Sulfate 0.5% [Ventolin 0.5% Nebulizing Soln. -] 1 amp NEB Q4H PRN amp 05/04/19 Nystatin Cream [Mycostatin Cream -] 1 applic TP BID applic 05/04/19 Pantoprazole Sodium [Protonix -] 20 mg PO DAILY tablet.ec 05/04/19 Sennosides/Docusate Sodium [Pericolace -] 1 tablet PO BID tablet 05/04/19 Labetalol HCl [Normodyne -] 200 mg PO DAILY tablet 05/13/19 Acetaminophen [Tylenol .Regular Strength -] 650 mg PO Q6H PRN tablet 07/22/19 Albuterol 0.083% Nebulizer Gayathri [Ventolin 0.083% Nebulizer Soln -] 1 amp NEB Q6H PRN amp 07/22/19 Bacitracin - [Bacitracin Topical Ointment -] 1 applic TP TID tube 07/22/19 Mineral Oil/Pet Hy-Phl [Aquaphor -] 1 applic TP TID jar 07/22/19 Sulfamethoxazole/Trimethoprim [Bactrim Ds -] 1 tab PO BID #14 tablet 09/02/19 Vital Signs: Vital Signs Temperature 97.5 F L 11/19/19 13:59 Pulse Rate 108 H 11/19/19 13:59 Respiratory Rate 20 11/19/19 13:59 Blood Pressure 144/65 11/19/19 10:00 O2 Sat by Pulse Oximetry (%) 92 L 11/19/19 09:00 - Other Data Labs, Other Data: CBC, BMP 11/19/19 11:25 11/19/19 11:25 INR, PTT INR 1.03 (0.83-1.09) 11/17/19 12:15 Problem List - Problems (1) Atrial fibrillation Assessment/Plan: change Labetolol to metoprolol tartrate 25 mg bid for better HR control. Code(s): I48.91 - UNSPECIFIED ATRIAL FIBRILLATION (2) CKD (chronic kidney disease) stage 3, GFR 30-59 ml/min Code(s): N18.3 - CHRONIC KIDNEY DISEASE, STAGE 3 (MODERATE) (3) Hip fracture Code(s): S72.009A - FRACTURE OF UNSP PART OF NECK OF UNSP FEMUR, INIT Qualifiers: Encounter type: initial encounter Fracture type: closed Laterality: left Qualified Code(s): S72.002A - Fracture of unspecified part of neck of left femur, initial encounter for closed fracture (4) Dementia Code(s): F03.90 - UNSPECIFIED DEMENTIA WITHOUT BEHAVIORAL DISTURBANCE Qualifiers: Dementia type: unspecified type Dementia behavioral disturbance: without behavioral disturbance Qualified Code(s): F03.90 - Unspecified dementia without behavioral disturbance (5) Essential hypertension Code(s): I10 - ESSENTIAL (PRIMARY) HYPERTENSION (6) Intertrochanteric fracture of right femur Code(s): S72.141A - DISPLACED INTERTROCHANTERIC FRACTURE OF RIGHT FEMUR, INIT (7) Prostate cancer Code(s): C61 - MALIGNANT NEOPLASM OF PROSTATE (8) Diastolic CHF Code(s): I50.30 - UNSPECIFIED DIASTOLIC (CONGESTIVE) HEART FAILURE (9) Moderate aortic stenosis by prior echocardiogram Code(s): I35.0 - NONRHEUMATIC AORTIC (VALVE) STENOSIS
[2019-11-19] MEDS ORDERED: LORazepam 2 MG/ML SDV VIAL IM PRN (15:42)
--- NOTE | 2019-11-19 17:36 | ECHO ---
Version: 1 Name: SARIKA COMBS Exam: Adult Echocardiogram Study Date: 11/19/2019, 1:10 PM Age: 89 Years MMode/2D Measurements & Calculations IVSd: 0.97 cm LVIDs: 3.8 cm LVIDd: 5.9 cm LVPWd: 1.21 cm ACS: 1.11 cm Ao root diam: 3.3 cm LVOT diam: 2.00 cm LA dimension: 5.6 cm Doppler Measurements & Calculations MV E max rosalinda: 72.3 cm/sec MV A max rosalinda: 96.5 cm/sec MV E/A: 0.75 Ao max P.8 mmHg MARYCHUY(I,D): 1.41 cm Ao mean P.5 mmHg LV V1 mean: 79.6 cm/sec Ao V2 max: 280.0 cm/sec LV V1 mean P.0 mmHg TR max rosalinda: 370.9 cm/sec TR max P.0 mmHg Left Ventricle Mild LVH, normal LV function. EF 64%. Abnormal diastolic compliance. Right Ventricle The right ventricle is grossly normal size. Atria Left Atrial enlargement. Right atrial size is normal. Mitral Valve The mitral valve leaflets appear normal. There is no evidence of stenosis, fluttering, or prolapse. There is trace mitral regurgitation. Tricuspid Valve The tricuspid valve is not well visualized, but is grossly normal. There is mild tricuspid regurgita tion. Aortic Valve Fibrocalcific changes of the aortic valve with mild aortic stenosis. MARYCHUY 1.28 cm. Pulmonic Valve The pulmonic valve is not well seen, but is grossly normal. Great Vessels The aortic root is normal size. Pericardium/Pleura There is no pericardial effusion. Summary Statements Mild LVH, normal LV function. EF 64% Normal RV size and function Abnormal diastolic compliance. There is trace mitral regurgitation. The mitral valve leaflets appear normal. There is no evidence of stenosis, fluttering, or prolapse. The tricuspid valve is not well visualized, but is grossly normal. There is mild tricuspid regurgitation. The pulmonic valve is not well seen, but is grossly normal. Fibrocalcific changes of the aortic valve with mild aortic stenosis. MARYCHUY 1.28 cm The aortic root is normal size. PASP 50 -55 mmHg Consistent with moderate pulmonary HTN MD Andrew Soler 11/19/2019, 5:36 PM Ordering Physician: Manuel Lott Performed By: Brittanie Quintero
[2019-11-19] MEDS: METOPROLOL TARTRATE 25 MG TABLET (FP) PO SCH ×2 (18:11→22:05)
[2019-11-19] MEDS: SODIUM CHLORIDE 0.45% 1,000 ML IV SCH (19:46)
[2019-11-19] MEDS: ATORVASTATIN CA 20 MG TABLET (FP) PO SCH (22:05)
[2019-11-19] MEDS: MEMANTINE HCL 10 MG TABLET (FP) PO SCH (22:05)
--- NOTE | 2019-11-20 08:01 | PN ---
Progress Note, Physician Chief Complaint: Day 2 post left hip gamma nail. Yesterday agitated. Today sleepng in bed, comfortable. Cardiology consult appreciated Spoke to daughter yesterday, questiones answered. History of Present Illness: Right hip ORIF. History of frequent falling. Dementia Gout, OA CKD 3 Paroxysmal A.Fib HTN. ASHD. COPD. GERD UTI. Mild . Diastolic CHF - Current Medication List Current Medications: Active Medications Acetaminophen (Tylenol -) 650 mg PO Q4H PRN PRN Reason: PAIN LEVEL 1 - 3 Albuterol Sulfate (Ventolin 0.083% Nebulizer Soln -) 1 amp NEB Q4H PRN PRN Reason: SHORT OF BREATH/WHEEZING Atorvastatin Calcium (Lipitor -) 20 mg PO [facility] Last Admin: 11/19/19 22:05 Dose: 20 mg Enoxaparin Sodium (Lovenox -) 40 mg SQ DAILY [facility] Last Admin: 11/19/19 14:38 Dose: 40 mg Lactated Ringer's (Lactated Ringers Solution) 1,000 mls @ 75 mls/hr IV ASDIR [facility] Last Admin: 11/18/19 21:26 Dose: Not Given Sodium Chloride (1/2 Normal Saline) 1,000 mls @ 75 mls/hr IV ASDIR [facility] Last Admin: 11/19/19 19:46 Dose: Not Given Lorazepam (Ativan Injection -) 0.5 mg IM Q6H PRN PRN Reason: AGITATION Last Admin: 11/19/19 15:49 Dose: 0.5 mg Memantine (Namenda -) 10 mg PO [facility] Last Admin: 11/19/19 22:05 Dose: 10 mg Metoprolol Tartrate (Lopressor -) 25 mg PO BID [facility] Last Admin: 11/19/19 22:05 Dose: 25 mg Morphine Sulfate (Morphine Sulfate) 2 mg SQ Q4H PRN PRN Reason: PAIN LEVEL 6-10 Last Admin: 11/19/19 14:39 Dose: 2 mg Pantoprazole Sodium (Protonix -) 40 mg PO DAILY [facility] Last Admin: 11/19/19 14:40 Dose: 40 mg Paroxetine HCl (Paxil -) 40 mg PO DAILY [facility] Last Admin: 11/19/19 14:40 Dose: 40 mg Polyethylene Glycol (Miralax (For Daily Use) -) 17 gm PO BID [facility] Last Admin: 11/19/19 22:05 Dose: 17 gm - Objective Vital Signs: Vital Signs Temperature 98.0 F 11/20/19 05:47 Pulse Rate 71 11/20/19 05:47 Respiratory Rate 20 11/20/19 05:47 Blood Pressure 116/74 11/20/19 05:47 O2 Sat by Pulse Oximetry (%) 93 L 11/19/19 21:00 Constitutional: Yes: No Distress, Calm Eyes: Yes: Conjunctiva Clear, EOM Intact HENT: Yes: Atraumatic, Normocephalic Neck: Yes: Supple, Trachea Midline Cardiovascular: Yes: Regular Rate and Rhythm Respiratory: Yes: CTA Bilaterally Gastrointestinal: Yes: Normal Bowel Sounds, Soft, Abdomen, Obese ...Rectal Exam: Yes: Deferred Genitourinary: No: Anuria, Bladder Distention Breast(s): Yes: WNL Extremities: No: Amputation, Calf Tenderness, Cold Edema: LLE: Trace, RLE: Trace Wound/Incision: Yes: Nixon Intact Neurological: No: Oriented, Aphasia ...Motor Strength: WNL Psychiatric: Yes: Alert. No: Oriented, Agitated Labs: CBC, BMP 11/19/19 11:25 11/19/19 11:25 INR, PTT INR 1.03 (0.83-1.09) 11/17/19 12:15 Problem List - Problems (1) Hip fracture Assessment/Plan: status post left hip gamma nail. No uncontrolled CHF or angina, EKG-normal SR, no acute changes. Given and urgency of surgery for hip fracture, no further testing pre-op necessary, the risks appear moderate. Code(s): S72.009A - FRACTURE OF UNSP PART OF NECK OF UNSP FEMUR, INIT Qualifiers: Encounter type: initial encounter Fracture type: closed Laterality: left Qualified Code(s): S72.002A - Fracture of unspecified part of neck of left femur, initial encounter for closed fracture (2) Urinary tract infection Assessment/Plan: Follow UA cx P. Mirabilis, Started on IV Ceftriaxone Code(s): N39.0 - URINARY TRACT INFECTION, SITE NOT SPECIFIED Qualifiers: Urinary tract infection type: site unspecified Hematuria presence: without hematuria Qualified Code(s): N39.0 - Urinary tract infection, site not specified (3) Abnormal x-ray of lung Assessment/Plan: Chronic COPD, ILD NC O2 PRN, nebs with duonebs. Code(s): R91.8 - OTHER NONSPECIFIC ABNORMAL FINDING OF LUNG FIELD (4) Aortic stenosis, moderate Assessment/Plan: Moderate stenosis, would maintain BP and HR controlled, avoid overload with fluids Code(s): I35.0 - NONRHEUMATIC AORTIC (VALVE) STENOSIS (5) CKD (chronic kidney disease) stage 3, GFR 30-59 ml/min Assessment/Plan: IV fluids, follow BUN/Creat, electrolytes Code(s): N18.3 - CHRONIC KIDNEY DISEASE, STAGE 3 (MODERATE) (6) Hypernatremia Assessment/Plan: Encourage PO fluids. IV fluids 1/2 ns. The patient repeatedly removes IV. Code(s): E87.0 - HYPEROSMOLALITY AND HYPERNATREMIA
[2019-11-20] MEDS ORDERED: LORazepam 2 MG/ML SDV VIAL IM PRN (08:03)
[2019-11-20] MEDS: PANTOPRAZOLE 40 MG TABLET PO SCH (09:10)
[2019-11-20] MEDS: METOPROLOL TARTRATE 25 MG TABLET (FP) PO SCH ×2 (09:11→22:36)
[2019-11-20] MEDS: POLYETHYLENE GLYCOL 3350 119 GM BTL PO SCH ×2 (09:11→22:36)
[2019-11-20] MEDS: PARoxetine HCL 20 MG TABLET PO SCH (09:11)
[2019-11-20] MEDS: ENOXAPARIN NA (PORCINE) 40 MG/0.4 ML DISP.SYRIN SQ SCH (09:11)
[2019-11-20 09:14] LABS: HEMATOCRIT 25.4 % (35.4-49); HEMOGLOBIN 8.5 GM/dL (11.7-16.9); MCHC 33.3 g/dl (32.0-35.9); MEAN CELL VOLUME 81.1 fl (80-96); PLATELET COUNT 153 K/MM3 (134-434); RBC 3.13 M/mm3 (4.00-5.60); RDW 17.3 % (11.9-15.9); WHITE BLOOD COUNT 8.9 K/mm3 (4.0-10.0)
[2019-11-20 09:51] LABS: BLOOD UREA NITROGEN 67.8 mg/dL (7-18); CALCIUM 8.2 mg/dL (8.5-10.1); CREATININE 3.2 mg/dL (0.55-1.3); POTASSIUM 4.2 mmol/L (3.5-5.1)
--- NOTE | 2019-11-20 12:41 | PN ---
Progress Note (short form) - Note Progress Note: ORTHOPEDIC SURGERY PROGRESS NOTE Department of Orthopedic Surgery SUBJECTIVE No complaints currently. Alert confused and agitated this morning. No nausea or vomiting. Tolerating oral intake. Pain currently better controlled. Patient ripped off aquacell dressings. will reapply. PHYSICAL EXAMINATION General: Alert, currently resting comfortably. Lower Extremity: Dressing off; staple intact; no drainage, no signs of infection no erythema; Aquacell reapplied; Skin intact, no lesions, rashes or ulcers noted. Muscle mass equal and symmetric to contralateral side. No atrophy noted. No masses or effusions noted. No tenderness to palpation. EHL/TA/GS motor intact; SILT distally; 2+ DP pulses; Cap refill brisk. DVT Exam: No evidence of DVT seen on physical exam; No cords or calf tenderness ; No significant calf/ankle edema. Intake & Output 11/18/19 11/19/19 11/20/19 23:59 23:59 23:59 Intake Total 1950 2330 800 Output Total 20 Balance 1930 2330 800 Intake: IV 1550 1550 600 1/2 Normal Saline 1,849 635 0495 600 ml @ 75 mls/hr IV ASDIR [facility] Rx#:[id number] IVPB 100 Oral 300 500 200 Oral Supplement 80 TPN/PPN 100 100 Output: Estimated Blood Loss 20 Other: Voiding Method Diaper Diaper Diaper # Unmeasured Voids Void 1 1 1 Bowel Movement No No No Weight 178 lb 3.2 oz Height 5 ft 8 in Body Mass Index (BMI) 27.1 Weight Measurement Method Built in [facility] Active Medications Generic Name Dose Route Start Last Admin Trade Name Freq PRN Reason Stop Dose Admin Acetaminophen 650 mg 11/18/19 19:13 Tylenol - PO Q4H PRN PAIN LEVEL 1 - 3 Albuterol Sulfate 1 amp 11/18/19 19:13 Ventolin 0.083% Nebulizer Soln - NEB Q4H PRN SHORT OF BREATH/WHEEZING Atorvastatin Calcium 20 mg 11/18/19 22:00 11/19/19 22:05 Lipitor - PO 20 mg HS [facility] Administration Enoxaparin Sodium 40 mg 11/19/19 10:00 11/20/19 09:11 Lovenox - SQ 40 mg DAILY [facility] Administration Lactated Ringer's 1,000 mls @ 75 mls/hr 11/18/19 18:30 11/18/19 21:26 Lactated Ringers Solution IV Not Given ASDIR [facility] Sodium Chloride 1,000 mls @ 75 mls/hr 11/18/19 19:13 11/19/19 19:46 1/2 Normal Saline IV Not Given ASDIR [facility] Lorazepam 0.5 mg 11/20/19 08:03 11/20/19 09:10 Ativan Injection - IM 0.5 mg Q12H PRN Administration AGITATION Memantine 10 mg 11/18/19 22:00 11/19/19 22:05 Namenda - PO 10 mg HS [facility] Administration Metoprolol Tartrate 25 mg 11/19/19 16:00 11/20/19 09:11 Lopressor - PO 25 mg BID [facility] Administration Morphine Sulfate 2 mg 11/19/19 13:28 11/19/19 14:39 Morphine Sulfate SQ 2 mg Q4H PRN Administration PAIN LEVEL 6-10 Pantoprazole Sodium 40 mg 11/19/19 10:00 11/20/19 09:10 Protonix - PO 40 mg DAILY [facility] Administration Paroxetine HCl 40 mg 11/19/19 10:00 11/20/19 09:11 Paxil - PO 40 mg DAILY [facility] Administration Polyethylene Glycol 17 gm 11/18/19 22:00 11/20/19 09:11 Miralax (For Daily Use) - PO Not Given BID [facility] Vital Signs (last) Temp Pulse Resp BP Pulse Ox 98 F 68 20 120/50 L 92 L 11/20/19 09:45 11/20/19 09:45 11/20/19 09:45 11/20/19 09:45 11/20/19 09:00 Laboratory (coagulation) PT with INR 12.10 SEC (9.7-13.0) 11/17/19 12:15 Laboratory 11/20/19 08:50 11/20/19 08:50 ASSESSMENT AND PLAN Mr. Martinez is a 89 year old male presenting status post left hip IMN POD 2 - Pain control: Transition to oral pain medications, minimize narcotic use - DVT prophylaxis (Lovenox 40mg SQ x 30 days); SCD's B/L LE at all times while in bed. - Ice to left hip - F/U labs - Elevate HOB, encourage oral intake - Appreciate medical management (Nutrition optimization, decubitus precautions heel/sacrum) - PT Daily; WBAT LLE; OOB to chair - Dispo planning
[2019-11-20] MEDS: MORPHINE SULFATE 2 MG/ML VIAL SQ PRN (15:06)
--- NOTE | 2019-11-20 15:34 | EKG ---
Test Reason : Blood Pressure : / mmHG Vent. Rate : 080 BPM Atrial Rate : 080 BPM P-R Int : 136 ms QRS Dur : 090 ms QT Int : 396 ms P-R-T Axes : 027 -05 000 degrees QTc Int : 456 ms NORMAL SINUS RHYTHM PROLONGED QT NONSPECIFIC ST ABNORMALITY ABNORMAL ECG Confirmed by MD MITCHELL, CLARITA ([id number]) on 11/20/2019 3:33:41 PM Referred By: [facility] GARNICA [facility] Confirmed By:CLARITA MEDRANO MD
[2019-11-20] MEDS ORDERED: LORazepam 2 MG/ML SDV VIAL IM STA (16:13)
[2019-11-20] MEDS ORDERED: CEFTRIAXONE 1 GM in DEXTROSE 5%-WATER - 50 ML IVPB ONE (16:30)
[2019-11-20] MEDS ORDERED: cefTRIAXone SODIUM 1 GM VIAL ONE (16:44)
[2019-11-20] MEDS ORDERED: DEXTROSE 5%-WATER - 50 ML IVPB ONE (16:45)
[2019-11-20] MEDS: ATORVASTATIN CA 20 MG TABLET (FP) PO SCH (22:36)
[2019-11-20] MEDS: MEMANTINE HCL 10 MG TABLET (FP) PO SCH (22:36)
[2019-11-21] MEDS: SODIUM CHLORIDE 0.45% 1,000 ML IV SCH (06:28)
--- NOTE | 2019-11-21 06:54 | PN ---
Progress Note, Physician Chief Complaint: Frequently agitated during routine care, pain is controlled. Ortho note appreciated . Recommended D/C to SNF. History of Present Illness: Right hip ORIF. History of frequent falling. Dementia Gout, OA CKD 3 Paroxysmal A.Fib HTN. ASHD. COPD. GERD UTI. Mild . Diastolic CHF - Current Medication List Current Medications: Active Medications Acetaminophen (Tylenol -) 650 mg PO Q4H PRN PRN Reason: PAIN LEVEL 1 - 3 Albuterol Sulfate (Ventolin 0.083% Nebulizer Soln -) 1 amp NEB Q4H PRN PRN Reason: SHORT OF BREATH/WHEEZING Atorvastatin Calcium (Lipitor -) 20 mg PO [facility] Last Admin: 11/20/19 22:36 Dose: Not Given Cefuroxime Axetil (Ceftin -) 500 mg PO BID [facility] Enoxaparin Sodium (Lovenox -) 40 mg SQ DAILY [facility] Last Admin: 11/20/19 09:11 Dose: 40 mg Sodium Chloride (1/2 Normal Saline) 1,000 mls @ 75 mls/hr IV ASDIR [facility] Last Admin: 11/21/19 06:28 Dose: 75 mls/hr Lorazepam (Ativan Injection -) 0.5 mg IM Q12H PRN PRN Reason: AGITATION Last Admin: 11/20/19 09:10 Dose: 0.5 mg Memantine (Namenda -) 10 mg PO HS [facility] Last Admin: 11/20/19 22:36 Dose: Not Given Metoprolol Tartrate (Lopressor -) 25 mg PO BID [facility] Last Admin: 11/20/19 22:36 Dose: Not Given Morphine Sulfate (Morphine Sulfate) 2 mg SQ Q4H PRN PRN Reason: PAIN LEVEL 6-10 Last Admin: 11/20/19 15:06 Dose: 2 mg Pantoprazole Sodium (Protonix -) 40 mg PO DAILY [facility] Last Admin: 11/20/19 09:10 Dose: 40 mg Paroxetine HCl (Paxil -) 40 mg PO DAILY [facility] Last Admin: 11/20/19 09:11 Dose: 40 mg Polyethylene Glycol (Miralax (For Daily Use) -) 17 gm PO BID [facility] Last Admin: 11/20/19 22:36 Dose: Not Given - Objective Vital Signs: Vital Signs Temperature 98 F 11/20/19 09:45 Pulse Rate 68 11/20/19 09:45 Respiratory Rate 20 02/19/20 09:45 Blood Pressure 120/50 L 11/20/19 09:45 O2 Sat by Pulse Oximetry (%) 93 L 11/20/19 22:00 Constitutional: Yes: No Distress, Anxious. No: Diaphoresis Eyes: Yes: Conjunctiva Clear, EOM Intact HENT: Yes: Atraumatic, Normocephalic Neck: Yes: Supple, Trachea Midline Cardiovascular: Yes: Regular Rate and Rhythm, S1, S2 Respiratory: Yes: Regular, CTA Bilaterally Gastrointestinal: Yes: Normal Bowel Sounds, Soft, Abdomen, Obese ...Rectal Exam: Yes: Deferred Genitourinary: No: Anuria Breast(s): Yes: WNL Extremities: Yes: Other (Left hip s/p IMN day # 3) Edema: No ...Motor Strength: WNL Psychiatric: Yes: Alert. No: Oriented, Agitated, Suicidal Ideation Labs: CBC, BMP 11/20/19 08:50 11/20/19 08:50 INR, PTT INR 1.03 (0.83-1.09) 11/17/19 12:15 Problem List - Problems (1) Hip fracture Assessment/Plan: D/C SNF, Pain management, Lovenox x 30 days. Code(s): S72.009A - FRACTURE OF UNSP PART OF NECK OF UNSP FEMUR, INIT Qualifiers: Encounter type: initial encounter Fracture type: closed Laterality: left Qualified Code(s): S72.002A - Fracture of unspecified part of neck of left femur, initial encounter for closed fracture (2) Urinary tract infection Assessment/Plan: P.Mirabilis S Keflex, Cefuroxine Code(s): N39.0 - URINARY TRACT INFECTION, SITE NOT SPECIFIED Qualifiers: Urinary tract infection type: site unspecified Hematuria presence: without hematuria Qualified Code(s): N39.0 - Urinary tract infection, site not specified (3) Abnormal x-ray of lung Assessment/Plan: Chronic COPD, ILD NC O2 PRN, nebs with duonebs. Code(s): R91.8 - OTHER NONSPECIFIC ABNORMAL FINDING OF LUNG FIELD (4) Aortic stenosis, moderate Assessment/Plan: Moderate stenosis, would maintain BP and HR controlled, avoid overload with fluids Code(s): I35.0 - NONRHEUMATIC AORTIC (VALVE) STENOSIS (5) CKD (chronic kidney disease) stage 3, GFR 30-59 ml/min Assessment/Plan: Noted elevation of BUN creat on 11/20/19 with Creatinine incresed drom 2.1 to 3.2 and BUN 67.8 Liley pre-renal component superimposed on CKD stage 3, Patient was removing IV fluids due to confusion. Now IV 1/2 NS in progress. Code(s): N18.3 - CHRONIC KIDNEY DISEASE, STAGE 3 (MODERATE)
--- NOTE | 2019-11-21 06:56 | DS ---
Physical Examination Vital Signs: Vital Signs Temperature 98 F 11/20/19 09:45 Pulse Rate 68 11/20/19 09:45 Respiratory Rate 20 11/20/19 09:45 Blood Pressure 120/50 L 11/20/19 09:45 O2 Sat by Pulse Oximetry (%) 93 L 11/20/19 22:00 Constitutional: Yes: Anxious, Mild Distress Eyes: Yes: Conjunctiva Clear, EOM Intact HENT: Yes: Atraumatic, Normocephalic Neck: Yes: Supple, Trachea Midline Cardiovascular: Yes: Regular Rate and Rhythm Respiratory: Yes: Regular, CTA Bilaterally Gastrointestinal: Yes: Normal Bowel Sounds, Soft, Abdomen, Obese ...Rectal Exam: Yes: Deferred Renal/: No: Anuria, Bladder Distention, CVA Tenderness - Left, CVA Tenderness - Right Breast(s): Yes: WNL Musculoskeletal: No: Joint Stiffness Extremities: Yes: Other (Left hip IMN) Peripheral Pulses WNL: No Psychiatric: Yes: Alert. No: Oriented, Agitated, Suicidal Ideation Labs: CBC, BMP 11/20/19 08:50 11/20/19 08:50 Discharge Summary Problems reviewed: Yes Reason For Visit: UTI, FRACTURE OF HIP, FALL Current Active Problems Atrial fibrillation (Acute) CKD (chronic kidney disease) stage 3, GFR 30-59 ml/min (Acute) Diastolic CHF (Acute) Hip fracture (Acute) Moderate aortic stenosis by prior echocardiogram (Acute) Urinary tract infection (Acute) - Instructions - Home Medications Comprehensive Discharge Medication List: Ambulatory Orders Allopurinol [Zyloprim -] 100 mg PO DAILY #30 tablet 11/24/12 Paroxetine HCl [Paxil] 40 mg PO DAILY 10/09/14 Atorvastatin Ca [Lipitor] 20 mg PO HS 04/28/19 Memantine HCl [Namenda -] 10 mg PO DAILY 04/28/19 Acetaminophen [Tylenol .Regular Strength -] 650 mg PO Q6H PRN tablet 05/04/19 Albuterol Sulfate 0.5% [Ventolin 0.5% Nebulizing Soln. -] 1 amp NEB Q4H PRN amp 05/04/19 Nystatin Cream [Mycostatin Cream -] 1 applic TP BID applic 05/04/19 Pantoprazole Sodium [Protonix -] 20 mg PO DAILY tablet.ec 05/04/19 Sennosides/Docusate Sodium [Pericolace -] 1 tablet PO BID tablet 05/04/19 Labetalol HCl [Normodyne -] 200 mg PO DAILY tablet 05/13/19 Acetaminophen [Tylenol .Regular Strength -] 650 mg PO Q6H PRN tablet 07/22/19 Albuterol 0.083% Nebulizer Gayathri [Ventolin 0.083% Nebulizer Soln -] 1 amp NEB Q6H PRN amp 07/22/19 Bacitracin - [Bacitracin Topical Ointment -] 1 applic TP TID tube 07/22/19 Mineral Oil/Pet Hy-Phl [Aquaphor -] 1 applic TP TID jar 07/22/19 Sulfamethoxazole/Trimethoprim [Bactrim Ds -] 1 tab PO BID #14 tablet 09/02/19
[2019-11-21] MEDS ORDERED: SODIUM CHLORIDE 0.45% 1,000 ML IV SCH (07:12)
--- NOTE | 2019-11-21 08:18 | PN ---
Progress Note (short form) - Note Progress Note: ORTHOPEDIC SURGERY PROGRESS NOTE Department of Orthopedic Surgery SUBJECTIVE No complaints currently. Alert confused and agitated again this morning, but currently resting comfortably in bed. No nausea or vomiting. Tolerating oral intake. Pain currently better controlled. Patient refused labs this am; Patient refused SCD's this am, and ripped off his dressings; Patient has been combative and non-compliant. PHYSICAL EXAMINATION General: Alert, currently resting comfortably. Lower Extremity: Dressing off; chrystal intact; no drainage, no signs of infection no erythema; Skin intact, no lesions, rashes or ulcers noted. Muscle mass equal and symmetric to contralateral side. No atrophy noted. No masses or effusions noted. No tenderness to palpation. EHL/TA/GS motor intact; SILT distally; 2+ DP pulses; Cap refill brisk. DVT Exam: No evidence of DVT seen on physical exam; No cords or calf tenderness ; No significant calf/ankle edema. Intake & Output 11/19/19 11/20/19 11/21/19 23:59 23:59 23:59 Intake Total 2330 955 900 Balance 2330 955 900 Intake: IV 1550 675 900 1/2 Normal Saline 1,000 1550 675 900 ml @ 75 mls/hr IV ASDIR [facility] Rx#:[id number] IVPB 100 Oral 500 280 0 Oral Supplement 80 TPN/PPN 100 Other: Voiding Method Diaper Diaper # Unmeasured Voids Void 1 1 2 Bowel Movement No No Active Medications Generic Name Dose Route Start Last Admin Trade Name Freq PRN Reason Stop Dose Admin Acetaminophen 650 mg 11/18/19 19:13 Tylenol - PO Q4H PRN PAIN LEVEL 1 - 3 Albuterol Sulfate 1 amp 11/18/19 19:13 Ventolin 0.083% Nebulizer Soln - NEB Q4H PRN SHORT OF BREATH/WHEEZING Atorvastatin Calcium 20 mg 11/18/19 22:00 11/20/19 22:36 Lipitor - PO Not Given HS [facility] Cefuroxime Axetil 500 mg 11/21/19 10:00 Ceftin - PO BID [facility] Enoxaparin Sodium 40 mg 11/19/19 10:00 11/20/19 09:11 Lovenox - SQ 40 mg DAILY [facility] Administration Sodium Chloride 1,000 mls @ 100 mls/hr 11/21/19 07:12 11/21/19 08:03 1/2 Normal Saline IV 100 mls/hr ASDIR [facility] Administration Lorazepam 0.5 mg 11/21/19 07:09 Ativan Injection - IM Q6H PRN AGITATION Memantine 10 mg 11/18/19 22:00 11/20/19 22:36 Namenda - PO Not Given HS [facility] Metoprolol Tartrate 25 mg 11/19/19 16:00 11/20/19 22:36 Lopressor - PO Not Given BID [facility] Morphine Sulfate 2 mg 11/19/19 13:28 11/20/19 15:06 Morphine Sulfate SQ 2 mg Q4H PRN Administration PAIN LEVEL 6-10 Pantoprazole Sodium 40 mg 11/19/19 10:00 11/20/19 09:10 Protonix - PO 40 mg DAILY [facility] Administration Paroxetine HCl 40 mg 11/19/19 10:00 11/20/19 09:11 Paxil - PO 40 mg DAILY [facility] Administration Polyethylene Glycol 17 gm 11/18/19 22:00 11/20/19 22:36 Miralax (For Daily Use) - PO Not Given BID [facility] Vital Signs (last) Temp Pulse Resp BP Pulse Ox 98 F 68 20 120/50 L 93 L 11/20/19 09:45 11/20/19 09:45 11/20/19 09:45 11/20/19 09:45 11/20/19 22:00 Laboratory (coagulation) PT with INR 12.10 SEC (9.7-13.0) 11/17/19 12:15 Laboratory 11/20/19 08:50 11/20/19 08:50 ASSESSMENT AND PLAN Mr. Martinez is a 89 year old male presenting status post left hip IMN POD 3 - Pain control: Transition to oral pain medications, minimize narcotic use - DVT prophylaxis (Lovenox 40mg SQ x 30 days); SCD's B/L LE at all times while in bed. - Ice to left hip - F/U labs - Elevate HOB, encourage oral intake - Appreciate medical management (Abx, nutrition optimization, decubitus precautions heel/sacrum) - PT Daily; WBAT LLE; OOB to chair - Dispo planning - Please have the patient follow up in my office on post op day 14 for x-rays and staple removal.
[2019-11-21] MEDS: ENOXAPARIN NA (PORCINE) 40 MG/0.4 ML DISP.SYRIN SQ SCH ×2 (08:42→09:03)
[2019-11-21] MEDS: CEFUROXIME AXETIL 500 MG TABLET PO SCH ×3 (08:43→21:26)
[2019-11-21] MEDS: PARoxetine HCL 20 MG TABLET PO SCH ×2 (08:43→09:04)
[2019-11-21] MEDS: PANTOPRAZOLE 40 MG TABLET PO SCH ×2 (08:43→09:04)
[2019-11-21] MEDS: POLYETHYLENE GLYCOL 3350 119 GM BTL PO SCH ×2 (09:04→21:28)
[2019-11-21] MEDS: METOPROLOL TARTRATE 25 MG TABLET (FP) PO SCH ×2 (09:04→21:26)
[2019-11-21 14:38] LABS: BLOOD UREA NITROGEN 71.3 mg/dL (7-18); CALCIUM 8.2 mg/dL (8.5-10.1); CREATININE 2.6 mg/dL (0.55-1.3); POTASSIUM 4.4 mmol/L (3.5-5.1)
[2019-11-21] MEDS: MORPHINE SULFATE 2 MG/ML VIAL SQ PRN ×2 (14:40→21:31)
[2019-11-21] MEDS: LORazepam 2 MG/ML SDV VIAL IM PRN (17:11)
--- NOTE | 2019-11-21 19:51 | CONSULT ---
Consult Consult Specialty:: Nephrology Reason for Consultation:: MAURO - History of Present Illness Chief Complaint: was found on the floor in [place] History of Present Illness: Pt is an 89 year old mal with pmhx of htn, ckd, hld, dementia, gerd, and prostate cancer who was found on the floor in the [place] and brought to the hospital. He is a poor historian and could not contribute to much of his history. He is known to me from previous visits. He was found to have a left hip fracture and was taken to OR. 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 His cane loader is improving with fluids. - History Source History Provided By: Medical Record - Past Medical History ASH WORKER: Yes: Dementia Cardio/Vascular: Yes: CAD, HTN, Hyperlipdemia Gastrointestinal: Yes: GERD Renal/: Yes: Renal Calculi, Other Psych: Yes: Depression Rheumatology: Yes: Gout ENT: Yes: Allergic Rhinitis - Past Surgical History Past Surgical History: Yes: Hernia Repair, Joint Replacement - Alcohol/Substance Use Hx Alcohol Use: No History of Substance Use: reports: None - Smoking History Smoking history: Former smoker Have you smoked in the past 12 months: No Aproximately how many cigarettes per day: 0 If you are a former smoker, when did you quit?: 49 yrs ago - Social History Usual Living Arrangement: Fdc ADL: Family Assistance History of Recent Travel: No Home Medications - Allergies Allergies/Adverse Reactions: Allergies Allergy/AdvReac Type Severity Reaction Status Date / Time No Known Allergies Allergy Verified 11/18/19 06:05 - Home Medications Home Medications: Ambulatory Orders Allopurinol [Zyloprim -] 100 mg PO DAILY #30 tablet 11/24/12 Paroxetine HCl [Paxil] 40 mg PO DAILY 10/09/14 Atorvastatin Ca [Lipitor] 20 mg PO HS 04/28/19 Memantine HCl [Namenda -] 10 mg PO DAILY 04/28/19 Acetaminophen [Tylenol .Regular Strength -] 650 mg PO Q6H PRN tablet 05/04/19 Albuterol Sulfate 0.5% [Ventolin 0.5% Nebulizing Soln. -] 1 amp NEB Q4H PRN amp 05/04/19 Nystatin Cream [Mycostatin Cream -] 1 applic TP BID applic 05/04/19 Pantoprazole Sodium [Protonix -] 20 mg PO DAILY tablet.ec 05/04/19 Sennosides/Docusate Sodium [Pericolace -] 1 tablet PO BID tablet 05/04/19 Labetalol HCl [Normodyne -] 200 mg PO DAILY tablet 05/13/19 Acetaminophen [Tylenol .Regular Strength -] 650 mg PO Q6H PRN tablet 07/22/19 Albuterol 0.083% Nebulizer Gayathri [Ventolin 0.083% Nebulizer Soln -] 1 amp NEB Q6H PRN amp 07/22/19 Bacitracin - [Bacitracin Topical Ointment -] 1 applic TP TID tube 07/22/19 Mineral Oil/Pet Hy-Phl [Aquaphor -] 1 applic TP TID jar 07/22/19 Sulfamethoxazole/Trimethoprim [Bactrim Ds -] 1 tab PO BID #14 tablet 09/02/19 Cefuroxime Axetil [Ceftin -] 500 mg PO Q12H #10 tablet 11/21/19 Enoxaparin [Lovenox -] 40 mg SQ DAILY #30 disp.syrin 11/21/19 Lorazepam [Ativan] 0.5 mg PO Q12H PRN #60 tablet MDD 1 mg 11/21/19 Oxycodone HCl/Acetaminophen [Percocet 5-325 mg Tablet] 1 tab PO Q6H #20 tablet MDD 4 11/21/19 Family Medical History Family History: Unable to Obtain Review of Systems Unable to obtain ROS, reason: poor historian - Review of Systems Constitutional: reports: No Symptoms HENT: reports: No Symptoms Cardiovascular: reports: No Symptoms Gastrointestinal: reports: No Symptoms Genitourinary: reports: No Symptoms Physical Exam Vital Signs: Vital Signs Temperature 97.9 F 11/21/19 14:43 Pulse Rate 63 11/21/19 14:43 Respiratory Rate 20 11/21/19 14:43 Blood Pressure 159/86 11/21/19 14:43 O2 Sat by Pulse Oximetry (%) 90 L 11/21/19 09:00 Constitutional: Yes: Calm Eyes: Yes: Conjunctiva Clear HENT: Yes: Atraumatic Cardiovascular: Yes: S1, S2 Respiratory: Yes: CTA Bilaterally Gastrointestinal: Yes: Soft Renal/: Yes: Incontinence Edema: No Integumentary: Yes: WNL Neurological: Yes: Confusion Labs: CBC, BMP 11/20/19 08:50 11/21/19 13:50 Imaging - Results X-ray: Report Reviewed Problem List - Problems (1) CKD (chronic kidney disease) stage 3, GFR 30-59 ml/min Code(s): N18.3 - CHRONIC KIDNEY DISEASE, STAGE 3 (MODERATE) Assessment/Plan Current Medications Generic Name Dose Route Start Last Admin Trade Name Freq PRN Reason Stop Dose Admin Acetaminophen 650 mg 11/18/19 19:13 Tylenol - PO Q4H PRN PAIN LEVEL 1 - 3 Albuterol Sulfate 1 amp 11/18/19 19:13 Ventolin 0.083% Nebulizer Soln - NEB Q4H PRN SHORT OF BREATH/WHEEZING Atorvastatin Calcium 20 mg 11/18/19 22:00 11/20/19 22:36 Lipitor - PO Not Given HS TARAS Cefuroxime Axetil 500 mg 11/21/19 10:00 11/21/19 09:03 Ceftin - PO Not Given BID TARAS Enoxaparin Sodium 40 mg 11/19/19 10:00 11/21/19 09:03 Lovenox - SQ Not Given DAILY [facility] Sodium Chloride 1,000 mls @ 100 mls/hr 11/21/19 07:12 11/21/19 08:03 1/2 Normal Saline IV 100 mls/hr ASDIR TARAS Administration Lorazepam 0.5 mg 11/21/19 07:09 11/21/19 17:11 Ativan Injection - IM 0.5 mg Q6H PRN Administration AGITATION Memantine 10 mg 11/18/19 22:00 11/20/19 22:36 Namenda - PO Not Given HS TARAS Metoprolol Tartrate 25 mg 11/19/19 16:00 11/21/19 09:04 Lopressor - PO 25 mg BID TARAS Administration Morphine Sulfate 2 mg 11/19/19 13:28 11/21/19 14:40 Morphine Sulfate SQ 2 mg Q4H PRN Administration PAIN LEVEL 6-10 Pantoprazole Sodium 40 mg 11/19/19 10:00 11/21/19 09:04 Protonix - PO Not Given DAILY TARAS Paroxetine HCl 40 mg 11/19/19 10:00 11/21/19 09:04 Paxil - PO Not Given DAILY [facility] Polyethylene Glycol 17 gm 11/18/19 22:00 11/21/19 09:04 Miralax (For Daily Use) - PO 17 gm BID TARAS Administration Impression 1. MAURO 2. CKD 3. s/p hip fracture 4. prostate cancer 5. dementia Plan - renal function starting to improve - check ua, lytes and cane loader - check renal ultrasound to r/o obstruction as he has hx of prostate ca - avoid nsaids - repeat labs in am
[2019-11-21] MEDS: MEMANTINE HCL 10 MG TABLET (FP) PO SCH (21:26)
[2019-11-21] MEDS: ATORVASTATIN CA 20 MG TABLET (FP) PO SCH (21:26)
[2019-11-22] MEDS: LORazepam 2 MG/ML SDV VIAL IM PRN ×2 (03:47→15:18)
--- NOTE | 2019-11-22 08:32 | PN ---
Progress Note (short form) - Note Progress Note: ORTHOPEDIC SURGERY PROGRESS NOTE Department of Orthopedic Surgery SUBJECTIVE No complaints currently. Alert confused and agitated again this morning, but currently resting comfortably in bed. No nausea or vomiting. Tolerating oral intake. Pain currently better controlled. Patient refused labs this am; Patient refused SCD's again this am, and continues to rip off any dressings applied; Patient has been combative and non-compliant. PHYSICAL EXAMINATION General: Alert, currently resting comfortably. Lower Extremity: Dressing off; chrystal intact; no drainage, no signs of infection no erythema; Skin intact, no lesions, rashes or ulcers noted. Muscle mass equal and symmetric to contralateral side. No atrophy noted. No masses or effusions noted. No tenderness to palpation. EHL/TA/GS motor intact; SILT distally; 2+ DP pulses; Cap refill brisk. DVT Exam: No evidence of DVT seen on physical exam; No cords or calf tenderness ; No significant calf/ankle edema. Intake & Output 11/20/19 11/21/19 11/22/19 23:59 23:59 23:59 Intake Total 955 2825 240 Balance 955 2825 240 Intake: IV 675 1725 1/2 Normal Saline 1,949 020 6415 ml @ 75 mls/hr IV ASDIR TARAS Rx#:[id number] Oral 280 440 240 Oral Supplement 660 Other: Voiding Method Diaper Diaper # Unmeasured Voids Void 1 2 2 Bowel Movement No No No Active Medications Generic Name Dose Route Start Last Admin Trade Name Freq PRN Reason Stop Dose Admin Acetaminophen 650 mg 11/18/19 19:13 Tylenol - PO Q4H PRN PAIN LEVEL 1 - 3 Albuterol Sulfate 1 amp 11/18/19 19:13 Ventolin 0.083% Nebulizer Soln - NEB Q4H PRN SHORT OF BREATH/WHEEZING Atorvastatin Calcium 20 mg 11/18/19 22:00 11/21/19 21:26 Lipitor - PO 20 mg HS TARAS Administration Cefuroxime Axetil 500 mg 11/21/19 10:00 11/21/19 21:26 Ceftin - PO 500 mg BID TARAS Administration Enoxaparin Sodium 40 mg 11/19/19 10:00 11/21/19 09:03 Lovenox - SQ Not Given DAILY [facility] Sodium Chloride 1,000 mls @ 100 mls/hr 11/21/19 07:12 11/21/19 08:03 1/2 Normal Saline IV 100 mls/hr ASDIR TARAS Administration Lorazepam 0.5 mg 11/21/19 07:09 11/22/19 03:47 Ativan Injection - IM 0.5 mg Q6H PRN Administration AGITATION Memantine 10 mg 11/18/19 22:00 11/21/19 21:26 Namenda - PO 10 mg HS TARAS Administration Metoprolol Tartrate 25 mg 11/19/19 16:00 11/21/19 21:26 Lopressor - PO 25 mg BID TARAS Administration Morphine Sulfate 2 mg 11/19/19 13:28 11/21/19 21:31 Morphine Sulfate SQ 2 mg Q4H PRN Administration PAIN LEVEL 6-10 Pantoprazole Sodium 40 mg 11/19/19 10:00 11/21/19 09:04 Protonix - PO Not Given DAILY TARAS Paroxetine HCl 40 mg 11/19/19 10:00 11/21/19 09:04 Paxil - PO Not Given DAILY TARAS Polyethylene Glycol 17 gm 11/18/19 22:00 11/21/19 21:28 Miralax (For Daily Use) - PO 17 gm BID TARAS Administration Vital Signs (last) Temp Pulse Resp BP Pulse Ox 98.1 F 92 H 20 158/84 92 L 11/22/19 07:36 11/22/19 07:36 11/22/19 07:36 11/22/19 07:36 11/21/19 20:34 Laboratory (coagulation) PT with INR 12.10 SEC (9.7-13.0) 11/17/19 12:15 Laboratory 11/20/19 08:50 ASSESSMENT AND PLAN Mr. Martinez is a 89 year old male presenting status post left hip IMN POD 4 - Pain control: Transition to oral pain medications, minimize narcotic use - DVT prophylaxis (Lovenox 40mg SQ x 30 days); SCD's B/L LE at all times while in bed. - Ice to left hip - F/U labs - Elevate HOB, encourage oral intake - Continue medical management (Abx, nutrition optimization, decubitus precautions heel/sacrum) - PT Daily; WBAT LLE; OOB to chair - Dispo planning - Please have the patient follow up in my office on post op day 14 for x-rays and staple removal.
[2019-11-22 08:41] LABS: ALBUMIN 2.7 g/dl (3.4-5.0); BILIRUBIN,TOTAL 0.6 mg/dL (0.2-1); BLOOD UREA NITROGEN 67.7 mg/dL (7-18); CALCIUM 8.5 mg/dL (8.5-10.1); CREATININE 2.2 mg/dL (0.55-1.3); POTASSIUM 3.9 mmol/L (3.5-5.1)
--- NOTE | 2019-11-22 09:22 | PN ---
Progress Note, Physician Chief Complaint: Renal function is improving. Resting comfortably in bed History of Present Illness: Right hip ORIF. History of frequent falling. Dementia Gout, OA CKD 3 Paroxysmal A.Fib HTN. ASHD. COPD. GERD UTI. Mild . Diastolic CHF - Current Medication List Current Medications: Active Medications Acetaminophen (Tylenol -) 650 mg PO Q4H PRN PRN Reason: PAIN LEVEL 1 - 3 Albuterol Sulfate (Ventolin 0.083% Nebulizer Soln -) 1 amp NEB Q4H PRN PRN Reason: SHORT OF BREATH/WHEEZING Atorvastatin Calcium (Lipitor -) 20 mg PO HS [facility] Last Admin: 11/21/19 21:26 Dose: 20 mg Cefuroxime Axetil (Ceftin -) 500 mg PO BID [facility] Last Admin: 11/21/19 21:26 Dose: 500 mg Enoxaparin Sodium (Lovenox -) 40 mg SQ DAILY [facility] Last Admin: 11/21/19 09:03 Dose: Not Given Sodium Chloride (1/2 Normal Saline) 1,000 mls @ 100 mls/hr IV ASDIR [facility] Last Admin: 11/21/19 08:03 Dose: 100 mls/hr Lorazepam (Ativan Injection -) 0.5 mg IM Q6H PRN PRN Reason: AGITATION Last Admin: 11/22/19 03:47 Dose: 0.5 mg Memantine (Namenda -) 10 mg PO [facility] Last Admin: 11/21/19 21:26 Dose: 10 mg Metoprolol Tartrate (Lopressor -) 25 mg PO BID [facility] Last Admin: 11/21/19 21:26 Dose: 25 mg Morphine Sulfate (Morphine Sulfate) 2 mg SQ Q4H PRN PRN Reason: PAIN LEVEL 6-10 Last Admin: 11/21/19 21:31 Dose: 2 mg Pantoprazole Sodium (Protonix -) 40 mg PO DAILY [facility] Last Admin: 11/21/19 09:04 Dose: Not Given Paroxetine HCl (Paxil -) 40 mg PO DAILY [facility] Last Admin: 11/21/19 09:04 Dose: Not Given Polyethylene Glycol (Miralax (For Daily Use) -) 17 gm PO BID [facility] Last Admin: 11/21/19 21:28 Dose: 17 gm - Objective Vital Signs: Vital Signs Temperature 98.1 F 11/22/19 07:36 Pulse Rate 92 H 11/22/19 07:36 Respiratory Rate 20 11/22/19 07:36 Blood Pressure 158/84 11/22/19 07:36 O2 Sat by Pulse Oximetry (%) 92 L 11/21/19 20:34 Constitutional: Yes: No Distress, Calm Eyes: Yes: Conjunctiva Clear, EOM Intact HENT: Yes: Atraumatic, Normocephalic Neck: Yes: Supple, Trachea Midline Cardiovascular: Yes: Regular Rate and Rhythm, S1, S2 Respiratory: Yes: Regular, CTA Bilaterally Gastrointestinal: Yes: Normal Bowel Sounds, Soft ...Rectal Exam: Yes: Deferred Musculoskeletal: Yes: Other (Left hip IMN) Extremities: No: Amputation, Calf Tenderness, Cold Edema: No Peripheral Pulses WNL: No Integumentary: Yes: Skin Tear (left forearm) ...Motor Strength: WNL Psychiatric: Yes: Alert. No: Oriented, Agitated, Suicidal Ideation Additional Findings/Remarks: Laboratory Results - last 24 hr 11/21/19 11/22/19 13:50 07:50 Sodium 142 141 Potassium 4.4 3.9 Chloride 112 H 111 H Carbon Dioxide 23 24 Anion Gap 7 L 6 L BUN 71.3 H 67.7 H Creatinine 2.6 H 2.2 H Est GFR (CKD-EPI)AfAm 24.25 29.68 Est GFR (CKD-EPI)NonAf 20.93 25.61 Random Glucose 109 H 88 Calcium 8.2 L 8.5 Total Bilirubin 0.6 AST 46 H ALT 20 Alkaline Phosphatase 71 Total Protein 6.0 L Albumin 2.7 L Labs: CBC, BMP 11/20/19 08:50 11/22/19 07:50 INR, PTT INR 1.03 (0.83-1.09) 11/17/19 12:15 Problem List - Problems (1) Hip fracture Assessment/Plan: D/C SNF, Pain management, Lovenox x 30 days. Code(s): S72.009A - FRACTURE OF UNSP PART OF NECK OF UNSP FEMUR, INIT Qualifiers: Encounter type: initial encounter Fracture type: closed Laterality: left Qualified Code(s): S72.002A - Fracture of unspecified part of neck of left femur, initial encounter for closed fracture (2) Urinary tract infection Assessment/Plan: P.Mirabilis S Keflex, Cefuroxine Code(s): N39.0 - URINARY TRACT INFECTION, SITE NOT SPECIFIED Qualifiers: Urinary tract infection type: site unspecified Hematuria presence: without hematuria Qualified Code(s): N39.0 - Urinary tract infection, site not specified (3) Abnormal x-ray of lung Assessment/Plan: Chronic COPD, ILD NC O2 PRN, nebs with duonebs. Code(s): R91.8 - OTHER NONSPECIFIC ABNORMAL FINDING OF LUNG FIELD (4) Aortic stenosis, moderate Assessment/Plan: Moderate stenosis, would maintain BP and HR controlled, avoid overload with fluids Code(s): I35.0 - NONRHEUMATIC AORTIC (VALVE) STENOSIS (5) CKD (chronic kidney disease) stage 3, GFR 30-59 ml/min Assessment/Plan: Renal function improved. Will continue to encourage PO hydration. Code(s): N18.3 - CHRONIC KIDNEY DISEASE, STAGE 3 (MODERATE)
[2019-11-22] MEDS: POLYETHYLENE GLYCOL 3350 119 GM BTL PO SCH (10:00)
[2019-11-22] MEDS: PARoxetine HCL 20 MG TABLET PO SCH (10:37)
[2019-11-22] MEDS: ENOXAPARIN NA (PORCINE) 40 MG/0.4 ML DISP.SYRIN SQ SCH (10:37)
[2019-11-22] MEDS: METOPROLOL TARTRATE 25 MG TABLET (FP) PO SCH (10:37)
[2019-11-22] MEDS: CEFUROXIME AXETIL 500 MG TABLET PO SCH (10:37)
[2019-11-22] MEDS: PANTOPRAZOLE 40 MG TABLET PO SCH (10:37)
[2019-11-22] MEDS: MORPHINE SULFATE 2 MG/ML VIAL SQ PRN (12:28)
[2019-11-22 14:13] VITALS: BP 151/96; PULSE 72; TEMP 97.5
--- NOTE | 2019-11-22 14:50 | PN ---
Progress Note, Physician History of Present Illness: Pt seen and examined at bedside. He remains confused. He denies shortness of breath. - Current Medication List Current Medications: Active Medications Acetaminophen (Tylenol -) 650 mg PO Q4H PRN PRN Reason: PAIN LEVEL 1 - 3 Albuterol Sulfate (Ventolin 0.083% Nebulizer Soln -) 1 amp NEB Q4H PRN PRN Reason: SHORT OF BREATH/WHEEZING Atorvastatin Calcium (Lipitor -) 20 mg PO HS [facility] Last Admin: 11/21/19 21:26 Dose: 20 mg Cefuroxime Axetil (Ceftin -) 500 mg PO BID [facility] Last Admin: 11/22/19 10:37 Dose: 500 mg Enoxaparin Sodium (Lovenox -) 40 mg SQ DAILY [facility] Last Admin: 11/22/19 10:37 Dose: 40 mg Sodium Chloride (1/2 Normal Saline) 1,000 mls @ 100 mls/hr IV ASDIR [facility] Last Admin: 11/21/19 08:03 Dose: 100 mls/hr Lorazepam (Ativan Injection -) 0.5 mg IM Q6H PRN PRN Reason: AGITATION Last Admin: 11/22/19 03:47 Dose: 0.5 mg Memantine (Namenda -) 10 mg PO HS [facility] Last Admin: 11/21/19 21:26 Dose: 10 mg Metoprolol Tartrate (Lopressor -) 25 mg PO BID [facility] Last Admin: 11/22/19 10:37 Dose: 25 mg Pantoprazole Sodium (Protonix -) 40 mg PO DAILY [facility] Last Admin: 11/22/19 10:37 Dose: 40 mg Paroxetine HCl (Paxil -) 40 mg PO DAILY [facility] Last Admin: 11/22/19 10:37 Dose: 40 mg Polyethylene Glycol (Miralax (For Daily Use) -) 17 gm PO BID [facility] Last Admin: 11/22/19 10:00 Dose: 17 gm - Objective Vital Signs: Vital Signs Temperature 97.5 F L 11/22/19 14:12 Pulse Rate 72 11/22/19 14:12 Respiratory Rate 11/22/19 14:12 Blood Pressure 151/96 11/22/19 14:12 O2 Sat by Pulse Oximetry (%) 92 L 11/21/19 20:34 Constitutional: Yes: Calm Eyes: Yes: Conjunctiva Clear Cardiovascular: Yes: S1, S2 Respiratory: Yes: CTA Bilaterally Gastrointestinal: Yes: Soft Genitourinary: Yes: WNL Edema: No Neurological: Yes: Confusion Labs: CBC, BMP 11/20/19 08:50 11/22/19 07:50 INR, PTT INR 1.03 (0.83-1.09) 11/17/19 12:15 Problem List - Problems (1) CKD (chronic kidney disease) stage 3, GFR 30-59 ml/min Code(s): N18.3 - CHRONIC KIDNEY DISEASE, STAGE 3 (MODERATE) Assessment/Plan Current Medications Generic Name Dose Route Start Last Admin Trade Name Freq PRN Reason Stop Dose Admin Acetaminophen 650 mg 11/18/19 19:13 Tylenol - PO Q4H PRN PAIN LEVEL 1 - 3 Albuterol Sulfate 1 amp 11/18/19 19:13 Ventolin 0.083% Nebulizer Soln - NEB Q4H PRN SHORT OF BREATH/WHEEZING Atorvastatin Calcium 20 mg 11/18/19 22:00 11/21/19 21:26 Lipitor - PO 20 mg HS TARAS Administration Cefuroxime Axetil 500 mg 11/21/19 10:00 11/22/19 10:37 Ceftin - PO 500 mg BID TARAS Administration Enoxaparin Sodium 40 mg 11/19/19 10:00 11/22/19 10:37 Lovenox - SQ 40 mg DAILY TARAS Administration Sodium Chloride 1,000 mls @ 100 mls/hr 11/21/19 07:12 11/21/19 08:03 1/2 Normal Saline IV 100 mls/hr ASDIR TARAS Administration Lorazepam 0.5 mg 11/21/19 07:09 11/22/19 03:47 Ativan Injection - IM 0.5 mg Q6H PRN Administration AGITATION Memantine 10 mg 11/18/19 22:00 11/21/19 21:26 Namenda - PO 10 mg HS TARAS Administration Metoprolol Tartrate 25 mg 11/19/19 16:00 11/22/19 10:37 Lopressor - PO 25 mg BID TARAS Administration Pantoprazole Sodium 40 mg 11/19/19 10:00 11/22/19 10:37 Protonix - PO 40 mg DAILY TARAS Administration Paroxetine HCl 40 mg 11/19/19 10:00 11/22/19 10:37 Paxil - PO 40 mg DAILY TARAS Administration Polyethylene Glycol 17 gm 11/18/19 22:00 11/22/19 10:00 Miralax (For Daily Use) - PO 17 gm BID TARAS Administration Impression 1. MAURO 2. CKD 3. s/p hip fracture 4. prostate cancer 5. dementia Plan - renal function improved - pt responded to fluids, likely prerenal disease - decrease rate of fluids - renal ultrasound reviewed, neg hydro - avoid nsaids - repeat labs in am
== END 2019-11-22 18:39 | DRG 481 ==
LOC: JER 11:07 → JERBED 14:33 → J6S 11-18 20:14
PROVIDERS: ADMIT Internal Medicine; ATTEND Internal Medicine
PROC: 0QS706Z Reposition Left Upper Femur with Intramedullary Internal Fixation Device, Open Approach (ICD-10-PCS; principal; 2019-11-18 14:00)
DX: S72.142A Displaced intertrochanteric fracture of left femur, initial encounter for closed fracture (principal); N39.0 Urinary tract infection, site not specified; I47.1 Supraventricular tachycardia; E87.0 Hyperosmolality and hypernatremia; I13.0 Hypertensive heart and chronic kidney disease with heart failure and stage 1 through stage 4 chronic kidney disease, or unspecified chronic kidney disease; I50.32 Chronic diastolic (congestive) heart failure; N17.9 Acute kidney failure, unspecified; G30.9 Alzheimer's disease, unspecified; F02.80 Dementia in other diseases classified elsewhere, unspecified severity, without behavioral disturbance, psychotic disturbance, mood disturbance, and anxiety; I48.0 Paroxysmal atrial fibrillation; J44.9 Chronic obstructive pulmonary disease, unspecified; F32.9 Major depressive disorder, single episode, unspecified; I35.0 Nonrheumatic aortic (valve) stenosis; K21.9 Gastro-esophageal reflux disease without esophagitis; M10.9 Gout, unspecified; N18.3 Chronic kidney disease, stage 3 (moderate); W19.XXXA Unspecified fall, initial encounter; Y93.89 Activity, other specified; Y92.129 Unspecified place in nursing home as the place of occurrence of the external cause; Y99.8 Other external cause status; E78.5 Hyperlipidemia, unspecified
CPT/HCPCS: 36415; 70450-TC; 71045-TC-FY; 73502-TC-LT-FY; 73523-TC-FY; 73552-TC-LT-FY; 76000-TC-FY; 76775-TC; 76856-TC; 80048; 80053; 81003; 85025; 85027; 85610; 85730; 86850; 86900; 86901; 87086; 87186; 93005; 93010; 93306-TC; 94760; 97116-GP; 97161-GP; 99285-25; J0131